=== PATIENT | female | born 1960 | race Caucasian/White ===

== ENCOUNTER 2017-03-02 11:48 | Inpatient (IN) ==
[2017-03-02] MEDS: 0.9 % Sodium Chloride 1,000 ML IVC SCH ×3 (13:07→15:20)
[2017-03-02 13:47] LABS: VBG HCO3 6.9 mEq/L (21-27)
[2017-03-02 13:49] LABS: Basophils # 0.1 K/mcL (0.0-0.2); Basophils % 0.8 %; Eosinophils # 0.1 K/mcL (0.0-0.6); Eosinophils % 1.2 %; Hematocrit 47.1 % (35.3-44.9); Immature Granulocytes % 2.8 % (0-4); Lymphocytes # 2.8 K/mcL (0.6-4.6); Lymphocytes % 24.9 %; Mean Corpuscular Volume 87.9 fL (83.0-100.0); Mean Platelet Volume 8.6 fL (9.4-12.4); Monocytes # 0.7 K/mcL (0.0-1.3); Monocytes % 6.3 %; Neutrophils # 7.2 K/mcL (1.6-8.9); Platelet Count 434 K/mcL (140-400); Red Blood Count 5.36 M/mcL (3.82-4.97); Red Cell Distribution Width 13.8 % (11.5-14.5)
[2017-03-02 13:52] LABS: VBG PH 7.03 pH Units (7.32-7.42)
[2017-03-02] MEDS ORDERED: Ondansetron 4 MG/2 ML VIAL IVP ONE ×2 (13:52→21:03)
[2017-03-02] MEDS ORDERED: *HR* HYDROmorphone (PF) 1 MG/ML SYRINGE IVP ONE ×2 (13:52→14:49)
[2017-03-02] MEDS ORDERED: *HR* Dextrose 50 % in Water (Syg) 50 ML SYRINGE IVP PRN ×2 (13:53→17:00)
--- NOTE | 2017-03-02 13:54 | Emergency Department Note ---
Disposition Clinical Impression: DKA (diabetic ketoacidoses) Qualifiers: Diabetes mellitus type: other specified (including SHAHZAD) Diabetes mellitus complication detail: without coma Qualified Code(s): E13.10 - Other specified diabetes mellitus with ketoacidosis without coma Disposition: Admitted As Inpatient Condition: Fair Referrals: Shashank Moon DO [Primary Care Provider] - Forms: ED Satisfaction Letter Weakness HPI - General Chief complaint: ED Back Pain/Injury Stated complaint: "hyperglycemic/kidney pain Source: patient, EMS Mode of arrival: EMS Limitations: no limitations Nursing Notes Reviewed: Yes Vital Signs Reviewed: Yes - History of Present Illness Pt Subjective Complaint: generalized weakness/fatigue Onset (ago): day(s) (4) Duration: gradually worsening Location: generalized Pain Scale: 9 (Chronic back pain) Improves with: none Worsens with: none Context: other (She did not take any insulin today she has been nauseous and started vomiting today) Associated symptoms: Reports: diaphoresis, nausea/vomiting - Related Data Home Medications Medication Instructions Recorded Confirmed Humalog 10/09/16 Lantus Solostar 10/09/16 Metoprolol 10/09/16 10/09/16 Percocet 5-325 mg Tablet 10/09/16 Previous Rx's Medication Instructions Recorded Ondansetron [Zofran ODT] 8 mg SL Q4HR PRN #14 tab.rapdis 05/10/16 Clindamycin HCl [Cleocin HCl] 300 mg PO TID #30 cap 10/09/16 L. Acidophilus/Pectin, [place] 2 cap PO Q6-12H #50 capsule 10/09/16 [Acidophilus Probiotic Capsule] Mupirocin [Bactroban Oint] 1 appl TP BID #22 g 10/09/16 Allergies Allergy/AdvReac Type Severity Reaction Status Date / Time morphine Allergy See Verified 06/09/15 07:09 Comments Quinolones Allergy See Verified 08/30/15 14:18 Comments acetaminophen [From Tylenol] AdvReac bad Verified 06/05/15 01:44 reaction codeine AdvReac See Verified 06/09/15 07:09 Comments hydrocodone [From Vicodin] AdvReac bad Verified 06/05/15 01:44 reaction levofloxacin [From Levaquin] AdvReac Hives Verified 06/05/15 01:44 NSAIDS (Non-Steroidal AdvReac bad Verified 06/05/15 01:44 Anti-Inflamma reaction Opioids - Morphine Analogues AdvReac See Verified 06/09/15 07:43 Comments All systems ED: reviewed and negative except as stated. Constitutional: Reports: weakness Cardiovascular: Denies: chest pain Gastrointestinal: Reports: nausea, vomiting Neurological: Reports: weakness Past Medical History - Past Medical History Source: patient, old records reviewed, nursing notes reviewed Medical history: Reports: diabetes, other Surgical history: Reports: appendectomy, , cholecystectomy, hysterectomy, orthopedic, other, other Psychiatric history: Reports: anxiety, depression - Social History Smoking Status: Current every day smoker Smokeless Tobacco Status: No Alcohol use: Reports: none Drug use: Reports: none Physical Exam - General General appearance: alert, in distress, other (Patient seems weak she is able to name only with assistance ill but nontoxic-appearing) - Eye Eye exam: Present: normal appearance, PERRL, EOMI - ENT ENT exam: normal exam, normal oropharynx, mucous membranes moist - Neck Neck exam: Present: normal inspection, full ROM, trachea midline - Chest Chest inspection: Present: normal inspection - Respiratory Respiratory exam: Present: normal lung sounds bilaterally - Cardiovascular Cardiovascular exam: Present: tachycardia - Abdominal Exam Abdominal exam: Present: soft, Non-Tender. Absent: tenderness, distention, guarding, rebound, rigidity - Neurological Exam Neurological exam: Present: alert, oriented X3 - Psychiatric Psychiatric exam: Present: flat affect - Skin Skin exam: Present: diaphoresis Course Course Narrative: She has asked for several doses of pain medication she states she states Percocet 10 mg and also has a TENS unit in her spine she has chronic back pain and needs her pain medications daily. I told her we had to give her small doses slowly due to her severe metabolic abnormalities and acidosis we do not want to alter her mental status Vital Signs Temperature 98.4 F 03/02/17 11:52 Pulse Rate 128 03/02/17 11:52 Respiratory Rate 20 03/02/17 11:52 Blood Pressure 154/82 03/02/17 11:52 O2 Sat by Pulse Oximetry 92 03/02/17 11:52 Temperature 98.4 F 03/02/17 11:52 Pulse Rate 122 03/02/17 14:16 Respiratory Rate 18 03/02/17 14:16 Blood Pressure 159/88 03/02/17 14:16 O2 Sat by Pulse Oximetry 98 03/02/17 14:16 Oxygen Delivery Oxygen Delivery Room Air Weakness - Differential Diagnosis Differential Diagnosis: Likely: anemia, hypoglycemia, sepsis/infection, dehydration, metabolic, thyroid/endocrine disorder - Medical Records Medical records reviewed: Yes I reviewed the patient's medical records. - Lab Data Lab results reviewed: Yes I reviewed the patient's lab results. Result diagrams: 03/02/17 13:29 03/02/17 13:29 Lab Results 03/02/17 03/02/17 03/02/17 Range/Units 13:29 13:29 13:29 WBC 11.3 H (4.3-11.1) K/mcL RBC 5.36 H (3.82-4.97) M/mcL Hgb 15.4 (11.5-15.4) g/dL Hct 47.1 H (35.3-44.9) % MCV 87.9 (83.0-100.0) fL MCH 28.8 (28.0-33.3) pg MCHC 34.2 (31.6-35.5) g/dL RDW 13.8 (11.5-14.5) % Plt Count 434 H (140-400) K/mcL MPV 8.6 L (9.4-12.4) fL Immature Gran % 2.8 (0-4) % Seg Neutrophils % 64.0 % Lymphocytes % 24.9 % Monocytes % 6.3 % Eosinophils % 1.2 % Basophils % 0.8 % Neutrophils # 7.2 (1.6-8.9) K/mcL Lymphocytes # 2.8 (0.6-4.6) K/mcL Monocytes # 0.7 (0.0-1.3) K/mcL Eosinophils # 0.1 (0.0-0.6) K/mcL Basophils # 0.1 (0.0-0.2) K/mcL VBG pH (7.32-7.42) pH Units VBG pCO2 (41-51) mmHg VBG pO2 (25-40) mmHg VBG HCO3 (21-27) mEq/L Sodium 133 L (136-145) mEq/L Potassium 4.1 (3.5-4.5) mEq/L Chloride 101 (98-109) mEq/L Carbon Dioxide 6 L* (19-29) mEq/L BUN 16 (7-20) mg/dL Creatinine 1.14 H (0.57-1.11) mg/dL Est GFR ( Amer) > 60 (> 60) Est GFR (Non-Af Amer) 50 L (> 60) BUN/Creatinine Ratio 14 (6-26) Glucose 493 H (70-99) mg/dL Est Mean Plasma Glucose 243 mg/dl Hemoglobin A1c 10.1 H ( - 5.6) % Calculated Osmolality 299 (280-300) Calcium 8.5 L (8.6-10.8) mg/dL Phosphorus 4.1 (2.3-4.7) mg/dL Magnesium 1.7 (1.6-2.6) mg/dL Total Bilirubin 0.2 (0.2-1.2) mg/dL AST 23 (5-34) Units/L ALT 30 (0-55) Units/L Alkaline Phosphatase 217 H (38-126) Units/L Serum Total Protein 6.1 (6.0-8.3) g/dL Albumin 3.6 (3.5-5.0) g/dL Globulin 2.5 (2.4-3.5) g/dL Albumin/Globulin Ratio 1.4 (1.1-2.2) Beta-Hydroxybutyric Acd > 2.00 H (0.02-0.27) mmol/L 03/02/17 Range/Units 13:29 WBC (4.3-11.1) K/mcL RBC (3.82-4.97) M/mcL Hgb (11.5-15.4) g/dL Hct (35.3-44.9) % MCV (83.0-100.0) fL MCH (28.0-33.3) pg MCHC (31.6-35.5) g/dL RDW (11.5-14.5) % Plt Count (140-400) K/mcL MPV (9.4-12.4) fL Immature Gran % (0-4) % Seg Neutrophils % % Lymphocytes % % Monocytes % % Eosinophils % % Basophils % % Neutrophils # (1.6-8.9) K/mcL Lymphocytes # (0.6-4.6) K/mcL Monocytes # (0.0-1.3) K/mcL Eosinophils # (0.0-0.6) K/mcL Basophils # (0.0-0.2) K/mcL VBG pH 7.03 L* (7.32-7.42) pH Units VBG pCO2 26 L (41-51) mmHg VBG pO2 55 H (25-40) mmHg VBG HCO3 6.9 L (21-27) mEq/L Sodium (136-145) mEq/L Potassium (3.5-4.5) mEq/L Chloride (98-109) mEq/L Carbon Dioxide (19-29) mEq/L BUN (7-20) mg/dL Creatinine (0.57-1.11) mg/dL Est GFR ( Amer) (> 60) Est GFR (Non-Af Amer) (> 60) BUN/Creatinine Ratio (6-26) Glucose (70-99) mg/dL Est Mean Plasma Glucose mg/dl Hemoglobin A1c ( - 5.6) % Calculated Osmolality (280-300) Calcium (8.6-10.8) mg/dL Phosphorus (2.3-4.7) mg/dL Magnesium (1.6-2.6) mg/dL Total Bilirubin (0.2-1.2) mg/dL AST (5-34) Units/L ALT (0-55) Units/L Alkaline Phosphatase (38-126) Units/L Serum Total Protein (6.0-8.3) g/dL Albumin (3.5-5.0) g/dL Globulin (2.4-3.5) g/dL Albumin/Globulin Ratio (1.1-2.2) Beta-Hydroxybutyric Acd (0.02-0.27) mmol/L Critical Care Time Critical Care Time: Yes Total Critical Care Time: 40 Attestation: Critical care performed: Time is exclusive of separately billable procedures. Time includes: direct patient care, patient reassessment, coordination of patient care, interpretation of data (laboratory data, radiology data, and respiratory data), review of patient's medical records, medical consultation and documentation of patient care. Procedures included in critical care time: Procedures excluded from critical care time:
[2017-03-02] MEDS ORDERED: Insulin Human Regular 100 UNIT in 0.9 % Sodium Chloride 100 ML IVC SCH (14:00)
[2017-03-02 14:02] LABS: Beta-Hydroxybutyric Acid > 2.00 mmol/L (0.02-0.27)
[2017-03-02 14:04] LABS: Hemoglobin A1C 10.1 %
[2017-03-02 14:28] LABS: Mean Corpuscular Hemoglobin 28.8 pg (28.0-33.3)
[2017-03-02 14:29] LABS: Hemoglobin 15.4 g/dL (11.5-15.4); Mean Corpuscular HGB Conc 34.2 g/dL (31.6-35.5)
[2017-03-02 14:43] LABS: eGFR For African Americans > 60 (> 60)
[2017-03-02 14:46] LABS: Sodium 133 mEq/L (136-145)
[2017-03-02 14:47] LABS: BUN/Creatinine Ratio 14 (6-26); Osmolality,Calculated 299 (280-300); eGFR For Non-African Americans 50 (> 60)
[2017-03-02 14:49] LABS: Albumin/Globulin Ratio 1.4 (1.1-2.2); Globulin 2.5 g/dL (2.4-3.5)
[2017-03-02 14:52] LABS: Carbon Dioxide 6 mEq/L (19-29); Potassium 4.1 mEq/L (3.5-4.5)
[2017-03-02 14:53] LABS: Blood Urea Nitrogen 16 mg/dL (7-20); Chloride 101 mEq/L (98-109)
[2017-03-02 14:54] LABS: Calcium 8.5 mg/dL (8.6-10.8); Glucose 493 mg/dL (70-99); Magnesium 1.7 mg/dL (1.6-2.6); Phosphorous 4.1 mg/dL (2.3-4.7)
[2017-03-02 14:55] LABS: Alanine Aminotransferase 30 Units/L (0-55); Albumin 3.6 g/dL (3.5-5.0); Alkaline Phosphatase 217 Units/L (38-126); Aspartate Amino Transferase 23 Units/L (5-34); Bilirubin,Total 0.2 mg/dL (0.2-1.2); Total Protein 6.1 g/dL (6.0-8.3)
[2017-03-02] MEDS: Insulin Human Regular 100 UNIT in 0.9 % Sodium Chloride 100 ML IVC SCH (16:50)
[2017-03-02] MEDS ORDERED: Insulin Regular, Human 100 UNIT/ML IV PRN (17:00)
[2017-03-02] MEDS ORDERED: 0.45 % Sodium Chloride w/KCl 20 MEQ/1,000 ML MLS IVC SCH (17:30)
[2017-03-02] MEDS ORDERED: SUMAtriptan succinate 50 MG TABLET PO PRN (17:44)
[2017-03-02 18:01] LABS: VBG HCO3 7.4 mEq/L (21-27)
[2017-03-02 18:05] LABS: VBG PH 6.96 pH Units (7.32-7.42)
[2017-03-02 18:16] LABS: BUN/Creatinine Ratio 8 (6-26); Blood Urea Nitrogen 12 mg/dL (7-20); Chloride 98 mEq/L (98-109); Glucose 257 mg/dL (70-99); Osmolality,Calculated 263 (280-300); Potassium 3.9 mEq/L (3.5-4.5); Sodium 122 mEq/L (136-145); eGFR For African Americans 43 (> 60); eGFR For Non-African Americans 35 (> 60)
[2017-03-02] MEDS ORDERED: *HR* OxyCODONE Immed Rel 5 MG TABLET PO PRN (18:16)
[2017-03-02] MEDS ORDERED: Naloxone 0.4 MG/ML INJ IVP PRN (18:16)
[2017-03-02] MEDS ORDERED: *HR* HYDROmorphone (PF) 1 MG/ML SYRINGE IVP PRN (18:22)
[2017-03-02 18:24] LABS: Carbon Dioxide < 10 mEq/L (19-29)
--- NOTE | 2017-03-02 18:24 | Internal Med History&Physical ---
Date of Encounter: 03/02/17 Time of Encounter: 18:22 Assessment and Plan (1) Chronic back pain Current visit: Yes Status: Acute She has a nerve stimulator implanted. She says that it has not been working lately. I we will treat her with IV Dilaudid while she is nothing by mouth. Transition to her oral oxycodone. Consult pain management service. Qualifiers: Back pain location: low back pain Back pain laterality: midline Sciatica presence: without sciatica Qualified Code(s): M54.5 - Low back pain; G89.29 - Other chronic pain (2) Morbid obesity with BMI of 40.0-44.9, adult Current visit: Yes Status: Acute Outpatient weight loss regimen. Follow-up with PCP. (3) Metabolic acidosis Current visit: Yes Status: Acute PH is and acidemic range. We will monitor closely and provide specific treatment for DKA. If pH remains acidemic will start IV bicarbonate. (4) DVT prophylaxis Current visit: Yes Status: Acute Subcutaneous Lovenox. (5) DKA (diabetic ketoacidoses) Current visit: Yes Status: Acute She has a history of insulin-dependent diabetes for the last 15 years. She denies ever had an episode of DKA before. She presented with back pain polyuria and polydipsia. Anion gap was 26, last bicarbonate was 6. ABG showed metabolic acidosis CONSISTENT with DKA. We will treat her with IV insulin drip per DKA protocol, monitor and replete electrolytes. We will use sodium bicarbonate if pH does not respond to insulin protocol. We will check for occult source of infection. Chest x-ray shows no infection. We will check urinalysis and culture. Qualifiers: Diabetes mellitus type: type 2 Diabetes mellitus complication detail: without coma Qualified Code(s): E13.10 - Other specified diabetes mellitus with ketoacidosis without coma Internal Medicine - H&P: HPI Chief complaint: Back pain Admitted From: Emergency Dept Plans for Post Hospital Care: Home History of present illness: Ms. Pugh is a 56 year old female with past medical history significant for chronic back pain status post spinal stimulator implantation, type 2 diabetes, morbid obesity who presented to the hospital for low back pain. She has chronic back pain but for the last 4 days and had been worse, sharp 9/10 in intensity worse with ambulation, not alleviated by oxycodone 10 mg which she has at home. She also reported feeling generally weak and having increased thirst and urinating more frequently than usual. Upon evaluation in the emergency department she was found to be acidemic and hyperglycemic. A 10 point review of systems was negative except for back pain as above Family history negative for premature coronary artery disease in both parents. Past Med Surg Social Fam HX - Past Medical History Medical history: diabetes, other Psychiatric history: anxiety, depression - Past Surgical History Surgical History: appendectomy, , cholecystectomy, hysterectomy, orthopedic, other, other - Social History Smoking Status: Current every day smoker Smokeless Tobacco Status: No Alcohol use: none Drug use: none Internal Medicine - H&P: Meds Insulin Glargine [Lantus] 95 unit SQ BID 10/09/16 [History] Insulin LISPRO [Humalog Kwikpen U-100] 35 unit SQ TID 10/09/16 [History] Metoprolol XL (24 HR) Succ [Toprol XL] 50 mg PO DAILY 10/09/16 [History] Duloxetine HCl [Cymbalta] 60 mg PO DAILY 03/02/17 [History] Empagliflozin [Jardiance] 10 mg PO DAILY 03/02/17 [History] Fenofibrate Nanocrystallized [Triglide] 160 mg PO DAILY 03/02/17 [History] Furosemide [Lasix] 40 mg PO DAILY PRN 03/02/17 [History] Gabapentin [Neurontin] 800 mg PO QID 03/02/17 [History] Lidocaine Patch [Lidoderm 5% patch] 1 each TP DAILY PRN 03/02/17 [History] Lipase/Protease/Amylase [Ariana Moran 24,000 Units Capsule] 2 each PO AD 03/02/17 [ History] Lipase/Protease/Amylase [Credusty Dr 24,000 Units Capsule] 3 each PO TIDWM [History] Ondansetron HCl [Zofran] 4 mg PO TID PRN 03/02/17 [History] Oxycodone HCl 10 mg PO Q4H PRN 03/02/17 [History] Rosuvastatin Calcium [Crestor] 10 mg PO HS 03/02/17 [History] SUMAtriptan succinate [Imitrex] 50 mg PO DAILY PRN 03/02/17 [History] Tizanidine HCl 8 mg PO Q8H PRN 03/02/17 [History] Topiramate [Topamax] 25 mg PO HS 03/02/17 [History] Allergies morphine Allergy (Verified 06/09/15 07:09) See Comments Quinolones Allergy (Verified 08/30/15 14:18) See Comments unknown acetaminophen [From Tylenol] Adverse Reaction (Verified 06/05/15 01:44) bad reaction codeine Adverse Reaction (Verified 06/09/15 07:09) See Comments hydrocodone [From Vicodin] Adverse Reaction (Verified 06/05/15 01:44) bad reaction levofloxacin [From Levaquin] Adverse Reaction (Verified 06/05/15 01:44) Hives NSAIDS (Non-Steroidal Anti-Inflamma Adverse Reaction (Verified 06/05/15 01:44) bad reaction Opioids - Morphine Analogues Adverse Reaction (Verified 06/09/15 07:43) See Comments All Systems PM: A 10-system review of systems was performed and is negative for pertinent findings except as documented above in the HPI. - Constitutional Vitals: Temp Pulse Resp BP Pulse Ox 97.9 F 125 18 179/98 98 03/02/17 16:52 03/02/17 16:52 03/02/17 16:52 03/02/17 16:52 03/02/17 16:52 General appearance: Present: A&O X 3, morbidly obese - Eye Eye exam: Present: PERRL, conjuntiva pink, sclera anicteric Pupils: Present: PERRL - Respiratory Respiratory exam: Present: CTAB. Absent: accessory muscle use, rales, rhonchi, wheezes - Cardiovascular Cardiovascular exam: Present: +S1, +S2, tachycardia. Absent: diastolic murmur, gallop, rubs, systolic murmur - GI/Abdominal GI/Abdominal exam: Present: normal bowel sounds, soft, no peritoneal signs. Absent: distended, tenderness - Extremities Exam Extremities exam: Present: warm, radial pulses palpable and symetrical. Absent : calf tenderness, cyanotic, pedal edema - Neurological Exam Neurological exam: Present: CN II-XII intact, oriented X3, no focal deficits. Absent: pronater drift, facial droop, speech deficit - Skin Skin exam: Present: dry, intact Internal Med - H&P Results - Labs CBC & Chem 7: 03/02/17 13:29 03/02/17 13:29 - ABG Interpretation ABG results: 03/02/17 17:35 VBG pH 6.96 L* VBG pCO2 33 L VBG pO2 55 H VBG HCO3 7.4 L - EKG Data -: EKG Interpreted by Myself (Sinus tachycardia 1 37 bpm) EKG shows normal: intervals, QRS complexes Rate: tachycardia
[2017-03-02] MEDS: *HR* HYDROmorphone (PF) 1 MG/ML SYRINGE IVP PRN ×2 (18:45→22:34)
[2017-03-02 19:42] LABS: VBG HCO3 7.3 mEq/L (21-27)
[2017-03-02 19:44] LABS: VBG PH 6.98 pH Units (7.32-7.42)
[2017-03-02] MEDS: Topiramate 25 MG TABLET PO SCH (20:29)
[2017-03-02] MEDS: Gabapentin 400 MG CAPSULE PO SCH (20:29)
[2017-03-02 22:45] LABS: eGFR For African Americans > 60 (> 60); eGFR For Non-African Americans > 60 (> 60)
[2017-03-02 22:51] LABS: Sodium 138 mEq/L (136-145)
[2017-03-02 22:52] LABS: Chloride 112 mEq/L (98-109); Potassium 4.1 mEq/L (3.5-4.5)
[2017-03-02 22:54] LABS: Blood Urea Nitrogen 10 mg/dL (7-20)
[2017-03-02 22:55] LABS: BUN/Creatinine Ratio 13 (6-26)
[2017-03-02 22:56] LABS: Osmolality,Calculated 289 (280-300)
[2017-03-02 22:57] LABS: Carbon Dioxide 8 mEq/L (19-29); Glucose 161 mg/dL (70-99)
[2017-03-02 22:58] LABS: Calcium 7.7 mg/dL (8.6-10.8); Magnesium 1.1 mg/dL (1.6-2.6)
[2017-03-02] MEDS: D5% in 0.45% NACL w KCl 20 MEQ/1,000 ML MLS IVC PRN (23:20)
[2017-03-03 00:37] LABS: Bilirubin,Urine Small (Negative); Blood,Urine Large (Negative); Clarity,Urine Cloudy (Clear); Color,Urine Yellow (Yellow); Glucose,Urine (UA) 500 mg/dL (Normal); Ketones,Urine >=160 mg/dL (Negative); Leukocyte Esterase,Urine Negative (Negative); Nitrite,Urine Negative (Negative); PH,Urine 5.5 pH Units (5.0-8.0); Protein,Urine 100 mg/dL (Neg-Trace); Specific Gravity,Urine 1.025 (1.010-1.025); Urobilinogen,Urine Normal (Normal)
[2017-03-03 00:41] LABS: Bacteria,Urine Few per hpf (None-Few); Hyaline Casts,Urine None Seen per lpf (None-Few); RBC,Urine 15-30 per hpf (0-3); Squamous Epithelial Cell,Urine Many per lpf (None-Few)
[2017-03-03 01:17] LABS: Hematocrit 43.6 % (35.3-44.9); Immature Platelets 3.3 % (1.1-6.1); Mean Platelet Volume 9.6 fL (9.4-12.4); Platelet Count 302 K/mcL (140-400); Red Blood Count 5.01 M/mcL (3.82-4.97)
[2017-03-03 01:18] LABS: VBG HCO3 7.3 mEq/L (21-27); VBG PH 7.27 pH Units (7.32-7.42)
[2017-03-03] MEDS: *HR* HYDROmorphone (PF) 1 MG/ML SYRINGE IVP PRN ×3 (01:51→09:33)
[2017-03-03] MEDS: Insulin Human Regular 100 UNIT in 0.9 % Sodium Chloride 100 ML IVC SCH ×8 (01:56→22:07)
[2017-03-03] MEDS ORDERED: Pantoprazole 40 MG VIAL IVP ONE (01:57)
[2017-03-03 02:02] LABS: eGFR For African Americans > 60 (> 60); eGFR For Non-African Americans > 60 (> 60)
[2017-03-03 02:04] LABS: Sodium 137 mEq/L (136-145)
[2017-03-03 02:05] LABS: BUN/Creatinine Ratio 8 (6-26)
[2017-03-03 02:06] LABS: Blood Urea Nitrogen 7 mg/dL (7-20); Chloride 113 mEq/L (98-109); Glucose 197 mg/dL (70-99); Hemoglobin 12.5 g/dL (11.5-15.4); Osmolality,Calculated 287 (280-300); Potassium 3.6 mEq/L (3.5-4.5)
[2017-03-03 02:07] LABS: Calcium 7.8 mg/dL (8.6-10.8); Magnesium 1.1 mg/dL (1.6-2.6)
[2017-03-03 02:08] LABS: Mean Corpuscular HGB Conc 28.7 g/dL (31.6-35.5)
[2017-03-03 02:09] LABS: Carbon Dioxide 8 mEq/L (19-29)
[2017-03-03 02:13] LABS: Neutrophils # 13.5 K/mcL (1.6-8.9); Platelet Estimate Normal (Normal)
[2017-03-03] MEDS: D5% in 0.45% NACL w KCl 20 MEQ/1,000 ML MLS IVC PRN ×4 (03:52→23:50)
[2017-03-03] MEDS: Ondansetron 4 MG/2 ML VIAL IVP PRN ×2 (05:08→12:55)
[2017-03-03 05:47] LABS: Basophils % 0.2 %; Eosinophils % 0.1 %; Hematocrit 44.2 % (35.3-44.9); Immature Granulocytes % 1.7 % (0-4); Lymphocytes # 1.6 K/mcL (0.6-4.6); Lymphocytes % 12.7 %; Mean Corpuscular Volume 85.5 fL (83.0-100.0); Monocytes # 0.7 K/mcL (0.0-1.3); Monocytes % 5.9 %; Neutrophils # 9.7 K/mcL (1.6-8.9); Platelet Count 264 K/mcL (140-400); Red Blood Count 5.17 M/mcL (3.82-4.97); Segmented Neutrophils % 79.4 %; VBG PH 7.24 pH Units (7.32-7.42)
[2017-03-03] MEDS ORDERED: Famotidine 20 MG/2 ML VIAL IVP SCH (06:00)
[2017-03-03] MEDS ORDERED: *HR* Enoxaparin 40 MG/0.4 ML SYRINGE SQ SCH (06:00)
[2017-03-03 06:14] LABS: Hemoglobin 13.4 g/dL (11.5-15.4)
[2017-03-03 06:15] LABS: Mean Corpuscular Hemoglobin 25.9 pg (28.0-33.3)
[2017-03-03 06:16] LABS: Mean Corpuscular HGB Conc 30.3 g/dL (31.6-35.5)
[2017-03-03 06:31] LABS: eGFR For African Americans > 60 (> 60); eGFR For Non-African Americans > 60 (> 60)
[2017-03-03 06:32] LABS: BUN/Creatinine Ratio 8 (6-26)
[2017-03-03 06:34] LABS: Blood Urea Nitrogen 7 mg/dL (7-20); Chloride 116 mEq/L (98-109); Potassium 3.2 mEq/L (3.5-4.5); Sodium 140 mEq/L (136-145)
[2017-03-03 06:35] LABS: Calcium 7.9 mg/dL (8.6-10.8); Glucose 260 mg/dL (70-99); Magnesium 1.1 mg/dL (1.6-2.6); Osmolality,Calculated 297 (280-300)
[2017-03-03 06:36] LABS: Carbon Dioxide 10 mEq/L (19-29)
[2017-03-03] MEDS ORDERED: 0.9 % Sodium Chloride 1,000 ML IVC ONE ×2 (08:02→11:34)
[2017-03-03] MEDS: Fenofibrate 54 MG TABLET PO SCH (08:03)
[2017-03-03] MEDS ORDERED: Magnesium Sulfate 2 GM in D5% in Water 100 ML IVPB ONE ×2 (08:05)
[2017-03-03 08:10] LABS: VBG HCO3 12.8 mEq/L (21-27); VBG PH 7.3 pH Units (7.32-7.42)
[2017-03-03] MEDS: Metoprolol XL (24 HR) Succ 50 MG TAB.ER.24H PO SCH (08:15)
[2017-03-03] MEDS: Gabapentin 400 MG CAPSULE PO SCH ×4 (08:15→20:53)
[2017-03-03 10:49] LABS: eGFR For African Americans > 60 (> 60); eGFR For Non-African Americans > 60 (> 60)
[2017-03-03 10:53] LABS: Chloride 115 mEq/L (98-109); Potassium 3.1 mEq/L (3.5-4.5)
[2017-03-03 10:54] LABS: BUN/Creatinine Ratio 6 (6-26); Blood Urea Nitrogen 5 mg/dL (7-20); Calcium 7.8 mg/dL (8.6-10.8); Glucose 226 mg/dL (70-99); Osmolality,Calculated 290 (280-300)
[2017-03-03 10:55] LABS: Sodium 138 mEq/L (136-145)
[2017-03-03 10:56] LABS: Carbon Dioxide 10 mEq/L (19-29)
--- NOTE | 2017-03-03 11:07 | Internal Med Progress Note ---
Date of Encounter: 03/03/17 Time of Encounter: 11:04 - Assessment and plan (1) Sepsis Current Visit: Yes Status: Suspected Assessment and plan: Suspected sepsis due to tachycardia and leukocytosis No fever, Source is most likely urinary or abdominal Patient reported suprapubic pain and diarrhea Abdomen exam is unremarkable Patient with known pacreatitis, will obtain lipase Blood culture has been sent, awaiting results Urine culture is pending Will send C-diff if she has watery BM, no BM documented yet Patient with normal BP, on multiple fluids for DKA Start on empiric antibiotics-Zosyn and vanco Plan to rapidly de-escalate with culture results Qualifiers: Sepsis type: sepsis due to unspecified organism Qualified Code(s): A41.9 - Sepsis, unspecified organism (2) DKA (diabetic ketoacidoses) Current Visit: Yes Status: Acute Assessment and plan: Continue protocol Replace electrolytes aggresively FS qhrly Qualifiers: Diabetes mellitus type: type 2 Diabetes mellitus complication detail: without coma Qualified Code(s): E13.10 - Other specified diabetes mellitus with ketoacidosis without coma (3) Chronic pancreatitis Current Visit: Yes Status: Chronic Assessment and plan: Obtain lipase Abdomen is not acute Qualifiers: Pancreatitis type: unspecified pancreatitis type Qualified Code(s): K86.1 - Other chronic pancreatitis (4) Chronic back pain Current Visit: Yes Status: Chronic Assessment and plan: Patient is barely awake to be able to swallow Hold po meds Give IV dilaudid for severe pain for now Lumbar CT without contrast pending Qualifiers: Back pain location: low back pain Back pain laterality: midline Sciatica presence: without sciatica Qualified Code(s): M54.5 - Low back pain; G89.29 - Other chronic pain (5) Metabolic acidosis Current Visit: Yes Status: Acute Assessment and plan: As in DKA Improving, PH is improving Risk of lethal arrhythmias (6) DVT prophylaxis Current Visit: Yes Status: Acute Assessment and plan: Heparin (7) Obesity (BMI 30-39.9) Current Visit: Yes Status: Chronic - Subjective Interval history: 56 F with Chronic low bakc pain with indwelling stimlator, Morbid Obesity, DM, chronic pancreatitis She is admitted and being managed for DKA, Acute on chronic pain, hypokalemia, hypomagnessia Upon evaluation, patient is lethargic, but able to provide history of abdominal pain She has received IVF but has not produced urine for 4 hrs at time of review, she has however made urine in the past Chart review reveals abnormal UA,culture is pending She is still on insulin drip, her PH has improved, her Bicarb has slowly improved She is tacycardic , and has leukocytosis, no fever Urine culture was sent, and pending Will send blood culture and start on empiric anitbiotics for sepsis, possible UTI source Will obtain Lumbar CT, unlikely she has any form of collection She is following with pain management, consulted already by admitting team - Constitutional Vitals: Temp Pulse Resp BP Pulse Ox 99 F 131 20 149/81 91 03/03/17 08:25 03/03/17 08:25 03/03/17 08:25 03/03/17 08:25 03/03/17 08:25 VS-Afebrile, tachycardic, dehydrated, awake, but lethargic NEuro: Awake, lethargic, oriented X3 HEENT: Dry oral mucosa Chest: CTAB, no added sounds, no rales Heart: S1, S2 only, tachycardic, no murmurs Abeomdn: Obese, soft, no palpable tenderness, no rebound, bowel sounds present in all quadrants Extremities: No pedal edema Back: Left flank area with stimulator, L-spine scra, no focal point of tenderness, no collection visible General appearance: Present: A&O X 3, morbidly obese Internal Medicine: Result - Labs CBC & Chem 7: 03/03/17 04:50 03/03/17 13:10 Labs: Short CBC 03/03/17 03/03/17 Range/Units 00:54 04:50 WBC 16.4 H 12.2 H (4.3-11.1) K/mcL Hgb 12.5 D 13.4 (11.5-15.4) g/dL Hct 43.6 44.2 (35.3-44.9) % Plt Count 302 264 (140-400) K/mcL Neutrophils # 13.5 H 9.7 H (1.6-8.9) K/mcL BMP 03/02/17 03/02/17 03/03/17 17:35 19:33 00:54 Sodium 122 L D 138 D 137 Potassium 3.9 4.1 3.6 Chloride 98 112 H 113 H Carbon Dioxide < 10 L* 8 L* 8 L* BUN 12 10 7 Creatinine 1.54 H 0.89 0.88 Glucose 257 H 161 H 197 H Calcium 9.0 7.7 L 7.8 L 03/03/17 03/03/17 04:50 07:55 Sodium 140 138 Potassium 3.2 L 3.1 L Chloride 116 H 115 H Carbon Dioxide 10 L* 10 L* BUN 7 5 L Creatinine 0.85 0.79 Glucose 260 H 226 H Calcium 7.9 L 7.8 L Urine 03/03/17 Range/Units 00:23 Urine Color Yellow (Yellow) Urine Clarity Cloudy A (Clear) Urine pH 5.5 (5.0-8.0) pH Units Ur Specific [place] 1.025 (1.010-1.025) Urine Protein 100 H (Neg-Trace) mg/dL Urine Glucose (UA) 500 H (Normal) mg/dL - VTE Documentation of Mechanical Device: Intermittent pneumatic compression device Consult Discharge Plan - Plan Referrals: Shashank Moon DO [Primary Care Provider] -
[2017-03-03 11:15] LABS: Magnesium 1.2 mg/dL (1.6-2.6)
[2017-03-03 14:14] LABS: BUN/Creatinine Ratio 6 (6-26); Carbon Dioxide 11 mEq/L (19-29); Chloride 109 mEq/L (98-109); Glucose 229 mg/dL (70-99); Osmolality,Calculated 273 (280-300); eGFR For African Americans > 60 (> 60); eGFR For Non-African Americans > 60 (> 60)
[2017-03-03 14:16] LABS: Blood Urea Nitrogen 5 mg/dL (7-20); Calcium 8.7 mg/dL (8.6-10.8); Magnesium 2.9 mg/dL (1.6-2.6); Potassium 3.7 mEq/L (3.5-4.5)
[2017-03-03 14:20] LABS: Sodium 129 mEq/L (136-145)
--- NOTE | 2017-03-03 14:34 | Pain Management Consultation ---
Date of Encounter: 03/03/17 Time of Encounter: 14:31 Assessment and Plan (1) Chronic back pain Current Visit: Yes Status: Chronic Recommendations: The patient had successful implantation of a [employer] neuromodulation system at the end of 2014. The patient last saw Dr Moyer in September 2015. The patient was scheduled in our clinic in December 2016, but that appointment was canceled for some reason. Overall, recommend follow-up with Dr. Moyer after hospital discharge. Given the patient's current medical situation, analgesia can be provided with when necessary doses of intravenous opioid. IV hydromorphone is a fine option given the fact that the patient is not opioid naive. At home, her medications are oxycodone 10 mg 6 tablets per day, although the patient tells me she takes 4 tablets per day. Other medications are Cymbalta 60 mg daily, gabapentin 800 mg 4 times daily, and Topamax 25 mg per day. Once enteral intake reestablished, discontinue IV opioids and restart above medications. Recommend continued use of neuromodulation system even now when she is in the hospital. There is no downside to utilizing her neuromodulation system for analgesia of low back and leg pain. Patient-controlled analgesia system not a good option given her mental state. There is concern for an infectious abdominal process, but the patient's long- standing pancreatitis makes abdominal exam difficult to establish an acute diagnosis. Agree with CT and ultrasound exams of the abdomen to rule out infection. Consider outpatient follow-up with gastroenterology for chronic pancreatitis. On review of her records over the past year, it does not look like she has followed up with GI. Thank you for seeking our recommendations with this patient's care. Call with any questions. The assessment and plan as outlined above was discussed with the patient and/or family members who expressed understanding and agreement. All questions were answered. Qualifiers: Back pain location: low back pain Back pain laterality: midline Sciatica presence: without sciatica Qualified Code(s): M54.5 - Low back pain; G89.29 - Other chronic pain History of Present Illness Chief complaint: back pain HPI: Overall, history is obtainable, but the patient's level of consciousness is not full. Ms. Pugh is a 56 year old female suffering with chronic low back pain radiating into both lower limbs for multiple years. She describes her pain score as typically 8/10. Currently, her pain score in her low back is 8/10. She describes the pain as a deep aching sensation with shooting and tingling pain into the back sides of both legs. She received a spinal cord stimulation system implant in the beginning of 2015. She uses her stimulation system on a daily basis, and she states that it does control pain in her low back and legs, but not her abdomen. She also describes a situation of chronic abdominal pain located in her middle upper abdomen that has also been present for many years. She describes this as a sharp, gnawing sensation. Right now, her pain score in this area is 8/10. There is also some pain in the left lower side of her stomach. She states that she came into the hospital because of low back pain that was out of proportion to normal. She is also having more abdominal pain than she is used to having currently. Past Med Surg Social Fam HX - Past Medical History Medical history: diabetes, other Psychiatric history: anxiety, depression - Past Surgical History Surgical History: appendectomy, , cholecystectomy, hysterectomy, orthopedic, other, other - Social History Smoking Status: Current every day smoker Smokeless Tobacco Status: No Alcohol use: none Drug use: none Medications and Allergies Insulin Glargine [Lantus] 95 unit SQ BID 10/09/16 [History] Insulin LISPRO [Humalog Kwikpen U-100] 35 unit SQ TID 10/09/16 [History] Metoprolol XL (24 HR) Succ [Toprol XL] 50 mg PO DAILY 10/09/16 [History] Duloxetine HCl [Cymbalta] 60 mg PO DAILY 03/02/17 [History] Empagliflozin [Jardiance] 10 mg PO DAILY 03/02/17 [History] Fenofibrate Nanocrystallized [Triglide] 160 mg PO DAILY 03/02/17 [History] Furosemide [Lasix] 40 mg PO DAILY PRN 03/02/17 [History] Gabapentin [Neurontin] 800 mg PO QID 03/02/17 [History] Lidocaine Patch [Lidoderm 5% patch] 1 each TP DAILY PRN 03/02/17 [History] Lipase/Protease/Amylase [Creon Dr 24,000 Units Capsule] 2 each PO AD 03/02/17 [ History] Lipase/Protease/Amylase [Creon Dr 24,000 Units Capsule] 3 each PO TIDWM [History] Ondansetron HCl [Zofran] 4 mg PO TID PRN 03/02/17 [History] Oxycodone HCl 10 mg PO Q4H PRN 03/02/17 [History] Rosuvastatin Calcium [Crestor] 10 mg PO HS 03/02/17 [History] SUMAtriptan succinate [Imitrex] 50 mg PO DAILY PRN 03/02/17 [History] Tizanidine HCl 8 mg PO Q8H PRN 03/02/17 [History] Topiramate [Topamax] 25 mg PO HS 03/02/17 [History] Allergies morphine Allergy (Verified 06/09/15 07:09) See Comments Quinolones Allergy (Verified 08/30/15 14:18) See Comments unknown acetaminophen [From Tylenol] Adverse Reaction (Verified 06/05/15 01:44) bad reaction codeine Adverse Reaction (Verified 06/09/15 07:09) See Comments hydrocodone [From Vicodin] Adverse Reaction (Verified 06/05/15 01:44) bad reaction levofloxacin [From Levaquin] Adverse Reaction (Verified 06/05/15 01:44) Hives NSAIDS (Non-Steroidal Anti-Inflamma Adverse Reaction (Verified 06/05/15 01:44) bad reaction Opioids - Morphine Analogues Adverse Reaction (Verified 06/09/15 07:43) See Comments Review of Systems - Constitutional Constitutional ROS IM: daytime sleepiness, no photophobia, no phonophobia, no fever(s), no stops breathing during sleep - EENT Nose, mouth and throat: no headache(s), no neck pain, no neck trauma - Cardiovascular Cardiovascular ROS: no chest pain, no leg edema, no lightheadedness - Respiratory Respiratory: no pain on inspiration, no pain with cough - Gastrointestinal Gastrointestinal: abdominal pain, constipation, no diarrhea, no heartburn - Genitourinary Genitourinary ROS: no difficulty urinating, no flank pain, no urinary hesitancy - Musculoskeletal Musculoskeletal ROS: numbness, radiating pain into limb, tingling, no muscle weakness - Integumentary Integumentary: no erythema, no lesions, no swelling - Neurological Neurological ROS: radicular pain, no abnormal gait, no behavioral changes, no focal weakness - Psychiatric Psychiatric general: no anxiety, no confusion, no depression - Hematologic/Lymphatic Hematologic/Lymphatic pediatric: no easy bleeding, no easy bruising Physical Exam Initial Vital Signs Temp Pulse Resp BP Pulse Ox 98.4 F 128 20 154/82 92 03/02/17 11:52 03/02/17 11:52 03/02/17 11:52 03/02/17 11:52 03/02/17 11:52 - Additional Findings GENERAL:: Sedate, arousable to voice. EYES:: pupils equal and round, no myosis. No scleral icterus. SKIN:: no areas of echymoses or petechiae CARDIOVASCULAR:: Tachycardia, regular rhythm PULMONARY:: Tachypnea, shallow respirations. GASTROINTESTINAL:: Tender in left lower quadrant as well as epigastric. No tenderness noted in right upper or lower quadrants. No rebound tenderness or guarding. Abdomen full, firm. MUSCULOSKELETAL GAIT:: Nonambulatory, reclining in hospital bed. INSPECTION:: no surgical scarring on abdomen PALPATION:: paraspinous musculature is tender to deep palpation in the lumbar area bilaterally. STRENGTH:: All lower show any myotomes are at least graded 3/5 bilaterally, but this exam is limited by the patient's mental state. NEUROLOGIC SENSATION:: hypesthesia is not noted in lower or upper extremity dermatomes. No allodynia or hypoalgesia. SIGNS OF NEUROVASCULAR COMPRESSION Clonus: none found bilateral with passive ROM at ankle joint Spasticity:: none Atrophy:: not present in UE or LE musculature Fasciculation:: not present in UE or LE musculature PSYCHIATRIC:: ORIENTATION:: Not alert INSIGHT:: Not assessable AFFECT:: Cooperative Radiology Images Viewed By Me:: CT scan from 03/03/2017 of the lumbar spine shows neuromodulation leads entering the lumbar neuraxis in the upper lumbar spine. No acute compression fractures in any vertebral vertebrae are identified. The spinal contents are difficult to ascertain on the current study. There is mild disc disease present throughout the lower lumbar neuraxis. No acute findings are identified on this study. I have reviewed and agree with information documented in the scribed documentation, ROS, patient medications, allergies, medical history, surgical history, social history, and family history. Results - Labs 03/03/17 04:50 03/03/17 13:10 Abnormal lab results WBC 12.2 K/mcL (4.3-11.1) H 03/03/17 04:50 RBC 5.17 M/mcL (3.82-4.97) H 03/03/17 04:50 MCH 25.9 pg (28.0-33.3) L 03/03/17 04:50 MCHC 30.3 g/dL (31.6-35.5) L 03/03/17 04:50 Band Neutrophils % 8.0 % (0-4) H 03/03/17 00:54 Neutrophils # 9.7 K/mcL (1.6-8.9) H 03/03/17 04:50 VBG pH 7.30 pH Units (7.32-7.42) L 03/03/17 07:55 VBG pCO2 26 mmHg (41-51) L 03/03/17 07:55 VBG pO2 147 mmHg (25-40) H 03/03/17 07:55 VBG HCO3 12.8 mEq/L (21-27) L 03/03/17 07:55 Sodium 129 mEq/L (136-145) L D 03/03/17 13:10 Carbon Dioxide 11 mEq/L (19-29) L 03/03/17 13:10 BUN 5 mg/dL (7-20) L 03/03/17 13:10 Glucose 229 mg/dL (70-99) H 03/03/17 13:10 POC Glucose 199 (58-89) H 03/03/17 06:51 Hemoglobin A1c 10.1 % (-5.6) H 03/02/17 13:29 Calculated Osmolality 273 (280-300) L 03/03/17 13:10 Magnesium 2.9 mg/dL (1.6-2.6) H 03/03/17 13:10 Alkaline Phosphatase 217 Units/L (38-126) H 03/02/17 13:29 Beta-Hydroxybutyric Acd > 2.00 mmol/L (0.02-0.27) H 03/02/17 13:29 Urine Clarity Cloudy (Clear) A 03/03/17 00:23 Urine Protein 100 mg/dL (Neg-Trace) H 03/03/17 00:23 Urine Glucose (UA) 500 mg/dL (Normal) H 03/03/17 00:23 Urine Ketones >=160 mg/dL (Negative) H 03/03/17 00:23 Urine Blood Large (Negative) H 03/03/17 00:23 Urine Bilirubin Small (Negative) H 03/03/17 00:23 Urine Microscopic RBC 15-30 per hpf (0-3) H 03/03/17 00:23 Urine Microscopic WBC 5-15 per hpf (0-3) H 03/03/17 00:23 Ur Squamous Epith Cells Many per lpf (None-Few) H 03/03/17 00:23 Ur Culture Indicated? YES (NO) A 03/03/17 00:23 Diabetes panel 03/02/17 03/02/17 03/03/17 Range/Units 17:35 19:33 00:54 Sodium 122 L D 138 D 137 (136-145) mEq/L Potassium 3.9 4.1 3.6 (3.5-4.5) mEq/L Chloride 98 112 H 113 H (98-109) mEq/L Carbon Dioxide < 10 L* 8 L* 8 L* (19-29) mEq/L BUN 12 10 7 (7-20) mg/dL Creatinine 1.54 H 0.89 0.88 (0.57-1.11) mg/dL Glucose 257 H 161 H 197 H (70-99) mg/dL Calcium 9.0 7.7 L 7.8 L (8.6-10.8) mg/dL 03/03/17 03/03/17 03/03/17 Range/Units 04:50 07:55 13:10 Sodium 140 138 129 L D (136-145) mEq/L Potassium 3.2 L 3.1 L 3.7 (3.5-4.5) mEq/L Chloride 116 H 115 H 109 (98-109) mEq/L Carbon Dioxide 10 L* 10 L* 11 L (19-29) mEq/L BUN 7 5 L 5 L (7-20) mg/dL Creatinine 0.85 0.79 0.83 (0.57-1.11) mg/dL Glucose 260 H 226 H 229 H (70-99) mg/dL Calcium 7.9 L 7.8 L 8.7 (8.6-10.8) mg/dL Calcium panel 03/02/17 03/02/17 03/03/17 Range/Units 17:35 19:33 00:54 Calcium 9.0 7.7 L 7.8 L (8.6-10.8) mg/dL 03/03/17 03/03/17 03/03/17 Range/Units 04:50 07:55 13:10 Calcium 7.9 L 7.8 L 8.7 (8.6-10.8) mg/dL Pituitary panel 03/02/17 03/02/17 03/03/17 Range/Units 17:35 19:33 00:54 Sodium 122 L D 138 D 137 (136-145) mEq/L Potassium 3.9 4.1 3.6 (3.5-4.5) mEq/L Chloride 98 112 H 113 H (98-109) mEq/L Carbon Dioxide < 10 L* 8 L* 8 L* (19-29) mEq/L BUN 12 10 7 (7-20) mg/dL Creatinine 1.54 H 0.89 0.88 (0.57-1.11) mg/dL Glucose 257 H 161 H 197 H (70-99) mg/dL Calcium 9.0 7.7 L 7.8 L (8.6-10.8) mg/dL 03/03/17 03/03/17 03/03/17 Range/Units 04:50 07:55 13:10 Sodium 140 138 129 L D (136-145) mEq/L Potassium 3.2 L 3.1 L 3.7 (3.5-4.5) mEq/L Chloride 116 H 115 H 109 (98-109) mEq/L Carbon Dioxide 10 L* 10 L* 11 L (19-29) mEq/L BUN 7 5 L 5 L (7-20) mg/dL Creatinine 0.85 0.79 0.83 (0.57-1.11) mg/dL Glucose 260 H 226 H 229 H (70-99) mg/dL Calcium 7.9 L 7.8 L 8.7 (8.6-10.8) mg/dL Adrenal panel 03/02/17 03/02/17 03/03/17 Range/Units 17:35 19:33 00:54 Sodium 122 L D 138 D 137 (136-145) mEq/L Potassium 3.9 4.1 3.6 (3.5-4.5) mEq/L Chloride 98 112 H 113 H (98-109) mEq/L Carbon Dioxide < 10 L* 8 L* 8 L* (19-29) mEq/L BUN 12 10 7 (7-20) mg/dL Creatinine 1.54 H 0.89 0.88 (0.57-1.11) mg/dL Glucose 257 H 161 H 197 H (70-99) mg/dL Calcium 9.0 7.7 L 7.8 L (8.6-10.8) mg/dL 03/03/17 03/03/17 03/03/17 Range/Units 04:50 07:55 13:10 Sodium 140 138 129 L D (136-145) mEq/L Potassium 3.2 L 3.1 L 3.7 (3.5-4.5) mEq/L Chloride 116 H 115 H 109 (98-109) mEq/L Carbon Dioxide 10 L* 10 L* 11 L (19-29) mEq/L BUN 7 5 L 5 L (7-20) mg/dL Creatinine 0.85 0.79 0.83 (0.57-1.11) mg/dL Glucose 260 H 226 H 229 H (70-99) mg/dL Calcium 7.9 L 7.8 L 8.7 (8.6-10.8) mg/dL All other labs normal. - VTE Documentation of Mechanical Device: Intermittent pneumatic compression device Consult Discharge Plan - Plan Referrals: Shashank Moon DO [Primary Care Provider] -
[2017-03-03] MEDS ORDERED: Vancomycin 1,500 MG in D5% in Water 250 ML IVPB ONE (16:00)
[2017-03-03] MEDS ORDERED: Vancomycin (wt based) 1,000 MG VIAL IVPB SCH (16:00)
[2017-03-03 16:45] LABS: BUN/Creatinine Ratio 6 (6-26); Calcium 8.4 mg/dL (8.6-10.8); Chloride 111 mEq/L (98-109); Glucose 199 mg/dL (70-99); Osmolality,Calculated 273 (280-300); Sodium 130 mEq/L (136-145); eGFR For African Americans > 60 (> 60); eGFR For Non-African Americans > 60 (> 60)
[2017-03-03 16:54] LABS: Potassium 4.2 mEq/L (3.5-4.5)
[2017-03-03 16:55] LABS: Blood Urea Nitrogen 5 mg/dL (7-20); Magnesium 2.9 mg/dL (1.6-2.6)
[2017-03-03] MEDS: Piperacillin/Tazobactam 3.375 GM in D5% in Water (Mini-Bag+) 100 ML IVPB SCH (16:56)
[2017-03-03 17:00] LABS: Carbon Dioxide 10 mEq/L (19-29)
[2017-03-03] MEDS: Topiramate 25 MG TABLET PO SCH (20:53)
[2017-03-03 22:54] LABS: BUN/Creatinine Ratio 6 (6-26); Calcium 8.5 mg/dL (8.6-10.8); Chloride 112 mEq/L (98-109); Glucose 69 mg/dL (70-99); Magnesium 2.7 mg/dL (1.6-2.6); Osmolality,Calculated 266 (280-300); Sodium 130 mEq/L (136-145); eGFR For African Americans > 60 (> 60); eGFR For Non-African Americans > 60 (> 60)
[2017-03-03 22:55] LABS: Blood Urea Nitrogen 5 mg/dL (7-20)
[2017-03-03 22:56] LABS: Potassium 4.3 mEq/L (3.5-4.5)
[2017-03-03 22:58] LABS: Carbon Dioxide 9 mEq/L (19-29)
[2017-03-04] MEDS: Piperacillin/Tazobactam 3.375 GM in D5% in Water (Mini-Bag+) 100 ML IVPB SCH ×3 (00:39→16:47)
[2017-03-04] MEDS ORDERED: 0.9 % Sodium Chloride 1,000 ML IVC PRN (04:00)
[2017-03-04] MEDS ORDERED: 0.45 % Sodium Chloride w/KCl 20 MEQ/1,000 ML MLS IVC PRN (04:00)
[2017-03-04] MEDS: Vancomycin 1,250 MG in D5% in Water 250 ML IVPB SCH ×2 (04:15→15:20)
[2017-03-04 04:56] LABS: Basophils % 0.2 %; Eosinophils % 0.1 %; Hematocrit 39.5 % (35.3-44.9); Immature Granulocytes % 0.9 % (0-4); Lymphocytes % 10.6 %; Mean Corpuscular HGB Conc 34.4 g/dL (31.6-35.5); Mean Corpuscular Hemoglobin 28.8 pg (28.0-33.3); Mean Corpuscular Volume 83.7 fL (83.0-100.0); Mean Platelet Volume 10.4 fL (9.4-12.4); Monocytes # 0.4 K/mcL (0.0-1.3); Monocytes % 4.7 %; Neutrophils # 7.5 K/mcL (1.6-8.9); Platelet Count 244 K/mcL (140-400); Red Blood Count 4.72 M/mcL (3.82-4.97); Red Cell Distribution Width 14.6 % (11.5-14.5); Segmented Neutrophils % 83.5 %
[2017-03-04 04:57] LABS: VBG HCO3 12.9 mEq/L (21-27); VBG PH 7.32 pH Units (7.32-7.42)
[2017-03-04 05:00] LABS: Hemoglobin 13.6 g/dL (11.5-15.4)
[2017-03-04 05:11] LABS: BUN/Creatinine Ratio 7 (6-26); Blood Urea Nitrogen 7 mg/dL (7-20); Calcium 8.4 mg/dL (8.6-10.8); Chloride 110 mEq/L (98-109); Glucose 269 mg/dL (70-99); Osmolality,Calculated 275 (280-300); Sodium 129 mEq/L (136-145); eGFR For African Americans > 60 (> 60); eGFR For Non-African Americans 55 (> 60)
[2017-03-04 05:12] LABS: Potassium 4.3 mEq/L (3.5-4.5)
[2017-03-04 05:14] LABS: Anisocytosis 1+ (Not Present); Carbon Dioxide 10 mEq/L (19-29); Platelet Estimate Normal (Normal)
[2017-03-04] MEDS ORDERED: D5% in Water 1,000 ML IVC PRN (07:39)
[2017-03-04] MEDS ORDERED: *HR* Dextrose 50 % in Water (Syg) 50 ML SYRINGE IVP PRN (07:39)
[2017-03-04] MEDS ORDERED: Dextrose Gel 15 GM PO PRN ×2 (07:39)
--- NOTE | 2017-03-04 07:47 | Internal Med Progress Note ---
Date of Encounter: 03/04/17 Time of Encounter: 09:00 - Assessment and plan (1) Sepsis Current Visit: Yes Status: Suspected Assessment and plan: Suspected sepsis due to tachycardia and leukocytosis No fever, Source is most likely urinary or abdominal Patient reported suprapubic pain and diarrhea Abdomen exam is unremarkable Patient with known pacreatitis, elevated lipase 500 Blood culture has been sent, awaiting results Obtain CXR Urine culture resulted with no growth Will send C-diff if she has watery BM, no BM documented yet Continue Zosyn and vanco Plan to rapidly de-escalate with culture results Qualifiers: Sepsis type: sepsis due to unspecified organism Qualified Code(s): A41.9 - Sepsis, unspecified organism (2) DKA (diabetic ketoacidoses) Current Visit: Yes Status: Acute Assessment and plan: improved transitioned to SQ insulin NAGMA persists, possibly from saline Continue to monitor Qualifiers: Diabetes mellitus type: type 2 Diabetes mellitus complication detail: without coma Qualified Code(s): E13.10 - Other specified diabetes mellitus with ketoacidosis without coma (3) Chronic pancreatitis Current Visit: Yes Status: Chronic Assessment and plan: lipase elevated Abdomen is not acute continue ivf Qualifiers: Pancreatitis type: unspecified pancreatitis type Qualified Code(s): K86.1 - Other chronic pancreatitis (4) Chronic back pain Current Visit: Yes Status: Chronic Assessment and plan: Lumbar CT unremarkable pain physician recommendation noted patient with low blood pressure and mostly somnolent Qualifiers: Back pain location: low back pain Back pain laterality: midline Sciatica presence: without sciatica Qualified Code(s): M54.5 - Low back pain; G89.29 - Other chronic pain (5) Metabolic acidosis Current Visit: Yes Status: Acute Assessment and plan: AGMA resolved NAGMA persists Give LR instead of saline Continue to monitor Bicarb will be initiated for PH equal to or less than<7.1 Risk of lethal arrhythmias (6) DVT prophylaxis Current Visit: Yes Status: Acute Assessment and plan: Heparin (7) Obesity (BMI 30-39.9) Current Visit: Yes Status: Chronic - Subjective Interval history: 56 F with Chronic low back pain with indwelling stimulator, Morbid Obesity, DM, chronic pancreatitis She is admitted and being managed for DKA, Acute on chronic pain, hypokalemia, hypomagnessia, suspected sepsis Patient has been on the DKA protocol , and her AG has closed She continues to have Non-anion gap metabolic acidosis possibly from multiple saline infusions Lipase was mildly elevated, Lactate is normal Lumbar CT was negative for any acute processes (without contrast) Blood culture is pending Urine culture is negative Her tachycardia has improved, but she remains tachycardic, she has a low grade fever 100.2 this morning She is seen and evaluated at bedside, much more awake and alert, in no obvious distress She will be fed and transtioned to SQ Insulin Will continue antibiotics till blood culture is resulted, leukocytosis is resolved, patient remains tachycardic, with mild fever - Constitutional Vitals: Temp Pulse Resp BP Pulse Ox 100.2 F H 112 20 132/77 93 03/04/17 03:03 03/04/17 04:25 03/04/17 03:03 03/04/17 03:03 03/04/17 03:03 VS-Afebrile, tachycardic, dehydrated, awake, but lethargic NEuro: Awake, oriented X3 HEENT: Dry oral mucosa Chest: CTAB, no added sounds, no rales Heart: S1, S2 only, tachycardic, no murmurs Abeomdn: Obese, soft, no palpable tenderness, no rebound, bowel sounds present in all quadrants Extremities: No pedal edema Back: Left flank area with stimulator, L-spine scra, no focal point of tenderness, no collection visible General appearance: Present: A&O X 3, morbidly obese, pleasant, no acute distress - Head Head exam: Present: atraumatic, normocephalic - Eye Eye exam: Present: PERRL, conjuntiva pink, sclera anicteric Pupils: Present: PERRL - Neck Neck exam general surgery: Present: supple, trachea midline. Absent: lymphadenopathy - Respiratory Respiratory exam: Present: CTAB. Absent: accessory muscle use, rales, rhonchi, wheezes - Cardiovascular Cardiovascular exam: Present: RRR, +S1, +S2. Absent: diastolic murmur, gallop, rubs, systolic murmur - GI/Abdominal GI/Abdominal exam: Present: normal bowel sounds, soft, no peritoneal signs. Absent: distended, tenderness - Extremities Exam Extremities exam: Present: warm, radial pulses palpable and symetrical. Absent : calf tenderness, cyanotic, pedal edema - Neurological Exam Neurological exam: Present: alert, CN II-XII intact, oriented X3, no focal deficits. Absent: pronater drift, facial droop, speech deficit - Skin Skin exam: Present: dry, intact Internal Medicine: Result - Labs CBC & Chem 7: 03/04/17 04:28 03/04/17 04:28 Labs: Short CBC 03/04/17 Range/Units 04:28 WBC 9.0 (4.3-11.1) K/mcL Hgb 13.6 (11.5-15.4) g/dL Hct 39.5 (35.3-44.9) % Plt Count 244 (140-400) K/mcL Neutrophils # 7.5 (1.6-8.9) K/mcL BMP 03/03/17 03/03/17 03/03/17 07:55 13:10 16:05 Sodium 138 129 L D 130 L Potassium 3.1 L 3.7 4.2 Chloride 115 H 109 111 H Carbon Dioxide 10 L* 11 L 10 L* BUN 5 L 5 L 5 L Creatinine 0.79 0.83 0.87 Glucose 226 H 229 H 199 H Calcium 7.8 L 8.7 8.4 L 03/03/17 03/04/17 21:57 04:28 Sodium 130 L 129 L Potassium 4.3 4.3 Chloride 112 H 110 H Carbon Dioxide 9 L* 10 L* BUN 5 L 7 Creatinine 0.80 1.04 Glucose 69 L 269 H Calcium 8.5 L 8.4 L - Impressions Impressions Lumbar Spine CT 03/03/17 08:03 IMPRESSION: 1. No acute finding in the lumbar spine to account for patient's fever and sepsis. Please note that sensitivity of CT without contrast is low for epidural abscess. 2. Central canal lead extends cephalad from the level of L2-L3. 3. Mild endplate degenerative changes from L2 through L5. 4. Mild facet arthropathy at L4-L5 and L5-S1. D/ / John Yarbrough MD / John Yarbrough MD Interpreting Provider: John Yarbrough MD - VTE Documentation of Mechanical Device: Intermittent pneumatic compression device Consult Discharge Plan - Plan Referrals: Shashank Moon DO [Primary Care Provider] -
[2017-03-04] MEDS: Insulin DETEMIR 100 UNIT/ML X5UNITS SQ SCH ×2 (09:04→20:56)
[2017-03-04] MEDS: Insulin LISPRO 300 UNITS/3 ML VIAL SQ SCH ×6 (09:10→20:57)
[2017-03-04] MEDS: Metoprolol XL (24 HR) Succ 50 MG TAB.ER.24H PO SCH (09:19)
[2017-03-04] MEDS: Gabapentin 400 MG CAPSULE PO SCH (09:19)
[2017-03-04] MEDS: tiZANidine 4 MG TABLET PO PRN (09:19)
[2017-03-04] MEDS: Fenofibrate 54 MG TABLET PO SCH (09:26)
[2017-03-04] MEDS ORDERED: 0.9 % Sodium Chloride 1,000 ML ONE (11:35)
[2017-03-04] MEDS ORDERED: Ringers Solution, Lactated 1,000 ML ONE ×2 (11:59→12:09)
[2017-03-04 12:19] LABS: ABG Base Excess -12.3 mEq/L (-2.0 to 3.0); ABG HCO3 14.2 mEQ/L (21-27); ABG Oxygen Saturation 96 % (95-98); ABG PCO2 34 mmHg (35-45); ABG PH 7.23 pH Units (7.32-7.45); ABG PO2 96 mmHg (85-104); ABG TCO2 15.2 mEq/L (20-26)
[2017-03-04 12:21] LABS: Blood Gas Liter Flow 4 L/MIN
[2017-03-04] MEDS ORDERED: Gabapentin 400 MG CAPSULE PO PRN (13:00)
--- NOTE | 2017-03-04 13:07 | Event Note ---
Date of Encounter: 03/04/17 Time of Encounter: 12:20 Attention drawn to me by RN of low blood pressure On review, patient is deeply asleep but rousable, follows commands, oriented X3 VS BP-76/48, MAP in the 50s. Not tachycardic, Afebrile, saturating 90% on room air Chest is clear bilaterally to auscultation, not tachypneic but belly breathing Heart sounds S1, S2 only, Abdomen is obese, but soft , not tender Extremities well perfused, no edema Stat ABG showed PH 7.23, PCO2 34, PO2 96 CXR film with no infiltrates, no mediastinal changes-not reported yet Plan: 2L LR bolus ordered, continue O2 supplements, hold Metoprolol, hold oxycodone, change Gabapentin to prn, dilaudid prn Continue IVF with goal MAP 60-65. Patient's spouse states her BP is usually low 90s. Spouse at the bedside educated about plan of care, agreeable to pressors if IVF does not help Continue other management
[2017-03-04] MEDS ORDERED: Ringers Solution, Lactated 1,000 ML IVC SCH (13:15)
[2017-03-04] MEDS: *HR* Heparin 5,000 UNIT/ML VIAL SQ SCH ×2 (15:21→20:58)
[2017-03-04] MEDS: Acetaminophen 325 MG TABLET PO PRN (18:28)
[2017-03-04] MEDS: Topiramate 25 MG TABLET PO SCH (20:56)
[2017-03-05] MEDS: *HR* OxyCODONE Immed Rel 5 MG TABLET PO PRN ×4 (00:12→21:48)
[2017-03-05] MEDS: Piperacillin/Tazobactam 3.375 GM in D5% in Water (Mini-Bag+) 100 ML IVPB SCH (00:12)
[2017-03-05] MEDS: Ringers Solution, Lactated 1,000 ML IVC SCH ×3 (01:45→17:32)
[2017-03-05 05:09] LABS: Basophils % 0.2 %; Eosinophils % 0.5 %; Hematocrit 35.3 % (35.3-44.9); Immature Granulocytes % 0.7 % (0-4); Lymphocytes # 1.1 K/mcL (0.6-4.6); Lymphocytes % 12.1 %; Mean Corpuscular Volume 85.3 fL (83.0-100.0); Mean Platelet Volume 10.7 fL (9.4-12.4); Monocytes # 0.4 K/mcL (0.0-1.3); Monocytes % 4.6 %; Neutrophils # 7.1 K/mcL (1.6-8.9); Platelet Count 178 K/mcL (140-400); Red Blood Count 4.14 M/mcL (3.82-4.97); Red Cell Distribution Width 15.4 % (11.5-14.5); Segmented Neutrophils % 81.9 %
[2017-03-05 05:26] LABS: Calcium 8.9 mg/dL (8.6-10.8); Magnesium 1.8 mg/dL (1.6-2.6); Potassium 3.7 mEq/L (3.5-4.5)
[2017-03-05] MEDS: Vancomycin 1,250 MG in D5% in Water 250 ML IVPB SCH (05:51)
[2017-03-05] MEDS ORDERED: Vancomycin 1,250 MG in D5% in Water 250 ML IVPB SCH (06:00)
[2017-03-05] MEDS: *HR* Heparin 5,000 UNIT/ML VIAL SQ SCH ×3 (06:10→21:20)
[2017-03-05] MEDS ORDERED: *HR* HYDROmorphone (PF) 1 MG/ML SYRINGE IVP PRN (08:05)
[2017-03-05] MEDS: Insulin LISPRO 300 UNITS/3 ML VIAL SQ SCH ×7 (08:14→21:19)
[2017-03-05] MEDS: tiZANidine 4 MG TABLET PO PRN (08:22)
[2017-03-05] MEDS: Fenofibrate 54 MG TABLET PO SCH (08:22)
[2017-03-05] MEDS ORDERED: Aminoglycoside Consult 1 EACH MC ONE (09:18)
--- NOTE | 2017-03-05 09:48 | Internal Med Progress Note ---
Date of Encounter: 03/05/17 Time of Encounter: 09:56 - Assessment and plan (1) Sepsis Current Visit: Yes Status: Acute Assessment and plan: Suspected sepsis due to tachycardia and leukocytosis No fever, badomen/urine work up negative so far CXR shows possible PNA Patient with known pacreatitis, elevated lipase 500 Preliminary blood and urine culture negative D/C vanco and Zosyn, start cef/Azithro Qualifiers: Sepsis type: sepsis due to unspecified organism Qualified Code(s): A41.9 - Sepsis, unspecified organism (2) DKA (diabetic ketoacidoses) Current Visit: Yes Status: Acute Assessment and plan: improved transitioned to SQ insulin NAGMA persists, improving Increase levemir, lispro, sliding scale Continue ADA diet Continue to monitor FS ACHS Qualifiers: Diabetes mellitus type: type 2 Diabetes mellitus complication detail: without coma Qualified Code(s): E13.10 - Other specified diabetes mellitus with ketoacidosis without coma (3) Chronic pancreatitis Current Visit: Yes Status: Chronic Assessment and plan: lipase elevated Abdomen is not acute continue ivf Qualifiers: Pancreatitis type: unspecified pancreatitis type Qualified Code(s): K86.1 - Other chronic pancreatitis (4) Chronic back pain Current Visit: Yes Status: Chronic Assessment and plan: Lumbar CT unremarkable pain physician recommendation noted patient with low blood pressure and mostly somnolent D/C IV dilaudid Resume home meds and slowly titrate up gabapentin adjusted to renal dose Qualifiers: Back pain location: low back pain Back pain laterality: midline Sciatica presence: without sciatica Qualified Code(s): M54.5 - Low back pain; G89.29 - Other chronic pain (5) Metabolic acidosis Current Visit: Yes Status: Acute Assessment and plan: AGMA resolved NAGMA persists but improving (6) DVT prophylaxis Current Visit: Yes Status: Acute Assessment and plan: Heparin (7) Obesity (BMI 30-39.9) Current Visit: Yes Status: Chronic (8) JESSICA (acute kidney injury) Current Visit: Yes Status: Acute Assessment and plan: Pre-renal, non-oliguric, possibly from hypotensive episodes 03/04 Continue IVF Avoid nephrotoxins - Subjective Interval history: 56 F with Chronic low back pain with indwelling stimulator, Morbid Obesity, DM, chronic pancreatitis She is admitted and being managed for DKA, Acute on chronic pain, hypokalemia, hypomagnessia, suspected sepsis Patient was on the DKA protocol , bridged 03/04 She continues to have Non-anion gap metabolic acidosis possibly from multiple saline infusions Lipase was mildly elevated, Lactate is normal Lumbar CT was negative for any acute processes (without contrast) Blood culture is preliminary no growth Urine culture is negative She had an episode of hypotension 03/14 which improved with IVF and holding BB and IV pain meds She is seen and evaluated this morning, no new complains Her NAGMA improved, however she has mild renal insufficiency possibly from the hypotension Since her blood and urine cultures are preliminary negative, and she has mild renal insufficiency, will d/c Zosyn and Vanco CXR done 03/04 with possible infiltrates, will de-escalate to Ceftriaxone and Azithromycin - Constitutional Vitals: Temp Pulse Resp BP Pulse Ox 98.0 F 110 22 146/80 94 03/05/17 07:30 03/05/17 07:30 03/05/17 07:30 03/05/17 04:26 03/05/17 04:26 General appearance: Present: A&O X 3, morbidly obese, pleasant, no acute distress - Head Head exam: Present: atraumatic, normocephalic - Eye Eye exam: Present: PERRL, conjuntiva pink, sclera anicteric Pupils: Present: PERRL - Neck Neck exam general surgery: Present: supple, trachea midline. Absent: lymphadenopathy - Respiratory Respiratory exam: Present: CTAB. Absent: accessory muscle use, rales, rhonchi, wheezes - Cardiovascular Cardiovascular exam: Present: RRR, +S1, +S2. Absent: diastolic murmur, gallop, rubs, systolic murmur - GI/Abdominal GI/Abdominal exam: Present: normal bowel sounds, soft, no peritoneal signs. Absent: distended, tenderness - Extremities Exam Extremities exam: Present: warm, radial pulses palpable and symetrical. Absent : calf tenderness, cyanotic, pedal edema - Back Exam Additional comments: L flank stimulator, lumbar spinal region with scar, no collections - Neurological Exam Neurological exam: Present: alert, CN II-XII intact, oriented X3, no focal deficits. Absent: pronater drift, facial droop, speech deficit - Skin Skin exam: Present: dry, intact Internal Medicine: Result - Labs CBC & Chem 7: 03/05/17 04:31 03/05/17 04:31 Labs: Short CBC 03/05/17 Range/Units 04:31 WBC 8.7 (4.3-11.1) K/mcL Hgb 12.0 D (11.5-15.4) g/dL Hct 35.3 (35.3-44.9) % Plt Count 178 (140-400) K/mcL Neutrophils # 7.1 (1.6-8.9) K/mcL BMP 03/05/17 04:31 Sodium 134 L Potassium 3.7 Chloride 112 H Carbon Dioxide 12 L BUN 15 Creatinine 1.47 H Glucose 312 H Calcium 8.9 - ABG Interpretation ABG results: ABG ABG pH 7.23 pH Units (7.32-7.45) L 03/04/17 12:12 ABG pCO2 34 mmHg (35-45) L 03/04/17 12:12 ABG pO2 96 mmHg (85-104) 03/04/17 12:12 ABG O2 Saturation 96 % (95-98) 03/04/17 12:12 - Impressions Impressions Chest X-Ray 03/04/17 12:00 IMPRESSION: Small left pleural effusion and streaky opacity in the left lung base which may represent atelectasis, edema, or infection. Pulmonary vascular congestion. D/ / Ale Soto MD / Ale Soto MD Interpreting Provider: Ale Soto MD - VTE Documentation of Mechanical Device: Intermittent pneumatic compression device Consult Discharge Plan - Plan Referrals: Shashank Moon DO [Primary Care Provider] - 03/15/17 12:00 pm
[2017-03-05] MEDS: Insulin DETEMIR 100 UNIT/ML X5UNITS SQ SCH ×2 (11:36→21:20)
[2017-03-05] MEDS ORDERED: Azithromycin 500 MG VIAL IVPB ONE (11:42)
[2017-03-05] MEDS: Azithromycin 500 MG in D5% in Water 250 ML IVPB SCH (11:45)
[2017-03-05] MEDS ORDERED: Gabapentin 300 MG CAPSULE PO PRN (15:38)
[2017-03-05] MEDS: Acetaminophen 325 MG TABLET PO PRN (17:32)
[2017-03-05] MEDS: Topiramate 25 MG TABLET PO SCH (21:20)
[2017-03-06] MEDS: Acetaminophen 325 MG TABLET PO PRN ×4 (03:08→21:23)
[2017-03-06 03:37] LABS: Basophils % 0.2 %; Calcium 8.8 mg/dL (8.6-10.8); Eosinophils # 0.2 K/mcL (0.0-0.6); Eosinophils % 1.5 %; Hematocrit 31.3 % (35.3-44.9); Immature Granulocytes % 0.8 % (0-4); Lymphocytes % 9.9 %; Mean Corpuscular HGB Conc 33.2 g/dL (31.6-35.5); Mean Corpuscular Hemoglobin 28.4 pg (28.0-33.3); Mean Corpuscular Volume 85.5 fL (83.0-100.0); Mean Platelet Volume 10.1 fL (9.4-12.4); Monocytes # 0.6 K/mcL (0.0-1.3); Monocytes % 6.6 %; Neutrophils # 7.9 K/mcL (1.6-8.9); Platelet Count 156 K/mcL (140-400); Red Blood Count 3.66 M/mcL (3.82-4.97); Red Cell Distribution Width 15.7 % (11.5-14.5)
[2017-03-06 03:38] LABS: Potassium 4.2 mEq/L (3.5-4.5)
[2017-03-06 03:42] LABS: Hemoglobin 10.4 g/dL (11.5-15.4)
[2017-03-06] MEDS: *HR* OxyCODONE Immed Rel 5 MG TABLET PO PRN ×3 (06:07→18:18)
[2017-03-06] MEDS: *HR* Heparin 5,000 UNIT/ML VIAL SQ SCH ×3 (06:07→21:16)
[2017-03-06] MEDS: Azithromycin 500 MG in D5% in Water 250 ML IVPB SCH (08:21)
[2017-03-06] MEDS: Fenofibrate 54 MG TABLET PO SCH (08:21)
[2017-03-06] MEDS: Insulin LISPRO 300 UNITS/3 ML VIAL SQ SCH ×9 (08:26→21:17)
[2017-03-06] MEDS: Insulin DETEMIR 100 UNIT/ML X5UNITS SQ SCH ×2 (08:27→21:15)
[2017-03-06] MEDS: Sodium Bicarbonate 150 MEQ in 0.45 % Sodium Chloride 1,000 ML IVC SCH ×2 (09:30→21:15)
[2017-03-06] MEDS ORDERED: Insulin DETEMIR 100 UNIT/ML X5UNITS SQ ONE (10:38)
--- NOTE | 2017-03-06 10:44 | Internal Med Progress Note ---
Date of Encounter: 03/06/17 Time of Encounter: 10:40 - Subjective Interval history: Patient seen and examined with family present at bedside. Patient comfortably sleeping in bed and once awoken, reports of generalized pain. As per nursing evaluation and my evaluation, patient continues to exhibit signs of drug seeking behavior. Pt's BB dose was held due to hypotension, noted to be hypertensive and tachycardic this morning. Will resume BB. - Assessment and plan (1) Sepsis Current Visit: Yes Status: Acute Assessment and plan: Resolved Likely secondary to PNA continue ABX follow up official culture reports Qualifiers: Sepsis type: sepsis due to unspecified organism Qualified Code(s): A41.9 - Sepsis, unspecified organism (2) DKA (diabetic ketoacidoses) Current Visit: Yes Status: Acute Assessment and plan: Resolved Hyperglycemia persists given insulin requirements of last 24 hours, increased Levemir to 33units BID and added Novolog 5units TIDAC continue ss insulin monitor FS and BG Continue ADA diet Qualifiers: Diabetes mellitus type: type 2 Diabetes mellitus complication detail: without coma Qualified Code(s): E13.10 - Other specified diabetes mellitus with ketoacidosis without coma (3) Chronic pancreatitis Current Visit: Yes Status: Chronic Assessment and plan: supportive care IV fluids Qualifiers: Pancreatitis type: unspecified pancreatitis type Qualified Code(s): K86.1 - Other chronic pancreatitis (4) Chronic back pain Current Visit: Yes Status: Chronic Assessment and plan: Lumbar CT unremarkable pain physician recommendation noted continue current pain medications Resume home meds and slowly titrate up gabapentin adjusted to renal dose Qualifiers: Back pain location: low back pain Back pain laterality: midline Sciatica presence: without sciatica Qualified Code(s): M54.5 - Low back pain; G89.29 - Other chronic pain (5) Metabolic acidosis Current Visit: Yes Status: Acute Assessment and plan: AGMA resolved NAGMA persists but improving concern for RTA noted to have bicarb deficit of 8amp will start bicarb gtt (150amp of bicarb in 0.45%NS at 100cc/hr) (6) DVT prophylaxis Current Visit: Yes Status: Acute Assessment and plan: Heparin SQ (7) Obesity (BMI 30-39.9) Current Visit: Yes Status: Chronic (8) JESSICA (acute kidney injury) Current Visit: Yes Status: Acute Assessment and plan: Pre-renal, non-oliguric, possibly from hypotensive episodes 03/04 Continue IVF Avoid nephrotoxins - Constitutional Vitals: Temp Pulse Resp BP Pulse Ox 99.1 F 112 16 164/99 93 03/06/17 07:32 03/06/17 08:25 03/06/17 07:32 03/06/17 07:32 03/06/17 07:32 General appearance: Present: A&O X 3, morbidly obese, no acute distress - Head Head exam: Present: atraumatic, normocephalic - Eye Eye exam: Present: normal appearance, conjuntiva pink, sclera anicteric - Respiratory Respiratory exam: Absent: respiratory distress, wheezes - Cardiovascular Cardiovascular exam: Present: +S1, +S2, tachycardia - GI/Abdominal GI/Abdominal exam: Present: distended (obese), normal bowel sounds, soft, no peritoneal signs. Absent: tenderness - Extremities Exam Extremities exam: Present: warm, radial pulses palpable and symetrical. Absent : calf tenderness, pedal edema - Neurological Exam Neurological exam: Present: alert, oriented X3 - Psychiatric Psychiatric exam: Present: normal affect, normal mood Internal Medicine: Result - Labs CBC & Chem 7: 03/06/17 03:15 03/06/17 03:15 Labs: Short CBC 03/06/17 Range/Units 03:15 WBC 9.8 (4.3-11.1) K/mcL Hgb 10.4 L D (11.5-15.4) g/dL Hct 31.3 L (35.3-44.9) % Plt Count 156 (140-400) K/mcL Neutrophils # 7.9 (1.6-8.9) K/mcL BMP 03/06/17 03:15 Sodium 135 L Potassium 4.2 Chloride 113 H Carbon Dioxide 14 L BUN 19 Creatinine 1.56 H Glucose 254 H Calcium 8.8 - ABG Interpretation ABG results: ABG ABG pH 7.23 pH Units (7.32-7.45) L 03/04/17 12:12 ABG pCO2 34 mmHg (35-45) L 03/04/17 12:12 ABG pO2 96 mmHg (85-104) 03/04/17 12:12 ABG O2 Saturation 96 % (95-98) 03/04/17 12:12 - VTE Documentation of Mechanical Device: Intermittent pneumatic compression device Consult Discharge Plan - Plan Referrals: Shashank Moon DO [Primary Care Provider] - 03/15/17 12:00 pm
[2017-03-06] MEDS: Ringers Solution, Lactated 1,000 ML IVC SCH ×2 (11:11→23:33)
[2017-03-06] MEDS: *HR* Metoprolol 5 MG/5 ML VIAL IVP PRN ×2 (11:25→18:18)
[2017-03-06] MEDS: Ondansetron 4 MG/2 ML VIAL IVP PRN (16:10)
[2017-03-06] MEDS: Topiramate 25 MG TABLET PO SCH (21:16)
[2017-03-07] MEDS: *HR* OxyCODONE Immed Rel 5 MG TABLET PO PRN ×4 (01:27→21:06)
[2017-03-07] MEDS: *HR* Metoprolol 5 MG/5 ML VIAL IVP PRN (01:34)
[2017-03-07] MEDS: Ondansetron 4 MG/2 ML VIAL IVP PRN ×4 (03:18→21:05)
[2017-03-07] MEDS: Acetaminophen 325 MG TABLET PO PRN (05:12)
[2017-03-07] MEDS: *HR* Heparin 5,000 UNIT/ML VIAL SQ SCH ×3 (05:13→21:05)
[2017-03-07 07:20] LABS: Basophils # 0.1 K/mcL (0.0-0.2); Basophils % 0.5 %; Eosinophils # 0.3 K/mcL (0.0-0.6); Eosinophils % 2.9 %; Hematocrit 34.3 % (35.3-44.9); Hemoglobin 11.6 g/dL (11.5-15.4); Lymphocytes # 1.2 K/mcL (0.6-4.6); Lymphocytes % 11.6 %; Mean Corpuscular HGB Conc 33.8 g/dL (31.6-35.5); Mean Corpuscular Hemoglobin 28.8 pg (28.0-33.3); Mean Corpuscular Volume 85.1 fL (83.0-100.0); Mean Platelet Volume 10.4 fL (9.4-12.4); Monocytes # 1.1 K/mcL (0.0-1.3); Monocytes % 10.8 %; Neutrophils # 7.1 K/mcL (1.6-8.9); Platelet Count 219 K/mcL (140-400); Red Blood Count 4.03 M/mcL (3.82-4.97); Red Cell Distribution Width 15.4 % (11.5-14.5); Segmented Neutrophils % 72.2 %
[2017-03-07 07:51] LABS: Magnesium 1.8 mg/dL (1.6-2.6); Phosphorous 2.7 mg/dL (2.3-4.7)
[2017-03-07 08:01] LABS: Potassium 2.7 mEq/L (3.5-4.5)
[2017-03-07] MEDS: Azithromycin 500 MG in D5% in Water 250 ML IVPB SCH (08:23)
[2017-03-07] MEDS: Insulin DETEMIR 100 UNIT/ML X5UNITS SQ SCH ×2 (08:34→21:00)
[2017-03-07] MEDS: Insulin LISPRO 300 UNITS/3 ML VIAL SQ SCH ×9 (08:34→20:59)
[2017-03-07] MEDS: Metoprolol XL (24 HR) Succ 50 MG TAB.ER.24H PO SCH (09:11)
[2017-03-07] MEDS: Fenofibrate 54 MG TABLET PO SCH (09:11)
[2017-03-07] MEDS: Sodium Bicarbonate 150 MEQ in 0.45 % Sodium Chloride 1,000 ML IVC SCH ×2 (09:12→21:01)
--- NOTE | 2017-03-07 11:44 | Internal Med Progress Note ---
Date of Encounter: 03/07/17 Time of Encounter: 11:41 - Subjective Interval history: Patient seen and examined. sitting in chair and reports of feeling better compared to the previous day. Patient encouraged to participate with physical therapy and in agreement to ECF placement after discharge if needed. - Assessment and plan (1) Sepsis Current Visit: Yes Status: Acute Assessment and plan: Resolved Likely secondary to PNA continue ABX follow up official culture reports Qualifiers: Sepsis type: sepsis due to unspecified organism Qualified Code(s): A41.9 - Sepsis, unspecified organism (2) DKA (diabetic ketoacidoses) Current Visit: Yes Status: Acute Assessment and plan: Resolved BG better controlled continue Levemir 33units BID and Novolog 5units TIDAC continue ss insulin monitor FS and BG Continue ADA diet Qualifiers: Diabetes mellitus type: type 2 Diabetes mellitus complication detail: without coma Qualified Code(s): E13.10 - Other specified diabetes mellitus with ketoacidosis without coma (3) Chronic pancreatitis Current Visit: Yes Status: Chronic Assessment and plan: supportive care IV fluids advance diet as tolerated Qualifiers: Pancreatitis type: unspecified pancreatitis type Qualified Code(s): K86.1 - Other chronic pancreatitis (4) Chronic back pain Current Visit: Yes Status: Chronic Assessment and plan: Lumbar CT unremarkable pain physician recommendation noted continue current pain medications Resume home meds and slowly titrate up gabapentin adjusted to renal dose Qualifiers: Back pain location: low back pain Back pain laterality: midline Sciatica presence: without sciatica Qualified Code(s): M54.5 - Low back pain; G89.29 - Other chronic pain (5) Metabolic acidosis Current Visit: Yes Status: Acute Assessment and plan: AGMA resolved NAGMA resolved Renal function improving will d/c bicarb gtt and continue maintence IV fluids (NS at 50cc/hr) (6) DVT prophylaxis Current Visit: Yes Status: Acute Assessment and plan: Heparin SQ (7) Obesity (BMI 30-39.9) Current Visit: Yes Status: Chronic (8) JESSICA (acute kidney injury) Current Visit: Yes Status: Acute Assessment and plan: Pre-renal, non-oliguric, possibly from hypotensive episodes 03/04 Continue IVF (NS at 50cc/hr) Avoid nephrotoxins - Constitutional Vitals: Temp Pulse Resp BP Pulse Ox 99.3 F 99 18 140/77 95 03/07/17 11:23 03/07/17 11:23 03/07/17 11:23 03/07/17 11:23 03/07/17 11:23 General appearance: Present: A&O X 3, morbidly obese, no acute distress - Head Head exam: Present: atraumatic, normocephalic - Eye Eye exam: Present: normal appearance, conjuntiva pink, sclera anicteric - Respiratory Respiratory exam: Absent: respiratory distress, wheezes - Cardiovascular Cardiovascular exam: Present: RRR, +S1, +S2. Absent: diastolic murmur, gallop, rubs, systolic murmur - GI/Abdominal GI/Abdominal exam: Present: distended (obese), normal bowel sounds, soft, no peritoneal signs. Absent: tenderness - Extremities Exam Extremities exam: Present: warm, radial pulses palpable and symetrical. Absent : calf tenderness, pedal edema - Neurological Exam Neurological exam: Present: alert, oriented X3 - Psychiatric Psychiatric exam: Present: normal affect, normal mood Internal Medicine: Result - Labs CBC & Chem 7: 03/07/17 06:41 03/07/17 07:23 Labs: Short CBC 03/07/17 Range/Units 06:41 WBC 9.9 (4.3-11.1) K/mcL Hgb 11.6 (11.5-15.4) g/dL Hct 34.3 L (35.3-44.9) % Plt Count 219 (140-400) K/mcL Neutrophils # 7.1 (1.6-8.9) K/mcL BMP 03/07/17 07:23 Sodium 144 D Potassium 2.7 L D Chloride 113 H Carbon Dioxide 22 BUN 18 Creatinine 1.47 H Glucose 144 H Calcium 9.0 - ABG Interpretation ABG results: ABG ABG pH 7.23 pH Units (7.32-7.45) L 03/04/17 12:12 ABG pCO2 34 mmHg (35-45) L 03/04/17 12:12 ABG pO2 96 mmHg (85-104) 03/04/17 12:12 ABG O2 Saturation 96 % (95-98) 03/04/17 12:12 - VTE Documentation of Mechanical Device: Intermittent pneumatic compression device Consult Discharge Plan - Plan Referrals: Shashank Moon DO [Primary Care Provider] - 03/15/17 12:00 pm
[2017-03-07] MEDS: Potassium Chloride 40 MEQ, Lidocaine 1% 2 ML in D5% in Water 500 ML IVPB SCH ×2 (12:04→16:05)
[2017-03-07] MEDS ORDERED: 0.9 % Sodium Chloride 1,000 ML IVC SCH (19:15)
[2017-03-07] MEDS: Topiramate 25 MG TABLET PO SCH (21:05)
[2017-03-08] MEDS: Acetaminophen 325 MG TABLET PO PRN (00:07)
[2017-03-08] MEDS: *HR* OxyCODONE Immed Rel 5 MG TABLET PO PRN ×2 (03:01→21:08)
[2017-03-08] MEDS: Ondansetron 4 MG/2 ML VIAL IVP PRN ×4 (03:01→21:07)
[2017-03-08 04:30] LABS: Basophils # 0.1 K/mcL (0.0-0.2); Basophils % 0.5 %; Eosinophils # 0.4 K/mcL (0.0-0.6); Eosinophils % 4.1 %; Hematocrit 32.8 % (35.3-44.9); Hemoglobin 10.8 g/dL (11.5-15.4); Immature Granulocytes % 3.5 % (0-4); Lymphocytes # 1.5 K/mcL (0.6-4.6); Lymphocytes % 14.8 %; Mean Corpuscular HGB Conc 32.9 g/dL (31.6-35.5); Mean Corpuscular Hemoglobin 28.3 pg (28.0-33.3); Mean Corpuscular Volume 86.1 fL (83.0-100.0); Mean Platelet Volume 10.2 fL (9.4-12.4); Monocytes # 1.3 K/mcL (0.0-1.3); Monocytes % 12.8 %; Neutrophils # 6.3 K/mcL (1.6-8.9); Platelet Count 223 K/mcL (140-400); Red Blood Count 3.81 M/mcL (3.82-4.97); Red Cell Distribution Width 15.6 % (11.5-14.5); Segmented Neutrophils % 64.3 %
[2017-03-08 04:49] LABS: Calcium 8.5 mg/dL (8.6-10.8); Magnesium 1.9 mg/dL (1.6-2.6); Potassium 3.3 mEq/L (3.5-4.5)
[2017-03-08] MEDS: *HR* Heparin 5,000 UNIT/ML VIAL SQ SCH ×3 (06:28→21:07)
[2017-03-08] MEDS: Fenofibrate 54 MG TABLET PO SCH (08:43)
[2017-03-08] MEDS: Metoprolol XL (24 HR) Succ 50 MG TAB.ER.24H PO SCH (08:43)
[2017-03-08] MEDS: Insulin LISPRO 300 UNITS/3 ML VIAL SQ SCH ×7 (08:44→21:04)
[2017-03-08] MEDS: Azithromycin 500 MG in D5% in Water 250 ML IVPB SCH (08:46)
[2017-03-08] MEDS: Insulin DETEMIR 100 UNIT/ML X5UNITS SQ SCH ×2 (08:53→21:07)
[2017-03-08] MEDS: *HR* Promethazine 25 MG/ML VIAL IVP PRN ×2 (10:54→17:24)
--- NOTE | 2017-03-08 11:39 | Internal Med Progress Note ---
Date of Encounter: 03/08/17 Time of Encounter: 11:36 - Subjective Interval history: Patient seen and examined. Reports of severe nausea refractory to Zofran. Noted to remain hypertensive, will increase Metoprolol XL to 100mg qdaily. No overnight issues reported. 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 D/C to ECF Noted to have Low O2 saturations and requiring O2 supplementation, will obtain 6min walk test for home O2 qualification - Assessment and plan (1) Sepsis Current Visit: Yes Status: Acute Assessment and plan: Resolved Likely secondary to PNA continue ABX (Day 4) follow up official culture reports Qualifiers: Sepsis type: sepsis due to unspecified organism Qualified Code(s): A41.9 - Sepsis, unspecified organism (2) DKA (diabetic ketoacidoses) Current Visit: Yes Status: Acute Assessment and plan: Resolved BG better controlled continue Levemir 33units BID and Novolog 5units TIDAC continue ss insulin monitor FS and BG Continue ADA diet Qualifiers: Diabetes mellitus type: type 2 Diabetes mellitus complication detail: without coma Qualified Code(s): E13.10 - Other specified diabetes mellitus with ketoacidosis without coma (3) Chronic pancreatitis Current Visit: Yes Status: Chronic Assessment and plan: supportive care IV fluids advance diet as tolerated Qualifiers: Pancreatitis type: unspecified pancreatitis type Qualified Code(s): K86.1 - Other chronic pancreatitis (4) Chronic back pain Current Visit: Yes Status: Chronic Assessment and plan: Lumbar CT unremarkable pain physician recommendation noted continue current pain medications Resume home meds and slowly titrate up gabapentin adjusted to renal dose Qualifiers: Back pain location: low back pain Back pain laterality: midline Sciatica presence: without sciatica Qualified Code(s): M54.5 - Low back pain; G89.29 - Other chronic pain (5) Metabolic acidosis Current Visit: Yes Status: Acute Assessment and plan: AGMA resolved NAGMA resolved (6) DVT prophylaxis Current Visit: Yes Status: Acute Assessment and plan: Heparin SQ (7) Obesity (BMI 30-39.9) Current Visit: Yes Status: Chronic (8) JESSICA (acute kidney injury) Current Visit: Yes Status: Acute Assessment and plan: Pre-renal, non-oliguric, possibly from hypotensive episodes 03/04 Continue IVF (NS at 50cc/hr) Avoid nephrotoxins renal function appears to have plateaued, will closely monitor (9) Electrolyte Abnormality Current Visit: Yes Status: Acute Hypokalemia K supplemented continue to monitor electrolytes and replace as needed - Constitutional Vitals: Temp Pulse Resp BP Pulse Ox 98.6 F 101 19 163/91 91 03/08/17 07:50 03/08/17 08:45 03/08/17 07:50 03/08/17 07:50 03/08/17 07:50 General appearance: Present: A&O X 3, morbidly obese, no acute distress - Head Head exam: Present: atraumatic, normocephalic - Eye Eye exam: Present: conjuntiva pink, sclera anicteric - Respiratory Respiratory exam: Absent: respiratory distress, wheezes - Cardiovascular Cardiovascular exam: Present: +S1, +S2, tachycardia - GI/Abdominal GI/Abdominal exam: Present: normal bowel sounds, soft, no peritoneal signs. Absent: distended, tenderness - Extremities Exam Extremities exam: Present: warm, radial pulses palpable and symetrical. Absent : calf tenderness - Neurological Exam Neurological exam: Present: alert, oriented X3 - Psychiatric Psychiatric exam: Present: normal affect, normal mood Internal Medicine: Result - Labs CBC & Chem 7: 03/08/17 03:30 03/08/17 03:30 Labs: Short CBC 03/08/17 Range/Units 03:30 WBC 9.8 (4.3-11.1) K/mcL Hgb 10.8 L (11.5-15.4) g/dL Hct 32.8 L (35.3-44.9) % Plt Count 223 (140-400) K/mcL Neutrophils # 6.3 (1.6-8.9) K/mcL BMP 03/08/17 03:30 Sodium 144 Potassium 3.3 L Chloride 110 H Carbon Dioxide 26 BUN 17 Creatinine 1.48 H Glucose 131 H Calcium 8.5 L - ABG Interpretation ABG results: ABG ABG pH 7.23 pH Units (7.32-7.45) L 03/04/17 12:12 ABG pCO2 34 mmHg (35-45) L 03/04/17 12:12 ABG pO2 96 mmHg (85-104) 03/04/17 12:12 ABG O2 Saturation 96 % (95-98) 03/04/17 12:12 - VTE Documentation of Mechanical Device: Intermittent pneumatic compression device Consult Discharge Plan - Plan Referrals: Shashank Moon DO [Primary Care Provider] - 03/15/17 12:00 pm
[2017-03-08] MEDS: Topiramate 25 MG TABLET PO SCH (21:07)
[2017-03-09] MEDS: *HR* OxyCODONE Immed Rel 5 MG TABLET PO PRN (03:09)
[2017-03-09] MEDS: *HR* Promethazine 25 MG/ML VIAL IVP PRN ×2 (03:10→12:02)
[2017-03-09] MEDS: *HR* Heparin 5,000 UNIT/ML VIAL SQ SCH (05:57)
[2017-03-09] MEDS: Insulin LISPRO 300 UNITS/3 ML VIAL SQ SCH ×4 (08:07→12:24)
[2017-03-09] MEDS: Fenofibrate 54 MG TABLET PO SCH (08:17)
[2017-03-09] MEDS: Metoprolol XL (24 HR) Succ 50 MG TAB.ER.24H PO SCH (08:17)
[2017-03-09] MEDS: Insulin DETEMIR 100 UNIT/ML X5UNITS SQ SCH (08:17)
[2017-03-09] MEDS: Azithromycin 500 MG in D5% in Water 250 ML IVPB SCH (08:17)
[2017-03-09 08:31] LABS: Basophils % 0.4 %; Eosinophils # 0.3 K/mcL (0.0-0.6); Eosinophils % 3.2 %; Hematocrit 35.8 % (35.3-44.9); Hemoglobin 11.4 g/dL (11.5-15.4); Immature Granulocytes % 3.3 % (0-4); Lymphocytes # 1.3 K/mcL (0.6-4.6); Lymphocytes % 11.9 %; Mean Corpuscular HGB Conc 31.8 g/dL (31.6-35.5); Mean Corpuscular Hemoglobin 28.1 pg (28.0-33.3); Mean Corpuscular Volume 88.4 fL (83.0-100.0); Mean Platelet Volume 9.6 fL (9.4-12.4); Monocytes # 1.7 K/mcL (0.0-1.3); Monocytes % 15.6 %; Platelet Count 282 K/mcL (140-400); Red Blood Count 4.05 M/mcL (3.82-4.97); Red Cell Distribution Width 15.7 % (11.5-14.5); Segmented Neutrophils % 65.6 %
[2017-03-09 08:43] LABS: Calcium 9.2 mg/dL (8.6-10.8); Phosphorous 3.5 mg/dL (2.3-4.7); Potassium 3.2 mEq/L (3.5-4.5)
[2017-03-09 11:25] VITALS: BP 141/85
--- NOTE | 2017-03-09 14:31 | Discharge Summary ---
Date of Encounter: 03/09/17 Time of Encounter: 10:26 - Discharge Diagnosis (1) DKA (diabetic ketoacidoses) Priority: Primary Status: Resolved Qualifiers: Diabetes mellitus type: type 2 Diabetes mellitus complication detail: without coma Qualified Code(s): E13.10 - Other specified diabetes mellitus with ketoacidosis without coma (2) Chronic back pain Priority: Secondary Status: Chronic Qualifiers: Back pain location: low back pain Back pain laterality: midline Sciatica presence: without sciatica Qualified Code(s): M54.5 - Low back pain; G89.29 - Other chronic pain (3) Morbid obesity with BMI of 40.0-44.9, adult Priority: Secondary Status: Chronic (4) Metabolic acidosis Priority: Secondary Status: Resolved (5) DVT prophylaxis Priority: Secondary Status: Acute (6) Sepsis Priority: Primary Status: Resolved Comments: secondary to PNA-finished abx therapy Qualifiers: Sepsis type: sepsis due to unspecified organism Qualified Code(s): A41.9 - Sepsis, unspecified organism (7) Chronic pancreatitis Priority: Secondary Status: Chronic Qualifiers: Pancreatitis type: unspecified pancreatitis type Qualified Code(s): K86.1 - Other chronic pancreatitis (8) Obesity (BMI 30-39.9) Priority: Secondary Status: Chronic - Discharge Medications Prescriptions: Metoprolol XL (24 HR) Succ [Toprol Xl] 100 mg PO DAILY #30 tab.er.24h Home Medications: Insulin Glargine [Lantus] 95 unit SQ BID 10/09/16 [History] Insulin LISPRO [Humalog Kwikpen U-100] 35 unit SQ TID 10/09/16 [History] Duloxetine HCl [Cymbalta] 60 mg PO DAILY 03/02/17 [History] Empagliflozin [Jardiance] 10 mg PO DAILY 03/02/17 [History] Fenofibrate Nanocrystallized [Triglide] 160 mg PO DAILY 03/02/17 [History] Furosemide [Lasix] 40 mg PO DAILY PRN 03/02/17 [History] Gabapentin [Neurontin] 800 mg PO QID 03/02/17 [History] Lidocaine Patch [Lidoderm 5% patch] 1 each TP DAILY PRN 03/02/17 [History] Lipase/Protease/Amylase [Creon Dr 24,000 Units Capsule] 2 each PO AD 03/02/17 [ History] Lipase/Protease/Amylase [Ariana Moran 24,000 Units Capsule] 3 each PO TIDWM [History] Ondansetron HCl [Zofran] 4 mg PO TID PRN 03/02/17 [History] Oxycodone HCl 10 mg PO Q4H PRN 03/02/17 [History] Rosuvastatin Calcium [Crestor] 10 mg PO HS 03/02/17 [History] SUMAtriptan succinate [Imitrex] 50 mg PO DAILY PRN 03/02/17 [History] Tizanidine HCl 8 mg PO Q8H PRN 03/02/17 [History] Topiramate [Topamax] 25 mg PO HS 03/02/17 [History] Metoprolol XL (24 HR) Succ [Toprol Xl] 100 mg PO DAILY #30 tab.er.24h 03/09/17 [ Rx] Allergies/Adverse Reactions: Allergies morphine Allergy (Verified 06/09/15 07:09) See Comments Quinolones Allergy (Verified 08/30/15 14:18) See Comments unknown acetaminophen [From Tylenol] Adverse Reaction (Verified 06/05/15 01:44) bad reaction codeine Adverse Reaction (Verified 06/09/15 07:09) See Comments hydrocodone [From Vicodin] Adverse Reaction (Verified 06/05/15 01:44) bad reaction levofloxacin [From Levaquin] Adverse Reaction (Verified 06/05/15 01:44) Hives NSAIDS (Non-Steroidal Anti-Inflamma Adverse Reaction (Verified 06/05/15 01:44) bad reaction Opioids - Morphine Analogues Adverse Reaction (Verified 06/09/15 07:43) See Comments Date of admission: 03/02/17 15:43 Primary care physician: Deep Brandt Consults: 03/02/17 18:19 Consult to Physician [CONS] Routine Consulting Provider: Fabian Moyer Reason for Consult: Chronic back pain Call Completed: No 03/02/17 18:20 Consult to Dispatch Supervisor [CONS] Routine Reason for SW Consult: Discharge needs. Chronic pain. 03/03/17 10:08 Consult to Invasive Line Access Team [CONS] Routine Reason for Consult: LIMITED ACCESS Line Type: EPIV 03/05/17 11:55 Consult to Occupational Therapy [CONS] Routine Comment: Evaluate, develop and implement POC Reason for Consult: weakness Consult to Physical Therapy [CONS] Routine Comment: Evaluate, develop and implement POC Reason for Consult: weakness Discharging clinician: Carmencita Dao Anticipated date of discharge: 03/09/17 - Patient Status Disposition: Home Health Service Condition: Good Functional capacity at discharge: independent ambulation Overall status at discharge: patient is back to baseline - Discharge Instructions Follow Up With: Shashank Moon DO [Primary Care Provider] - (Patient is going to ECF no PCP appointment needed) Additional Instructions: Please follow up with your primary care physician within one week after your discharge from the hospital. Please closely monitor your blood glucose at home. Please keep a log of your fingerstick readings at home and take this with you to your primary care physician's appointment. Please seek medical help if your blood glucose is above 300. Your home dose of Metoprolol has been increased to 100mg once a day. please take this medication as prescribed. Please closely monitor your BP at home. If your SBP<120, decrease Metoprolol dose to 50mg once a day. Resume all your home medications as prescribed by your primary care physician. You will be discharged to home with home oxygen, please use oxygen at all times and inform your primary care physician of your need for home oxygen. - Diet and Activity Activity: as per physical therapy, wear oxygen at all times Diet: diabetic diet, low salt diet Hospital course: Ms. Pugh is a 56 year old female with PMH of DM, morbid obesity, chronic pancreatitis, chronic back pain who was admitted for DKA and worsening lower back pain. Patient was started on insulin therapy and pain control. She responded appropriately to therapy. Her hospital course was complicated with sepsis secondar to PNA. She was started on empiric abx therapy to which she responded appropriately. she was noted to be hypoxic requiring O2 supplementation. She qualified for home O2 therapy. Her hospital course was prolonged due to her noncompliance and drug seeking behavior. She refused to work with therapy and was constantly seeking IV pain medications. PT recommended ECF however patient adamantly refusing rehab to which she initially agreed. NOw she would like to be discharged to home with home health. She has finished her abx therapy. she is hemodynamically stable and will be discharged to home. Pt demonstrates understanding of her diagnosis and agrees with the discharge plan. - Time Spent with Patient Total time spent providing and/or coordinating discharge services: Greater than 30 minutes - Constitutional Vitals: Temp Pulse Resp BP Pulse Ox 98.1 F 95 18 141/85 93 03/09/17 11:22 03/09/17 11:22 03/09/17 11:22 03/09/17 11:22 03/09/17 11:35 General appearance: Present: A&O X 3, morbidly obese, no acute distress - Head Head exam: Present: atraumatic, normocephalic - Eye Eye exam: Present: conjuntiva pink, sclera anicteric - Respiratory Respiratory exam: Present: CTAB. Absent: accessory muscle use, rales, rhonchi, wheezes - Cardiovascular Cardiovascular exam: Present: RRR, +S1, +S2. Absent: diastolic murmur, gallop, rubs, systolic murmur - GI/Abdominal GI/Abdominal exam: Present: normal bowel sounds, soft, no peritoneal signs. Absent: distended, tenderness - Extremities Exam Extremities exam: Present: warm, radial pulses palpable and symetrical. Absent : pedal edema - VTE Documentation of Mechanical Device: Intermittent pneumatic compression device
--- NOTE | 2017-03-09 14:42 | Physician Discharge Referral ---
Home Health/Hosp Referral Info Transfer to: Home Health Provider in Charge Post Discharge: PCP - Diagnosis (1) DKA (diabetic ketoacidoses) Priority: Primary Status: Resolved (2) Chronic back pain Priority: Primary Status: Chronic (3) Morbid obesity with BMI of 40.0-44.9, adult Priority: Secondary Status: Chronic (4) Metabolic acidosis Priority: Secondary Status: Resolved (5) DVT prophylaxis Priority: Secondary Status: Acute (6) Sepsis Priority: Secondary Status: Resolved (7) Chronic pancreatitis Priority: Secondary Status: Chronic (8) Obesity (BMI 30-39.9) Priority: Secondary Status: Chronic - Respiratory Orders Smoking Cessation: Smoking cessation has been advised. For more information, call the [place] Tobacco Quit Line at 9-073-IWLU-NOW. - Services Needed Following services are medically necessary services: Nursing, Home Health Aide, Physical Therapy, Occupational Therapy - Transfer Medications Prescriptions: Metoprolol XL (24 HR) Succ [Toprol Xl] 100 mg PO DAILY #30 tab.er.24h Home Medications: Insulin Glargine [Lantus] 95 unit SQ BID 10/09/16 [History] Insulin LISPRO [Humalog Kwikpen U-100] 35 unit SQ TID 10/09/16 [History] Duloxetine HCl [Cymbalta] 60 mg PO DAILY 03/02/17 [History] Empagliflozin [Jardiance] 10 mg PO DAILY 03/02/17 [History] Fenofibrate Nanocrystallized [Triglide] 160 mg PO DAILY 03/02/17 [History] Furosemide [Lasix] 40 mg PO DAILY PRN 03/02/17 [History] Gabapentin [Neurontin] 800 mg PO QID 03/02/17 [History] Lidocaine Patch [Lidoderm 5% patch] 1 each TP DAILY PRN 03/02/17 [History] Lipase/Protease/Amylase [Ariana Moran 24,000 Units Capsule] 2 each PO AD 03/02/17 [ History] Lipase/Protease/Amylase [Ariana Moran 24,000 Units Capsule] 3 each PO TIDWM [History] Ondansetron HCl [Zofran] 4 mg PO TID PRN 03/02/17 [History] Oxycodone HCl 10 mg PO Q4H PRN 03/02/17 [History] Rosuvastatin Calcium [Crestor] 10 mg PO HS 03/02/17 [History] SUMAtriptan succinate [Imitrex] 50 mg PO DAILY PRN 03/02/17 [History] Tizanidine HCl 8 mg PO Q8H PRN 03/02/17 [History] Topiramate [Topamax] 25 mg PO HS 03/02/17 [History] Metoprolol XL (24 HR) Succ [Toprol Xl] 100 mg PO DAILY #30 tab.er.24h 03/09/17 [ Rx] Allergies/Adverse Reactions: Allergies morphine Allergy (Verified 06/09/15 07:09) See Comments Quinolones Allergy (Verified 08/30/15 14:18) See Comments unknown acetaminophen [From Tylenol] Adverse Reaction (Verified 06/05/15 01:44) bad reaction codeine Adverse Reaction (Verified 06/09/15 07:09) See Comments hydrocodone [From Vicodin] Adverse Reaction (Verified 06/05/15 01:44) bad reaction levofloxacin [From Levaquin] Adverse Reaction (Verified 06/05/15 01:44) Hives NSAIDS (Non-Steroidal Anti-Inflamma Adverse Reaction (Verified 06/05/15 01:44) bad reaction Opioids - Morphine Analogues Adverse Reaction (Verified 06/09/15 07:43) See Comments Certification: Further, I certify that my clinical findings support that this patient is homebound (i.e. absences from home require considerable and taxing effort and are for medical reasons or restorationism services or infrequently or short duration when for other reasons) because: Homebound Reason: Patient requires assistance of a person or device to safely leave home Attestation: My signature below is to certify that this patient is under my care and that I, or nurse practitioner, or a physician's entry level marketing assistant working with me, has a face-to -face encounter with this patient.
== END 2017-03-09 15:50 | disposition home health service (06) | DRG 871 ==
LOC: EMEROO 11:48 → 2NNU 15:43 → SUATTDRO 15:43 → 2NNU 16:34
PROVIDERS: ADMIT Internal Medicine; ATTEND Internal Medicine

== ENCOUNTER 2017-03-26 15:18 | Inpatient (IN) ==
[2017-03-26] MEDS ORDERED: Ondansetron 4 MG/2 ML VIAL IVP ONE (16:21)
[2017-03-26] MEDS ORDERED: 0.9 % Sodium Chloride 1,000 ML IVC ONE ×2 (16:21→17:14)
[2017-03-26] MEDS ORDERED: *HR* HYDROmorphone (PF) 1 MG/ML SYRINGE IVP ONE ×2 (16:22→19:56)
--- NOTE | 2017-03-26 16:25 | Emergency Department Note ---
Disposition Clinical Impression: Hyperglycemia Abdominal pain Qualifiers: Abdominal location: left upper quadrant Qualified Code(s): R10.12 - Left upper quadrant pain Acute pancreatitis Qualifiers: Pancreatitis type: unspecified pancreatitis type Acute pancreatitis complication: unspecified Qualified Code(s): K85.90 - Acute pancreatitis without necrosis or infection, unspecified Disposition: Admitted As Inpatient Condition: Fair Referrals: Shashank Moon DO [Primary Care Provider] - Forms: Work/School Release, ED Satisfaction Letter Time of Disposition: 21:15 Abdominal Pain HPI - General Chief Complaint: ED Abdominal Pain Stated Complaint: abd pain, vomiting Time Seen by Provider: 03/26/17 16:06 Source: patient, family Mode of arrival: ambulatory Limitations: no limitations Nursing Notes Reviewed: Yes Vital Signs Reviewed: Yes - History of Present Illness HPI Narrative: 56-year-old female with history of chronic pancreatitis, diabetes presents for evaluation of abdominal pain and vomiting. Patient states the pain is primarily on the left side with radiation to her back. Patient states that her pancreatitis is related to her triglycerides. Denies history of alcohol use. Denies history of gallbladder disease and has had her gallbladder removed. Note that she was recently admitted for DKA, sepsis, pancreatitis 2 weeks ago. States this pain has been persistent in the left side since then with worsening nausea and vomiting. Patient states that she typically takes her oral opiate pain medication at home but has not been able to keep anything down. Reports subjective fevers. No chest pain starts of breath. No diarrhea or constipation. Reports that he takes insulin for her diabetes. Pain Scale: 9 - Related Data Home Medications Medication Instructions Recorded Confirmed Insulin Glargine [Lantus] 95 unit SQ BID 10/09/16 03/02/17 Insulin LISPRO [Humalog Kwikpen 35 unit SQ TID 10/09/16 03/02/17 U-100] Duloxetine HCl [Cymbalta] 60 mg PO DAILY 03/02/17 03/02/17 Empagliflozin [Jardiance] 10 mg PO DAILY 03/02/17 03/02/17 Fenofibrate Nanocrystallized 160 mg PO DAILY 03/02/17 03/02/17 [Triglide] Furosemide [Lasix] 40 mg PO DAILY PRN 03/02/17 03/02/17 Gabapentin [Neurontin] 800 mg PO QID 03/02/17 03/02/17 Lidocaine Patch [Lidoderm 5% patch] 1 each TP DAILY PRN 03/02/17 03/02/17 Lipase/Protease/Amylase [Ariana Moran 2 each PO AD 03/02/17 03/02/17 24,000 Units Capsule] Lipase/Protease/Amylase [Ariana Moran 3 each PO TIDWM 03/02/17 03/02/17 24,000 Units Capsule] Ondansetron HCl [Zofran] 4 mg PO TID PRN 03/02/17 03/02/17 Oxycodone HCl 10 mg PO Q4H PRN 03/02/17 03/02/17 Rosuvastatin Calcium [Crestor] 10 mg PO HS 03/02/17 03/02/17 SUMAtriptan succinate [Imitrex] 50 mg PO DAILY PRN 03/02/17 03/02/17 Tizanidine HCl 8 mg PO Q8H PRN 03/02/17 03/02/17 Topiramate [Topamax] 25 mg PO HS 03/02/17 03/02/17 Previous Rx's Medication Instructions Recorded Metoprolol XL (24 HR) Succ [Toprol 100 mg PO DAILY #30 tab.er.24h 03/09/17 Xl] Allergies Allergy/AdvReac Type Severity Reaction Status Date / Time morphine Allergy See Verified 06/09/15 07:09 Comments Quinolones Allergy See Verified 08/30/15 14:18 Comments acetaminophen [From Tylenol] AdvReac bad Verified 06/05/15 01:44 reaction codeine AdvReac See Verified 06/09/15 07:09 Comments hydrocodone [From Vicodin] AdvReac bad Verified 06/05/15 01:44 reaction levofloxacin [From Levaquin] AdvReac Hives Verified 06/05/15 01:44 NSAIDS (Non-Steroidal AdvReac bad Verified 06/05/15 01:44 Anti-Inflamma reaction Opioids - Morphine Analogues AdvReac See Verified 06/09/15 07:43 Comments All systems ED: reviewed and negative except as stated. Constitutional: Reports: as per HPI, fever, chills Eyes: Reports: as per HPI ENT ED: Reports: as per HPI Cardiovascular: Reports: as per HPI. Denies: chest pain Respiratory: Reports: as per HPI. Denies: cough, dyspnea Gastrointestinal: Reports: as per HPI, abdominal pain, nausea, vomiting. Denies : diarrhea, constipation Genitourinary: Reports: as per HPI Musculoskeletal: Reports: as per HPI Integumentary: Reports: as per HPI Neurological: Reports: as per HPI Psychiatric: Reports: as per HPI Endocrine: Reports: as per HPI Hematological/Lymphatic: Reports: as per HPI Allergic/Immunologic: Reports: as per HPI Abdominal Pain PMH - Past Medical History Medical history: Reports: diabetes, other Psychiatric history: Reports: anxiety, depression - Social History Smoking status: Current every day smoker Alcohol use: Reports: none Drug use: Reports: none Physical Exam - General Limitations: no limitations General appearance: alert, in no apparent distress - Head Head exam: atraumatic, normocephalic, normal inspection - Eye Eye exam: Present: normal appearance, PERRL, EOMI - ENT ENT exam: normal exam, normal oropharynx, mucous membranes moist - Neck Neck exam: Present: normal inspection, full ROM, trachea midline - Chest Chest inspection: Present: normal inspection, symmetric chest wall rise - Respiratory Respiratory exam: Present: normal lung sounds bilaterally. Absent: respiratory distress - Cardiovascular Cardiovascular exam: Present: regular rate, normal rhythm - Abdominal Exam Abdominal exam: Present: soft, tenderness (Water left-sided tenderness). Absent : guarding, rebound - Extremities Exam Extremities exam: Present: normal inspection. Absent: pedal edema - Back Exam Back exam: Present: normal inspection. Absent: tenderness - Neurological Exam Neurological exam: Present: alert, oriented X3 - Skin Skin exam: Present: warm, dry, intact, normal color Course Course Narrative: Patient seen and examined upon arrival. Patient does state she has a history of chronic pancreatitis. Patient will get basic lab work including metabolic panel with serum ketones. Patient will schedule urinalysis. Patient's pain will initially be addressed with opiates. Disposition pending. - Reevaluation(s) Reevaluation #1: Patient's lab work reviewed. Patient is hyperglycemic with ketosis with no evidence of acidosis. Patients receiving IV fluid hydration as well as IV insulin. Lactate is normal. No evidence of pancreatitis. Time: 17:21 Reevaluation #2: Patient seen and examined. Patient notes the pain has not improved. Since she typically takes 15 mg of Percocet at home. Concerns about opioid dependence. Patient was given Percocet orally as well as Dilaudid. Given patient's persistent symptoms she will get a CT of the abdomen and pelvis. Time: 19:38 Reevaluation #3: Seen and examined. Resting comfortably. Patient's CT of the abdomen pelvis that showed mild acute pancreatitis. Patient's likely resulting from prior episode. Given the patient's symptoms as well as unable to accurately control her pain patient will be admitted to the hospital service for further evaluation monitoring. Time: 20:54 Vital Signs Temperature 98.3 F 03/26/17 15:50 Pulse Rate 130 03/26/17 15:50 Respiratory Rate 18 03/26/17 15:50 Blood Pressure 143/90 03/26/17 15:50 O2 Sat by Pulse Oximetry 95 03/26/17 15:50 Temperature 98.3 F 03/26/17 15:50 Pulse Rate 106 03/26/17 19:12 Respiratory Rate 14 03/26/17 19:12 Blood Pressure 158/86 03/26/17 19:12 O2 Sat by Pulse Oximetry 92 03/26/17 19:12 Oxygen Delivery Oxygen Delivery Room Air Abdominal Pain - MDM Narrative Medical decision making narrative: 56-year-old female with a history of chronic pancreatitis presents for evaluation of abdominal pain and nausea vomiting. Patient states the pain presentation is similar to her prior episodes. Recently hospitalized 2 weeks ago with DKA. The patient's symptoms were initially evaluated with lab work and symptomatically with fluids. Patient was found to be hyperglycemic but not acidotic. Patient was given IV insulin. Patient's glucose did improve. Patient states that she did not take her insulin earlier today and has not been eating due to the nausea and vomiting. Patient was treated with opioid medications and takes chronic opiates at home. Given the degree of the patient' s symptoms that were not resolving the patient received a CT of the pelvis are showed mild acute pancreatitis. Patient states that she does not feel that his symptoms resolved from last hospitalization. Patient persistent Symptoms. Patient will be admitted to the hospital service for further evaluation and monitoring. Patient is high risk for DKA and if discharge would likely return with worsening symptoms. She is agreeable with plan of care. - Lab Data Lab results reviewed: Yes I reviewed the patient's lab results. Result diagrams: 03/26/17 16:42 03/26/17 16:42 Lab Results 03/26/17 03/26/17 03/26/17 Range/Units 15:56 15:57 16:42 WBC 9.8 (4.3-11.1) K/mcL RBC 4.47 (3.82-4.97) M/mcL Hgb 12.5 (11.5-15.4) g/dL Hct 38.4 (35.3-44.9) % MCV 85.9 (83.0-100.0) fL MCH 28.0 (28.0-33.3) pg MCHC 32.6 (31.6-35.5) g/dL RDW 13.7 (11.5-14.5) % Plt Count 424 H (140-400) K/mcL MPV 9.0 L (9.4-12.4) fL Immature Gran % 0.5 (0-4) % Seg Neutrophils % 62.9 % Lymphocytes % 24.8 % Monocytes % 7.7 % Eosinophils % 3.5 % Basophils % 0.6 % Neutrophils # 6.2 (1.6-8.9) K/mcL Lymphocytes # 2.4 (0.6-4.6) K/mcL Monocytes # 0.8 (0.0-1.3) K/mcL Eosinophils # 0.3 (0.0-0.6) K/mcL Basophils # 0.1 (0.0-0.2) K/mcL VBG pH (7.32-7.42) pH Units VBG pCO2 (41-51) mmHg VBG pO2 (25-40) mmHg VBG HCO3 (21-27) mEq/L Sodium (136-145) mEq/L Potassium (3.5-4.5) mEq/L Chloride (98-109) mEq/L Carbon Dioxide (19-29) mEq/L BUN (7-20) mg/dL Creatinine (0.57-1.11) mg/dL Est GFR ( Amer) (> 60) Est GFR (Non-Af Amer) (> 60) BUN/Creatinine Ratio (6-26) Glucose (70-99) mg/dL POC Glucose 471 H* 433 H* (58-89) Calculated Osmolality (280-300) Lactic Acid (0.5-2.2) mmol/L Calcium (8.6-10.8) mg/dL Total Bilirubin (0.2-1.2) mg/dL Direct Bilirubin (0.0-0.5) mg/dL Indirect Bilirubin (0.0-1.2) mg/dL AST (5-34) Units/L ALT (0-55) Units/L Alkaline Phosphatase (38-126) Units/L Serum Total Protein (6.0-8.3) g/dL Albumin (3.5-5.0) g/dL Globulin (2.4-3.5) g/dL Albumin/Globulin Ratio (1.1-2.2) Amylase (25-125) Units/L Lipase (8-78) Units/L Beta-Hydroxybutyric Acd (0.02-0.27) mmol/L Urine Color (Yellow) Urine Clarity (Clear) Urine pH (5.0-8.0) pH Units Ur Specific [place] (1.010-1.025) Urine Protein (Neg-Trace) mg/dL Urine Glucose (UA) (Normal) mg/dL Urine Ketones (Negative) mg/dL Urine Blood (Negative) Urine Nitrite (Negative) Urine Bilirubin (Negative) Urine Urobilinogen (Normal) mg/dL Ur Leukocyte Esterase (Negative) Urine Microscopic RBC (0-3) per hpf Urine Microscopic WBC (0-3) per hpf Ur Squamous Epith Cells (None-Few) per lpf Ur Culture Indicated? (NO) Urine Amylase Units/L 03/26/17 03/26/17 03/26/17 Range/Units 16:42 16:42 16:42 WBC (4.3-11.1) K/mcL RBC (3.82-4.97) M/mcL Hgb (11.5-15.4) g/dL Hct (35.3-44.9) % MCV (83.0-100.0) fL MCH (28.0-33.3) pg MCHC (31.6-35.5) g/dL RDW (11.5-14.5) % Plt Count (140-400) K/mcL MPV (9.4-12.4) fL Immature Gran % (0-4) % Seg Neutrophils % % Lymphocytes % % Monocytes % % Eosinophils % % Basophils % % Neutrophils # (1.6-8.9) K/mcL Lymphocytes # (0.6-4.6) K/mcL Monocytes # (0.0-1.3) K/mcL Eosinophils # (0.0-0.6) K/mcL Basophils # (0.0-0.2) K/mcL VBG pH 7.39 (7.32-7.42) pH Units VBG pCO2 38 L (41-51) mmHg VBG pO2 65 H (25-40) mmHg VBG HCO3 23.0 (21-27) mEq/L Sodium 134 L (136-145) mEq/L Potassium 3.7 (3.5-4.5) mEq/L Chloride 99 (98-109) mEq/L Carbon Dioxide 22 (19-29) mEq/L BUN 15 (7-20) mg/dL Creatinine 1.39 H (0.57-1.11) mg/dL Est GFR ( Amer) 48 L (> 60) Est GFR (Non-Af Amer) 40 L (> 60) BUN/Creatinine Ratio 11 (6-26) Glucose 516 H* (70-99) mg/dL POC Glucose (58-89) Calculated Osmolality 302 H (280-300) Lactic Acid (0.5-2.2) mmol/L Calcium 10.1 (8.6-10.8) mg/dL Total Bilirubin 0.4 (0.2-1.2) mg/dL Direct Bilirubin 0.2 (0.0-0.5) mg/dL Indirect Bilirubin 0.2 (0.0-1.2) mg/dL AST 31 (5-34) Units/L ALT 17 (0-55) Units/L Alkaline Phosphatase 118 (38-126) Units/L Serum Total Protein 8.1 (6.0-8.3) g/dL Albumin 3.4 L (3.5-5.0) g/dL Globulin 4.7 H (2.4-3.5) g/dL Albumin/Globulin Ratio 0.7 L (1.1-2.2) Amylase 57 (25-125) Units/L Lipase 73 (8-78) Units/L Beta-Hydroxybutyric Acd > 2.00 H (0.02-0.27) mmol/L Urine Color (Yellow) Urine Clarity (Clear) Urine pH (5.0-8.0) pH Units Ur Specific [place] (1.010-1.025) Urine Protein (Neg-Trace) mg/dL Urine Glucose (UA) (Normal) mg/dL Urine Ketones (Negative) mg/dL Urine Blood (Negative) Urine Nitrite (Negative) Urine Bilirubin (Negative) Urine Urobilinogen (Normal) mg/dL Ur Leukocyte Esterase (Negative) Urine Microscopic RBC (0-3) per hpf Urine Microscopic WBC (0-3) per hpf Ur Squamous Epith Cells (None-Few) per lpf Ur Culture Indicated? (NO) Urine Amylase Units/L 03/26/17 03/26/17 03/26/17 Range/Units 16:42 18:33 18:43 WBC (4.3-11.1) K/mcL RBC (3.82-4.97) M/mcL Hgb (11.5-15.4) g/dL Hct (35.3-44.9) % MCV (83.0-100.0) fL MCH (28.0-33.3) pg MCHC (31.6-35.5) g/dL RDW (11.5-14.5) % Plt Count (140-400) K/mcL MPV (9.4-12.4) fL Immature Gran % (0-4) % Seg Neutrophils % % Lymphocytes % % Monocytes % % Eosinophils % % Basophils % % Neutrophils # (1.6-8.9) K/mcL Lymphocytes # (0.6-4.6) K/mcL Monocytes # (0.0-1.3) K/mcL Eosinophils # (0.0-0.6) K/mcL Basophils # (0.0-0.2) K/mcL VBG pH (7.32-7.42) pH Units VBG pCO2 (41-51) mmHg VBG pO2 (25-40) mmHg VBG HCO3 (21-27) mEq/L Sodium (136-145) mEq/L Potassium (3.5-4.5) mEq/L Chloride (98-109) mEq/L Carbon Dioxide (19-29) mEq/L BUN (7-20) mg/dL Creatinine (0.57-1.11) mg/dL Est GFR ( Amer) (> 60) Est GFR (Non-Af Amer) (> 60) BUN/Creatinine Ratio (6-26) Glucose (70-99) mg/dL POC Glucose 331 H (58-89) Calculated Osmolality (280-300) Lactic Acid 1.1 (0.5-2.2) mmol/L Calcium (8.6-10.8) mg/dL Total Bilirubin (0.2-1.2) mg/dL Direct Bilirubin (0.0-0.5) mg/dL Indirect Bilirubin (0.0-1.2) mg/dL AST (5-34) Units/L ALT (0-55) Units/L Alkaline Phosphatase (38-126) Units/L Serum Total Protein (6.0-8.3) g/dL Albumin (3.5-5.0) g/dL Globulin (2.4-3.5) g/dL Albumin/Globulin Ratio (1.1-2.2) Amylase (25-125) Units/L Lipase (8-78) Units/L Beta-Hydroxybutyric Acd (0.02-0.27) mmol/L Urine Color Yellow (Yellow) Urine Clarity Clear (Clear) Urine pH 6.0 (5.0-8.0) pH Units Ur Specific [place] 1.025 (1.010-1.025) Urine Protein Trace (Neg-Trace) mg/dL Urine Glucose (UA) >=1000 H (Normal) mg/dL Urine Ketones 15 H (Negative) mg/dL Urine Blood Negative (Negative) Urine Nitrite Negative (Negative) Urine Bilirubin Negative (Negative) Urine Urobilinogen Normal (Normal) mg/dL Ur Leukocyte Esterase Negative (Negative) Urine Microscopic RBC 0-3 (0-3) per hpf Urine Microscopic WBC 0-3 (0-3) per hpf Ur Squamous Epith Cells Few (None-Few) per lpf Ur Culture Indicated? NO (NO) Urine Amylase Units/L 03/26/17 Range/Units 18:43 WBC (4.3-11.1) K/mcL RBC (3.82-4.97) M/mcL Hgb (11.5-15.4) g/dL Hct (35.3-44.9) % MCV (83.0-100.0) fL MCH (28.0-33.3) pg MCHC (31.6-35.5) g/dL RDW (11.5-14.5) % Plt Count (140-400) K/mcL MPV (9.4-12.4) fL Immature Gran % (0-4) % Seg Neutrophils % % Lymphocytes % % Monocytes % % Eosinophils % % Basophils % % Neutrophils # (1.6-8.9) K/mcL Lymphocytes # (0.6-4.6) K/mcL Monocytes # (0.0-1.3) K/mcL Eosinophils # (0.0-0.6) K/mcL Basophils # (0.0-0.2) K/mcL VBG pH (7.32-7.42) pH Units VBG pCO2 (41-51) mmHg VBG pO2 (25-40) mmHg VBG HCO3 (21-27) mEq/L Sodium (136-145) mEq/L Potassium (3.5-4.5) mEq/L Chloride (98-109) mEq/L Carbon Dioxide (19-29) mEq/L BUN (7-20) mg/dL Creatinine (0.57-1.11) mg/dL Est GFR ( Amer) (> 60) Est GFR (Non-Af Amer) (> 60) BUN/Creatinine Ratio (6-26) Glucose (70-99) mg/dL POC Glucose (58-89) Calculated Osmolality (280-300) Lactic Acid (0.5-2.2) mmol/L Calcium (8.6-10.8) mg/dL Total Bilirubin (0.2-1.2) mg/dL Direct Bilirubin (0.0-0.5) mg/dL Indirect Bilirubin (0.0-1.2) mg/dL AST (5-34) Units/L ALT (0-55) Units/L Alkaline Phosphatase (38-126) Units/L Serum Total Protein (6.0-8.3) g/dL Albumin (3.5-5.0) g/dL Globulin (2.4-3.5) g/dL Albumin/Globulin Ratio (1.1-2.2) Amylase (25-125) Units/L Lipase (8-78) Units/L Beta-Hydroxybutyric Acd (0.02-0.27) mmol/L Urine Color (Yellow) Urine Clarity (Clear) Urine pH (5.0-8.0) pH Units Ur Specific [place] (1.010-1.025) Urine Protein (Neg-Trace) mg/dL Urine Glucose (UA) (Normal) mg/dL Urine Ketones (Negative) mg/dL Urine Blood (Negative) Urine Nitrite (Negative) Urine Bilirubin (Negative) Urine Urobilinogen (Normal) mg/dL Ur Leukocyte Esterase (Negative) Urine Microscopic RBC (0-3) per hpf Urine Microscopic WBC (0-3) per hpf Ur Squamous Epith Cells (None-Few) per lpf Ur Culture Indicated? (NO) Urine Amylase 127 Units/L - Radiology Data Radiology results reviewed: Yes I reviewed the patient's radiology results. Abdomen/Pelvis CT 03/26/17 19:37 IMPRESSION: Findings concerning for mild acute pancreatitis. No peripancreatic fluid collection. Mildly dilated common bile duct up to 9 mm is new from prior exam (previously 6 mm). Correlation with liver function tests recommended. No intrahepatic biliary dilation on the noncontrast CT. D/ / 03/26/2017 20:18:05 Jw Diego MD / liz Interpreting Provider: MD Brody Berman - Brody Situation: Demographics Background: Presenting Complaint Assessment: Vital Signs, Course and respsone to treatment, Patient/Family Expectation Recommendation: Barrier(s) to disposition, Recommendation based on pending studies, treatments, or consults Brody Report Given to: Dr. Lion Skinner Repor Time: 20:55 Attestation Statement - Attestation Attestation: I examined this patient and my medical decision-making was reviewed with the HOGS[employer] LINER/PA/Advanced Practice Nurse/Resident Physician. I agree with the documented findings, disposition and treatment plan as described except to the extent set forth below. Emergency department with abdominal pain. Pain is epigastric. She states has been present that she was in the hospital for DKA a couple weeks ago. History of chronic pancreatitis and uncontrolled diabetes. Admits to nausea and vomiting as well. On examination she has epigastric tenderness without guarding. Plan. Patient with hyperglycemia. Normal pH. She does have ketones. Giving IV hydration. Insulin. Lipase normal. Likely discharge after symptom control. Patient with persistent pain. A CT was performed to show some mild pancreatitis. We will admit.
[2017-03-26 16:52] LABS: Basophils # 0.1 K/mcL (0.0-0.2); Basophils % 0.6 %; Eosinophils # 0.3 K/mcL (0.0-0.6); Eosinophils % 3.5 %; Hematocrit 38.4 % (35.3-44.9); Hemoglobin 12.5 g/dL (11.5-15.4); Immature Granulocytes % 0.5 % (0-4); Lymphocytes # 2.4 K/mcL (0.6-4.6); Lymphocytes % 24.8 %; Mean Corpuscular HGB Conc 32.6 g/dL (31.6-35.5); Mean Corpuscular Volume 85.9 fL (83.0-100.0); Monocytes # 0.8 K/mcL (0.0-1.3); Monocytes % 7.7 %; Neutrophils # 6.2 K/mcL (1.6-8.9); Platelet Count 424 K/mcL (140-400); Red Blood Count 4.47 M/mcL (3.82-4.97); Red Cell Distribution Width 13.7 % (11.5-14.5); Segmented Neutrophils % 62.9 %
[2017-03-26 16:58] LABS: VBG PH 7.39 pH Units (7.32-7.42)
[2017-03-26 17:07] LABS: Albumin 3.4 g/dL (3.5-5.0); Albumin/Globulin Ratio 0.7 (1.1-2.2); Bilirubin,Direct 0.2 mg/dL (0.0-0.5); Bilirubin,Indirect 0.2 mg/dL (0.0-1.2); Bilirubin,Total 0.4 mg/dL (0.2-1.2); Calcium 10.1 mg/dL (8.6-10.8); Globulin 4.7 g/dL (2.4-3.5); Potassium 3.7 mEq/L (3.5-4.5); Total Protein 8.1 g/dL (6.0-8.3)
[2017-03-26] MEDS ORDERED: Insulin Human Regular 10 UNIT in 0.9 % Sodium Chloride 10 ML IV ONE (17:13)
[2017-03-26] MEDS ORDERED: *HR* OxyCODONE/APAP 10/325 TABLET PO ONE (18:32)
[2017-03-26 19:02] LABS: Bilirubin,Urine Negative (Negative); Blood,Urine Negative (Negative); Clarity,Urine Clear (Clear); Color,Urine Yellow (Yellow); Glucose,Urine (UA) >=1000 mg/dL (Normal); Ketones,Urine 15 mg/dL (Negative); Leukocyte Esterase,Urine Negative (Negative); Nitrite,Urine Negative (Negative); Protein,Urine Trace mg/dL (Neg-Trace); Specific Gravity,Urine 1.025 (1.010-1.025); Urobilinogen,Urine Normal (Normal)
[2017-03-26 19:27] LABS: RBC,Urine 0-3 per hpf (0-3); WBC,Urine 0-3 per hpf (0-3)
[2017-03-26 19:28] LABS: Squamous Epithelial Cell,Urine Few per lpf (None-Few)
--- NOTE | 2017-03-26 22:19 | Internal Med History&Physical ---
Date of Encounter: 03/27/17 Time of Encounter: 22:15 Assessment and Plan (1) Acute pancreatitis Current visit: Yes Status: Acute Patient has history of chronic pancreatitis. Although her lipase and amylase are negative. CT abdomen done in ER showed acute pancreatitis though mild. She had cholecystectomy in the past and therefore mild delegation of biliary duct noted. Qualifiers: Pancreatitis type: other Acute pancreatitis complication: no infection or necrosis Qualified Code(s): K85.80 - Other acute pancreatitis without necrosis or infection (2) Hyperglycemia Current visit: Yes Status: Acute Blood sugar in the range of 500. Patient does take heavy dose of insulin at home. Started on sliding scale with frequent Accu-Cheks and IV hydration. Potassium is only 3.7. 4 I will give some additional dose considering we have might have to use quite a bit of insulin tonight she has ketones but no acidosis or anion gap. (3) JESSICA (acute kidney injury) Current visit: Yes Status: Acute Renal function in the range of 1.5 not sure if there are acute or chronic and will give her a fluid challenge and repeat creatinine (4) DVT prophylaxis Current visit: Yes Status: Acute Lovenox (5) Morbid obesity with BMI of 40.0-44.9, adult Current visit: No Status: Chronic Counseling provided Internal Medicine - H&P: HPI Chief complaint: Abdominal pain nausea and vomiting Admitted From: Emergency Dept Plans for Post Hospital Care: Home History of present illness: Ms. Pugh is a 56 year old female with past medical history of chronic pancreatitis , cholecystectomy and type 2 insulin-dependent diabetes. She was recently discharged from hospital after she was treated for acute pancreatitis. She claims that ever since she went home she continued to have left-sided abdominal pain associated with nausea and vomiting and she has been unable to keep anything down since then. She described pain radiates in a bandlike fashion towards her back. No blood in his stools or vomitus. No other complaint including chest pain shortness of breath palpitation dizziness syncope. Patient states that her pancreatitis is related to her triglycerides. Denies history of alcohol use. She decided to come to the ER when pain has gotten worse and. Patient states that she typically takes her oral opiate pain medication at home but has not been able to keep anything down due to nausea and vomiting. She reports Reports subjective fevers. No chest pain starts of breath. No diarrhea or constipation. Patient blood sugar elevated in the range of 500 however no acidosis though ketones are positive. Patient creatinine is slightly elevated in the range of 1.5. This could be due to elevated blood sugar therefore a flare therapeutic fluid challenge will be given and renal function will be repeated in the morning. This will help in assessing this is an acute case of chronic kidney disease. Past Med Surg Social Fam HX - Past Medical History Medical history: diabetes, other Psychiatric history: anxiety, depression - Past Surgical History Surgical History: appendectomy, , cholecystectomy, hysterectomy, orthopedic, other, other - Social History Smoking Status: Current every day smoker Smokeless Tobacco Status: No Alcohol use: none Drug use: none Internal Medicine - H&P: Meds Insulin Glargine [Lantus] 45 unit SQ BID 10/09/16 [History] Insulin LISPRO [Humalog Kwikpen U-100] 35 unit SQ TIDWM 10/09/16 [History] Duloxetine HCl [Cymbalta] 60 mg PO DAILY 03/02/17 [History] Fenofibrate Nanocrystallized [Triglide] 160 mg PO DAILY 03/02/17 [History] Furosemide [Lasix] 40 mg PO DAILY 03/02/17 [History] Gabapentin [Neurontin] 800 mg PO QID 03/02/17 [History] Lipase/Protease/Amylase [Ariana Moran 24,000 Units Capsule] 2 each PO AD 03/02/17 [ History] Lipase/Protease/Amylase [Ariana Dr 24,000 Units Capsule] 3 each PO TIDWM [History] Ondansetron HCl [Zofran] 4 mg PO TID PRN 03/02/17 [History] Rosuvastatin Calcium [Crestor] 10 mg PO HS 03/02/17 [History] Tizanidine HCl 8 mg PO Q8H PRN 03/02/17 [History] Topiramate [Topamax] 25 mg PO HS 03/02/17 [History] Metoprolol XL (24 HR) Succ [Toprol Xl] 100 mg PO DAILY #30 tab.er.24h 03/09/17 [ Rx] Oxycodone HCl [Oxycodone HCl] 15 mg PO Q4H PRN 03/26/17 [History] Promethazine [Phenergan] 25 mg PO Q6HR PRN 03/26/17 [History] Allergies morphine Allergy (Verified 06/09/15 07:09) See Comments Quinolones Allergy (Verified 08/30/15 14:18) See Comments unknown acetaminophen [From Tylenol] Adverse Reaction (Verified 06/05/15 01:44) bad reaction codeine Adverse Reaction (Verified 06/09/15 07:09) See Comments hydrocodone [From Vicodin] Adverse Reaction (Verified 06/05/15 01:44) bad reaction levofloxacin [From Levaquin] Adverse Reaction (Verified 06/05/15 01:44) Hives NSAIDS (Non-Steroidal Anti-Inflamma Adverse Reaction (Verified 06/05/15 01:44) bad reaction Opioids - Morphine Analogues Adverse Reaction (Verified 06/09/15 07:43) See Comments All Systems PM: A 10-system review of systems was performed and is negative for pertinent findings except as documented above in the HPI. - Constitutional Vitals: Temp Pulse Resp BP Pulse Ox 98.5 F 104 16 163/101 94 03/26/17 22:02 03/26/17 21:17 03/26/17 22:02 03/26/17 22:02 03/26/17 21:17 Internal Med - H&P Results - Labs CBC & Chem 7: 03/26/17 16:42 03/26/17 16:42
[2017-03-26] MEDS ORDERED: Acetaminophen 325 MG TABLET PO PRN (22:21)
[2017-03-26] MEDS ORDERED: Mag Hydrox/Al Hydrox/Simeth 30 ML UDC PO PRN (22:21)
[2017-03-26] MEDS ORDERED: Naloxone 0.4 MG/ML INJ IVP PRN (22:21)
[2017-03-26] MEDS ORDERED: D5% in Water 1,000 ML IVC PRN (22:32)
[2017-03-26] MEDS ORDERED: Dextrose Gel 15 GM PO PRN ×2 (22:32)
[2017-03-26] MEDS ORDERED: *HR* Dextrose 50 % in Water (Syg) 50 ML SYRINGE IVP PRN (22:32)
[2017-03-26] MEDS ORDERED: Potassium Chloride 40 MEQ, Lidocaine 1% 2 ML in D5% in Water 500 ML IVPB ONE (22:34)
[2017-03-26 23:05] LABS: Hemoglobin A1C 10.3 %
[2017-03-27] MEDS: 0.9 % Sodium Chloride 1,000 ML IVC SCH ×3 (00:26→14:46)
[2017-03-27] MEDS: Pantoprazole 40 MG VIAL IVP SCH ×2 (00:39→08:02)
[2017-03-27] MEDS: *HR* HYDROmorphone (PF) 1 MG/ML SYRINGE IVP PRN ×5 (00:40→23:21)
[2017-03-27] MEDS: Ondansetron 4 MG/2 ML VIAL IVP SCH ×6 (00:41→21:03)
[2017-03-27] MEDS: Insulin LISPRO 300 UNITS/3 ML VIAL SQ SCH ×6 (01:10→20:45)
[2017-03-27 05:58] LABS: Basophils % 0.5 %; Eosinophils # 0.4 K/mcL (0.0-0.6); Eosinophils % 4.8 %; Hematocrit 35.4 % (35.3-44.9); Hemoglobin 11.1 g/dL (11.5-15.4); Immature Granulocytes % 0.5 % (0-4); Lymphocytes # 1.9 K/mcL (0.6-4.6); Lymphocytes % 25.8 %; Mean Corpuscular HGB Conc 31.4 g/dL (31.6-35.5); Mean Corpuscular Hemoglobin 27.2 pg (28.0-33.3); Mean Corpuscular Volume 86.8 fL (83.0-100.0); Mean Platelet Volume 9.2 fL (9.4-12.4); Monocytes # 0.5 K/mcL (0.0-1.3); Monocytes % 6.6 %; Neutrophils # 4.6 K/mcL (1.6-8.9); Platelet Count 377 K/mcL (140-400); Red Blood Count 4.08 M/mcL (3.82-4.97); Red Cell Distribution Width 13.7 % (11.5-14.5); Segmented Neutrophils % 61.8 %
[2017-03-27 06:05] LABS: Alanine Aminotransferase 18 Units/L (0-55); Albumin/Globulin Ratio 0.7 (1.1-2.2); Alkaline Phosphatase 106 Units/L (38-126); Amylase 50 Units/L (25-125); Aspartate Amino Transferase 46 Units/L (5-34); BUN/Creatinine Ratio 10 (6-26); Bilirubin,Total 0.4 mg/dL (0.2-1.2); Blood Urea Nitrogen 10 mg/dL (7-20); Calcium 9.5 mg/dL (8.6-10.8); Carbon Dioxide 21 mEq/L (19-29); Chloride 107 mEq/L (98-109); Globulin 4.3 g/dL (2.4-3.5); Glucose 300 mg/dL (70-99); Lipase 60 Units/L (8-78); Osmolality,Calculated 294 (280-300); Potassium 4.2 mEq/L (3.5-4.5); Sodium 137 mEq/L (136-145); Total Protein 7.3 g/dL (6.0-8.3); eGFR For African Americans > 60 (> 60); eGFR For Non-African Americans 60 (> 60)
[2017-03-27 06:06] LABS: Chol/HDL Ratio 7.2 (0-4.9)
[2017-03-27] MEDS: *HR* Enoxaparin 40 MG/0.4 ML SYRINGE SQ SCH (06:58)
[2017-03-27] MEDS: Metoprolol XL (24 HR) Succ 50 MG TAB.ER.24H PO SCH (08:02)
[2017-03-27] MEDS: Fenofibrate 54 MG TABLET PO SCH (08:02)
[2017-03-27] MEDS: Furosemide 40 MG TABLET PO SCH (08:02)
[2017-03-27] MEDS ORDERED: *HR* HYDROmorphone (PF) 1 MG/ML SYRINGE IVP PRN (10:54)
[2017-03-27] MEDS ORDERED: tiZANidine 4 MG TABLET PO PRN (12:11)
[2017-03-27] MEDS: Gabapentin 400 MG CAPSULE PO SCH ×3 (12:42→20:00)
[2017-03-27] MEDS: *HR* OxyCODONE Immed Rel 15 MG TABLET PO PRN ×2 (14:41→20:01)
--- NOTE | 2017-03-27 15:11 | Internal Med Progress Note ---
Date of Encounter: 03/27/17 Time of Encounter: 11:00 - Assessment and plan (1) Gastroparesis due to DM Current Visit: Yes Status: Acute Assessment and plan: Improving Cont Zofran and phenargan PRN Cont IVF Will start her on full liquid diet and advance as tolerated (2) Abdominal pain Current Visit: Yes Status: Acute Assessment and plan: Seems more like gastroparesis and GERD related pain cont PPI Qualifiers: Abdominal location: left upper quadrant Qualified Code(s): R10.12 - Left upper quadrant pain (3) Acute pancreatitis Current Visit: Yes Status: Acute Assessment and plan: Normal Lipase started on full liquid diet Qualifiers: Pancreatitis type: other Acute pancreatitis complication: no infection or necrosis Qualified Code(s): K85.80 - Other acute pancreatitis without necrosis or infection (4) Chronic pancreatitis Current Visit: No Status: Chronic Qualifiers: Pancreatitis type: unspecified pancreatitis type Qualified Code(s): K86.1 - Other chronic pancreatitis (5) Hyperglycemia Current Visit: Yes Status: Acute (6) Diabetes type 2, uncontrolled Current Visit: Yes Status: Chronic Assessment and plan: Uncontrolled DM2 Counseled about diet modifications cont ISS + Lantus 45 U BID Qualifiers: Diabetes mellitus complication status: without complication Qualified Code( s): E11.65 - Type 2 diabetes mellitus with hyperglycemia; Z79.4 - [employer] ( current) use of insulin (7) DVT prophylaxis Current Visit: Yes Status: Acute Assessment and plan: on sub Q Heparin - Subjective Interval history: This is a 56-year-old female with known past medical history of diabetes type II hypertension, chronic gastroparesis due to DM and chronic pancreatitis admitted with intractable abdominal pain and nausea vomiting. Patient stated that she is feeling a little better, however still feeling a little bit nauseated but did not throw up since she came onto the floor. Patient denied any CP / SOB - Constitutional Vitals: Temp Pulse Resp BP Pulse Ox 97.9 F 75 15 158/88 95 03/27/17 14:59 03/27/17 14:59 03/27/17 14:59 03/27/17 14:59 03/27/17 14:59 General appearance: Present: A&O X 3 - Respiratory Respiratory exam: Present: CTAB. Absent: rales, rhonchi, wheezes - Cardiovascular Cardiovascular exam: Present: RRR, +S1, +S2. Absent: diastolic murmur, gallop, rubs, systolic murmur - GI/Abdominal GI/Abdominal exam: Present: soft. Absent: guarding, rebound, rigid Additional comments: mild epigastric discomfort - Extremities Exam Extremities exam: Present: normal capillary refill. Absent: calf tenderness, tenderness Internal Medicine: Result - Labs CBC & Chem 7: 03/27/17 05:11 03/27/17 05:11 Labs: Short CBC 03/27/17 Range/Units 05:11 WBC 7.4 (4.3-11.1) K/mcL Hgb 11.1 L (11.5-15.4) g/dL Hct 35.4 (35.3-44.9) % Plt Count 377 (140-400) K/mcL Neutrophils # 4.6 (1.6-8.9) K/mcL BMP 03/27/17 05:11 Sodium 137 Potassium 4.2 Chloride 107 Carbon Dioxide 21 BUN 10 Creatinine 0.97 Glucose 300 H Calcium 9.5 Liver Function 03/27/17 Range/Units 05:11 Total Bilirubin 0.4 (0.2-1.2) mg/dL AST 46 H (5-34) Units/L ALT 18 (0-55) Units/L Alkaline Phosphatase 106 (38-126) Units/L Albumin 3.0 L (3.5-5.0) g/dL Consult Discharge Plan - Plan Referrals: Shashank Moon DO [Primary Care Provider] - 04/05/17 1:30 pm
[2017-03-27] MEDS: Insulin DETEMIR 100 UNIT/ML X5UNITS SQ SCH (20:45)
[2017-03-27] MEDS ORDERED: NON-FORMULARY MEDICATION 1 EACH EACH (Insulin Glargine [Lantus] 45 UNIT) SQ SCH (21:00)
[2017-03-27] MEDS ORDERED: Topiramate 25 MG TABLET PO SCH (21:00)
[2017-03-28] MEDS: Ondansetron 4 MG/2 ML VIAL IVP SCH ×2 (01:04→05:08)
[2017-03-28] MEDS: *HR* HYDROmorphone (PF) 1 MG/ML SYRINGE IVP PRN (05:05)
[2017-03-28] MEDS: 0.9 % Sodium Chloride 1,000 ML IVC SCH (05:05)
[2017-03-28] MEDS: *HR* Enoxaparin 40 MG/0.4 ML SYRINGE SQ SCH (05:07)
[2017-03-28 06:00] LABS: Basophils # 0.1 K/mcL (0.0-0.2); Basophils % 0.9 %; Eosinophils # 0.4 K/mcL (0.0-0.6); Eosinophils % 7.5 %; Hematocrit 35.3 % (35.3-44.9); Hemoglobin 11.2 g/dL (11.5-15.4); Immature Granulocytes % 0.4 % (0-4); Lymphocytes # 1.6 K/mcL (0.6-4.6); Lymphocytes % 29.2 %; Mean Corpuscular HGB Conc 31.7 g/dL (31.6-35.5); Mean Corpuscular Hemoglobin 28.1 pg (28.0-33.3); Mean Corpuscular Volume 88.5 fL (83.0-100.0); Mean Platelet Volume 9.4 fL (9.4-12.4); Monocytes # 0.4 K/mcL (0.0-1.3); Monocytes % 7.5 %; Platelet Count 314 K/mcL (140-400); Red Blood Count 3.99 M/mcL (3.82-4.97); Segmented Neutrophils % 54.5 %
[2017-03-28] MEDS: *HR* OxyCODONE Immed Rel 15 MG TABLET PO PRN ×3 (06:04→14:29)
[2017-03-28 06:18] LABS: Alanine Aminotransferase 16 Units/L (0-55); Albumin 2.9 g/dL (3.5-5.0); Albumin/Globulin Ratio 0.8 (1.1-2.2); Alkaline Phosphatase 109 Units/L (38-126); Amylase 62 Units/L (25-125); Aspartate Amino Transferase 28 Units/L (5-34); BUN/Creatinine Ratio 8 (6-26); Bilirubin,Total 0.3 mg/dL (0.2-1.2); Blood Urea Nitrogen 7 mg/dL (7-20); Calcium 9.5 mg/dL (8.6-10.8); Carbon Dioxide 24 mEq/L (19-29); Chloride 108 mEq/L (98-109); Globulin 3.8 g/dL (2.4-3.5); Glucose 215 mg/dL (70-99); Lipase 78 Units/L (8-78); Osmolality,Calculated 292 (280-300); Sodium 139 mEq/L (136-145); Total Protein 6.7 g/dL (6.0-8.3); eGFR For African Americans > 60 (> 60); eGFR For Non-African Americans > 60 (> 60)
[2017-03-28] MEDS: Furosemide 40 MG TABLET PO SCH (09:50)
[2017-03-28] MEDS: Metoprolol XL (24 HR) Succ 50 MG TAB.ER.24H PO SCH (09:50)
[2017-03-28] MEDS: Gabapentin 400 MG CAPSULE PO SCH ×2 (09:51→14:29)
[2017-03-28] MEDS: Fenofibrate 54 MG TABLET PO SCH (09:51)
[2017-03-28] MEDS: Insulin LISPRO 300 UNITS/3 ML VIAL SQ SCH ×2 (09:55→12:17)
[2017-03-28] MEDS: Insulin DETEMIR 100 UNIT/ML X5UNITS SQ SCH (10:00)
[2017-03-28 11:14] VITALS: BP 131/80
--- NOTE | 2017-03-28 11:14 | Discharge Summary ---
Date of Encounter: 03/28/17 Time of Encounter: 11:10 - Discharge Diagnosis (1) Gastroparesis due to DM Priority: Primary Status: Acute (2) Abdominal pain Priority: Secondary Status: Acute Qualifiers: Abdominal location: left upper quadrant Qualified Code(s): R10.12 - Left upper quadrant pain (3) Acute pancreatitis Priority: Primary Status: Acute Qualifiers: Pancreatitis type: other Acute pancreatitis complication: no infection or necrosis Qualified Code(s): K85.80 - Other acute pancreatitis without necrosis or infection (4) Chronic pancreatitis Priority: Secondary Status: Chronic Qualifiers: Pancreatitis type: unspecified pancreatitis type Qualified Code(s): K86.1 - Other chronic pancreatitis (5) Hyperglycemia Priority: Secondary Status: Acute (6) Diabetes type 2, uncontrolled Priority: Secondary Status: Chronic Qualifiers: Diabetes mellitus complication status: without complication Qualified Code( s): E11.65 - Type 2 diabetes mellitus with hyperglycemia; Z79.4 - [facility] ( current) use of insulin (7) Chronic back pain Priority: Secondary Status: Chronic Qualifiers: Back pain location: low back pain Back pain laterality: midline Sciatica presence: without sciatica Qualified Code(s): M54.5 - Low back pain; G89.29 - Other chronic pain - Discharge Medications Prescriptions: Omeprazole 20 mg PO DAILY #30 tablet. Home Medications: Insulin Glargine [Lantus] 45 unit SQ BID 10/09/16 [History] Insulin LISPRO [Humalog Kwikpen U-100] 35 unit SQ TIDWM 10/09/16 [History] Duloxetine HCl [Cymbalta] 60 mg PO DAILY 03/02/17 [History] Fenofibrate Nanocrystallized [Triglide] 160 mg PO DAILY 03/02/17 [History] Furosemide [Lasix] 40 mg PO DAILY 03/02/17 [History] Gabapentin [Neurontin] 800 mg PO QID 03/02/17 [History] Lipase/Protease/Amylase [Ariana Moran 24,000 Units Capsule] 2 each PO AD 03/02/17 [ History] Lipase/Protease/Amylase [Ariana Moran 24,000 Units Capsule] 3 each PO TIDWM [History] Ondansetron HCl [Zofran] 4 mg PO TID PRN 03/02/17 [History] Rosuvastatin Calcium [Crestor] 10 mg PO HS 03/02/17 [History] Tizanidine HCl 8 mg PO Q8H PRN 03/02/17 [History] Topiramate [Topamax] 25 mg PO HS 03/02/17 [History] Metoprolol XL (24 HR) Succ [Toprol Xl] 100 mg PO DAILY #30 tab.er.24h 03/09/17 [ Rx] Oxycodone HCl 15 mg PO Q4H PRN 03/26/17 [History] Promethazine [Phenergan] 25 mg PO Q6HR PRN 03/26/17 [History] Omeprazole 20 mg PO DAILY #30 tablet. 03/28/17 [Rx] Allergies/Adverse Reactions: Allergies morphine Allergy (Verified 06/09/15 07:09) See Comments Quinolones Allergy (Verified 08/30/15 14:18) See Comments unknown acetaminophen [From Tylenol] Adverse Reaction (Verified 06/05/15 01:44) bad reaction codeine Adverse Reaction (Verified 06/09/15 07:09) See Comments hydrocodone [From Vicodin] Adverse Reaction (Verified 06/05/15 01:44) bad reaction levofloxacin [From Levaquin] Adverse Reaction (Verified 06/05/15 01:44) Hives NSAIDS (Non-Steroidal Anti-Inflamma Adverse Reaction (Verified 06/05/15 01:44) bad reaction Opioids - Morphine Analogues Adverse Reaction (Verified 06/09/15 07:43) See Comments Date of admission: 03/26/17 22:21 Primary care physician: Deep Brandt Anticipated date of discharge: 03/28/17 - Patient Status Disposition: Home, Self-Care Condition: Fair - Discharge Instructions Follow Up With: Shashank Moon DO [Primary Care Provider] - 04/05/17 1:30 pm - Diet and Activity Activity: resume usual activities as tolerated Hospital course: Ms. Pugh is a 56-year-old female with known past medical history of diabetes type II hypertension, chronic gastroparesis due to DM and chronic pancreatitis admitted with intractable abdominal pain and nausea vomiting. Pt was admitted in the hospital and started her on symptomatic and supportive care with IV hydration and IV anti emetics. Pt symptoms started improving, she sarted tolerating liquid diet well y/d, which advanced to regular diabetic diet today. Pt does have uncontrolled DM2 with HbA1C 10.7, recommend to titrate her Lantus to 100U slowly from 90 U if her FBS stayes above 150. Also placed adela low ISS on top of her fixed humalog 35 U TID with each meal. For her GERD started her on PPI , since then pt has been doing well. Will discharge her home today in stable condition. - Time Spent with Patient Total time spent providing and/or coordinating discharge services: Less than 30 minutes - Constitutional Vitals: Temp Pulse Resp BP Pulse Ox 99.0 F 91 15 127/74 95 03/28/17 07:02 03/28/17 07:02 03/28/17 07:02 03/28/17 07:02 03/28/17 07:02 General appearance: Present: A&O X 3 - Respiratory Respiratory exam: Present: CTAB. Absent: accessory muscle use, rales, rhonchi, wheezes - Cardiovascular Cardiovascular exam: Present: RRR, +S1, +S2. Absent: diastolic murmur, gallop, rubs, systolic murmur - GI/Abdominal GI/Abdominal exam: Present: normal bowel sounds, soft, no peritoneal signs. Absent: distended, tenderness - Psychiatric Psychiatric exam: Present: normal affect, normal mood - VTE Documentation of Mechanical Device: Graduated compression elastic hosiery
== END 2017-03-28 15:01 | disposition home or self-care (01) | DRG 439 ==
LOC: 3ANU 15:18 → EMEROO 15:18 → 3ANU 21:55 → SUATTDRO 22:21
PROVIDERS: ADMIT Hospitalist; ATTEND Hospitalist

== ENCOUNTER 2018-05-22 04:07 | Observation (INO) ==
[2018-05-22] MEDS ORDERED: 0.9 % Sodium Chloride 1,000 ML IVC ONE ×2 (04:32→05:36)
[2018-05-22] MEDS ORDERED: Ondansetron 4 MG/2 ML VIAL IVP ONE (04:32)
[2018-05-22] MEDS ORDERED: *HR* LORazepam 2 MG/ML VIAL IVP ONE (04:52)
[2018-05-22] MEDS ORDERED: *HR* FentaNYL (PF) 100 MCG/2 ML VIAL IVP ONE ×2 (04:52→06:36)
--- NOTE | 2018-05-22 04:53 | Emergency Department Note ---
Disposition Clinical Impression: DKA (diabetic ketoacidoses) Abdominal pain Qualifiers: Abdominal location: unspecified location Qualified Code(s): R10.9 - Unspecified abdominal pain Disposition: Admitted As Inpatient Condition: Undetermined Abdominal Pain HPI - General Chief Complaint: ED Abdominal Pain Stated Complaint: Abd pain Time Seen by Provider: 05/22/18 04:24 Source: patient, EMS Mode of arrival: private vehicle Limitations: no limitations Nursing Notes Reviewed: Yes Vital Signs Reviewed: Yes - History of Present Illness HPI Narrative: 57-year-old woman with a history of pancreatitis, insulin-dependent diabetes, cholecysectomy presents to emergency department for nausea, diarrhea for 2 days , she states diarrhea is dark and watery, she did not have any diarrhea today. She states his abdomen left upper quadrant pain that radiates around her back which is her normal pain for chronic pancreatitis. Patient's also complaining of lower abdominal and flank pain. She denies fever, chills, shortness of breath, coughing, HEENT complaints, vomiting, dysuria, vaginal discharge, constipation. She does complain of polyuria and states she always feels like she has to urinate. Pt states blood glucose at home has been 150-170 for the last few days. She is insulin dependent. Pt Subjective Complaint: abdominal pain, flank pain Pain Scale: 6 - Related Data Home Medications Medication Instructions Recorded Confirmed Insulin LISPRO [Humalog Kwikpen 35 unit SQ TIDWM 10/09/16 05/22/18 U-100] Duloxetine HCl [Cymbalta] 60 mg PO DAILY 03/02/17 05/22/18 Fenofibrate Nanocrystallized 160 mg PO DAILY 03/02/17 05/22/18 [Triglide] Furosemide [Lasix] 40 mg PO DAILY PRN 03/02/17 05/22/18 Ondansetron HCl [Zofran] 4 mg PO TID PRN 03/02/17 05/22/18 Topiramate [Topamax] 25 mg PO HS 03/02/17 05/22/18 Oxycodone HCl 15 mg PO Q4H PRN 03/26/17 05/22/18 Insulin Glargine,Hum.rec.anlog 50 units SQ BID 05/22/18 05/22/18 [Louisa Green] Lipase/Protease/Amylase [Ariana Moran 36,000 unit PO TID 05/22/18 05/22/18 36,000 Units Capsule] Previous Rx's Medication Instructions Recorded Metoprolol XL (24 HR) Succ [Toprol 100 mg PO DAILY #30 tab.er.24h 03/09/17 Xl] Omeprazole 20 mg PO DAILY #30 tablet. 03/28/17 Allergies Allergy/AdvReac Type Severity Reaction Status Date / Time morphine Allergy See Verified 06/09/15 07:09 Comments Quinolones Allergy See Verified 08/30/15 14:18 Comments acetaminophen [From Tylenol] AdvReac bad Verified 06/05/15 01:44 reaction codeine AdvReac See Verified 06/09/15 07:09 Comments hydrocodone [From Vicodin] AdvReac bad Verified 06/05/15 01:44 reaction levofloxacin [From Levaquin] AdvReac Hives Verified 06/05/15 01:44 NSAIDS (Non-Steroidal AdvReac bad Verified 06/05/15 01:44 Anti-Inflamma reaction Opioids - Morphine Analogues AdvReac See Verified 06/09/15 07:43 Comments All systems ED: reviewed and negative except as stated. Review of Systems: As Per HPI Abdominal Pain PMH - Past Medical History Medical history: Reports: diabetes, other Psychiatric history: Reports: anxiety, depression - Social History Smoking status: Current every day smoker Alcohol use: Reports: none Drug use: Reports: none Physical Exam - General Limitations: no limitations General appearance: alert, in no apparent distress - Head Head exam: atraumatic, normocephalic, normal inspection - Eye Eye exam: Present: normal appearance, PERRL, EOMI - ENT ENT exam: mucous membranes moist - Neck Neck exam: Present: normal inspection, full ROM, trachea midline - Chest Chest inspection: Present: normal inspection, symmetric chest wall rise - Respiratory Respiratory exam: Present: normal lung sounds bilaterally - Cardiovascular Cardiovascular exam: Present: tachycardia - Abdominal Exam Abdominal exam: Present: soft, tenderness, normal bowel sounds. Absent: organomegaly, mass Abdominal tenderness: Present: diffuse (Worse left ventricular left lower quadrant) - Extremities Exam Extremities exam: Present: normal inspection, full ROM. Absent: tenderness, pedal edema - Expanded Lower Extremity Exam Gait: observed and normal - Back Exam Back exam: Present: normal inspection, full ROM. Absent: tenderness - Neurological Exam Neurological exam: Present: alert, oriented X3 - Psychiatric Psychiatric exam: Present: normal affect, normal mood - Skin Skin exam: Present: warm, dry, intact, normal color Course Course Narrative: Well-hydrated, nontoxic-appearing female in no acute distress. Respirations are easy and even. Patient speaking in full sentences without any difficulty. Physical exam reveals diffuse abdominal tenderness, worse on the left side upper and lower quadrant. Pt complaining of 10/10 abdominal pain. HR tachy, elevated BP, likely due to pain, anxiety. We will obtain baseline labs, urine, treat pain, give fluids and reevaluate. Vital Signs Temperature 99.3 F 05/22/18 04:12 Pulse Rate 133 05/22/18 04:12 Respiratory Rate 20 05/22/18 04:12 Blood Pressure 168/112 05/22/18 04:12 O2 Sat by Pulse Oximetry 97 05/22/18 04:12 Temperature 98.0 F 05/23/18 03:22 Pulse Rate 85 05/23/18 03:22 Respiratory Rate 16 05/23/18 03:22 Blood Pressure 137/81 05/23/18 03:22 O2 Sat by Pulse Oximetry 91 05/23/18 03:22 Oxygen Delivery Oxygen Delivery Room Air Abdominal Pain - Lab Data Result diagrams: 05/22/18 04:44 05/22/18 04:44 Lab Results 05/22/18 05/22/18 05/22/18 Range/Units 04:44 04:44 04:44 WBC 9.8 (4.3-11.1) K/mcL RBC 5.39 H (3.82-4.97) M/mcL Hgb 15.6 H (11.5-15.4) g/dL Hct 45.0 H (35.3-44.9) % MCV 83.5 (83.0-100.0) fL MCH 28.9 (28.0-33.3) pg MCHC 34.7 (31.6-35.5) g/dL RDW 13.2 (11.5-14.5) % Plt Count 271 (140-400) K/mcL MPV 9.6 (9.4-12.4) fL Immature Gran % 0.4 (0-4) % Seg Neutrophils % 69.8 % Lymphocytes % 22.1 % Monocytes % 6.6 % Eosinophils % 0.8 % Basophils % 0.3 % Neutrophils # 6.8 (1.6-8.9) K/mcL Lymphocytes # 2.2 (0.6-4.6) K/mcL Monocytes # 0.6 (0.0-1.3) K/mcL Eosinophils # 0.1 (0.0-0.6) K/mcL Basophils # 0.0 (0.0-0.2) K/mcL VBG pH (7.32-7.42) pH Units VBG pCO2 (41-51) mmHg VBG pO2 (25-50) mmHg VBG HCO3 (21-27) mEq/L Sodium 134 L (136-145) mEq/L Potassium 3.8 (3.5-5.1) mEq/L Chloride 97 L (98-107) mEq/L Carbon Dioxide 15 L (23-29) mEq/L BUN 12 (6-20) mg/dL Creatinine 0.61 (0.60-1.20) mg/dL Est GFR ( Amer) > 60 (> 60) Est GFR (Non-Af Amer) > 60 (> 60) BUN/Creatinine Ratio 20 (6-26) Glucose 473 H (70-105) mg/dL POC Glucose (70-99) mg/dL Calculated Osmolality 299 (280-300) Lactic Acid (0.5-2.2) mmol/L Calcium 9.5 (8.6-10.3) mg/dL Total Bilirubin 0.5 (0.3-1.0) mg/dL Direct Bilirubin 0.1 (0.0-0.2) mg/dL Indirect Bilirubin 0.4 (0.0-1.2) mg/dL AST 19 (13-39) Units/L ALT 26 (7-52) Units/L Alkaline Phosphatase 181 H (34-104) Units/L Serum Total Protein 6.9 (6.4-8.9) g/dL Albumin 3.7 (3.5-5.7) g/dL Globulin 3.2 (2.4-3.5) g/dL Albumin/Globulin Ratio 1.2 (1.1-2.2) Lipase 52 (11-82) Units/L Beta-Hydroxybutyric Acd > 2.00 H (0.02-0.27) mmol/L Urine Color (Yellow) Urine Clarity (Clear) Urine pH (5.0-8.0) pH Units Ur Specific [place] (1.010-1.025) Urine Protein (Neg-Trace) mg/dL Urine Glucose (UA) (Normal) mg/dL Urine Ketones (Negative) mg/dL Urine Blood (Negative) Urine Nitrite (Negative) Urine Bilirubin (Negative) Urine Urobilinogen (Normal) mg/dL Ur Leukocyte Esterase (Negative) Urine Microscopic RBC (0-3) per hpf Urine Microscopic WBC (0-3) per hpf Ur Squamous Epith Cells (None-Few) per lpf Urine Bacteria (None-Few) per hpf Hyaline Casts (None-Few) per lpf Urine Yeast (None Seen) per hpf Ur Culture Indicated? (NO) 05/22/18 05/22/18 05/22/18 Range/Units 06:06 07:19 08:26 WBC (4.3-11.1) K/mcL RBC (3.82-4.97) M/mcL Hgb (11.5-15.4) g/dL Hct (35.3-44.9) % MCV (83.0-100.0) fL MCH (28.0-33.3) pg MCHC (31.6-35.5) g/dL RDW (11.5-14.5) % Plt Count (140-400) K/mcL MPV (9.4-12.4) fL Immature Gran % (0-4) % Seg Neutrophils % % Lymphocytes % % Monocytes % % Eosinophils % % Basophils % % Neutrophils # (1.6-8.9) K/mcL Lymphocytes # (0.6-4.6) K/mcL Monocytes # (0.0-1.3) K/mcL Eosinophils # (0.0-0.6) K/mcL Basophils # (0.0-0.2) K/mcL VBG pH 7.33 (7.32-7.42) pH Units VBG pCO2 31 L (41-51) mmHg VBG pO2 196 H (25-50) mmHg VBG HCO3 16 L (21-27) mEq/L Sodium (136-145) mEq/L Potassium (3.5-5.1) mEq/L Chloride (98-107) mEq/L Carbon Dioxide (23-29) mEq/L BUN (6-20) mg/dL Creatinine (0.60-1.20) mg/dL Est GFR ( Amer) (> 60) Est GFR (Non-Af Amer) (> 60) BUN/Creatinine Ratio (6-26) Glucose (70-105) mg/dL POC Glucose 382 H (70-99) mg/dL Calculated Osmolality (280-300) Lactic Acid (0.5-2.2) mmol/L Calcium (8.6-10.3) mg/dL Total Bilirubin (0.3-1.0) mg/dL Direct Bilirubin (0.0-0.2) mg/dL Indirect Bilirubin (0.0-1.2) mg/dL AST (13-39) Units/L ALT (7-52) Units/L Alkaline Phosphatase (34-104) Units/L Serum Total Protein (6.4-8.9) g/dL Albumin (3.5-5.7) g/dL Globulin (2.4-3.5) g/dL Albumin/Globulin Ratio (1.1-2.2) Lipase (11-82) Units/L Beta-Hydroxybutyric Acd (0.02-0.27) mmol/L Urine Color Yellow (Yellow) Urine Clarity Clear (Clear) Urine pH 5.5 (5.0-8.0) pH Units Ur Specific [place] > 1.030 H (1.010-1.025) Urine Protein 100 H (Neg-Trace) mg/dL Urine Glucose (UA) >=1000 H (Normal) mg/dL Urine Ketones 80 H (Negative) mg/dL Urine Blood Small H (Negative) Urine Nitrite Negative (Negative) Urine Bilirubin Negative (Negative) Urine Urobilinogen Normal (Normal) mg/dL Ur Leukocyte Esterase Negative (Negative) Urine Microscopic RBC 3-5 H (0-3) per hpf Urine Microscopic WBC 30-50 H (0-3) per hpf Ur Squamous Epith Cells Many H (None-Few) per lpf Urine Bacteria Few (None-Few) per hpf Hyaline Casts None Seen (None-Few) per lpf Urine Yeast Moderate H (None Seen) per hpf Ur Culture Indicated? NO (NO) 05/22/18 Range/Units 08:44 WBC (4.3-11.1) K/mcL RBC (3.82-4.97) M/mcL Hgb (11.5-15.4) g/dL Hct (35.3-44.9) % MCV (83.0-100.0) fL MCH (28.0-33.3) pg MCHC (31.6-35.5) g/dL RDW (11.5-14.5) % Plt Count (140-400) K/mcL MPV (9.4-12.4) fL Immature Gran % (0-4) % Seg Neutrophils % % Lymphocytes % % Monocytes % % Eosinophils % % Basophils % % Neutrophils # (1.6-8.9) K/mcL Lymphocytes # (0.6-4.6) K/mcL Monocytes # (0.0-1.3) K/mcL Eosinophils # (0.0-0.6) K/mcL Basophils # (0.0-0.2) K/mcL VBG pH (7.32-7.42) pH Units VBG pCO2 (41-51) mmHg VBG pO2 (25-50) mmHg VBG HCO3 (21-27) mEq/L Sodium (136-145) mEq/L Potassium (3.5-5.1) mEq/L Chloride (98-107) mEq/L Carbon Dioxide (23-29) mEq/L BUN (6-20) mg/dL Creatinine (0.60-1.20) mg/dL Est GFR ( Amer) (> 60) Est GFR (Non-Af Amer) (> 60) BUN/Creatinine Ratio (6-26) Glucose (70-105) mg/dL POC Glucose (70-99) mg/dL Calculated Osmolality (280-300) Lactic Acid 0.9 (0.5-2.2) mmol/L Calcium (8.6-10.3) mg/dL Total Bilirubin (0.3-1.0) mg/dL Direct Bilirubin (0.0-0.2) mg/dL Indirect Bilirubin (0.0-1.2) mg/dL AST (13-39) Units/L ALT (7-52) Units/L Alkaline Phosphatase (34-104) Units/L Serum Total Protein (6.4-8.9) g/dL Albumin (3.5-5.7) g/dL Globulin (2.4-3.5) g/dL Albumin/Globulin Ratio (1.1-2.2) Lipase (11-82) Units/L Beta-Hydroxybutyric Acd (0.02-0.27) mmol/L Urine Color (Yellow) Urine Clarity (Clear) Urine pH (5.0-8.0) pH Units Ur Specific [place] (1.010-1.025) Urine Protein (Neg-Trace) mg/dL Urine Glucose (UA) (Normal) mg/dL Urine Ketones (Negative) mg/dL Urine Blood (Negative) Urine Nitrite (Negative) Urine Bilirubin (Negative) Urine Urobilinogen (Normal) mg/dL Ur Leukocyte Esterase (Negative) Urine Microscopic RBC (0-3) per hpf Urine Microscopic WBC (0-3) per hpf Ur Squamous Epith Cells (None-Few) per lpf Urine Bacteria (None-Few) per hpf Hyaline Casts (None-Few) per lpf Urine Yeast (None Seen) per hpf Ur Culture Indicated? (NO) S.B.A.R. - S.B.A.R. Situation: Demographics, MOA Background: Presenting Complaint, Relevant PMH, Meds, & Allergies Assessment: Vital Signs, Course and respsone to treatment, Exam Concerns, Patient/Family Expectation, Pertinant Lab Results, Outstanding Labs Recommendation: Barrier(s) to disposition, Recommendation based on pending studies, treatments, or consults S.B.A.R. Report Given to: Shubham Davis CNP S.B.A.R. Repor Time: 06:15
[2018-05-22 04:57] LABS: Basophils % 0.3 %; Eosinophils # 0.1 K/mcL (0.0-0.6); Eosinophils % 0.8 %; Hemoglobin 15.6 g/dL (11.5-15.4); Immature Granulocytes % 0.4 % (0-4); Lymphocytes # 2.2 K/mcL (0.6-4.6); Lymphocytes % 22.1 %; Mean Corpuscular HGB Conc 34.7 g/dL (31.6-35.5); Mean Corpuscular Hemoglobin 28.9 pg (28.0-33.3); Mean Corpuscular Volume 83.5 fL (83.0-100.0); Mean Platelet Volume 9.6 fL (9.4-12.4); Monocytes # 0.6 K/mcL (0.0-1.3); Monocytes % 6.6 %; Neutrophils # 6.8 K/mcL (1.6-8.9); Platelet Count 271 K/mcL (140-400); Red Blood Count 5.39 M/mcL (3.82-4.97); Red Cell Distribution Width 13.2 % (11.5-14.5); Segmented Neutrophils % 69.8 %
[2018-05-22 05:18] LABS: Alanine Aminotransferase 26 Units/L (7-52); Albumin 3.7 g/dL (3.5-5.7); Albumin/Globulin Ratio 1.2 (1.1-2.2); Alkaline Phosphatase 181 Units/L (34-104); Aspartate Amino Transferase 19 Units/L (13-39); BUN/Creatinine Ratio 20 (6-26); Bilirubin,Direct 0.1 mg/dL (0.0-0.2); Bilirubin,Indirect 0.4 mg/dL (0.0-1.2); Bilirubin,Total 0.5 mg/dL (0.3-1.0); Blood Urea Nitrogen 12 mg/dL (6-20); Calcium 9.5 mg/dL (8.6-10.3); Carbon Dioxide 15 mEq/L (23-29); Chloride 97 mEq/L (98-107); Globulin 3.2 g/dL (2.4-3.5); Glucose 473 mg/dL (70-105); Lipase 52 Units/L (11-82); Osmolality,Calculated 299 (280-300); Potassium 3.8 mEq/L (3.5-5.1); Sodium 134 mEq/L (136-145); Total Protein 6.9 g/dL (6.4-8.9); eGFR For Non-African Americans > 60 (> 60)
[2018-05-22] MEDS ORDERED: *HR* Promethazine 25 MG/ML VIAL IVP ONE (05:35)
[2018-05-22 06:14] LABS: Bilirubin,Urine Negative (Negative); Blood,Urine Small (Negative); Clarity,Urine Clear (Clear); Color,Urine Yellow (Yellow); Glucose,Urine (UA) >=1000 mg/dL (Normal); Ketones,Urine 80 mg/dL (Negative); Leukocyte Esterase,Urine Negative (Negative); Nitrite,Urine Negative (Negative); PH,Urine 5.5 pH Units (5.0-8.0); Protein,Urine 100 mg/dL (Neg-Trace); Specific Gravity,Urine > 1.030 (1.010-1.025); Urobilinogen,Urine Normal (Normal)
[2018-05-22 06:17] LABS: Bacteria,Urine Few per hpf (None-Few); Hyaline Casts,Urine None Seen per lpf (None-Few); Squamous Epithelial Cell,Urine Many per lpf (None-Few); WBC,Urine 30-50 per hpf (0-3)
[2018-05-22 06:45] LABS: Yeast,Urine Moderate per hpf (None Seen)
[2018-05-22] MEDS ORDERED: Ketorolac 30 MG/ML VIAL IVP ONE (08:15)
--- NOTE | 2018-05-22 08:15 | Emergency Department Note ---
Disposition Clinical Impression: Abdominal pain Qualifiers: Abdominal location: unspecified location Qualified Code(s): R10.9 - Unspecified abdominal pain DKA (diabetic ketoacidoses) Qualifiers: Diabetes mellitus type: other specified (including SHAHZAD) Diabetes mellitus complication detail: without coma Qualified Code(s): E13.10 - Other specified diabetes mellitus with ketoacidosis without coma Disposition: Admitted As Inpatient Condition: Undetermined Abdominal Pain HPI - General Chief Complaint: ED Abdominal Pain Stated Complaint: Abd pain Time Seen by Provider: 05/22/18 04:24 Source: patient, EMS Mode of arrival: private vehicle Limitations: no limitations Nursing Notes Reviewed: Yes Vital Signs Reviewed: Yes - History of Present Illness Pt Subjective Complaint: abdominal pain, flank pain Pain Scale: 6 - Related Data Home Medications Medication Instructions Recorded Confirmed Insulin LISPRO [Humalog Kwikpen 35 unit SQ TIDWM 10/09/16 05/22/18 U-100] Duloxetine HCl [Cymbalta] 60 mg PO DAILY 03/02/17 05/22/18 Fenofibrate Nanocrystallized 160 mg PO DAILY 03/02/17 05/22/18 [Triglide] Furosemide [Lasix] 40 mg PO DAILY PRN 03/02/17 05/22/18 Ondansetron HCl [Zofran] 4 mg PO TID PRN 03/02/17 05/22/18 Topiramate [Topamax] 25 mg PO HS 03/02/17 05/22/18 Oxycodone HCl 15 mg PO Q4H PRN 03/26/17 05/22/18 Insulin Glargine,Hum.rec.anlog 50 units SQ BID 05/22/18 05/22/18 [Louisa Green] Lipase/Protease/Amylase [Ariana Moran 36,000 unit PO TID 05/22/18 05/22/18 36,000 Units Capsule] Previous Rx's Medication Instructions Recorded Metoprolol XL (24 HR) Succ [Toprol 100 mg PO DAILY #30 tab.er.24h 03/09/17 Xl] Omeprazole 20 mg PO DAILY #30 tablet. 03/28/17 Allergies Allergy/AdvReac Type Severity Reaction Status Date / Time morphine Allergy See Verified 06/09/15 07:09 Comments Quinolones Allergy See Verified 08/30/15 14:18 Comments acetaminophen [From Tylenol] AdvReac bad Verified 06/05/15 01:44 reaction codeine AdvReac See Verified 06/09/15 07:09 Comments hydrocodone [From Vicodin] AdvReac bad Verified 06/05/15 01:44 reaction levofloxacin [From Levaquin] AdvReac Hives Verified 06/05/15 01:44 NSAIDS (Non-Steroidal AdvReac bad Verified 06/05/15 01:44 Anti-Inflamma reaction Opioids - Morphine Analogues AdvReac See Verified 06/09/15 07:43 Comments Abdominal Pain PMH - Past Medical History Medical history: Reports: diabetes, other Psychiatric history: Reports: anxiety, depression - Social History Smoking status: Current every day smoker Alcohol use: Reports: none Drug use: Reports: none Physical Exam - General Limitations: no limitations General appearance: alert, in no apparent distress Course Vital Signs Temperature 99.3 F 05/22/18 04:12 Pulse Rate 133 05/22/18 04:12 Respiratory Rate 20 05/22/18 04:12 Blood Pressure 168/112 05/22/18 04:12 O2 Sat by Pulse Oximetry 97 05/22/18 04:12 Temperature 98.0 F 05/22/18 12:10 Pulse Rate 116 05/22/18 12:10 Respiratory Rate 20 05/22/18 12:10 Blood Pressure 182/111 05/22/18 12:10 O2 Sat by Pulse Oximetry 93 05/22/18 12:10 Oxygen Delivery Oxygen Delivery Room Air Abdominal Pain - MDM Narrative Medical decision making narrative: Received report from Donald Rivera GAS TECHNICIAN: 57 year old female with history of diabetes and chronic pancreatitis presents with acute abdominal pain since yesterday, associate with nausea, vomiting and diarrhea . Pt has soft abdomen, LUQ and RUQ tender to palpation, no rebound tenderness. Pt has negative lipase and white cell account, but BG>400, urine ketone positive, B-hydroxybutycic positive, abd ct unremarkable. DKA protocol started, pt is given 2 l bolus fluids and 10 units insulin, following with insulin drip. Pt has stable vitals, no mental status change, repeat sugar was 380s. Paged hospitalist. pt will be admitted. - Lab Data Lab results reviewed: Yes I reviewed the patient's lab results. Result diagrams: 05/22/18 04:44 05/22/18 04:44 Lab Results 05/22/18 05/22/18 05/22/18 Range/Units 04:44 04:44 04:44 WBC 9.8 (4.3-11.1) K/mcL RBC 5.39 H (3.82-4.97) M/mcL Hgb 15.6 H (11.5-15.4) g/dL Hct 45.0 H (35.3-44.9) % MCV 83.5 (83.0-100.0) fL MCH 28.9 (28.0-33.3) pg MCHC 34.7 (31.6-35.5) g/dL RDW 13.2 (11.5-14.5) % Plt Count 271 (140-400) K/mcL MPV 9.6 (9.4-12.4) fL Immature Gran % 0.4 (0-4) % Seg Neutrophils % 69.8 % Lymphocytes % 22.1 % Monocytes % 6.6 % Eosinophils % 0.8 % Basophils % 0.3 % Neutrophils # 6.8 (1.6-8.9) K/mcL Lymphocytes # 2.2 (0.6-4.6) K/mcL Monocytes # 0.6 (0.0-1.3) K/mcL Eosinophils # 0.1 (0.0-0.6) K/mcL Basophils # 0.0 (0.0-0.2) K/mcL VBG pH (7.32-7.42) pH Units VBG pCO2 (41-51) mmHg VBG pO2 (25-50) mmHg VBG HCO3 (21-27) mEq/L Sodium 134 L (136-145) mEq/L Potassium 3.8 (3.5-5.1) mEq/L Chloride 97 L (98-107) mEq/L Carbon Dioxide 15 L (23-29) mEq/L BUN 12 (6-20) mg/dL Creatinine 0.61 (0.60-1.20) mg/dL Est GFR ( Amer) > 60 (> 60) Est GFR (Non-Af Amer) > 60 (> 60) BUN/Creatinine Ratio 20 (6-26) Glucose 473 H (70-105) mg/dL Calculated Osmolality 299 (280-300) Lactic Acid (0.5-2.2) mmol/L Calcium 9.5 (8.6-10.3) mg/dL Total Bilirubin 0.5 (0.3-1.0) mg/dL Direct Bilirubin 0.1 (0.0-0.2) mg/dL Indirect Bilirubin 0.4 (0.0-1.2) mg/dL AST 19 (13-39) Units/L ALT 26 (7-52) Units/L Alkaline Phosphatase 181 H (34-104) Units/L Serum Total Protein 6.9 (6.4-8.9) g/dL Albumin 3.7 (3.5-5.7) g/dL Globulin 3.2 (2.4-3.5) g/dL Albumin/Globulin Ratio 1.2 (1.1-2.2) Lipase 52 (11-82) Units/L Beta-Hydroxybutyric Acd > 2.00 H (0.02-0.27) mmol/L Urine Color (Yellow) Urine Clarity (Clear) Urine pH (5.0-8.0) pH Units Ur Specific [place] (1.010-1.025) Urine Protein (Neg-Trace) mg/dL Urine Glucose (UA) (Normal) mg/dL Urine Ketones (Negative) mg/dL Urine Blood (Negative) Urine Nitrite (Negative) Urine Bilirubin (Negative) Urine Urobilinogen (Normal) mg/dL Ur Leukocyte Esterase (Negative) Urine Microscopic RBC (0-3) per hpf Urine Microscopic WBC (0-3) per hpf Ur Squamous Epith Cells (None-Few) per lpf Urine Bacteria (None-Few) per hpf Hyaline Casts (None-Few) per lpf Urine Yeast (None Seen) per hpf Ur Culture Indicated? (NO) 05/22/18 05/22/18 05/22/18 Range/Units 06:06 07:19 08:44 WBC (4.3-11.1) K/mcL RBC (3.82-4.97) M/mcL Hgb (11.5-15.4) g/dL Hct (35.3-44.9) % MCV (83.0-100.0) fL MCH (28.0-33.3) pg MCHC (31.6-35.5) g/dL RDW (11.5-14.5) % Plt Count (140-400) K/mcL MPV (9.4-12.4) fL Immature Gran % (0-4) % Seg Neutrophils % % Lymphocytes % % Monocytes % % Eosinophils % % Basophils % % Neutrophils # (1.6-8.9) K/mcL Lymphocytes # (0.6-4.6) K/mcL Monocytes # (0.0-1.3) K/mcL Eosinophils # (0.0-0.6) K/mcL Basophils # (0.0-0.2) K/mcL VBG pH 7.33 (7.32-7.42) pH Units VBG pCO2 31 L (41-51) mmHg VBG pO2 196 H (25-50) mmHg VBG HCO3 16 L (21-27) mEq/L Sodium (136-145) mEq/L Potassium (3.5-5.1) mEq/L Chloride (98-107) mEq/L Carbon Dioxide (23-29) mEq/L BUN (6-20) mg/dL Creatinine (0.60-1.20) mg/dL Est GFR ( Amer) (> 60) Est GFR (Non-Af Amer) (> 60) BUN/Creatinine Ratio (6-26) Glucose (70-105) mg/dL Calculated Osmolality (280-300) Lactic Acid 0.9 (0.5-2.2) mmol/L Calcium (8.6-10.3) mg/dL Total Bilirubin (0.3-1.0) mg/dL Direct Bilirubin (0.0-0.2) mg/dL Indirect Bilirubin (0.0-1.2) mg/dL AST (13-39) Units/L ALT (7-52) Units/L Alkaline Phosphatase (34-104) Units/L Serum Total Protein (6.4-8.9) g/dL Albumin (3.5-5.7) g/dL Globulin (2.4-3.5) g/dL Albumin/Globulin Ratio (1.1-2.2) Lipase (11-82) Units/L Beta-Hydroxybutyric Acd (0.02-0.27) mmol/L Urine Color Yellow (Yellow) Urine Clarity Clear (Clear) Urine pH 5.5 (5.0-8.0) pH Units Ur Specific [place] > 1.030 H (1.010-1.025) Urine Protein 100 H (Neg-Trace) mg/dL Urine Glucose (UA) >=1000 H (Normal) mg/dL Urine Ketones 80 H (Negative) mg/dL Urine Blood Small H (Negative) Urine Nitrite Negative (Negative) Urine Bilirubin Negative (Negative) Urine Urobilinogen Normal (Normal) mg/dL Ur Leukocyte Esterase Negative (Negative) Urine Microscopic RBC 3-5 H (0-3) per hpf Urine Microscopic WBC 30-50 H (0-3) per hpf Ur Squamous Epith Cells Many H (None-Few) per lpf Urine Bacteria Few (None-Few) per hpf Hyaline Casts None Seen (None-Few) per lpf Urine Yeast Moderate H (None Seen) per hpf Ur Culture Indicated? NO (NO) - Radiology Data Radiology results reviewed: Yes I reviewed the patient's radiology results.
[2018-05-22] MEDS ORDERED: *HR* Dextrose 50 % in Water (Syg) 50 ML SYRINGE IVP PRN ×3 (08:31→09:01)
[2018-05-22 08:36] LABS: VBG HCO3 16 mEq/L (21-27); VBG PCO2 31 mmHg (41-51); VBG PH 7.33 pH Units (7.32-7.42); VBG PO2 196 mmHg (25-50)
--- NOTE | 2018-05-22 08:36 | Emergency Department Note ---
Disposition Clinical Impression: DKA (diabetic ketoacidoses) Abdominal pain Qualifiers: Abdominal location: unspecified location Qualified Code(s): R10.9 - Unspecified abdominal pain Disposition: Admitted As Inpatient Condition: Undetermined Referrals: Shashank Moon DO [Primary Care Provider] - Forms: ED Satisfaction Letter, Work/School Release General Adult HPI - General Chief complaint: ED Abdominal Pain Stated complaint: Abd pain Time Seen by Provider: 05/22/18 04:24 Source: patient, EMS Mode of arrival: private vehicle Limitations: no limitations - History of Present Illness Pain Scale: 6 - Related Data Home Medications Medication Instructions Recorded Confirmed Insulin Glargine [Lantus] 45 unit SQ BID 10/09/16 03/26/17 Insulin LISPRO [Humalog Kwikpen 35 unit SQ TIDWM 10/09/16 03/26/17 U-100] Duloxetine HCl [Cymbalta] 60 mg PO DAILY 03/02/17 03/26/17 Fenofibrate Nanocrystallized 160 mg PO DAILY 03/02/17 03/26/17 [Triglide] Furosemide [Lasix] 40 mg PO DAILY 03/02/17 03/26/17 Gabapentin [Neurontin] 800 mg PO QID 03/02/17 03/26/17 Lipase/Protease/Amylase [Ariana Moran 2 each PO AD 03/02/17 03/26/17 24,000 Units Capsule] Lipase/Protease/Amylase [Ariana Moran 3 each PO TIDWM 03/02/17 03/26/17 24,000 Units Capsule] Ondansetron HCl [Zofran] 4 mg PO TID PRN 03/02/17 03/26/17 Rosuvastatin Calcium [Crestor] 10 mg PO HS 03/02/17 03/26/17 Tizanidine HCl 8 mg PO Q8H PRN 03/02/17 03/26/17 Topiramate [Topamax] 25 mg PO HS 03/02/17 03/26/17 Oxycodone HCl 15 mg PO Q4H PRN 03/26/17 03/26/17 Promethazine [Phenergan] 25 mg PO Q6HR PRN 03/26/17 03/26/17 Previous Rx's Medication Instructions Recorded Metoprolol XL (24 HR) Succ [Toprol 100 mg PO DAILY #30 tab.er.24h 03/09/17 Xl] Omeprazole 20 mg PO DAILY #30 tablet. 03/28/17 Allergies Allergy/AdvReac Type Severity Reaction Status Date / Time morphine Allergy See Verified 06/09/15 07:09 Comments Quinolones Allergy See Verified 08/30/15 14:18 Comments acetaminophen [From Tylenol] AdvReac bad Verified 06/05/15 01:44 reaction codeine AdvReac See Verified 06/09/15 07:09 Comments hydrocodone [From Vicodin] AdvReac bad Verified 06/05/15 01:44 reaction levofloxacin [From Levaquin] AdvReac Hives Verified 06/05/15 01:44 NSAIDS (Non-Steroidal AdvReac bad Verified 06/05/15 01:44 Anti-Inflamma reaction Opioids - Morphine Analogues AdvReac See Verified 06/09/15 07:43 Comments Past Medical History - Past Medical History Medical history: Reports: diabetes, other Surgical history: Reports: appendectomy, , cholecystectomy, hysterectomy, orthopedic, other, other Psychiatric history: Reports: anxiety, depression - Social History Smoking Status: Current every day smoker Smokeless Tobacco Status: No Alcohol use: Reports: none Drug use: Reports: none Physical Exam - General Limitations: no limitations General appearance: alert, in no apparent distress Course Vital Signs Temperature 99.3 F 05/22/18 04:12 Pulse Rate 133 05/22/18 04:12 Respiratory Rate 20 05/22/18 04:12 Blood Pressure 168/112 05/22/18 04:12 O2 Sat by Pulse Oximetry 97 05/22/18 04:12 Temperature 99.3 F 05/22/18 04:12 Pulse Rate 119 05/22/18 07:33 Respiratory Rate 18 05/22/18 07:33 Blood Pressure 154/98 05/22/18 07:33 O2 Sat by Pulse Oximetry 97 05/22/18 07:33 Oxygen Delivery Oxygen Delivery Room Air Medical Decision Making - Lab Data Result diagrams: 05/22/18 04:44 05/22/18 04:44 Lab Results 05/22/18 05/22/18 05/22/18 Range/Units 04:44 04:44 04:44 WBC 9.8 (4.3-11.1) K/mcL RBC 5.39 H (3.82-4.97) M/mcL Hgb 15.6 H (11.5-15.4) g/dL Hct 45.0 H (35.3-44.9) % MCV 83.5 (83.0-100.0) fL MCH 28.9 (28.0-33.3) pg MCHC 34.7 (31.6-35.5) g/dL RDW 13.2 (11.5-14.5) % Plt Count 271 (140-400) K/mcL MPV 9.6 (9.4-12.4) fL Immature Gran % 0.4 (0-4) % Seg Neutrophils % 69.8 % Lymphocytes % 22.1 % Monocytes % 6.6 % Eosinophils % 0.8 % Basophils % 0.3 % Neutrophils # 6.8 (1.6-8.9) K/mcL Lymphocytes # 2.2 (0.6-4.6) K/mcL Monocytes # 0.6 (0.0-1.3) K/mcL Eosinophils # 0.1 (0.0-0.6) K/mcL Basophils # 0.0 (0.0-0.2) K/mcL Sodium 134 L (136-145) mEq/L Potassium 3.8 (3.5-5.1) mEq/L Chloride 97 L (98-107) mEq/L Carbon Dioxide 15 L (23-29) mEq/L BUN 12 (6-20) mg/dL Creatinine 0.61 (0.60-1.20) mg/dL Est GFR ( Amer) > 60 (> 60) Est GFR (Non-Af Amer) > 60 (> 60) BUN/Creatinine Ratio 20 (6-26) Glucose 473 H (70-105) mg/dL Calculated Osmolality 299 (280-300) Calcium 9.5 (8.6-10.3) mg/dL Total Bilirubin 0.5 (0.3-1.0) mg/dL Direct Bilirubin 0.1 (0.0-0.2) mg/dL Indirect Bilirubin 0.4 (0.0-1.2) mg/dL AST 19 (13-39) Units/L ALT 26 (7-52) Units/L Alkaline Phosphatase 181 H (34-104) Units/L Serum Total Protein 6.9 (6.4-8.9) g/dL Albumin 3.7 (3.5-5.7) g/dL Globulin 3.2 (2.4-3.5) g/dL Albumin/Globulin Ratio 1.2 (1.1-2.2) Lipase 52 (11-82) Units/L Beta-Hydroxybutyric Acd > 2.00 H (0.02-0.27) mmol/L Urine Color (Yellow) Urine Clarity (Clear) Urine pH (5.0-8.0) pH Units Ur Specific [place] (1.010-1.025) Urine Protein (Neg-Trace) mg/dL Urine Glucose (UA) (Normal) mg/dL Urine Ketones (Negative) mg/dL Urine Blood (Negative) Urine Nitrite (Negative) Urine Bilirubin (Negative) Urine Urobilinogen (Normal) mg/dL Ur Leukocyte Esterase (Negative) Urine Microscopic RBC (0-3) per hpf Urine Microscopic WBC (0-3) per hpf Ur Squamous Epith Cells (None-Few) per lpf Urine Bacteria (None-Few) per hpf Hyaline Casts (None-Few) per lpf Urine Yeast (None Seen) per hpf Ur Culture Indicated? (NO) 05/22/18 Range/Units 06:06 WBC (4.3-11.1) K/mcL RBC (3.82-4.97) M/mcL Hgb (11.5-15.4) g/dL Hct (35.3-44.9) % MCV (83.0-100.0) fL MCH (28.0-33.3) pg MCHC (31.6-35.5) g/dL RDW (11.5-14.5) % Plt Count (140-400) K/mcL MPV (9.4-12.4) fL Immature Gran % (0-4) % Seg Neutrophils % % Lymphocytes % % Monocytes % % Eosinophils % % Basophils % % Neutrophils # (1.6-8.9) K/mcL Lymphocytes # (0.6-4.6) K/mcL Monocytes # (0.0-1.3) K/mcL Eosinophils # (0.0-0.6) K/mcL Basophils # (0.0-0.2) K/mcL Sodium (136-145) mEq/L Potassium (3.5-5.1) mEq/L Chloride (98-107) mEq/L Carbon Dioxide (23-29) mEq/L BUN (6-20) mg/dL Creatinine (0.60-1.20) mg/dL Est GFR ( Amer) (> 60) Est GFR (Non-Af Amer) (> 60) BUN/Creatinine Ratio (6-26) Glucose (70-105) mg/dL Calculated Osmolality (280-300) Calcium (8.6-10.3) mg/dL Total Bilirubin (0.3-1.0) mg/dL Direct Bilirubin (0.0-0.2) mg/dL Indirect Bilirubin (0.0-1.2) mg/dL AST (13-39) Units/L ALT (7-52) Units/L Alkaline Phosphatase (34-104) Units/L Serum Total Protein (6.4-8.9) g/dL Albumin (3.5-5.7) g/dL Globulin (2.4-3.5) g/dL Albumin/Globulin Ratio (1.1-2.2) Lipase (11-82) Units/L Beta-Hydroxybutyric Acd (0.02-0.27) mmol/L Urine Color Yellow (Yellow) Urine Clarity Clear (Clear) Urine pH 5.5 (5.0-8.0) pH Units Ur Specific [place] > 1.030 H (1.010-1.025) Urine Protein 100 H (Neg-Trace) mg/dL Urine Glucose (UA) >=1000 H (Normal) mg/dL Urine Ketones 80 H (Negative) mg/dL Urine Blood Small H (Negative) Urine Nitrite Negative (Negative) Urine Bilirubin Negative (Negative) Urine Urobilinogen Normal (Normal) mg/dL Ur Leukocyte Esterase Negative (Negative) Urine Microscopic RBC 3-5 H (0-3) per hpf Urine Microscopic WBC 30-50 H (0-3) per hpf Ur Squamous Epith Cells Many H (None-Few) per lpf Urine Bacteria Few (None-Few) per hpf Hyaline Casts None Seen (None-Few) per lpf Urine Yeast Moderate H (None Seen) per hpf Ur Culture Indicated? NO (NO) Critical Care Time Critical Care Time: Yes Total Critical Care Time: 35 Attestation: Critical care time of 35 minutes spent in medical management of DKA. Insulin drip. Attestation Statement - Attestation Attestation: For this encounter, I have reviewed the CORNETIST or PA documentation, treatment plan, and medical decision making; and I have had face to face time with this patient. This was a 57-year-old female presented to the ER with abdominal pain. She states she has a history of pancreatitis. She was having upper abdominal pain. Associated with some nausea. She was found to be in DKA. She does have a history of DKA. CT N and pelvis was negative for acute process. Specifically, there was no evidence of pancreatitis. Her lipase is normal. She does have elevated serum ketones and elevated serum glucose. Patient will be admitted for treatment of this elevated glucose. We will start her on insulin drip. Low -dose insulin drip.
[2018-05-22] MEDS ORDERED: Insulin Human Regular 100 UNIT in 0.9 % Sodium Chloride 100 ML IVC SCH (08:45)
[2018-05-22] MEDS ORDERED: D5% in Water 1,000 ML IVC PRN (09:01)
[2018-05-22] MEDS ORDERED: Dextrose Gel 15 GM/37.5 ML TUBE PO PRN ×2 (09:01)
[2018-05-22] MEDS ORDERED: Naloxone 0.4 MG/ML INJ IVP PRN (09:05)
[2018-05-22] MEDS ORDERED: 0.9 % Sodium Chloride 1,000 ML IVC SCH (09:15)
[2018-05-22] MEDS ORDERED: Insulin DETEMIR 100 UNIT/ML X5UNITS SQ SCH (09:15)
--- NOTE | 2018-05-22 09:27 | Internal Med History&Physical ---
Date of Encounter: 05/22/18 Time of Encounter: 09:25 Internal Medicine - H&P: HPI Chief complaint: Diarrhea Admitted From: Home Plans for Post Hospital Care: Home History of present illness: Ms. Pugh is a 57 year old female with past medical history of diabetes mellitus , presented to the emergency room with complaints of abdominal pain. The patient was seen and evaluated at the bedside with her partner reports that the patient has been having watery nonbloody diarrhea for the past 1 week, about 12 episodes per day last episode said to be this morning. He also reports that she has become progressively weak and unbalanced on her feet. The patient denies fever or chills, she reports nausea and vomiting associated with her diarrhea. She has a history of chronic pancreatitis and complaints of abdominal pain which she sees he is at her baseline. She denies noncompliance with insulin, however reports poor oral intake. She denies chest pain or shortness of breath, she denies palpitations or diaphoresis. She has no pedal edema. She denies dysuria but she believes her urine is more concentrated than usual. She denies headaches or confusion, she denies speech abnormality, or weakness. No however reports generalized weakness and is grossly intact patient holding onto the acuna when ambulating. He reports compliance with her follow-up appointments and last saw her PCP week ago prior to onset of symptoms. She denies recent travels or sick contacts. On presentation to the ER she was tachycardic, received multiple pain medications, and some hydration. Fingerstick on presentation was greater than 400, at time of review blood sugar was 380. She also had ketonuria and ketonemia however her pH is 7.33. CBC shows hemoconcentration with hemoglobin of 15.7, no leukocytosis, chemistry shows pseudohyponatremia and hypoglycemia, liver function tests is unremarkable. Urine analysis shows concentrated urine with specific gravity greater than 1.030, proteinuria, glucosuria and ketonuria. Abdomen CAT scan shows evidence of colitis. She will be placed on observation for management of colitis, hyperglycemia, dehydration and generalized weakness. At this time, the patient's pH is normal and she is not in DKA, we will resume insulin regimen with diet and continue to observe Past Med Surg Social Fam HX - Past Medical History Medical history: diabetes, other Additional medical history: pancreatitis. chronic pain. lumbar radiculopathy. diabetes. dyslipidemia Psychiatric history: anxiety, depression - Past Surgical History Surgical History: appendectomy, , cholecystectomy, hysterectomy, orthopedic, other, other Additional surgical history: tonsilectomy & adnoidectomy, rotator cuff surgery, right ankle surgery, bilateral hand surgery for trigger finger - Social History Smoking Status: Current every day smoker Smokeless Tobacco Status: No Alcohol use: none Drug use: none - Family History Mother Living Status: Father Living Status: Still Living Internal Medicine - H&P: Meds Insulin LISPRO [Humalog Kwikpen U-100] 35 unit SQ TIDWM 10/09/16 [History] Duloxetine HCl [Cymbalta] 60 mg PO DAILY 03/02/17 [History] Fenofibrate Nanocrystallized [Triglide] 160 mg PO DAILY 03/02/17 [History] Furosemide [Lasix] 40 mg PO DAILY PRN 03/02/17 [History] Ondansetron HCl [Zofran] 4 mg PO TID PRN 03/02/17 [History] Topiramate [Topamax] 25 mg PO HS 03/02/17 [History] Metoprolol XL (24 HR) Succ [Toprol Xl] 100 mg PO DAILY #30 tab.er.24h 03/09/17 [ Rx] Oxycodone HCl 15 mg PO Q4H PRN 03/26/17 [History] Omeprazole 20 mg PO DAILY #30 tablet.dr 03/28/17 [Rx] Insulin Glargine,Hum.rec.anlog [Louisa Green] 50 units SQ BID 05/22/18 [ History] Lipase/Protease/Amylase [Ariana Moran 36,000 Units Capsule] 36,000 unit PO TID 05/22 [History] 3 Allergy/AdvReac Type Severity Reaction Status Date / Time morphine Allergy See Verified 06/09/15 07:09 Comments Quinolones Allergy See Verified 08/30/15 14:18 Comments acetaminophen [From Tylenol] AdvReac bad Verified 06/05/15 01:44 reaction codeine AdvReac See Verified 06/09/15 07:09 Comments hydrocodone [From Vicodin] AdvReac bad Verified 06/05/15 01:44 reaction levofloxacin [From Levaquin] AdvReac Hives Verified 09/19/15 01:44 NSAIDS (Non-Steroidal AdvReac bad Verified 06/05/15 01:44 Anti-Inflamma reaction Opioids - Morphine Analogues AdvReac See Verified 06/09/15 07:43 Comments All Systems PM: A 10-system review of systems was performed and is negative for pertinent findings except as documented above in the HPI. - Constitutional Constitutional: as per HPI - EENT Eyes: as per HPI Ears: as per HPI Nose, mouth and throat: as per HPI - Cardiovascular Cardiovascular ROS IM: as per HPI - Respiratory Respiratory: as per HPI - Gastrointestinal Gastrointestinal: as per HPI - Genitourinary Genitourinary: as per HPI - Musculoskeletal Musculoskeletal ROS IM: as per HPI - Integumentary Integumentary IM: as per HPI - Neurological Neurological ROS: as per HPI - Hematologic/Lymphatic Hematologic/Lymphatic: as per HPI - Constitutional Vitals: Temp Pulse Resp BP Pulse Ox 99.3 F 118 20 156/99 97 05/22/18 04:12 05/22/18 09:13 05/22/18 09:13 05/22/18 09:13 05/22/18 09:13 General appearance: Present: A&O X 2 (oriented to place and person, not oriented to [place]) Exam: see detailed exam below - Head Head exam: Present: atraumatic - Eye Eye exam: Present: PERRL, sclera anicteric - ENT ENT exam: Present: mucous membranes dry - Neck Neck exam general surgery: Present: normal inspection - Respiratory Respiratory exam: Present: CTAB - Cardiovascular Cardiovascular exam: Present: +S1, +S2, tachycardia. Absent: systolic murmur - GI/Abdominal GI/Abdominal exam: Present: normal bowel sounds, soft, no peritoneal signs. Absent: distended, guarding, tenderness - Extremities Exam Extremities exam: Present: warm, radial pulses palpable and symmetrical. Absent : calf tenderness, cyanotic, pedal edema - Back Exam Additional comments: scars++, no CVA tenderness - Neurological Exam Neurological exam: Present: alert, no focal deficits, strengths equal and symetr throughout. Absent: pronater drift, facial droop, speech deficit - Skin Skin exam: Present: dry, intact. Absent: rash Internal Med - H&P Results - Labs CBC & Chem 7: 05/22/18 04:44 05/22/18 04:44 - Assessment and plan (1) Colitis Current Visit: Yes Status: Acute Assessment and plan: Patient with one week hx of watery diarrhea, with evidence of likely sigmoid colitis on Abd CT Start on Ceftriaxone and Flagyl She has allergies to quinolones (2) Dehydration Current Visit: Yes Status: Acute Assessment and plan: 2L normal saline bolus STAT Patient with dry oral mucosa, decreased skin tugor, hemoconcentration Likely due to prolonged diarrhea with uncontrolled DM Maintenance fluid at 125 cc/hr Continue to monitor (3) Hyperglycemia Current Visit: Yes Status: Acute Assessment and plan: Presenting glucose on chem facility 3, improved to 318 with 10 units of regular insulin. Give 2 L of normal saline bolus, continue hydration at 1 25 mL per hour patient is significantly dehydrated Fingerstick before meals at bedtime for now No indication for insulin drip at this time, the patient does not have DKA, PH is WNL Check A1C with morning labs (4) Chronic pancreatitis Current Visit: Yes Status: Chronic Assessment and plan: Patient with chronic pancreatitis with acute onset of colitis. Lipase is currently normal. Patient's abdominal pain according to her and her spouse is at her baseline. Resume home supplements and continue to monitor. Qualifiers: Pancreatitis type: unspecified pancreatitis type Qualified Code(s): K86.1 - Other chronic pancreatitis (5) Diabetes type 2, uncontrolled Current Visit: Yes Status: Chronic Assessment and plan: FS ACHS Evidence of uncontrolled diabetes with significant dehydration, ketonuria and ketonemia as well as proteinuria and glucosuria on admission. Resume Levemir 10 units twice a day, prandial insulin with meals, sliding scale , continue aggressive fluid hydration, ADA diet. Qualifiers: Glycemic state: with hyperglycemia Qualified Code(s): E11.65 - Type 2 diabetes mellitus with hyperglycemia (6) Obesity (BMI 30-39.9) Current Visit: Yes Status: Chronic Assessment and plan: lifestyle modification (7) Weakness Current Visit: Yes Status: Acute Assessment and plan: PTOT eval when medically stable fall precautions (8) Disorientation Current Visit: Yes Status: Acute Assessment and plan: Patient is disoriented to time, but is oriented to place and person and was able to give her own history, corroborated by her partner. Consider head imaging when hyperglycemia is controlled, if disorientation does not resolve - Time Spent With Patient Total time spent is greater than 50% in coordination of care (as documented) at patient's floor/unit and/or counseling patient:
[2018-05-22] MEDS: Metoprolol XL (24 HR) Succ 50 MG TAB.ER.24H PO SCH (11:16)
[2018-05-22] MEDS: Fenofibrate 54 MG TABLET PO SCH (11:16)
[2018-05-22] MEDS: *HR* OxyCODONE Immed Rel 5 MG TABLET PO PRN ×3 (11:21→21:16)
[2018-05-22] MEDS: cefTRIAXone 1,000 MG in Water for inj. (sterile) 20 ML 10 ML IVP SCH (11:21)
[2018-05-22] MEDS: Insulin LISPRO 300 UNITS/3 ML VIAL SQ SCH ×4 (11:22→21:17)
[2018-05-22] MEDS: 0.9 % Sodium Chloride 1,000 ML IVC SCH ×2 (11:45→21:17)
[2018-05-22] MEDS ORDERED: Insulin DETEMIR 100 UNIT/ML X5UNITS SQ ONE (13:00)
[2018-05-22] MEDS: MetroNIDAZOLE 500 MG/100 ML 500 MG/100 ML BAG IVPB SCH ×2 (14:35→23:47)
[2018-05-22 16:08] LABS: C.difficile Toxin A/B by PCR Not detected (Not detect); Campylobacter by PCR Not detected (Not detect); Enteroaggregative E.coli(EAEC) Not detected (Not detect); Enteropathogenic E.coli(EPEC) DETECTED (Not detect); Plesiomonas shigelloides PCR Not detected (Not detect); Salmonella PCR Not detected (Not detect); Vibrio PCR Not detected (Not detect); Vibrio cholerae PCR Not detected (Not detect); Yersinia enterocolitica PCR Not detected (Not detect)
[2018-05-22 16:09] LABS: Adenovirus F 40/41 PCR Not detected (Not detect); Astrovirus PCR Not detected (Not detect); Cryptosporidium by PCR Not detected (Not detect); Cyclospora cayetanensis PCR Not detected (Not detect); E. coli O157 by PCR Not detected (Not detect); Entamoeba histolytica PCR Not detected (Not detect); Enterotoxigenic E.coli (ETEC) Not detected (Not detect); Giardia lamblia PCR Not detected (Not detect); Norovirus GI/GII PCR Not detected (Not detect); Rotavirus A PCR Not detected (Not detect); Sapovirus PCR Not detected (Not detect); Shig/EnteroinvasiveE coli EIEC Not detected (Not detect); Shigalike tox-prod E coli STEC Not detected (Not detect)
[2018-05-22] MEDS: Insulin DETEMIR 100 UNIT/ML X5UNITS SQ SCH (21:16)
[2018-05-22] MEDS: Topiramate 25 MG TABLET PO SCH (21:16)
[2018-05-22] MEDS ORDERED: Ketorolac 15 MG/ML VIAL IVP ONE (23:24)
[2018-05-23] MEDS: *HR* OxyCODONE Immed Rel 5 MG TABLET PO PRN ×4 (02:04→17:12)
[2018-05-23] MEDS: *HR* Enoxaparin 40 MG/0.4 ML SYRINGE SQ SCH (04:58)
[2018-05-23] MEDS: 0.9 % Sodium Chloride 1,000 ML IVC SCH ×3 (06:10→21:18)
--- NOTE | 2018-05-23 06:41 | Electrocardiograph Report ---
[facility] Test Date: 2018-05-22 Pat Name: Kailee Pugh Department: EXAM3 Room: [facility] Gender: F [employer] Super[employer]: : 1960 Requested By: Jay Jay Davis Order Number: [id number] Reading MD: Sal Fraser Measurements Intervals [place] Rate: 117 P: 68 [place]: 146 QRS: 51 QRSD: 101 T: 58 QT: 332 QTc: 464 Interpretive Statements Sinus tachycardia Electronically Signed On 05-23-2018 6:39:48 EDT by Sal Fraser
[2018-05-23 06:46] LABS: Basophils # 0.1 K/mcL (0.0-0.2); Basophils % 0.7 %; Eosinophils # 0.3 K/mcL (0.0-0.6); Eosinophils % 4.2 %; Hematocrit 40.1 % (35.3-44.9); Hemoglobin 13.4 g/dL (11.5-15.4); Immature Granulocytes % 0.4 % (0-4); Lymphocytes # 3.1 K/mcL (0.6-4.6); Lymphocytes % 42.6 %; Mean Corpuscular HGB Conc 33.4 g/dL (31.6-35.5); Mean Corpuscular Hemoglobin 29.1 pg (28.0-33.3); Mean Corpuscular Volume 87.2 fL (83.0-100.0); Mean Platelet Volume 9.5 fL (9.4-12.4); Monocytes # 0.5 K/mcL (0.0-1.3); Monocytes % 6.3 %; Neutrophils # 3.4 K/mcL (1.6-8.9); Platelet Count 216 K/mcL (140-400); Red Cell Distribution Width 13.5 % (11.5-14.5); Segmented Neutrophils % 45.8 %
[2018-05-23] MEDS: Metoprolol XL (24 HR) Succ 50 MG TAB.ER.24H PO SCH (08:19)
[2018-05-23] MEDS: cefTRIAXone 1,000 MG in Water for inj. (sterile) 20 ML 10 ML IVP SCH (08:19)
[2018-05-23] MEDS: Fenofibrate 54 MG TABLET PO SCH (08:19)
[2018-05-23] MEDS: MetroNIDAZOLE 500 MG/100 ML 500 MG/100 ML BAG IVPB SCH ×2 (08:20→15:19)
[2018-05-23] MEDS: Insulin LISPRO 300 UNITS/3 ML VIAL SQ SCH ×7 (08:26→21:09)
[2018-05-23] MEDS: Insulin DETEMIR 100 UNIT/ML X5UNITS SQ SCH ×2 (08:27→21:09)
[2018-05-23 09:59] LABS: BUN/Creatinine Ratio 26 (6-26); Blood Urea Nitrogen 12 mg/dL (6-20); Calcium 8.6 mg/dL (8.6-10.3); Carbon Dioxide 22 mEq/L (23-29); Chloride 107 mEq/L (98-107); Glucose 220 mg/dL (70-105); Magnesium 1.7 mg/dL (1.6-2.6); Osmolality,Calculated 291 (280-300); Phosphorous 2.3 mg/dL (2.7-4.5); Potassium 3.2 mEq/L (3.5-5.1); Sodium 137 mEq/L (136-145); eGFR For Non-African Americans > 60 (> 60)
--- NOTE | 2018-05-23 10:19 | Internal Med Progress Note ---
Hospitalist Progress Note - Encounter Date of Encounter: 05/23/18 Time of Encounter: 10:24 - Subjective Interval History: Seen and examined at bedside. Patient is new to me, information obtained from chart review and patient report. She still complaining of severe abdominal pain , rates 10/10. Nothing makes better or worse. Still having loose stool but frequency decreasing. Has nausea no vomiting. She is requesting increase in her pain medicine and nausea medication. Discussed case with pharmacist and will continue IV ATB for now and await final stool cultures. - Exam Vitals: Temp Pulse Resp BP Pulse Ox 98.0 F 83 16 163/102 96 05/23/18 07:49 05/23/18 07:49 05/23/18 07:49 05/23/18 07:49 05/23/18 07:49 Exam: General appearance: Present: A&O X 3, pleasant, appears uncomfortable - Head Head exam: Present: atraumatic, normocephalic - Eye Eye exam: Present: PERRL, conjuntiva pink, sclera anicteric Pupils: Present: PERRL - Neck Neck exam general surgery: Present: supple, trachea midline. Absent: lymphadenopathy - Respiratory Respiratory exam: Present: chest wall tenderness, CTAB. Absent: accessory muscle use, rales, rhonchi, wheezes - Cardiovascular Cardiovascular exam: Present: RRR, +S1, +S2. Absent: diastolic murmur, gallop, rubs, systolic murmur - GI/Abdominal GI/Abdominal exam: Present: normal bowel sounds, soft, no peritoneal signs. Absent: distended, tenderness - Extremities Exam Extremities exam: Present: warm, radial pulses palpable and symmetrical. Absent : calf tenderness, cyanotic, pedal edema - Neurological Exam Neurological exam: Present: CN II-XII intact, oriented X3, no focal deficits. Absent: pronater drift, facial droop, speech deficit - Skin Skin exam: Present: dry, intact - Assessment and Plan (1) Colitis Current Visit: Yes Status: Acute Assessment and Plan: presented with one week of watery diarrhea, ABD pain and nausea. ABD CT showed mild sigmoid wall thickening concerning for colitis. Stool studies positive for enteropathogenic Escherichia coli. Cont IV ceftriaxone and Flagyl as she has quinolone allergy. Symptomatically care with PRN antiemetics and oxycodone. Stool culture pending. (2) Chronic pancreatitis Current Visit: Yes Status: Chronic Assessment and Plan: per hx. ABD CT without evidence of acute pancreatitis. Lipase normal. (3) Hyperglycemia Current Visit: Yes Status: Acute Assessment and Plan: Presenting glucose on chem facility 3, improved to 318 with 10 units of regular insulin. Give 2 L of normal saline bolus, continue hydration at 1 25 mL per hour patient is significantly dehydrated Fingerstick before meals at bedtime for now No indication for insulin drip at this time, the patient does not have DKA, PH is WNL Check A1C with morning labs (4) Diabetes type 2, uncontrolled Current Visit: Yes Status: Chronic Assessment and Plan: uncontrolled diabetes with significant dehydration, ketonuria and ketonemia as well as proteinuria and glucosuria. Cont Levemir 10 units twice a day, prandial insulin with meals, sliding scale, continue aggressive fluid hydration, ADA diet. Hgb A1c pending. Blood sugars remain elevated but overall improved on 05/23 exam (5) Dehydration Current Visit: Yes Status: Acute Assessment and Plan: secondary to prolonged diarrhea with uncontrolled DM. Cont IV fluids (6) Weakness Current Visit: Yes Status: Acute Assessment and Plan: PT/OT eval when medically stable. Fall precautions (7) Disorientation Current Visit: Yes Status: Acute Assessment and Plan: Disoriented on arrival per previous documentation. Mentation now back to baseline; LOC 4. Suspect multifactorial with dehydration, hyperglycemia and acute illness. No further workup indicated at this time. (8) Obesity (BMI 30-39.9) Current Visit: Yes Status: Chronic Assessment and Plan: lifestyle modification encouraged DVT Prophylaxis: lovenox - Time Spent with Patient Total time spent is greater than 50% in coordination of care (as documented) at patient's floor/unit and/or counseling patient: Internal Medicine: Result - Labs CBC & Chem 7: 05/23/18 06:32 05/23/18 08:59 Labs: Short CBC 05/23/18 Range/Units 06:32 WBC 7.3 (4.3-11.1) K/mcL Hgb 13.4 D (11.5-15.4) g/dL Hct 40.1 (35.3-44.9) % Plt Count 216 (140-400) K/mcL Neutrophils # 3.4 (1.6-8.9) K/mcL BMP 05/23/18 08:59 Sodium 137 Potassium 3.2 L Chloride 107 Carbon Dioxide 22 L BUN 12 Creatinine 0.46 L Glucose 220 H Calcium 8.6 Consult Discharge Plan - Plan Referrals: Shashank Moon DO [Primary Care Provider] - (2) Chronic pancreatitis Qualifiers: Pancreatitis type: unspecified pancreatitis type Qualified Code(s): K86.1 - Other chronic pancreatitis (4) Diabetes type 2, uncontrolled Qualifiers: Glycemic state: with hyperglycemia Qualified Code(s): E11.65 - Type 2 diabetes mellitus with hyperglycemia
[2018-05-23] MEDS ORDERED: cefTRIAXone 1,000 MG in 0.9 % Sodium Chloride Mini Bag 100 ML IVPB SCH (11:00)
[2018-05-23] MEDS ORDERED: Potassium Chloride 40 MEQ, Lidocaine 1% 2 ML in D5% in Water 500 ML IVPB ONE (11:19)
[2018-05-23 14:56] LABS: Estimated Average Glucose 272 mg/dl; Hemoglobin A1C 11.1 %
[2018-05-23] MEDS: Ondansetron 4 MG/2 ML VIAL IVP PRN ×2 (15:19→21:15)
[2018-05-23] MEDS: Topiramate 25 MG TABLET PO SCH (21:09)
[2018-05-24] MEDS: MetroNIDAZOLE 500 MG/100 ML 500 MG/100 ML BAG IVPB SCH ×4 (00:14→23:58)
[2018-05-24] MEDS: *HR* OxyCODONE Immed Rel 5 MG TABLET PO PRN ×5 (02:39→20:33)
[2018-05-24] MEDS: Ondansetron 4 MG/2 ML VIAL IVP PRN ×3 (02:46→16:28)
[2018-05-24 05:52] LABS: Hematocrit 39.6 % (35.3-44.9); Hemoglobin 12.9 g/dL (11.5-15.4); Mean Corpuscular HGB Conc 32.6 g/dL (31.6-35.5); Mean Corpuscular Hemoglobin 28.5 pg (28.0-33.3); Mean Corpuscular Volume 87.6 fL (83.0-100.0); Mean Platelet Volume 10.1 fL (9.4-12.4); Platelet Count 195 K/mcL (140-400); Red Blood Count 4.52 M/mcL (3.82-4.97); Red Cell Distribution Width 13.7 % (11.5-14.5)
[2018-05-24] MEDS: 0.9 % Sodium Chloride 1,000 ML IVC SCH ×3 (06:07→23:58)
[2018-05-24] MEDS: *HR* Enoxaparin 40 MG/0.4 ML SYRINGE SQ SCH (06:07)
[2018-05-24 06:15] LABS: BUN/Creatinine Ratio 19 (6-26); Blood Urea Nitrogen 10 mg/dL (6-20); Calcium 8.7 mg/dL (8.6-10.3); Carbon Dioxide 24 mEq/L (23-29); Chloride 109 mEq/L (98-107); Glucose 180 mg/dL (70-105); Osmolality,Calculated 292 (280-300); Potassium 3.6 mEq/L (3.5-5.1); Sodium 139 mEq/L (136-145); eGFR For Non-African Americans > 60 (> 60)
[2018-05-24] MEDS ORDERED: cefTRIAXone 1,000 MG in Water for inj. (sterile) 20 ML 10 ML IVP SCH (09:00)
[2018-05-24] MEDS: cefTRIAXone 1,000 MG in Water for inj. (sterile) 20 ML 10 ML IVP SCH (09:27)
[2018-05-24] MEDS: Fenofibrate 54 MG TABLET PO SCH (09:28)
[2018-05-24] MEDS: Insulin LISPRO 300 UNITS/3 ML VIAL SQ SCH ×7 (09:28→20:35)
[2018-05-24] MEDS: Metoprolol XL (24 HR) Succ 50 MG TAB.ER.24H PO SCH (09:28)
[2018-05-24] MEDS: Insulin DETEMIR 100 UNIT/ML X5UNITS SQ SCH ×2 (09:30→20:36)
--- NOTE | 2018-05-24 14:22 | Internal Med Progress Note ---
Hospitalist Progress Note - Encounter Date of Encounter: 05/24/18 Time of Encounter: 14:19 - Subjective Interval History: Seen and examined at bedside. She still complaining of severe abdominal pain and nausea. Says the nausea is somewhat better but both abdominal pain and nausea worse after taking in clear liquids. Still having loose stool. - Exam Vitals: Temp Pulse Resp BP Pulse Ox 98.1 F 83 15 109/64 93 05/24/18 10:57 05/24/18 10:57 05/24/18 10:57 05/24/18 10:57 05/24/18 10:57 Exam: General appearance: Present: A&O X 3, pleasant, appears uncomfortable - Head Head exam: Present: atraumatic, normocephalic - Eye Eye exam: Present: PERRL, conjuntiva pink, sclera anicteric Pupils: Present: PERRL - Neck Neck exam general surgery: Present: supple, trachea midline. Absent: lymphadenopathy - Respiratory Respiratory exam: Present: chest wall tenderness, CTAB. Absent: accessory muscle use, rales, rhonchi, wheezes - Cardiovascular Cardiovascular exam: Present: RRR, +S1, +S2. Absent: diastolic murmur, gallop, rubs, systolic murmur - GI/Abdominal GI/Abdominal exam: Present: normal bowel sounds, soft, no peritoneal signs. Absent: distended, tenderness - Extremities Exam Extremities exam: Present: warm, radial pulses palpable and symmetrical. Absent : calf tenderness, cyanotic, pedal edema - Neurological Exam Neurological exam: Present: CN II-XII intact, oriented X3, no focal deficits. Absent: pronater drift, facial droop, speech deficit - Skin Skin exam: Present: dry, intact - Assessment and Plan (1) Colitis Current Visit: Yes Status: Acute Assessment and Plan: presented with one week of watery diarrhea, ABD pain and nausea. ABD CT showed mild sigmoid wall thickening concerning for colitis. Stool studies positive for enteropathogenic Escherichia coli. Cont IV ceftriaxone and Flagyl as she has quinolone allergy. Symptomatic care with PRN antiemetics and oxycodone. Stool culture negative. Still with significant subjective ABV pain and nausea and loose stool on 05/24 exam. Keep NPO, GI consult (2) Chronic pancreatitis Current Visit: Yes Status: Chronic Assessment and Plan: per hx. ABD CT without evidence of acute pancreatitis. Lipase normal. (3) Diabetes type 2, uncontrolled Current Visit: Yes Status: Chronic Assessment and Plan: uncontrolled diabetes; Hgb A1c 11.1%. Cont Levemir 10 units twice a day, prandial insulin with meals, sliding scale, continue aggressive fluid hydration. Blood sugars improved on 05/24 review (4) Dehydration Current Visit: Yes Status: Acute Assessment and Plan: secondary to prolonged diarrhea with uncontrolled DM. Cont IV fluids (5) Weakness Current Visit: Yes Status: Acute Assessment and Plan: PT/OT eval when medically stable. Fall precautions (6) Disorientation Current Visit: Yes Status: Acute Assessment and Plan: Disoriented on arrival per previous documentation. Mentation now back to baseline; LOC 4. Suspect multifactorial with dehydration, hyperglycemia and acute illness. No further workup indicated at this time. (7) Obesity (BMI 30-39.9) Current Visit: Yes Status: Chronic Assessment and Plan: lifestyle modification encouraged DVT Prophylaxis: lovenox - Time Spent with Patient Total time spent is greater than 50% in coordination of care (as documented) at patient's floor/unit and/or counseling patient: Internal Medicine: Result - Labs CBC & Chem 7: 05/24/18 05:00 05/24/18 05:00 Labs: Short CBC 05/24/18 Range/Units 05:00 WBC 6.6 (4.3-11.1) K/mcL Hgb 12.9 (11.5-15.4) g/dL Hct 39.6 (35.3-44.9) % Plt Count 195 (140-400) K/mcL BMP 05/24/18 05:00 Sodium 139 Potassium 3.6 Chloride 109 H Carbon Dioxide 24 BUN 10 Creatinine 0.52 L Glucose 180 H Calcium 8.7 Consult Discharge Plan - Plan Referrals: Shashank Moon DO [Primary Care Provider] - (Requested a follow up appointment in 7-10 days. ) (2) Chronic pancreatitis Qualifiers: Pancreatitis type: unspecified pancreatitis type Qualified Code(s): K86.1 - Other chronic pancreatitis (3) Diabetes type 2, uncontrolled Qualifiers: Glycemic state: with hyperglycemia Qualified Code(s): E11.65 - Type 2 diabetes mellitus with hyperglycemia
[2018-05-24] MEDS: Topiramate 25 MG TABLET PO SCH (20:33)
[2018-05-25] MEDS: *HR* OxyCODONE Immed Rel 5 MG TABLET PO PRN ×5 (02:53→22:32)
[2018-05-25 04:40] LABS: Hematocrit 38.5 % (35.3-44.9); Hemoglobin 12.5 g/dL (11.5-15.4); Mean Corpuscular HGB Conc 32.5 g/dL (31.6-35.5); Mean Corpuscular Hemoglobin 28.7 pg (28.0-33.3); Mean Corpuscular Volume 88.5 fL (83.0-100.0); Platelet Count 175 K/mcL (140-400); Red Blood Count 4.35 M/mcL (3.82-4.97); Red Cell Distribution Width 13.8 % (11.5-14.5)
[2018-05-25 04:54] LABS: BUN/Creatinine Ratio 16 (6-26); Blood Urea Nitrogen 8 mg/dL (6-20); Calcium 8.5 mg/dL (8.6-10.3); Carbon Dioxide 25 mEq/L (23-29); Chloride 107 mEq/L (98-107); Glucose 219 mg/dL (70-105); Osmolality,Calculated 289 (280-300); Potassium 3.4 mEq/L (3.5-5.1); Sodium 137 mEq/L (136-145); eGFR For Non-African Americans > 60 (> 60)
[2018-05-25] MEDS: *HR* Enoxaparin 40 MG/0.4 ML SYRINGE SQ SCH (06:06)
[2018-05-25] MEDS: Metoprolol XL (24 HR) Succ 50 MG TAB.ER.24H PO SCH (08:23)
[2018-05-25] MEDS: cefTRIAXone 1,000 MG in Water for inj. (sterile) 20 ML 10 ML IVP SCH (08:24)
[2018-05-25] MEDS: Fenofibrate 54 MG TABLET PO SCH (08:24)
[2018-05-25] MEDS: Insulin DETEMIR 100 UNIT/ML X5UNITS SQ SCH ×2 (08:30→21:03)
[2018-05-25] MEDS: MetroNIDAZOLE 500 MG/100 ML 500 MG/100 ML BAG IVPB SCH ×3 (08:31→23:42)
[2018-05-25] MEDS: Insulin LISPRO 300 UNITS/3 ML VIAL SQ SCH ×7 (08:31→21:04)
[2018-05-25 08:40] LABS: Bilirubin,Urine Negative (Negative); Blood,Urine Negative (Negative); Clarity,Urine Clear (Clear); Color,Urine Yellow (Yellow); Glucose,Urine (UA) 250 mg/dL (Normal); Ketones,Urine Negative (Negative); Leukocyte Esterase,Urine Small (Negative); Nitrite,Urine Negative (Negative); Protein,Urine Negative (Neg-Trace); Specific Gravity,Urine 1.012 (1.010-1.025); Urobilinogen,Urine Normal (Normal)
[2018-05-25 08:43] LABS: Bacteria,Urine None Seen per hpf (None-Few); Hyaline Casts,Urine None Seen per lpf (None-Few); RBC,Urine 0-3 per hpf (0-3); Squamous Epithelial Cell,Urine Many per lpf (None-Few); WBC,Urine 15-30 per hpf (0-3)
[2018-05-25] MEDS: 0.9 % Sodium Chloride 1,000 ML IVC SCH ×2 (11:21)
--- NOTE | 2018-05-25 12:56 | Internal Med Progress Note ---
Hospitalist Progress Note - Encounter Date of Encounter: 05/25/18 Time of Encounter: 12:53 - Subjective Interval History: Patient seen and examined at bedside, no acute changes overnight. Continue to have abdominal pain but reports that it is improving. Her main complaint is low back pain which is chronic. The patient was continued have nausea without vomiting reports this to is also getting better. At this time she is requesting a diet order. It appears per her orders that she is to have a gastroenterology consultation however, this is a nonemergent situation and GI will likely not see the patient until Sunday as there is no on-call GI services except for emergencies. - Exam Vitals: Temp Pulse Resp BP Pulse Ox 98.1 F 89 16 151/87 92 05/25/18 08:08 05/25/18 08:08 05/25/18 08:08 05/25/18 08:08 05/25/18 08:08 Exam: PHYSICAL EXAMINATION: GENERAL: The patient is a 57-year-old obese female in no apparent distress who is alert and oriented x3. HEENT: Head is normocephalic and atraumatic. Extraocular muscles are intact. Pupils are equal, round, and reactive to light and accommodation. NECK: Supple. No carotid bruits. No lymphadenopathy or thyromegaly. LUNGS: Clear to auscultation AP and L. HEART: Regular rate and rhythm, S1, S2 without murmur. ABDOMEN: Soft, and nondistended. Positive bowel sounds. No hepatosplenomegaly was noted. Mild right and left lower quadrant abdominal tenderness to palpation , no rebound, abdomen does not appear acute EXTREMITIES: Without any cyanosis, clubbing, rash, lesions or edema. Mild left hand swelling without pitting edema. Swelling noted at site of lab blood draw, adequate circulation without cyanosis, bilateral radial pulses 2+ SKIN: No ulceration or induration present. - Assessment and Plan (1) Colitis Current Visit: Yes Status: Acute Assessment and Plan: 1 week history of watery diarrhea, abdominal pain, nausea Abdominal CT shows small sigmoid colon wall thickening concerning for colitis Stool studies revealed Escherichia coli; continue ceftriaxone and Flagyl Supportive care with when necessary antiemetics and oxycodone for pain GI to see in consultation; however, no GI coverage over the weekend unless emergent, patient is hemodynamically stable without any obvious bleed and GI will likely see on Sunday Patient currently appears to be nontoxic, continue serial abdominal exams (2) Chronic pancreatitis Current Visit: Yes Status: Chronic Assessment and Plan: History of chronic pancreatitis, patient presented with nausea vomiting abdominal pain Abdominal CT without evidence of a group pancreatitis, lipase normAL However, patient was found to have colitis, continue treatment with Rocephin and Flagyl (allergy to quinolone) (3) Obesity (BMI 30-39.9) Current Visit: Yes Status: Chronic Assessment and Plan: Discussed lifestyle modification, dietary choices, weight loss (4) Diabetes type 2, uncontrolled Current Visit: Yes Status: Chronic Assessment and Plan: Poorly controlled type 2 diabetes, hemoglobin A1c 05/23/1811.1 Blood glucose this morning 187, this afternoon 143, continue current sliding scale coverage and adjust as necessary. (5) Dehydration Current Visit: Yes Status: Acute Assessment and Plan: Dehydration secondary to GI volume loss with 1 week history of diarrhea Does not appear to be dehydrated at this time, oral mucosa moist, Start full liquid diet (6) Weakness Current Visit: Yes Status: Acute Assessment and Plan: Weakness of presentation, improving. PT/OT eval when medically stable. Fall precautions (7) Disorientation Current Visit: Yes Status: Resolved DVT Prophylaxis: Lovenox - Time Spent with Patient Total time spent is greater than 50% in coordination of care (as documented) at patient's floor/unit and/or counseling patient: less than 15 minutes Plan of Care Discussed with: patient Internal Medicine: Result - Labs CBC & Chem 7: 05/25/18 03:52 05/25/18 03:52 Labs: Short CBC 05/25/18 Range/Units 03:52 WBC 5.9 (4.3-11.1) K/mcL Hgb 12.5 (11.5-15.4) g/dL Hct 38.5 (35.3-44.9) % Plt Count 175 (140-400) K/mcL BMP 05/25/18 03:52 Sodium 137 Potassium 3.4 L Chloride 107 Carbon Dioxide 25 BUN 8 Creatinine 0.51 L Glucose 219 H Calcium 8.5 L Urine 05/25/18 Range/Units 08:24 Urine Color Yellow (Yellow) Urine Clarity Clear (Clear) Urine pH 6.0 (5.0-8.0) pH Units Ur Specific [place] 1.012 (1.010-1.025) Urine Protein Negative (Neg-Trace) mg/dL Urine Glucose (UA) 250 H (Normal) mg/dL Consult Discharge Plan - Plan Referrals: Shashank Moon DO [Primary Care Provider] - (Requested a follow up appointment in 7-10 days. ) (2) Chronic pancreatitis Qualifiers: Pancreatitis type: unspecified pancreatitis type Qualified Code(s): K86.1 - Other chronic pancreatitis (4) Diabetes type 2, uncontrolled Qualifiers: Glycemic state: with hyperglycemia Qualified Code(s): E11.65 - Type 2 diabetes mellitus with hyperglycemia
--- NOTE | 2018-05-25 13:07 | Electrocardiograph Report ---
[place] [id number] Test Date: 2018-05-22 Pat Name: Kailee Puhg Department: EXAMHB1 Room: 3B Gender: F Resp Ther: : 1960 Requested By: Js Lewis Order Number: [id number] Reading MD: Tung Bazan Measurements Intervals [place] Rate: 126 P: 68 [place]: 147 QRS: 32 QRSD: 90 T: 60 QT: 323 QTc: 468 Interpretive Statements Sinus tachycardia Electronically Signed On 05-25-2018 13:05:54 EDT by Tung Bazan
[2018-05-25] MEDS: Ondansetron 4 MG/2 ML VIAL IVP PRN ×2 (13:20→21:09)
[2018-05-25] MEDS: Topiramate 25 MG TABLET PO SCH (21:03)
[2018-05-26] MEDS: 0.9 % Sodium Chloride 1,000 ML IVC SCH ×3 (00:42→19:40)
[2018-05-26] MEDS: *HR* OxyCODONE Immed Rel 5 MG TABLET PO PRN ×5 (02:32→22:18)
[2018-05-26] MEDS: *HR* Enoxaparin 40 MG/0.4 ML SYRINGE SQ SCH (06:25)
[2018-05-26 07:00] LABS: Hematocrit 40.1 % (35.3-44.9); Hemoglobin 12.9 g/dL (11.5-15.4); Mean Corpuscular HGB Conc 32.2 g/dL (31.6-35.5); Mean Corpuscular Hemoglobin 28.8 pg (28.0-33.3); Mean Corpuscular Volume 89.5 fL (83.0-100.0); Mean Platelet Volume 10.5 fL (9.4-12.4); Platelet Count 181 K/mcL (140-400); Red Blood Count 4.48 M/mcL (3.82-4.97); Red Cell Distribution Width 13.6 % (11.5-14.5)
[2018-05-26 07:18] LABS: BUN/Creatinine Ratio 13 (6-26); Blood Urea Nitrogen 8 mg/dL (6-20); Calcium 8.8 mg/dL (8.6-10.3); Carbon Dioxide 29 mEq/L (23-29); Chloride 104 mEq/L (98-107); Glucose 273 mg/dL (70-105); Osmolality,Calculated 294 (280-300); Potassium 3.5 mEq/L (3.5-5.1); Sodium 138 mEq/L (136-145); eGFR For Non-African Americans > 60 (> 60)
[2018-05-26] MEDS: cefTRIAXone 1,000 MG in Water for inj. (sterile) 20 ML 10 ML IVP SCH (09:30)
[2018-05-26] MEDS: Metoprolol XL (24 HR) Succ 50 MG TAB.ER.24H PO SCH (09:30)
[2018-05-26] MEDS: Insulin DETEMIR 100 UNIT/ML X5UNITS SQ SCH ×2 (09:41→22:28)
[2018-05-26] MEDS: Insulin LISPRO 300 UNITS/3 ML VIAL SQ SCH ×7 (09:41→22:30)
[2018-05-26] MEDS: MetroNIDAZOLE 500 MG/100 ML 500 MG/100 ML BAG IVPB SCH ×2 (09:43→15:51)
[2018-05-26] MEDS: Fenofibrate 54 MG TABLET PO SCH (09:43)
[2018-05-26] MEDS: Ondansetron 4 MG/2 ML VIAL IVP PRN ×2 (13:12→22:18)
--- NOTE | 2018-05-26 14:17 | Internal Med Progress Note ---
Hospitalist Progress Note - Encounter Date of Encounter: 05/26/18 Time of Encounter: 14:10 - Subjective Interval History: Seen and examined at bedside today, c/o bright red blood per BM's overnight and once today. Continues to have dull abdominal pain and tenderness to palpation. Tolerating a diet at this time. To have an evaluation from surgery this afternoon. - Exam Vitals: Temp Pulse Resp BP Pulse Ox 98.1 F 79 17 147/83 94 05/26/18 11:53 05/26/18 11:53 05/26/18 11:53 05/26/18 11:53 05/26/18 11:53 Exam: PHYSICAL EXAMINATION: GENERAL: The patient is a 57-year-old obese female in no apparent distress who is alert and oriented x3. HEENT: Head is normocephalic and atraumatic. Extraocular muscles are intact. Pupils are equal, round, and reactive to light and accommodation. NECK: Supple. No carotid bruits. No lymphadenopathy or thyromegaly. LUNGS: Clear to auscultation AP and L. HEART: Regular rate and rhythm, S1, S2 without murmur. ABDOMEN: Soft, and nondistended. Positive bowel sounds. No hepatosplenomegaly was noted. Moderat RLQ abdominal tenderness to palpation without rebound, abdomen does not appear acute EXTREMITIES: Without any cyanosis, clubbing, rash, lesions or edema. Mild left hand swelling without pitting edema. Swelling noted at site of lab blood draw, adequate circulation without cyanosis, bilateral radial pulses 2+ SKIN: No ulceration or induration present. - Assessment and Plan (1) Colitis Current Visit: Yes Status: Acute Assessment and Plan: 1 week history of watery diarrhea, abdominal pain, nausea Abdominal CT shows small sigmoid colon wall thickening concerning for colitis Stool studies revealed Escherichia coli; continue ceftriaxone and Flagyl Supportive care with when necessary antiemetics and oxycodone for pain Patient currently appears to be nontoxic, continue serial abdominal exams Clinically, patient appears stable without any acute changes overnight. Continue treating for colitis with antibiotics as stated above. Pain management and antiemetics. Abdominal exam remains benign. consult to GI; Surgery Dr. Tamayo director of communications; thank you for your recommendations; careful monitoring for now as she has had no additional episodes and continues to be hemodynamically stable. H&H 12.9/40.1. Patient is not on any blood thinners. (2) Chronic pancreatitis Current Visit: Yes Status: Chronic Assessment and Plan: History of chronic pancreatitis, patient presented with nausea vomiting abdominal pain Abdominal CT without evidence of a group pancreatitis, lipase normAL However, patient was found to have colitis, continue treatment with Rocephin and Flagyl (allergy to quinolone) (3) Obesity (BMI 30-39.9) Current Visit: Yes Status: Chronic Assessment and Plan: Discussed lifestyle modification, dietary choices, weight loss (4) Diabetes type 2, uncontrolled Current Visit: Yes Status: Chronic Assessment and Plan: Poorly controlled type 2 diabetes, hemoglobin A1c 05/23/1811.1 Blood glucose elevated this morning at 304, improving's afternoon with insulin sliding-scale coverage. Continue high sliding-scale insulin coverage, continue basal insulin and prandial insulin (5) Dehydration Current Visit: Yes Status: Acute Assessment and Plan: Presented with Dehydration secondary to GI volume loss with 1 week history of diarrhea Does not appear to be dehydrated at this time (6) Weakness Current Visit: Yes Status: Acute (7) Disorientation Current Visit: Yes Status: Resolved DVT Prophylaxis: Lovenox - Time Spent with Patient Total time spent is greater than 50% in coordination of care (as documented) at patient's floor/unit and/or counseling patient: less than 15 minutes Plan of Care Discussed with: patient Internal Medicine: Result - Labs CBC & Chem 7: 05/26/18 05:40 05/26/18 05:40 Labs: Short CBC 05/26/18 Range/Units 05:40 WBC 6.2 (4.3-11.1) K/mcL Hgb 12.9 (11.5-15.4) g/dL Hct 40.1 (35.3-44.9) % Plt Count 181 (140-400) K/mcL BMP 05/26/18 05:40 Sodium 138 Potassium 3.5 Chloride 104 Carbon Dioxide 29 BUN 8 Creatinine 0.64 Glucose 273 H Calcium 8.8 Consult Discharge Plan - Plan Referrals: Shashank Moon DO [Primary Care Provider] - (Requested a follow up appointment in 7-10 days. ) (2) Chronic pancreatitis Qualifiers: Pancreatitis type: unspecified pancreatitis type Qualified Code(s): K86.1 - Other chronic pancreatitis (4) Diabetes type 2, uncontrolled Qualifiers: Glycemic state: with hyperglycemia Qualified Code(s): E11.65 - Type 2 diabetes mellitus with hyperglycemia
--- NOTE | 2018-05-26 16:16 | General Surgery Consult Note ---
<Kosta Salinas R - Last Filed: 05/26/18 15:42> Date of Encounter: 05/26/18 Time of Encounter: 15:20 Assessment and Plan (1) Colitis Status: Acute CT scan suggestive of colitis, stool study positive for EPEC associated with bloody diarrhea (dysentary) Stable vital signs, afebrile. Stable H/H Plan: Supportive care IV fluid and electrolyte repletion as needed Antibiotic therapy may be warranted in this patient as symptoms >1week Recommended therapy is Azithromycin 500 mg daily for 3 days Comfort care and pain management May benefit from probiotic once treatment with Abx is complete Should blood persist after infectious etiology has cleared will warrant further evaluation History of Present Illness Consult date: 05/26/18 (Dr. Tamayo) Reason for consult: other (colitis, rectal bleed) Requesting physician: Deacon Gomes History of present illness: Mrs. Pugh is a 57-year-old female with a history of type 2 insulin-dependent diabetes, chronic pancreatitis presented on 05/22/2018 to the ED for evaluation of abdominal pain, diarrhea, nausea, vomiting. Patient states that at baseline she does have some dull epigastric left upper quadrant pain from chronic pancreatitis thought to be related to her diabetes. Approximately one week ago she developed worsening left upper quadrant/epigastric pain as well as left lower quadrant pain. This was soon followed by diarrhea which was watery and dark in quality. Diarrhea became progressively worse occurring up to 6 times daily. Associated nausea and vomiting initially. Denies fever, shortness of breath, chest pain. No history of similar presentation. No history of foreign travel. No known sick contacts, no household members affected. Abdominal CT did reveal mild thickening of the sigmoid wall concerning for colitis, without evidence of chronic pancreatitis. normal lipase. elevated blood sugar, elevated ketones. Stool study found EPEC positive. Patient was admitted for further management of DKA and colitis. Patient was started on ceftriaxone and Flagyl. Patient has continued antibiotics since admission. Per patient pain has improved and diarrhea is more formed and less frequent. She is tolerating diabetic diet with mild nausea controlled with antiemetic. Over the past 2-3 days she has been noticing bright red blood mixed with stool. Patient states she has had colonoscopy, approximately 5 years ago, no significant findings. No family history of colorectal cancer. H/H have been stable since admission. Vital signs within normal limits and afebrile. Past Med Surg Social Fam HX - Past Medical History Medical history: diabetes, other Additional medical history: pancreatitis. chronic pain. lumbar radiculopathy. diabetes. dyslipidemia Psychiatric history: anxiety, depression - Past Surgical History Surgical History: appendectomy, , cholecystectomy, hysterectomy, orthopedic, other, other Additional surgical history: tonsilectomy & adnoidectomy, rotator cuff surgery, right ankle surgery, bilateral hand surgery for trigger finger - Social History Smoking Status: Current every day smoker Smokeless Tobacco Status: No Alcohol use: none Drug use: none - Family History Mother Living Status: Father Living Status: Still Living Medications and Allergies Insulin LISPRO [Humalog Kwikpen U-100] 35 unit SQ TIDWM 10/09/16 [History] Duloxetine HCl [Cymbalta] 60 mg PO DAILY 03/02/17 [History] Fenofibrate Nanocrystallized [Triglide] 160 mg PO DAILY 03/02/17 [History] Furosemide [Lasix] 40 mg PO DAILY PRN 03/02/17 [History] Ondansetron HCl [Zofran] 4 mg PO TID PRN 03/02/17 [History] Topiramate [Topamax] 25 mg PO HS 03/02/17 [History] Metoprolol XL (24 HR) Succ [Toprol Xl] 100 mg PO DAILY #30 tab.er.24h 03/09/17 [ Rx] Oxycodone HCl 15 mg PO Q4H PRN 03/26/17 [History] Omeprazole 20 mg PO DAILY #30 tablet. 03/28/17 [Rx] Insulin Glargine,Hum.rec.anlog [Toujeo Solostar] 50 units SQ BID 05/22/18 [ History] Lipase/Protease/Amylase [Ariana Moran 36,000 Units Capsule] 36,000 unit PO TID 05/22 [History] Azithromycin [Zithromax] 500 mg PO DAILY 3 Days #6 tablet 05/27/18 [Rx] Lactobacillus Combo No.10 [Probiotic] 1 each PO DAILY 30 Days #30 capsule [Rx] 3 Allergy/AdvReac Type Severity Reaction Status Date / Time morphine Allergy See Verified 06/09/15 07:09 Comments Quinolones Allergy See Verified 08/30/15 14:18 Comments acetaminophen [From Tylenol] AdvReac bad Verified 06/05/15 01:44 reaction codeine AdvReac See Verified 06/09/15 07:09 Comments hydrocodone [From Vicodin] AdvReac bad Verified 06/05/15 01:44 reaction levofloxacin [From Levaquin] AdvReac Hives Verified 06/05/15 01:44 NSAIDS (Non-Steroidal AdvReac bad Verified 06/05/15 01:44 Anti-Inflamma reaction Opioids - Morphine Analogues AdvReac See Verified 06/09/15 07:43 Comments Review of Systems All systems PM: The remainder of the systems were reviewed and are negative - Constitutional no fever(s) - Gastrointestinal abdominal pain, change in stool character, diarrhea, hematochezia, nausea, no coffee ground emesis, no hematemesis General Surgery Exam Initial Vital Signs Temp Pulse Resp BP Pulse Ox 99.3 F 133 20 168/112 97 05/22/18 04:12 05/22/18 04:12 05/22/18 04:12 05/22/18 04:12 05/22/18 04:12 - General physical appearance well nourished, no distress, obese - Eyes PERRL - ENT normal mucosa, atraumatic, normocephalic - Neck trachea midline - Respiratory normal expansion, normal respiratory effort - Cardiovascular Cardiovascular exam: Present: RRR - Abdomen Abdomen general surgery: Present: bowel sounds present, soft, tender ( Tenderness worse in the LLQ), guarding, surgical scars (well healed, open appy, lap karely, ). Absent: rebound Abdominal Tenderness: Present: epigastic, LUQ, LLQ - Integumentary Integumentary general surgery: Present: warm and dry - Neurologic Present: CN 2-12 grossly intact - Musculoskeletal Present: normal posture - Psychiatric Psychiatric general surgery: Present: A&Ox3, speech is normal, memory intact Exam Initial Vital Signs Temp Pulse Resp BP Pulse Ox 99.3 F 133 20 168/112 97 05/22/18 04:12 05/22/18 04:12 05/22/18 04:12 05/22/18 04:12 05/22/18 04:12 Results - Labs 05/26/18 05:40 05/26/18 05:40 Abnormal lab results VBG pCO2 31 mmHg (41-51) L 05/22/18 07:19 VBG pO2 196 mmHg (25-50) H 05/22/18 07:19 VBG HCO3 16 mEq/L (21-27) L 05/22/18 07:19 Glucose 273 mg/dL (70-105) H 05/26/18 05:40 POC Glucose 262 mg/dL (70-99) H 05/25/18 20:11 Hemoglobin A1c 11.1 % (-5.6) H 05/23/18 04:52 Phosphorus 2.3 mg/dL (2.7-4.5) L 05/23/18 08:59 Alkaline Phosphatase 181 Units/L (34-104) H 05/22/18 04:44 Beta-Hydroxybutyric Acd > 2.00 mmol/L (0.02-0.27) H 05/22/18 04:44 Urine Glucose (UA) 250 mg/dL (Normal) H 05/25/18 08:24 Ur Leukocyte Esterase Small (Negative) H 05/25/18 08:24 Urine Microscopic WBC 15-30 per hpf (0-3) H 05/25/18 08:24 Ur Squamous Epith Cells Many per lpf (None-Few) H 05/25/18 08:24 Urine Yeast Moderate per hpf (None Seen) H 05/22/18 06:06 Ur Culture Indicated? NO. (NO) A 05/25/18 08:24 Stool EPEC (PCR) DETECTED (Not detect) A 05/22/18 12:28 Diabetes panel 05/26/18 Range/Units 05:40 Sodium 138 (136-145) mEq/L Potassium 3.5 (3.5-5.1) mEq/L Chloride 104 (98-107) mEq/L Carbon Dioxide 29 (23-29) mEq/L BUN 8 (6-20) mg/dL Creatinine 0.64 (0.60-1.20) mg/dL Glucose 273 H (70-105) mg/dL Calcium 8.8 (8.6-10.3) mg/dL Calcium panel 05/26/18 Range/Units 05:40 Calcium 8.8 (8.6-10.3) mg/dL Pituitary panel 05/26/18 Range/Units 05:40 Sodium 138 (136-145) mEq/L Potassium 3.5 (3.5-5.1) mEq/L Chloride 104 (98-107) mEq/L Carbon Dioxide 29 (23-29) mEq/L BUN 8 (6-20) mg/dL Creatinine 0.64 (0.60-1.20) mg/dL Glucose 273 H (70-105) mg/dL Calcium 8.8 (8.6-10.3) mg/dL Adrenal panel 05/26/18 Range/Units 05:40 Sodium 138 (136-145) mEq/L Potassium 3.5 (3.5-5.1) mEq/L Chloride 104 (98-107) mEq/L Carbon Dioxide 29 (23-29) mEq/L BUN 8 (6-20) mg/dL Creatinine 0.64 (0.60-1.20) mg/dL Glucose 273 H (70-105) mg/dL Calcium 8.8 (8.6-10.3) mg/dL All other labs normal. Consult Discharge Plan - Plan Referrals: Shashank Moon DO [Primary Care Provider] - 06/04/18 1:30 pm () Prescriptions: Azithromycin [Zithromax] 500 mg PO DAILY 3 Days #6 tablet Lactobacillus Combo No.10 [Probiotic] 1 each PO DAILY 30 Days #30 capsule <Tyesha Tamayo - Last Filed: 05/28/18 16:37> Date of Encounter: 05/26/18 Review of Systems All systems PM: The remainder of the systems were reviewed and are negative General Surgery Exam Initial Vital Signs Temp Pulse Resp BP Pulse Ox 99.3 F 133 20 168/112 97 05/22/18 04:12 05/22/18 04:12 05/22/18 04:12 05/22/18 04:12 05/22/18 04:12 Exam Initial Vital Signs Temp Pulse Resp BP Pulse Ox 99.3 F 133 20 168/112 97 05/22/18 04:12 05/22/18 04:12 05/22/18 04:12 05/22/18 04:12 05/22/18 04:12 Results - Labs 05/27/18 05:19 05/27/18 05:19 Abnormal lab results VBG pCO2 31 mmHg (41-51) L 05/22/18 07:19 VBG pO2 196 mmHg (25-50) H 05/22/18 07:19 VBG HCO3 16 mEq/L (21-27) L 05/22/18 07:19 Carbon Dioxide 32 mEq/L (23-29) H 05/27/18 05:19 Glucose 247 mg/dL (70-105) H 05/27/18 05:19 POC Glucose 183 mg/dL (70-99) H 05/27/18 08:16 Hemoglobin A1c 11.1 % (-5.6) H 05/23/18 04:52 Phosphorus 2.3 mg/dL (2.7-4.5) L 05/23/18 08:59 Alkaline Phosphatase 181 Units/L (34-104) H 05/22/18 04:44 Beta-Hydroxybutyric Acd > 2.00 mmol/L (0.02-0.27) H 05/22/18 04:44 Urine Glucose (UA) 250 mg/dL (Normal) H 05/25/18 08:24 Ur Leukocyte Esterase Small (Negative) H 05/25/18 08:24 Urine Microscopic WBC 15-30 per hpf (0-3) H 05/25/18 08:24 Ur Squamous Epith Cells Many per lpf (None-Few) H 05/25/18 08:24 Urine Yeast Moderate per hpf (None Seen) H 05/22/18 06:06 Ur Culture Indicated? NO. (NO) A 05/25/18 08:24 Stool EPEC (PCR) DETECTED (Not detect) A 05/22/18 12:28 All other labs normal. - Attending Attestation ALthough I had spoken with the resident regarding this patient I never personally was able to see this patient before she was discharged. Do not charge for consult.
[2018-05-26] MEDS: Topiramate 25 MG TABLET PO SCH (22:25)
[2018-05-27] MEDS: MetroNIDAZOLE 500 MG/100 ML 500 MG/100 ML BAG IVPB SCH ×2 (01:27→08:34)
[2018-05-27] MEDS: *HR* OxyCODONE Immed Rel 5 MG TABLET PO PRN ×2 (02:31→08:35)
[2018-05-27 06:38] LABS: Hematocrit 39.9 % (35.3-44.9); Hemoglobin 12.7 g/dL (11.5-15.4); Mean Corpuscular HGB Conc 31.8 g/dL (31.6-35.5); Mean Corpuscular Hemoglobin 28.9 pg (28.0-33.3); Mean Corpuscular Volume 90.9 fL (83.0-100.0); Mean Platelet Volume 10.3 fL (9.4-12.4); Platelet Count 189 K/mcL (140-400); Red Blood Count 4.39 M/mcL (3.82-4.97); Red Cell Distribution Width 13.6 % (11.5-14.5)
[2018-05-27 07:06] LABS: BUN/Creatinine Ratio 17 (6-26); Blood Urea Nitrogen 11 mg/dL (6-20); Calcium 8.9 mg/dL (8.6-10.3); Carbon Dioxide 32 mEq/L (23-29); Chloride 105 mEq/L (98-107); Glucose 247 mg/dL (70-105); Osmolality,Calculated 300 (280-300); Potassium 3.6 mEq/L (3.5-5.1); Sodium 141 mEq/L (136-145); eGFR For Non-African Americans > 60 (> 60)
[2018-05-27 07:19] VITALS: BP 115/71
[2018-05-27] MEDS: Metoprolol XL (24 HR) Succ 50 MG TAB.ER.24H PO SCH (08:33)
[2018-05-27] MEDS: Fenofibrate 54 MG TABLET PO SCH (08:35)
[2018-05-27] MEDS: cefTRIAXone 1,000 MG in Water for inj. (sterile) 20 ML 10 ML IVP SCH (08:36)
[2018-05-27] MEDS: *HR* Enoxaparin 40 MG/0.4 ML SYRINGE SQ SCH (08:38)
[2018-05-27] MEDS: 0.9 % Sodium Chloride 1,000 ML IVC SCH (08:46)
[2018-05-27] MEDS: Insulin DETEMIR 100 UNIT/ML X5UNITS SQ SCH (08:47)
[2018-05-27] MEDS: Ondansetron 4 MG/2 ML VIAL IVP PRN (08:47)
[2018-05-27] MEDS: Insulin LISPRO 300 UNITS/3 ML VIAL SQ SCH ×2 (08:47→08:48)
--- NOTE | 2018-05-27 10:40 | Discharge Summary ---
- NOTES TO OUTPATIENT PROVIDER Notes to Outpatient Provider: Admitted for colitis and bloody diarrhea. H&H remain stable throughout stay. Surgery consulted during stay; rec to continue ABX and d/c with probiotic. Should bleeding persist after infectious etiology clears please set-up referal with GI. Orders not resulted at time of discharge: Pending orders 05/28/18 04:00 BMP [Basic Metabolic Panel] AM 0400 Complete Blood Count w/o Diff [HEME] AM 0400 Date of Encounter: 05/27/18 Time of Encounter: 10:36 - Discharge Diagnosis (1) Colitis Priority: Primary Status: Acute Assessment and Plan: 1 week history of watery diarrhea, abdominal pain, nausea Abdominal CT shows small sigmoid colon wall thickening concerning for colitis Stool studies revealed Escherichia coli; continue ceftriaxone and Flagyl Supportive care with when necessary antiemetics and oxycodone for pain Patient currently appears to be nontoxic, continue serial abdominal exams 05/27--Clinically, patient's condition continues to improve. Reporting that her stools are more formed, denies any hematochezia with BM's today. Surgical consult recommends conservative management at this time with Azithromycin x3 days; will d/c with the medication as well as Probiotics. H&H stable, remain hemodynamically stable, daily labs unremarkable, benign abdominal exam. Chronically on narcotics for pain issues, continue these at d/c; continue taking what has alread been prescribed. F/u with PCP in 1-2 weeks. Instructed to return to ED if bleeding or pain persists or worsens. She verbalized understanding and denies any further questions at this time. (2) Chronic pancreatitis Priority: Secondary Status: Chronic Qualifiers: Pancreatitis type: unspecified pancreatitis type Qualified Code(s): K86.1 - Other chronic pancreatitis (3) Obesity (BMI 30-39.9) Priority: Secondary Status: Chronic (4) Diabetes type 2, uncontrolled Priority: Secondary Status: Chronic Assessment and Plan: FSBG improving d/c on home previous diabetic regimen A1c 11.1; uncontrolled; please discuss tighter control of BG, weight-loss and DM management Qualifiers: Glycemic state: with hyperglycemia Qualified Code(s): E11.65 - Type 2 diabetes mellitus with hyperglycemia (5) Dehydration Priority: Secondary Status: Resolved (6) Weakness Priority: Secondary Status: Acute Assessment and Plan: improving, progressing to baseline functional status and strength (7) Disorientation Priority: Secondary Status: Resolved Hospital course: Ms. Pugh is a 57 year old female who presented with nausea, abdominal pain and diarrhea. Per CT; found to have Colitis. Treated with IVF, ABX and supportive care. Clinically improving. Consult to surgery with recommendations to give 3- day course of Azithromycin and to continue supportive care. No active bleeding at time of D/C, H&H stable. If bleeding persists or worsens please return to the ED. If bleeding recurs please refer patient to GI. Discharge discussed with: patient, nurse, consultant teacher - Time Spent with Patient Total time spent providing and/or coordinating discharge services: Less than 30 minutes - Discharge Medications Prescriptions: Azithromycin [Zithromax] 500 mg PO DAILY 3 Days #6 tablet Home Medications: Insulin LISPRO [Humalog Kwikpen U-100] 35 unit SQ TIDWM 10/09/16 [History] Duloxetine HCl [Cymbalta] 60 mg PO DAILY 03/02/17 [History] Fenofibrate Nanocrystallized [Triglide] 160 mg PO DAILY 03/02/17 [History] Furosemide [Lasix] 40 mg PO DAILY PRN 03/02/17 [History] Ondansetron HCl [Zofran] 4 mg PO TID PRN 03/02/17 [History] Topiramate [Topamax] 25 mg PO HS 03/02/17 [History] Metoprolol XL (24 HR) Succ [Toprol Xl] 100 mg PO DAILY #30 tab.er.24h 03/09/17 [ Rx] Oxycodone HCl 15 mg PO Q4H PRN 03/26/17 [History] Omeprazole 20 mg PO DAILY #30 tablet. 03/28/17 [Rx] Insulin Glargine,Hum.rec.anlog [Toujeo Solostar] 50 units SQ BID 05/22/18 [ History] Lipase/Protease/Amylase [Ariana Moran 36,000 Units Capsule] 36,000 unit PO TID 05/22 [History] Azithromycin [Zithromax] 500 mg PO DAILY 3 Days #6 tablet 05/27/18 [Rx] Lactobacillus Combo No.10 [Probiotic] 1 each PO DAILY 30 Days #30 capsule [Rx] Allergies/Adverse Reactions: 3 Allergy/AdvReac Type Severity Reaction Status Date / Time morphine Allergy See Verified 06/09/15 07:09 Comments Quinolones Allergy See Verified 08/30/15 14:18 Comments acetaminophen [From Tylenol] AdvReac bad Verified 06/05/15 01:44 reaction codeine AdvReac See Verified 06/09/15 07:09 Comments hydrocodone [From Vicodin] AdvReac bad Verified 06/05/15 01:44 reaction levofloxacin [From Levaquin] AdvReac Hives Verified 06/05/15 01:44 NSAIDS (Non-Steroidal AdvReac bad Verified 06/05/15 01:44 Anti-Inflamma reaction Opioids - Morphine Analogues AdvReac See Verified 06/09/15 07:43 Comments Date of admission: 05/22/18 09:19 Primary care physician: Shashank Moon DO Consults: 05/24/18 14:34 Consult to Gastroenterology [CONS] Routine Consulting Provider: [facility] [place] Reason for Consult: Colitis with persistent abdominal pain, nausea and loose stool Call Completed: Yes 05/26/18 16:02 Consult to Surgery [CONS] Routine Consulting Provider: Surgery [place] [facility] Reason for Consult: GI bleed Time Notified: 16:02 Call Completed: Yes Discharging clinician: Deacon Gomes Anticipated date of discharge: 05/27/18 - Constitutional Vitals: Temp Pulse Resp BP Pulse Ox 98.1 F 77 16 115/71 91 05/27/18 07:18 05/27/18 07:18 05/27/18 07:18 05/27/18 07:18 05/27/18 07:18 General appearance: Present: A&O X 3 Exam: PHYSICAL EXAMINATION: GENERAL: The patient is a 57-year-old obese female in no apparent distress who is alert and oriented x3. HEENT: Head is normocephalic and atraumatic. Extraocular muscles are intact. Pupils are equal, round, and reactive to light and accommodation. NECK: Supple. No carotid bruits. No lymphadenopathy or thyromegaly. LUNGS: Clear to auscultation AP and L. HEART: Regular rate and rhythm, S1, S2 without murmur. ABDOMEN: Soft, and nondistended. Positive bowel sounds. No hepatosplenomegaly was noted. Mild RLQ abdominal tenderness to palpation without rebound, abdomen does not appear acute, tenderness improving from prior days. EXTREMITIES: Without any cyanosis, clubbing, rash, lesions or edema. Mild left hand swelling without pitting edema. Swelling noted at site of lab blood draw, adequate circulation without cyanosis, bilateral radial pulses 2+ SKIN: No ulceration or induration present. - Patient Status Disposition: Home, Self-Care Condition: Good Functional capacity at discharge: independent ambulation Overall status at discharge: patient is progressing back to baseline - Discharge Instructions Follow Up With: Shashank Moon DO [Primary Care Provider] - (Requested a follow up appointment in 7-10 days. ) - Diet and Activity Activity: increase activity as tolerated, resume usual activities as tolerated Diet: advance to your usual diet (as tolerated)
[2018-05-28] MEDS ORDERED: Azithromycin 250 MG TABLET PO SCH (09:00)
== END 2018-05-27 11:50 | disposition home or self-care (01) ==
LOC: EMEROOARM 04:07 → 2SOUTHHOLD 04:07 → 3BNU 20:26
PROVIDERS: ADMIT Internal Medicine; ATTEND Internal Medicine

== ENCOUNTER 2018-06-02 02:38 | Observation (INO) ==
[2018-06-02] MEDS ORDERED: 0.9 % Sodium Chloride 1,000 ML IVC ONE (03:00)
[2018-06-02] MEDS ORDERED: Ondansetron 4 MG/2 ML VIAL IVP ONE (03:00)
[2018-06-02] MEDS ORDERED: *HR* FentaNYL (PF) 100 MCG/2 ML VIAL IVP ONE (03:02)
--- NOTE | 2018-06-02 03:03 | Emergency Department Note ---
Disposition Clinical Impression: Dehydration DKA (diabetic ketoacidoses) Qualifiers: Diabetes mellitus type: other specified (including SHAHZAD) Diabetes mellitus complication detail: without coma Qualified Code(s): E13.10 - Other specified diabetes mellitus with ketoacidosis without coma Disposition: Admitted As Inpatient Condition: Serious Time of Disposition: 04:41 General Adult HPI - General Chief complaint: ED Abdominal Pain Stated complaint: sob, abdominal pain Time Seen by Provider: 06/02/18 02:52 Nursing Notes Reviewed: Yes Vital Signs Reviewed: Yes - History of Present Illness HPI Narrative: 57-year-old female presents from home via EMS for evaluation of abdominal pain. This is been persistent since discharge 6 days ago where she was admitted for DKA, pancreatitis, colitis, nephrolithiasis. Her generalized abdominal pain pain has worsened since discharge and thus her presentation today. Her epigastric pain started Sunday. She is unable to tolerate any by mouth intake except for Gatorade. She has continuous nausea and loose watery stools. She has had no hematemesis or hematochezia or melena. Abdominal surgical history: Appendectomy, remote , cholecystectomy, hysterectomy ROS: Positive: Nausea, vomiting, abdominal pain, diarrhea, inability to tolerate solid food intake. Negative: Fever, chills, chest pain, palpitations, dyspnea, diaphoresis, dysuria - Related Data Home Medications Medication Instructions Recorded Confirmed Insulin LISPRO [Humalog Kwikpen 35 unit SQ TIDWM 10/09/16 05/22/18 U-100] Duloxetine HCl [Cymbalta] 60 mg PO DAILY 03/02/17 05/22/18 Fenofibrate Nanocrystallized 160 mg PO DAILY 03/02/17 05/22/18 [Triglide] Furosemide [Lasix] 40 mg PO DAILY PRN 03/02/17 05/22/18 Ondansetron HCl [Zofran] 4 mg PO TID PRN 03/02/17 05/22/18 Topiramate [Topamax] 25 mg PO HS 03/02/17 05/22/18 Oxycodone HCl 15 mg PO Q4H PRN 03/26/17 05/22/18 Insulin Glargine,Hum.rec.anlog 50 units SQ BID 05/22/18 05/22/18 [Louisa Green] Lipase/Protease/Amylase [Ariana Moran 36,000 unit PO TID 05/22/18 05/22/18 36,000 Units Capsule] Previous Rx's Medication Instructions Recorded Metoprolol XL (24 HR) Succ [Toprol 100 mg PO DAILY #30 tab.er.24h 03/09/17 Xl] Omeprazole 20 mg PO DAILY #30 tablet. 03/28/17 Azithromycin [Zithromax] 500 mg PO DAILY 3 Days #6 tablet 05/27/18 Lactobacillus Combo No.10 1 each PO DAILY 30 Days #30 capsule 05/27/18 [Probiotic] Allergies Allergy/AdvReac Type Severity Reaction Status Date / Time morphine Allergy See Verified 06/02/18 02:55 Comments Quinolones Allergy See Verified 06/02/18 02:55 Comments acetaminophen [From Tylenol] AdvReac bad Verified 06/02/18 02:55 reaction codeine AdvReac See Verified 06/02/18 02:55 Comments hydrocodone [From Vicodin] AdvReac bad Verified 06/02/18 02:55 reaction levofloxacin [From Levaquin] AdvReac Hives Verified 06/02/18 02:55 NSAIDS (Non-Steroidal AdvReac bad Verified 06/02/18 02:55 Anti-Inflamma reaction Opioids - Morphine Analogues AdvReac See Verified 06/02/18 02:55 Comments All systems ED: reviewed and negative except as stated. Review of Systems: As Per HPI Past Medical History - Past Medical History Medical history: Reports: diabetes, other Surgical history: Reports: appendectomy, , cholecystectomy, hysterectomy, orthopedic, other, other Psychiatric history: Reports: anxiety, depression - Social History Smoking Status: Current every day smoker Smokeless Tobacco Status: No Alcohol use: Reports: none Drug use: Reports: none Physical Exam Vital Signs Reviewed General: Patient is alert, oriented, and in acute distress-patient is tearful. Head: atraumatic, normocephalic Eye: normal appearance, no scleral icterus, no conjunctival injection ENT: mucous membranes dry, lips cracked, developed teeth are dry, normal external ear exam Neck: normal inspection, trachea midline, full ROM Chest: normal inspection, symmetric chest rise Respiratory: Poor respiratory effort. Bilateral breath sounds are clear without wheezing, crackles, or rhonchi. Cardiovascular: Regular rate and rhythm. No clicks, rubs, gallops, or murmors. Normal heart sounds. Abdomen: Bowel sounds present normoactive x-4 quadrants. Abdomen is soft, nondistended. Moderate diffuse abdominal tenderness with exquisite epigastric pain. No guarding or rebound. Musculoskeletal: Spontaneously moving all extremities. Skin: warm, dry, intact. Neuro: GCS 15. Alert and oriented x4. Sensation light touch intact. Psych: Patient's affect is appropriate for situation. Course Course Narrative: Patient is clinically dehydrated. She has exquisite epigastric pain; concern for pancreatitis. Will CT abdomen pelvis to ensure no peripancreatic necrosis. On intake, EKG is concerning for [address] elevation in V1 and V2 with reciprocal [address] depression in lead 2 and 3. Patient has no chest pain. Troponin is normal. I discussed the patient, her clinical picture, and EKG with interventional cardiology. Suspicious for LVH. Will trend troponins. Given patient's history of pancreatitis, nephrolithiasis, colitis, and exquisite abdominal pain while CT abdomen and pelvis. CT of the pelvis unremarkable per radiology read. Previous right nephrolithiasis appears to have passed. Patient is hyperglycemic. She has serum ketones. VBG shows acidosis. We will begin fluid replacement both for DKA as well as for patients dehydration. This will be followed by IV insulin. Potassium currently 4.1. We will continue to monitor closely. Lipase is normal. Lactate and EKG are normal. I discussed the above with the admitting hospitalist,Dr. Cuellar, who agrees to accept the patient for DKA continued evaluation and management. Abdomen/Pelvis CT 06/02/18 03:01 IMPRESSION: No definite acute finding in the abdomen or pelvis. The punctate right renal calculus noted on the prior study is not visualized on today's examination. D/ / Hakan Garber MD / Hakan Garber MD Interpreting Provider: Hakan Garber MD Vital Signs Temperature 98.6 F 06/02/18 02:55 Pulse Rate 135 06/02/18 02:55 Respiratory Rate 18 06/02/18 02:55 Blood Pressure 132/76 06/02/18 02:55 O2 Sat by Pulse Oximetry 96 06/02/18 02:55 Temperature 98.3 F 06/02/18 05:35 Pulse Rate 126 06/02/18 05:35 Respiratory Rate 20 06/02/18 05:35 Blood Pressure 156/90 06/02/18 05:35 O2 Sat by Pulse Oximetry 97 06/02/18 05:35 Oxygen Delivery Oxygen Delivery Room Air Medical Decision Making - Lab Data Result diagrams: 06/02/18 02:53 06/02/18 02:53 Lab Results 06/02/18 06/02/18 06/02/18 Range/Units 02:52 02:53 02:53 WBC 10.1 D (4.3-11.1) K/mcL RBC 5.72 H (3.82-4.97) M/mcL Hgb 16.3 H D (11.5-15.4) g/dL Hct 49.8 H (35.3-44.9) % MCV 87.1 (83.0-100.0) fL MCH 28.5 (28.0-33.3) pg MCHC 32.7 (31.6-35.5) g/dL RDW 13.9 (11.5-14.5) % Plt Count 383 D (140-400) K/mcL MPV 9.3 L (9.4-12.4) fL Immature Gran % 0.7 (0-4) % Seg Neutrophils % 75.4 % Lymphocytes % 17.8 % Monocytes % 5.0 % Eosinophils % 0.7 % Basophils % 0.4 % Neutrophils # 7.6 (1.6-8.9) K/mcL Lymphocytes # 1.8 (0.6-4.6) K/mcL Monocytes # 0.5 (0.0-1.3) K/mcL Eosinophils # 0.1 (0.0-0.6) K/mcL Basophils # 0.0 (0.0-0.2) K/mcL PT (9.4-12.1) Seconds INR APTT (26.0-36.0) Seconds Sodium (136-145) mEq/L Potassium (3.5-5.1) mEq/L Chloride (98-107) mEq/L Carbon Dioxide (23-29) mEq/L BUN (6-20) mg/dL Creatinine (0.60-1.20) mg/dL Est GFR ( Amer) (> 60) Est GFR (Non-Af Amer) (> 60) BUN/Creatinine Ratio (6-26) Glucose (70-105) mg/dL POC Glucose 461 H* 446 H* (70-99) mg/dL Calculated Osmolality (280-300) Lactic Acid (0.5-2.2) mmol/L Calcium (8.6-10.3) mg/dL Magnesium (1.6-2.6) mg/dL Total Bilirubin (0.3-1.0) mg/dL Direct Bilirubin (0.0-0.2) mg/dL Indirect Bilirubin (0.0-1.2) mg/dL AST (13-39) Units/L ALT (7-52) Units/L Alkaline Phosphatase (34-104) Units/L Troponin I (< 0.04) ng/mL Serum Total Protein (6.4-8.9) g/dL Albumin (3.5-5.7) g/dL Globulin (2.4-3.5) g/dL Albumin/Globulin Ratio (1.1-2.2) Lipase (11-82) Units/L Beta-Hydroxybutyric Acd (0.02-0.27) mmol/L 06/02/18 06/02/18 06/02/18 Range/Units 02:53 02:53 02:53 WBC (4.3-11.1) K/mcL RBC (3.82-4.97) M/mcL Hgb (11.5-15.4) g/dL Hct (35.3-44.9) % MCV (83.0-100.0) fL MCH (28.0-33.3) pg MCHC (31.6-35.5) g/dL RDW (11.5-14.5) % Plt Count (140-400) K/mcL MPV (9.4-12.4) fL Immature Gran % (0-4) % Seg Neutrophils % % Lymphocytes % % Monocytes % % Eosinophils % % Basophils % % Neutrophils # (1.6-8.9) K/mcL Lymphocytes # (0.6-4.6) K/mcL Monocytes # (0.0-1.3) K/mcL Eosinophils # (0.0-0.6) K/mcL Basophils # (0.0-0.2) K/mcL PT 11.2 (9.4-12.1) Seconds INR 1.0 APTT 41.8 H (26.0-36.0) Seconds Sodium 133 L (136-145) mEq/L Potassium 4.1 (3.5-5.1) mEq/L Chloride 95 L (98-107) mEq/L Carbon Dioxide 9 L* (23-29) mEq/L BUN 21 H (6-20) mg/dL Creatinine 1.09 (0.60-1.20) mg/dL Est GFR ( Amer) > 60 (> 60) Est GFR (Non-Af Amer) 52 L (> 60) BUN/Creatinine Ratio 19 (6-26) Glucose 486 H (70-105) mg/dL POC Glucose (70-99) mg/dL Calculated Osmolality 301 H (280-300) Lactic Acid 2.0 (0.5-2.2) mmol/L Calcium 10.3 (8.6-10.3) mg/dL Magnesium 2.0 (1.6-2.6) mg/dL Total Bilirubin 0.4 (0.3-1.0) mg/dL Direct Bilirubin 0.0 (0.0-0.2) mg/dL Indirect Bilirubin 0.4 (0.0-1.2) mg/dL AST 48 H (13-39) Units/L ALT 32 (7-52) Units/L Alkaline Phosphatase 161 H (34-104) Units/L Troponin I < 0.03 (< 0.04) ng/mL Serum Total Protein 8.2 (6.4-8.9) g/dL Albumin 4.5 (3.5-5.7) g/dL Globulin 3.7 H (2.4-3.5) g/dL Albumin/Globulin Ratio 1.2 (1.1-2.2) Lipase 19 (11-82) Units/L Beta-Hydroxybutyric Acd (0.02-0.27) mmol/L 06/02/18 Range/Units 02:53 WBC (4.3-11.1) K/mcL RBC (3.82-4.97) M/mcL Hgb (11.5-15.4) g/dL Hct (35.3-44.9) % MCV (83.0-100.0) fL MCH (28.0-33.3) pg MCHC (31.6-35.5) g/dL RDW (11.5-14.5) % Plt Count (140-400) K/mcL MPV (9.4-12.4) fL Immature Gran % (0-4) % Seg Neutrophils % % Lymphocytes % % Monocytes % % Eosinophils % % Basophils % % Neutrophils # (1.6-8.9) K/mcL Lymphocytes # (0.6-4.6) K/mcL Monocytes # (0.0-1.3) K/mcL Eosinophils # (0.0-0.6) K/mcL Basophils # (0.0-0.2) K/mcL PT (9.4-12.1) Seconds INR APTT (26.0-36.0) Seconds Sodium (136-145) mEq/L Potassium (3.5-5.1) mEq/L Chloride (98-107) mEq/L Carbon Dioxide (23-29) mEq/L BUN (6-20) mg/dL Creatinine (0.60-1.20) mg/dL Est GFR ( Amer) (> 60) Est GFR (Non-Af Amer) (> 60) BUN/Creatinine Ratio (6-26) Glucose (70-105) mg/dL POC Glucose (70-99) mg/dL Calculated Osmolality (280-300) Lactic Acid (0.5-2.2) mmol/L Calcium (8.6-10.3) mg/dL Magnesium (1.6-2.6) mg/dL Total Bilirubin (0.3-1.0) mg/dL Direct Bilirubin (0.0-0.2) mg/dL Indirect Bilirubin (0.0-1.2) mg/dL AST (13-39) Units/L ALT (7-52) Units/L Alkaline Phosphatase (34-104) Units/L Troponin I (< 0.04) ng/mL Serum Total Protein (6.4-8.9) g/dL Albumin (3.5-5.7) g/dL Globulin (2.4-3.5) g/dL Albumin/Globulin Ratio (1.1-2.2) Lipase (11-82) Units/L Beta-Hydroxybutyric Acd > 2.00 H (0.02-0.27) mmol/L
[2018-06-02 03:13] LABS: Basophils % 0.4 %; Eosinophils # 0.1 K/mcL (0.0-0.6); Eosinophils % 0.7 %; Hematocrit 49.8 % (35.3-44.9); Immature Granulocytes % 0.7 % (0-4); Lymphocytes # 1.8 K/mcL (0.6-4.6); Lymphocytes % 17.8 %; Mean Corpuscular HGB Conc 32.7 g/dL (31.6-35.5); Mean Corpuscular Hemoglobin 28.5 pg (28.0-33.3); Mean Corpuscular Volume 87.1 fL (83.0-100.0); Mean Platelet Volume 9.3 fL (9.4-12.4); Monocytes # 0.5 K/mcL (0.0-1.3); Neutrophils # 7.6 K/mcL (1.6-8.9); Platelet Count 383 K/mcL (140-400); Red Blood Count 5.72 M/mcL (3.82-4.97); Red Cell Distribution Width 13.9 % (11.5-14.5); Segmented Neutrophils % 75.4 %
[2018-06-02 03:16] LABS: Hemoglobin 16.3 g/dL (11.5-15.4)
[2018-06-02 03:24] LABS: Prothrombin Time 11.2 Seconds (9.4-12.1)
[2018-06-02 03:26] LABS: Activated Partial Thrombo Time 41.8 Seconds (26.0-36.0)
[2018-06-02 03:36] LABS: Troponin I < 0.03 ng/mL (< 0.04)
[2018-06-02 03:46] LABS: Alanine Aminotransferase 32 Units/L (7-52); Albumin 4.5 g/dL (3.5-5.7); Albumin/Globulin Ratio 1.2 (1.1-2.2); Alkaline Phosphatase 161 Units/L (34-104); Aspartate Amino Transferase 48 Units/L (13-39); BUN/Creatinine Ratio 19 (6-26); Bilirubin,Indirect 0.4 mg/dL (0.0-1.2); Bilirubin,Total 0.4 mg/dL (0.3-1.0); Blood Urea Nitrogen 21 mg/dL (6-20); Calcium 10.3 mg/dL (8.6-10.3); Carbon Dioxide 9 mEq/L (23-29); Chloride 95 mEq/L (98-107); Globulin 3.7 g/dL (2.4-3.5); Glucose 486 mg/dL (70-105); Lipase 19 Units/L (11-82); Osmolality,Calculated 301 (280-300); Potassium 4.1 mEq/L (3.5-5.1); Sodium 133 mEq/L (136-145); Total Protein 8.2 g/dL (6.4-8.9); eGFR For Non-African Americans 52 (> 60)
[2018-06-02] MEDS ORDERED: *HR* Dextrose 50 % in Water (Syg) 50 ML SYRINGE IVP PRN ×2 (03:50→04:50)
[2018-06-02] MEDS ORDERED: 0.9 % Sodium Chloride 500 ML IVC ONE (04:22)
[2018-06-02] MEDS: Insulin Human Regular 100 UNIT in 0.9 % Sodium Chloride 100 ML IVC SCH ×2 (04:26→06:49)
[2018-06-02] MEDS: 0.9 % Sodium Chloride 1,000 ML IVC SCH ×2 (04:27→04:53)
[2018-06-02] MEDS ORDERED: *HR* Promethazine 25 MG/ML VIAL IVP ONE (04:30)
[2018-06-02] MEDS ORDERED: *HR* Promethazine 25 MG/ML VIAL IM ONE (04:45)
[2018-06-02] MEDS ORDERED: Naloxone 0.4 MG/ML INJ IVP PRN (04:48)
[2018-06-02] MEDS ORDERED: Insulin LISPRO 300 UNITS/3 ML VIAL SQ PRN (04:50)
[2018-06-02] MEDS ORDERED: D5% in 0.45% NACL w KCl 20 MEQ/1,000 ML MLS IVC PRN (04:50)
[2018-06-02] MEDS ORDERED: D5% in 0.45% NACL 1,000 ML IVC PRN (04:50)
[2018-06-02] MEDS ORDERED: 0.9 % Sodium Chloride w KCl 20 MEQ/1,000 ML MLS IVC PRN (05:14)
--- NOTE | 2018-06-02 06:37 | Emergency Department Note ---
Disposition Clinical Impression: Dehydration DKA (diabetic ketoacidoses) Qualifiers: Diabetes mellitus type: other specified (including SHAHZAD) Diabetes mellitus complication detail: without coma Qualified Code(s): E13.10 - Other specified diabetes mellitus with ketoacidosis without coma Disposition: Admitted As Inpatient Condition: Serious General Adult HPI - General Chief complaint: ED Abdominal Pain Stated complaint: sob, abdominal pain Time Seen by Provider: 06/02/18 02:52 Source: patient Limitations: no limitations Nursing Notes Reviewed: Yes Vital Signs Reviewed: Yes - History of Present Illness Pain Scale: 0 - Related Data Home Medications Medication Instructions Recorded Confirmed Insulin LISPRO [Humalog Kwikpen 35 unit SQ TIDWM 10/09/16 05/22/18 U-100] Duloxetine HCl [Cymbalta] 60 mg PO DAILY 03/02/17 05/22/18 Fenofibrate Nanocrystallized 160 mg PO DAILY 03/02/17 05/22/18 [Triglide] Furosemide [Lasix] 40 mg PO DAILY PRN 03/02/17 05/22/18 Ondansetron HCl [Zofran] 4 mg PO TID PRN 03/02/17 05/22/18 Topiramate [Topamax] 25 mg PO HS 03/02/17 05/22/18 Oxycodone HCl 15 mg PO Q4H PRN 03/26/17 05/22/18 Insulin Glargine,Hum.rec.anlog 50 units SQ BID 05/22/18 05/22/18 [Toutere Solostar] Lipase/Protease/Amylase [Ariana Moran 36,000 unit PO TID 05/22/18 05/22/18 36,000 Units Capsule] Previous Rx's Medication Instructions Recorded Metoprolol XL (24 HR) Succ [Toprol 100 mg PO DAILY #30 tab.er.24h 03/09/17 Xl] Omeprazole 20 mg PO DAILY #30 tablet. 03/28/17 Azithromycin [Zithromax] 500 mg PO DAILY 3 Days #6 tablet 05/27/18 Lactobacillus Combo No.10 1 each PO DAILY 30 Days #30 capsule 05/27/18 [Probiotic] Allergies Allergy/AdvReac Type Severity Reaction Status Date / Time morphine Allergy See Verified 06/02/18 02:55 Comments Quinolones Allergy See Verified 06/02/18 02:55 Comments acetaminophen [From Tylenol] AdvReac bad Verified 06/02/18 02:55 reaction codeine AdvReac See Verified 06/02/18 02:55 Comments hydrocodone [From Vicodin] AdvReac bad Verified 06/02/18 02:55 reaction levofloxacin [From Levaquin] AdvReac Hives Verified 06/02/18 02:55 NSAIDS (Non-Steroidal AdvReac bad Verified 06/02/18 02:55 Anti-Inflamma reaction Opioids - Morphine Analogues AdvReac See Verified 06/02/18 02:55 Comments Past Medical History - Past Medical History Medical history: Reports: diabetes, other Surgical history: Reports: appendectomy, , cholecystectomy, hysterectomy, orthopedic, other, other Psychiatric history: Reports: anxiety, depression - Social History Smoking Status: Current every day smoker Smokeless Tobacco Status: No Alcohol use: Reports: none Drug use: Reports: none Physical Exam - General Limitations: no limitations General appearance: appears intoxicated Course Vital Signs Temperature 98.6 F 06/02/18 02:55 Pulse Rate 135 06/02/18 02:55 Respiratory Rate 18 06/02/18 02:55 Blood Pressure 132/76 06/02/18 02:55 O2 Sat by Pulse Oximetry 96 06/02/18 02:55 Temperature 98.2 F 06/02/18 06:45 Pulse Rate 121 06/02/18 06:45 Respiratory Rate 18 06/02/18 06:45 Blood Pressure 146/82 06/02/18 06:45 O2 Sat by Pulse Oximetry 95 06/02/18 06:45 Oxygen Delivery Oxygen Delivery Room Air Medical Decision Making - Medical Records Medical records reviewed: Yes I reviewed the patient's medical records. - Lab Data Lab results reviewed: Yes I reviewed the patient's lab results. Result diagrams: 06/02/18 02:53 06/02/18 02:53 Lab Results 06/02/18 06/02/18 06/02/18 Range/Units 02:52 02:53 02:53 WBC 10.1 D (4.3-11.1) K/mcL RBC 5.72 H (3.82-4.97) M/mcL Hgb 16.3 H D (11.5-15.4) g/dL Hct 49.8 H (35.3-44.9) % MCV 87.1 (83.0-100.0) fL MCH 28.5 (28.0-33.3) pg MCHC 32.7 (31.6-35.5) g/dL RDW 13.9 (11.5-14.5) % Plt Count 383 D (140-400) K/mcL MPV 9.3 L (9.4-12.4) fL Immature Gran % 0.7 (0-4) % Seg Neutrophils % 75.4 % Lymphocytes % 17.8 % Monocytes % 5.0 % Eosinophils % 0.7 % Basophils % 0.4 % Neutrophils # 7.6 (1.6-8.9) K/mcL Lymphocytes # 1.8 (0.6-4.6) K/mcL Monocytes # 0.5 (0.0-1.3) K/mcL Eosinophils # 0.1 (0.0-0.6) K/mcL Basophils # 0.0 (0.0-0.2) K/mcL PT (9.4-12.1) Seconds INR APTT (26.0-36.0) Seconds Sodium (136-145) mEq/L Potassium (3.5-5.1) mEq/L Chloride (98-107) mEq/L Carbon Dioxide (23-29) mEq/L BUN (6-20) mg/dL Creatinine (0.60-1.20) mg/dL Est GFR ( Amer) (> 60) Est GFR (Non-Af Amer) (> 60) BUN/Creatinine Ratio (6-26) Glucose (70-105) mg/dL POC Glucose 461 H* 446 H* (70-99) mg/dL Calculated Osmolality (280-300) Lactic Acid (0.5-2.2) mmol/L Calcium (8.6-10.3) mg/dL Magnesium (1.6-2.6) mg/dL Total Bilirubin (0.3-1.0) mg/dL Direct Bilirubin (0.0-0.2) mg/dL Indirect Bilirubin (0.0-1.2) mg/dL AST (13-39) Units/L ALT (7-52) Units/L Alkaline Phosphatase (34-104) Units/L Troponin I (< 0.04) ng/mL Serum Total Protein (6.4-8.9) g/dL Albumin (3.5-5.7) g/dL Globulin (2.4-3.5) g/dL Albumin/Globulin Ratio (1.1-2.2) Lipase (11-82) Units/L Beta-Hydroxybutyric Acd (0.02-0.27) mmol/L 06/02/18 06/02/18 06/02/18 Range/Units 02:53 02:53 02:53 WBC (4.3-11.1) K/mcL RBC (3.82-4.97) M/mcL Hgb (11.5-15.4) g/dL Hct (35.3-44.9) % MCV (83.0-100.0) fL MCH (28.0-33.3) pg MCHC (31.6-35.5) g/dL RDW (11.5-14.5) % Plt Count (140-400) K/mcL MPV (9.4-12.4) fL Immature Gran % (0-4) % Seg Neutrophils % % Lymphocytes % % Monocytes % % Eosinophils % % Basophils % % Neutrophils # (1.6-8.9) K/mcL Lymphocytes # (0.6-4.6) K/mcL Monocytes # (0.0-1.3) K/mcL Eosinophils # (0.0-0.6) K/mcL Basophils # (0.0-0.2) K/mcL PT 11.2 (9.4-12.1) Seconds INR 1.0 APTT 41.8 H (26.0-36.0) Seconds Sodium 133 L (136-145) mEq/L Potassium 4.1 (3.5-5.1) mEq/L Chloride 95 L (98-107) mEq/L Carbon Dioxide 9 L* (23-29) mEq/L BUN 21 H (6-20) mg/dL Creatinine 1.09 (0.60-1.20) mg/dL Est GFR ( Amer) > 60 (> 60) Est GFR (Non-Af Amer) 52 L (> 60) BUN/Creatinine Ratio 19 (6-26) Glucose 486 H (70-105) mg/dL POC Glucose (70-99) mg/dL Calculated Osmolality 301 H (280-300) Lactic Acid 2.0 (0.5-2.2) mmol/L Calcium 10.3 (8.6-10.3) mg/dL Magnesium 2.0 (1.6-2.6) mg/dL Total Bilirubin 0.4 (0.3-1.0) mg/dL Direct Bilirubin 0.0 (0.0-0.2) mg/dL Indirect Bilirubin 0.4 (0.0-1.2) mg/dL AST 48 H (13-39) Units/L ALT 32 (7-52) Units/L Alkaline Phosphatase 161 H (34-104) Units/L Troponin I < 0.03 (< 0.04) ng/mL Serum Total Protein 8.2 (6.4-8.9) g/dL Albumin 4.5 (3.5-5.7) g/dL Globulin 3.7 H (2.4-3.5) g/dL Albumin/Globulin Ratio 1.2 (1.1-2.2) Lipase 19 (11-82) Units/L Beta-Hydroxybutyric Acd (0.02-0.27) mmol/L 06/02/18 Range/Units 02:53 WBC (4.3-11.1) K/mcL RBC (3.82-4.97) M/mcL Hgb (11.5-15.4) g/dL Hct (35.3-44.9) % MCV (83.0-100.0) fL MCH (28.0-33.3) pg MCHC (31.6-35.5) g/dL RDW (11.5-14.5) % Plt Count (140-400) K/mcL MPV (9.4-12.4) fL Immature Gran % (0-4) % Seg Neutrophils % % Lymphocytes % % Monocytes % % Eosinophils % % Basophils % % Neutrophils # (1.6-8.9) K/mcL Lymphocytes # (0.6-4.6) K/mcL Monocytes # (0.0-1.3) K/mcL Eosinophils # (0.0-0.6) K/mcL Basophils # (0.0-0.2) K/mcL PT (9.4-12.1) Seconds INR APTT (26.0-36.0) Seconds Sodium (136-145) mEq/L Potassium (3.5-5.1) mEq/L Chloride (98-107) mEq/L Carbon Dioxide (23-29) mEq/L BUN (6-20) mg/dL Creatinine (0.60-1.20) mg/dL Est GFR ( Amer) (> 60) Est GFR (Non-Af Amer) (> 60) BUN/Creatinine Ratio (6-26) Glucose (70-105) mg/dL POC Glucose (70-99) mg/dL Calculated Osmolality (280-300) Lactic Acid (0.5-2.2) mmol/L Calcium (8.6-10.3) mg/dL Magnesium (1.6-2.6) mg/dL Total Bilirubin (0.3-1.0) mg/dL Direct Bilirubin (0.0-0.2) mg/dL Indirect Bilirubin (0.0-1.2) mg/dL AST (13-39) Units/L ALT (7-52) Units/L Alkaline Phosphatase (34-104) Units/L Troponin I (< 0.04) ng/mL Serum Total Protein (6.4-8.9) g/dL Albumin (3.5-5.7) g/dL Globulin (2.4-3.5) g/dL Albumin/Globulin Ratio (1.1-2.2) Lipase (11-82) Units/L Beta-Hydroxybutyric Acd > 2.00 H (0.02-0.27) mmol/L - Radiology Data Radiology results reviewed: Yes I reviewed the patient's radiology results. Abdomen/Pelvis CT 06/02/18 03:01 IMPRESSION: No definite acute finding in the abdomen or pelvis. The punctate right renal calculus noted on the prior study is not visualized on today's examination. D/ / Hakan Garber MD / Hakan Garber MD Interpreting Provider: Hakan Garber MD - EKG Data EKG #1 EKG attestation: Yes I reviewed and interpreted this EKG. EKG results narrative: EKG shows sinus tachycardia. There is ST segment elevation in V1 and V2 with reciprocal ST depression and T-wave inversion in the inferior and lateral leads. No ectopy. LVH. Critical Care Time Critical Care Time: Yes Total Critical Care Time: 40 Attestation: Critical care performed: Time is exclusive of separately billable procedures. Time includes: direct patient care, patient reassessment, coordination of patient care, interpretation of data (laboratory data, radiology data, and respiratory data), review of patient's medical records, medical consultation and documentation of patient care. Procedures included in critical care time: Procedures excluded from critical care time: Attestation Statement - Attestation Attestation: I, Rey Sanchez MD, personally evaluated this patient and discussed their management with the resident physician. I reviewed the resident's note and agree with the documented findings, medical decision making, and plan of care. Patient is a 57-year-old female who presents to the emergency department by EMS with a complaint of mid and upper abdominal pain associated with nausea and vomiting. Patient was released from the hospital 5 days ago after being admitted for DKA and pancreatitis. Patient states that she has been sick ever since she went home and she thinks a discharge or 2 early. Today after she was discharged she developed upper epigastric pain which has been constant and getting progressively worse. She states the only thing she can keep down his Gatorade. She also has had diarrhea. No GI bleed symptoms. On examination patient is a well-developed well-nourished female in mild distress. She is alert and oriented 3. There is no cyanosis or diaphoresis. Mucous membranes are very dry. Breath sounds are clear and equal bilaterally. Heart tachycardic and regular. Abdomen is soft with moderate diffuse tenderness. Slightly increased bowel sounds. Labs reviewed. Patient found to be in DKA. She was started on insulin drip. CT of the abdomen and pelvis showed no definite acute abnormality. EKG showed some septal ST elevation with inferior and lateral ST segment depression and T- wave inversions. This was discussed with and reviewed by the 1st pressman, Dr. Akbar, and he felt the changes were secondary to the LVH and tachycardia. The hospitalist, Dr. Gill, was consulted and accepted admission of the patient.
[2018-06-02] MEDS ORDERED: OXYCODONE Oral CONC 10 MG/0.5 ML ORAL.SYG SL PRN (06:46)
--- NOTE | 2018-06-02 06:48 | Internal Med History&Physical ---
Date of Encounter: 06/02/18 Time of Encounter: 06:48 Internal Medicine - H&P: HPI History of present illness: Ms. Pugh is a 57 year old female with a PMH hypertension, diabetes, chronic pancreatitis and hyperlipidemia who presents to the emergency department by EMS with a complaint of mid and upper abdominal pain associated with nausea and vomiting. Patient was released from the hospital 5 days ago after being admitted for acute colitis secondary to Escherichia coli. Patient states that she has been sick ever since she went home and feels that she was discharged too early. She reports progressive upper epigastric pain which has been constant and getting progressively worse. She has been nauseous and unable to keep food down, vomiting 3 episodes of nonbilious nonbloody emesis. The only thing she can keep down has been Gatorade. She is still reporting episodes of diarrhea. No GI bleed symptoms. Patient completed course of antibiotics. Labs suggestive of recurrent DKA. She was started on insulin drip. CT of the abdomen and pelvis showed no definite acute abnormality. EKG showed some septal ST elevation with inferior and lateral ST segment depression and T-wave inversions. This was discussed with and reviewed by the brick mason, Dr. Akbar, and he felt the changes were secondary to the LVH and tachycardia. Past Med Surg Social Fam HX - Past Medical History Medical history: diabetes, other Additional medical history: pancreatitis. chronic pain. lumbar radiculopathy. diabetes. dyslipidemia Psychiatric history: anxiety, depression - Past Surgical History Surgical History: appendectomy, , cholecystectomy, hysterectomy, orthopedic, other, other Additional surgical history: tonsilectomy & adnoidectomy, rotator cuff surgery, right ankle surgery, bilateral hand surgery for trigger finger - Social History Smoking Status: Current every day smoker Packs per day: 0.5 Smokeless Tobacco Status: No Alcohol use: none Drug use: none - Family History Mother Living Status: Father Living Status: Still Living Internal Medicine - H&P: Meds Insulin LISPRO [Humalog Kwikpen U-100] 40 unit SQ TIDWM 10/09/16 [History] Fenofibrate Nanocrystallized [Triglide] 160 mg PO DAILY 03/02/17 [History] Furosemide [Lasix] 40 mg PO DAILY PRN 03/02/17 [History] Ondansetron HCl [Zofran] 4 mg PO TID PRN 03/02/17 [History] Topiramate [Topamax] 25 mg PO HS PRN 03/02/17 [History] Oxycodone HCl 15 mg PO Q4H PRN 03/26/17 [History] Insulin Glargine,Hum.rec.anlog [Toutere Solostar] 120 units SQ BID 05/22/18 [ History] Lipase/Protease/Amylase [Ariana Moran 36,000 Units Capsule] 3 tab PO TID PRN [History] DULoxetine [Cymbalta] 90 mg PO DAILY 06/02/18 [History] Lidocaine Patch [Lidoderm 5% patch] 1 each TP DAILY PRN 06/02/18 [History] Metoprolol Succinate [Metoprolol Succinate] 100 mg PO DAILY 06/02/18 [History] Omeprazole 20 mg PO DAILY PRN 06/02/18 [History] Pregabalin [Lyrica] 150 mg PO TID 06/02/18 [History] SUMAtriptan succinate [Imitrex] 50 mg PO DAILY PRN 06/02/18 [History] 3 Allergy/AdvReac Type Severity Reaction Status Date / Time morphine Allergy See Verified 06/02/18 17:41 Comments Quinolones Allergy See Verified 06/02/18 17:41 Comments acetaminophen [From Tylenol] AdvReac bad Verified 06/02/18 17:41 reaction codeine AdvReac See Verified 06/02/18 17:41 Comments hydrocodone [From Vicodin] AdvReac bad Verified 06/02/18 17:41 reaction levofloxacin [From Levaquin] AdvReac Hives Verified 06/02/18 17:41 NSAIDS (Non-Steroidal AdvReac bad Verified 06/02/18 17:41 Anti-Inflamma reaction Opioids - Morphine Analogues AdvReac See Verified 06/02/18 17:41 Comments All Systems PM: A 10-system review of systems was performed and is negative for pertinent findings except as documented above in the HPI. - Constitutional Constitutional: no chills, no fever(s), no night sweats - EENT Eyes: no change in vision, no discharge, no pain, no photophobia Ears: no ear discharge, no ear pain, no tinnitus Nose, mouth and throat: no dysphagia, no nasal discharge, no neck pain, no sore throat - Cardiovascular Cardiovascular ROS IM: no chest pain, no diaphoresis, no dyspnea, no lightheadedness, no palpitations, no syncope - Respiratory Respiratory: no cough, no dyspnea, no wheezing, no excessive phlegm production - Gastrointestinal Gastrointestinal: no abdominal pain, no diarrhea, no hematemesis, no hematochezia, no melena, no nausea, no vomiting - Genitourinary Genitourinary: no change in urinary stream, no dysuria, no flank pain, no hematuria - Musculoskeletal Musculoskeletal ROS IM: no numbness, no tingling - Integumentary Integumentary IM: no rash, no unusual bruising - Neurological Neurological ROS: no confusion, no convulsions, no focal weakness, no numbness, no tingling, no tremor(s) - Hematologic/Lymphatic Hematologic/Lymphatic: no easy bruising - Constitutional Vitals: Temp Pulse Resp BP Pulse Ox 98.2 F 121 18 146/82 95 06/02/18 06:45 06/02/18 06:45 06/02/18 06:45 06/02/18 06:45 06/02/18 06:45 Exam: General: Alert and oriented 3. Lying in bed in no acute distress Skin:Normal color, no rash, no lesions. HEENT:EOM, pupils equal, round and reactive. Cardiovascular:Normal S1 & S2, no rubs, murmurs or gallops. No JVD. Pulse regular. Lungs:Normal breath sounds, no wheezes or crackles. Abdomen:Soft, diffusely tender, no rigidity or guarding. Extremities:No deformity, no edema or tenderness, no joint swelling or clubbing. Neurological:Normal cognition and motor skills. Pulses:Carotid and radial pulses normal +2. Rest of the physical exam is non contributory Internal Med - H&P Results - Labs CBC & Chem 7: 06/02/18 02:53 06/02/18 12:57 - Assessment and plan (1) DKA (diabetic ketoacidoses) Current Visit: Yes Status: Acute Assessment and plan: Recurrence of DKA in the setting of recent hospitalization for acute colitis. Elevated blood glucose of 486 with bicarbonate of 9, anion gap metabolic acidosis; positive beta hydroxybutyrate level. Start patient on DKA protocol. She received 2-1/2 L fluid boluses in the ED. Qualifiers: Diabetes mellitus type: other specified (including SHAHZAD) Diabetes mellitus complication detail: without coma Qualified Code(s): E13.10 - Other specified diabetes mellitus with ketoacidosis without coma (2) Abdominal pain Current Visit: No Status: Acute Assessment and plan: Likely secondary to DKA. CT abdomen shows no acute findings with apparent resolution of previous colitis. We will continue treatment for DKA. Pain management as needed. Qualifiers: Abdominal location: unspecified location Qualified Code(s): R10.9 - Unspecified abdominal pain (3) Tachycardia Current Visit: Yes Status: Acute Assessment and plan: Likely secondary to dehydration and pain. We will place patient on telemetry and monitor after fluid hydration. Case discussed with cardiology Dr. Akbar. See history of present illness. (4) Dehydration Current Visit: Yes Status: Acute Assessment and plan: Continue generous fluid hydration. (5) Metabolic acidosis Current Visit: No Status: Resolved Assessment and plan: In the setting of DKA. Treat underlying cause. (6) Colitis Current Visit: No Status: Acute Assessment and plan: Colitis appears to have resolved based on repeat CT of the abdomen. Patient continues to have loose stools. We will monitor for now. (7) Diabetes type 2, uncontrolled Current Visit: No Status: Chronic Qualifiers: Glycemic state: with hyperglycemia Qualified Code(s): E11.65 - Type 2 diabetes mellitus with hyperglycemia (8) DVT prophylaxis Current Visit: No Status: Acute Assessment and plan: Subcutaneous heparin - Time Spent With Patient Total time spent is greater than 50% in coordination of care (as documented) at patient's floor/unit and/or counseling patient:
[2018-06-02] MEDS: *HR* Heparin 5,000 UNIT/ML VIAL SQ SCH ×3 (07:38→20:59)
[2018-06-02] MEDS: Ondansetron 4 MG/2 ML VIAL IVP PRN ×2 (08:02→23:32)
[2018-06-02 09:38] LABS: Alanine Aminotransferase 22 Units/L (7-52); Albumin 3.5 g/dL (3.5-5.7); Albumin/Globulin Ratio 1.3 (1.1-2.2); Alkaline Phosphatase 119 Units/L (34-104); Aspartate Amino Transferase 28 Units/L (13-39); BUN/Creatinine Ratio 21 (6-26); Bilirubin,Total 0.3 mg/dL (0.3-1.0); Blood Urea Nitrogen 15 mg/dL (6-20); Calcium 8.7 mg/dL (8.6-10.3); Carbon Dioxide 15 mEq/L (23-29); Chloride 109 mEq/L (98-107); Globulin 2.7 g/dL (2.4-3.5); Glucose 234 mg/dL (70-105); Osmolality,Calculated 286 (280-300); Potassium 3.6 mEq/L (3.5-5.1); Sodium 134 mEq/L (136-145); Total Protein 6.2 g/dL (6.4-8.9); eGFR For Non-African Americans > 60 (> 60)
[2018-06-02] MEDS: *HR* Promethazine 25 MG/ML VIAL IVP PRN ×2 (11:46→19:50)
[2018-06-02] MEDS ORDERED: *HR* OxyCODONE Immed Rel 15 MG TABLET PO PRN (12:16)
[2018-06-02] MEDS: *HR* OxyCODONE Immed Rel 15 MG TABLET PO PRN ×2 (13:26→18:11)
[2018-06-02 13:33] LABS: Alanine Aminotransferase 21 Units/L (7-52); Albumin 3.4 g/dL (3.5-5.7); Albumin/Globulin Ratio 1.3 (1.1-2.2); Alkaline Phosphatase 113 Units/L (34-104); Aspartate Amino Transferase 29 Units/L (13-39); BUN/Creatinine Ratio 17 (6-26); Bilirubin,Total 0.4 mg/dL (0.3-1.0); Blood Urea Nitrogen 12 mg/dL (6-20); Calcium 8.6 mg/dL (8.6-10.3); Carbon Dioxide 18 mEq/L (23-29); Chloride 111 mEq/L (98-107); Globulin 2.6 g/dL (2.4-3.5); Glucose 158 mg/dL (70-105); Osmolality,Calculated 283 (280-300); Potassium 3.4 mEq/L (3.5-5.1); Sodium 135 mEq/L (136-145); eGFR For Non-African Americans > 60 (> 60)
[2018-06-02] MEDS ORDERED: D5% in Water 1,000 ML IVC PRN (13:45)
[2018-06-02] MEDS ORDERED: Dextrose Gel 15 GM/37.5 ML TUBE PO PRN ×2 (13:45)
[2018-06-02 13:54] LABS: VBG HCO3 19 mEq/L (21-27); VBG PCO2 43 mmHg (41-51); VBG PH 7.26 pH Units (7.32-7.42); VBG PO2 82 mmHg (25-50)
[2018-06-02] MEDS: Insulin DETEMIR 100 UNIT/ML X5UNITS SQ SCH ×2 (14:19→21:01)
[2018-06-02 16:10] LABS: Bilirubin,Urine Small (Negative); Blood,Urine Negative (Negative); Clarity,Urine Clear (Clear); Color,Urine Yellow (Yellow); Glucose,Urine (UA) 100 mg/dL (Normal); Ketones,Urine 15 mg/dL (Negative); Leukocyte Esterase,Urine Small (Negative); Nitrite,Urine Negative (Negative); Protein,Urine 30 mg/dL (Neg-Trace); Urobilinogen,Urine Normal (Normal)
--- NOTE | 2018-06-02 16:14 | Event Note ---
Date of Encounter: 06/02/18 Time of Encounter: 11:00 Patient was seen and evaluated by nocturnalist earlier this morning and also by myself. Patient is a 57-year-old female presented with abdominal pain, nausea/vomiting secondary to DKA. Patients anion gap this morning has resolved and baseline acidosis has improved. Insulin drip has been discontinued after starting basal insulin. Will monitor overnight with plans for discharge on 06/03/18
[2018-06-02 16:21] LABS: RBC,Urine 0-3 per hpf (0-3); WBC,Urine 0-3 per hpf (0-3)
[2018-06-02] MEDS: Insulin LISPRO 300 UNITS/3 ML VIAL SQ SCH ×2 (17:43→21:00)
[2018-06-03] MEDS: *HR* OxyCODONE Immed Rel 15 MG TABLET PO PRN ×5 (01:04→22:47)
[2018-06-03] MEDS: Metoclopramide 10 MG/2 ML VIAL IVP PRN ×4 (02:04→20:18)
[2018-06-03] MEDS: *HR* Heparin 5,000 UNIT/ML VIAL SQ SCH ×3 (05:07→20:19)
[2018-06-03 05:39] LABS: Basophils % 0.3 %; Eosinophils # 0.1 K/mcL (0.0-0.6); Eosinophils % 2.1 %; Hematocrit 40.5 % (35.3-44.9); Hemoglobin 13.7 g/dL (11.5-15.4); Immature Granulocytes % 0.2 % (0-4); Lymphocytes % 35.1 %; Mean Corpuscular HGB Conc 33.8 g/dL (31.6-35.5); Mean Corpuscular Hemoglobin 29.6 pg (28.0-33.3); Mean Corpuscular Volume 87.5 fL (83.0-100.0); Mean Platelet Volume 9.2 fL (9.4-12.4); Monocytes # 0.4 K/mcL (0.0-1.3); Monocytes % 7.5 %; Neutrophils # 3.2 K/mcL (1.6-8.9); Platelet Count 207 K/mcL (140-400); Red Blood Count 4.63 M/mcL (3.82-4.97); Segmented Neutrophils % 54.8 %
[2018-06-03 05:54] LABS: BUN/Creatinine Ratio 15 (6-26); Blood Urea Nitrogen 9 mg/dL (6-20); Calcium 9.4 mg/dL (8.6-10.3); Carbon Dioxide 21 mEq/L (23-29); Chloride 110 mEq/L (98-107); Glucose 212 mg/dL (70-105); Osmolality,Calculated 287 (280-300); Potassium 3.6 mEq/L (3.5-5.1); Sodium 136 mEq/L (136-145); eGFR For Non-African Americans > 60 (> 60)
[2018-06-03] MEDS: Insulin Human Regular 100 UNIT in 0.9 % Sodium Chloride 100 ML IVC SCH ×2 (07:35→07:36)
[2018-06-03] MEDS: Insulin LISPRO 300 UNITS/3 ML VIAL SQ SCH ×4 (07:40→20:22)
[2018-06-03] MEDS: *HR* Promethazine 25 MG/ML VIAL IVP PRN ×2 (09:41→16:01)
[2018-06-03 09:43] LABS: VBG HCO3 10 mEq/L (21-27); VBG PCO2 26 mmHg (41-51); VBG PO2 84 mmHg (25-50)
[2018-06-03] MEDS ORDERED: *HR* Metoprolol 5 MG/5 ML VIAL IVP ONE ×2 (14:24→14:26)
[2018-06-03] MEDS: Metoprolol XL (24 HR) Succ 50 MG TAB.ER.24H PO SCH (15:00)
[2018-06-03] MEDS: Ketorolac 15 MG/ML VIAL IVP PRN (15:01)
--- NOTE | 2018-06-03 15:37 | Event Note ---
Date of Encounter: 06/03/18 Time of Encounter: 15:34 - Cardiology Event Note Cardiology consulted for a.flutter RVR per ECG. ECG's reviewed with and Dr.John Bazan, no a.flutter noted. ECG 06/02/[address], HR 134, LVH changes noted. ECG 06/03/[address], HR 110. Also reviewed telemetry with no evidence of a.fib/flutter. Cardiology will sign off, re-consult if needed. Thank you.
[2018-06-03] MEDS: Insulin DETEMIR 100 UNIT/ML X5UNITS SQ SCH (20:18)
[2018-06-03] MEDS: Pregabalin 75 MG CAPSULE PO SCH (20:18)
--- NOTE | 2018-06-03 20:49 | Internal Med Progress Note ---
Hospitalist Progress Note - Encounter Date of Encounter: 06/03/18 Time of Encounter: 11:00 - Subjective Interval History: Patient is a 57-year-old female presented with abdominal pain, nausea/vomiting secondary to DKA. DKA has resolved and patient placed back on home insulin regimen. Patient however developed tachycardia prior to discharge and was restarted on her home dose of metoprolol that was held due to patient being nothing by mouth for DKA Patient to be monitor overnight anticipate discharge on 06/04/18 - Exam Vitals: Temp Pulse Resp BP Pulse Ox 98.7 F 93 20 111/65 93 06/03/18 20:07 06/03/18 20:07 06/03/18 20:07 06/03/18 20:07 06/03/18 20:07 Exam: Gen.: Nonacute distress, alert and oriented 3 ENT: Mucosal membranes moist Respiratory: Lungs are clear to auscultation bilaterally without any wheezing rhonchi or rales Cardiovascular: Tachycardic Abdomen: Soft, nontender and nondistended with positive bowel sounds Extremities: No lower extremity edema Skin: Normal color - Assessment and Plan (1) DKA (diabetic ketoacidoses) Current Visit: Yes Status: Acute Assessment and Plan: Resolved; patient restarted on her home insulin regimen (2) Tachycardia Current Visit: Yes Status: Acute Assessment and Plan: Patient restarted back on home dose of metoprolol and will monitor overnight. (3) Abdominal pain Current Visit: No Status: Acute Assessment and Plan: Resolved; secondary to DKA. CT abdomen shows no acute findings with apparent resolution of previous colitis. (4) Diabetes type 2, uncontrolled Current Visit: No Status: Chronic Assessment and Plan: Patient restarted on her diabetic regimen (5) DVT prophylaxis Current Visit: No Status: Acute Assessment and Plan: Subcutaneous heparin - Time Spent with Patient Total time spent is greater than 50% in coordination of care (as documented) at patient's floor/unit and/or counseling patient: Internal Medicine: Result - Labs CBC & Chem 7: 06/03/18 05:24 06/03/18 05:24 Labs: Short CBC 06/03/18 Range/Units 05:24 WBC 5.8 (4.3-11.1) K/mcL Hgb 13.7 D (11.5-15.4) g/dL Hct 40.5 (35.3-44.9) % Plt Count 207 (140-400) K/mcL Neutrophils # 3.2 (1.6-8.9) K/mcL BMP 06/03/18 05:24 Sodium 136 Potassium 3.6 Chloride 110 H Carbon Dioxide 21 L BUN 9 Creatinine 0.61 Glucose 212 H Calcium 9.4 - ABG Interpretation ABG results: PT/INR, D-dimer PT 11.2 Seconds (9.4-12.1) 06/02/18 02:53 Consult Discharge Plan - Plan Instructions: How to Check Your Blood Sugar (DC), Diabetic Ketoacidosis (DC), Diabetes Mellitus Type 2 in Adults (DC), Basic Carbohydrate Counting (DC), Meal Planning with Diabetes Exchanges (DC) Referrals: Shashank Moon DO [Primary Care Provider] - (1) DKA (diabetic ketoacidoses) Qualifiers: Diabetes mellitus type: other specified (including SHAHZAD) Diabetes mellitus complication detail: without coma Qualified Code(s): E13.10 - Other specified diabetes mellitus with ketoacidosis without coma (3) Abdominal pain Qualifiers: Abdominal location: unspecified location Qualified Code(s): R10.9 - Unspecified abdominal pain (4) Diabetes type 2, uncontrolled Qualifiers: Glycemic state: with hyperglycemia Qualified Code(s): E11.65 - Type 2 diabetes mellitus with hyperglycemia
[2018-06-04] MEDS: *HR* Promethazine 25 MG/ML VIAL IVP PRN (00:11)
[2018-06-04] MEDS: *HR* Heparin 5,000 UNIT/ML VIAL SQ SCH ×2 (04:09→14:19)
[2018-06-04] MEDS: *HR* OxyCODONE Immed Rel 15 MG TABLET PO PRN (04:12)
[2018-06-04] MEDS: Metoprolol XL (24 HR) Succ 50 MG TAB.ER.24H PO SCH (08:39)
[2018-06-04] MEDS: Pregabalin 75 MG CAPSULE PO SCH ×2 (08:39→14:19)
[2018-06-04] MEDS: Insulin DETEMIR 100 UNIT/ML X5UNITS SQ SCH (08:40)
[2018-06-04] MEDS: Insulin LISPRO 300 UNITS/3 ML VIAL SQ SCH ×4 (08:43→12:52)
[2018-06-04] MEDS: Ketorolac 15 MG/ML VIAL IVP PRN (08:54)
--- NOTE | 2018-06-04 10:15 | Discharge Summary ---
- NOTES TO OUTPATIENT PROVIDER Notes to Outpatient Provider: Blood pressure was uncontrolled in-patient. Follow up with PCP for consideration for titrating medications if necessary. Discharged home in stable condition after resolution of DKA. Amlodipine added to home regimen for blood pressure Date of Encounter: 06/04/18 Time of Encounter: 10:15 - Discharge Diagnosis (1) DVT prophylaxis Priority: Primary Status: Resolved (2) Abdominal pain Priority: Primary Status: Resolved Qualifiers: Abdominal location: unspecified location Qualified Code(s): R10.9 - Unspecified abdominal pain (3) Diabetes type 2, uncontrolled Priority: Secondary Status: Chronic Qualifiers: Glycemic state: with hyperglycemia Qualified Code(s): E11.65 - Type 2 diabetes mellitus with hyperglycemia (4) DKA (diabetic ketoacidoses) Priority: Primary Status: Resolved Qualifiers: Diabetes mellitus type: other specified (including SHAHZAD) Diabetes mellitus complication detail: without coma Qualified Code(s): E13.10 - Other specified diabetes mellitus with ketoacidosis without coma (5) Tachycardia Priority: Primary Status: Resolved (6) HTN (hypertension) Priority: Secondary Status: Chronic Qualifiers: Hypertension type: essential hypertension Qualified Code(s): I10 - Essential (primary) hypertension (7) Chronic back pain Priority: Secondary Status: Chronic Qualifiers: Back pain location: low back pain Back pain laterality: midline Sciatica presence: without sciatica Qualified Code(s): M54.5 - Low back pain; G89.29 - Other chronic pain (8) Chronic pancreatitis Priority: Secondary Status: Chronic Qualifiers: Pancreatitis type: unspecified pancreatitis type Qualified Code(s): K86.1 - Other chronic pancreatitis Hospital course: Ms. Pugh is a 57 year old female with PMH od DM, Chronic pancreatitis who was admitted to [facility] for DKA and abdominal pain Work up on admission revealed acidemia with metabolic acidosis, abdomen imaging was unremarkable DKA has resolved and patient is clinically stable to be discharged home, she had an episode of suspected Aflutter for which cardiology was consulted, human resources hr representative's review ruled out afib/flutter and patient's HR improved with her home dose of Metoprolol Of note, blood pressure uncontrolled inpatient, added 10mg norvasc to regimen Patient is clinically and hemodynamically stable Discharge discussed with: patient, nurse - Time Spent with Patient Total time spent providing and/or coordinating discharge services: Greater than 30 minutes - Discharge Medications Home Medications: Insulin LISPRO [Humalog Kwikpen U-100] 35 unit SQ TIDWM 10/09/16 [History] Fenofibrate Nanocrystallized [Triglide] 160 mg PO DAILY 03/02/17 [History] Furosemide [Lasix] 40 mg PO DAILY PRN 03/02/17 [History] Ondansetron HCl [Zofran] 4 mg PO TID PRN 03/02/17 [History] Topiramate [Topamax] 25 mg PO HS PRN 03/02/17 [History] Oxycodone HCl 15 mg PO Q4H PRN 03/26/17 [History] Insulin Glargine,Hum.rec.anlog [Toujeo Solostar] 120 units SQ BID 05/22/18 [ History] Lipase/Protease/Amylase [Ariana Dr 36,000 Units Capsule] 3 tab PO TID PRN [History] DULoxetine [Cymbalta] 90 mg PO DAILY 06/02/18 [History] Lidocaine Patch [Lidoderm 5% patch] 1 each TP DAILY PRN 06/02/18 [History] Metoprolol Succinate 100 mg PO DAILY 06/02/18 [History] Omeprazole 20 mg PO DAILY PRN 06/02/18 [History] Pregabalin [Lyrica] 150 mg PO TID 06/02/18 [History] SUMAtriptan succinate [Imitrex] 50 mg PO DAILY PRN 06/02/18 [History] Allergies/Adverse Reactions: 3 Allergy/AdvReac Type Severity Reaction Status Date / Time morphine Allergy See Verified 06/02/18 17:41 Comments Quinolones Allergy See Verified 06/02/18 17:41 Comments acetaminophen [From Tylenol] AdvReac bad Verified 06/02/18 17:41 reaction codeine AdvReac See Verified 06/02/18 17:41 Comments hydrocodone [From Vicodin] AdvReac bad Verified 06/02/18 17:41 reaction levofloxacin [From Levaquin] AdvReac Hives Verified 06/02/18 17:41 NSAIDS (Non-Steroidal AdvReac bad Verified 06/02/18 17:41 Anti-Inflamma reaction Opioids - Morphine Analogues AdvReac See Verified 06/02/18 17:41 Comments Date of admission: 06/02/18 04:29 Primary care physician: Shashank Moon DO Consults: 06/02/18 05:47 Consult to Nutrition [CONS] Routine Comment: Needs diabetes nutrition education Consulting Provider: NUTRITION Reason for Dietary Consult: MST Score Discharging clinician: Js Lewis Anticipated date of discharge: 06/04/18 - Constitutional Vitals: Temp Pulse Resp BP Pulse Ox 98.6 F 99 18 168/93 95 06/04/18 07:03 06/04/18 07:03 06/04/18 07:03 06/04/18 07:03 06/04/18 07:03 General appearance: Present: A&O X 3, pleasant, no acute distress Exam: Unremarkable, see below - Head Head exam: Present: atraumatic, normocephalic - Eye Eye exam: Present: PERRL, conjuntiva pink, sclera anicteric Pupils: Present: PERRL - Neck Neck exam general surgery: Present: supple, trachea midline. Absent: lymphadenopathy - Respiratory Respiratory exam: Present: CTAB. Absent: accessory muscle use, rales, rhonchi, wheezes - Cardiovascular Cardiovascular exam: Present: RRR, +S1, +S2. Absent: diastolic murmur, gallop, rubs, systolic murmur - GI/Abdominal GI/Abdominal exam: Present: normal bowel sounds, soft, no peritoneal signs. Absent: distended, tenderness - Extremities Exam Extremities exam: Present: warm, radial pulses palpable and symmetrical. Absent : calf tenderness, cyanotic, pedal edema - Neurological Exam Neurological exam: Present: CN II-XII intact, oriented X3, no focal deficits. Absent: pronater drift, facial droop, speech deficit - Skin Skin exam: Present: dry, intact - Patient Status Disposition: Home, Self-Care Condition: Good Functional capacity at discharge: independent ambulation Overall status at discharge: patient is back to baseline - Discharge Instructions Instructions: How to Check Your Blood Sugar (DC), Diabetic Ketoacidosis (DC), Diabetes Mellitus Type 2 in Adults (DC), Basic Carbohydrate Counting (DC), Meal Planning with Diabetes Exchanges (DC) Follow Up With: Shashank Moon DO [Primary Care Provider] - - Diet and Activity Activity: resume usual activities as tolerated Diet: diabetic diet, low fat, low cholesterol, low salt diet
[2018-06-04] MEDS ORDERED: amLODIPine 5 MG TABLET PO SCH (11:15)
[2018-06-04] MEDS ORDERED: Topiramate 25 MG TABLET PO PRN (14:27)
[2018-06-04] MEDS ORDERED: SUMAtriptan succinate 50 MG TABLET PO PRN (14:27)
[2018-06-04] MEDS ORDERED: Fenofibrate 54 MG TABLET PO SCH (14:30)
[2018-06-04 16:32] VITALS: BP 150/81
--- NOTE | 2018-06-04 17:27 | Electrocardiograph Report ---
[address] [place] [address] Test Date: 2018-06-03 Pat Name: Kailee Pugh Department: 110 Room: 2N04 Gender: F Secret Code Expert: : 1960 Requested By: Irving Cueva Order Number: [id number] Reading MD: Kimmy Jordan Measurements Intervals [place] Rate: 110 P: NC: 0 QRS: 47 QRSD: 101 T: 60 QT: 341 QTc: 406 Interpretive Statements SINUS TACHYCARDIA POSSIBLE ANTERIOR MYOCARDIAL INFARCTION, OF INDETERMINATE AGE Electronically Signed On 06-04-2018 17:25:41 EDT by Kimmy Jordan
--- NOTE | 2018-06-04 17:49 | Electrocardiograph Report ---
[address] [place] [address] Test Date: 2018-06-02 Pat Name: Kailee Pugh Department: [id number] Room: 2N04 Gender: F Mason Liner: : 1960 Requested By: Ken Salazar Order Number: [id number] Reading MD: Kimmy Jordan Measurements Intervals [place] Rate: 134 P: 79 GA: 126 QRS: 81 QRSD: 97 T: 269 QT: 318 QTc: 475 Interpretive Statements Sinus tachycardia Consider biatrial enlargement LVH with secondary repolarization abnormality Probable anterior infarct, age indeterminate Electronically Signed On 06-04-2018 17:47:12 EDT by Kimmy Jordan
== END 2018-06-04 17:11 | disposition home or self-care (01) ==
LOC: EMEROOARM 02:38 → 2NNU 02:38 → SUATTDRO 04:29 → 2NNU 05:23
PROVIDERS: ADMIT Internal Medicine; ATTEND Internal Medicine

== ENCOUNTER 2022-01-18 23:16 | Observation (INO) ==
[2022-01-18] MEDS ORDERED: 0.9 % Sodium Chloride 1,000 ML IVC ONE (23:44)
[2022-01-19 00:36] LABS: VBG HCO3 25 mEq/L (21-27); VBG PCO2 44 mmHg (41-51); VBG PH 7.36 pH Units (7.32-7.42); VBG PO2 68 mmHg (25-50)
[2022-01-19 00:53] LABS: Basophils % 0.3 %; Eosinophils # 0.1 K/mcL (0.0-0.6); Eosinophils % 1.5 %; Hematocrit 40.7 % (35.3-44.9); Hemoglobin 13.3 g/dL (11.5-15.4); Immature Granulocytes % 0.3 % (0-4); Lymphocytes # 1.9 K/mcL (0.6-4.6); Lymphocytes % 19.7 %; Mean Corpuscular HGB Conc 32.7 g/dL (31.6-35.5); Mean Corpuscular Volume 85.7 fL (83.0-100.0); Mean Platelet Volume 9.2 fL (9.4-12.4); Monocytes # 0.7 K/mcL (0.0-1.3); Monocytes % 7.2 %; Neutrophils # 6.8 K/mcL (1.6-8.9); Platelet Count 292 K/mcL (140-400); Red Blood Count 4.75 M/mcL (3.82-4.97); Red Cell Distribution Width 13.8 % (11.5-14.5); White Blood Count 9.5 K/mcL (4.3-11.1)
[2022-01-19] MEDS ORDERED: Ondansetron 4 MG/2 ML VIAL IVP ONE (01:00)
[2022-01-19 01:01] LABS: Albumin 3.5 g/dL (3.5-5.7); Albumin/Globulin Ratio 1.1 (1.1-2.2); Bilirubin,Direct 0.1 mg/dL (0.0-0.2); Bilirubin,Indirect 0.3 mg/dL (0.0-1.0); Bilirubin,Total 0.4 mg/dL (0.3-1.0); Globulin 3.2 g/dL (2.4-3.5); Potassium 4.3 mEq/L (3.5-5.1); Total Protein 6.7 g/dL (6.4-8.9)
[2022-01-19] MEDS ORDERED: *HR* FentaNYL (PF) 100 MCG/2 ML VIAL IVP ONE (01:07)
[2022-01-19] MEDS ORDERED: Isovue-370 500 ML BOTTLE IVP ONE (01:08)
[2022-01-19] MEDS: *HR* FentaNYL (PF) 100 MCG/2 ML VIAL IVP ONE ×2 (03:07→03:37)
[2022-01-19 03:19] LABS: Bilirubin,Urine Negative (Negative); Blood,Urine Trace (Negative); Clarity,Urine Clear (Clear); Color,Urine Yellow (Yellow); Glucose,Urine (UA) 500 mg/dL (Normal); Hyaline Casts,Urine Moderate per lpf (None Seen); Ketones,Urine 10 mg/dL (Negative); Leukocyte Esterase,Urine Trace (Negative); Mucus,Urine Few per lpf (None-Few); Nitrite,Urine Negative (Negative); PH,Urine 5.5 pH Units (5.0-8.0); Protein,Urine 200 mg/dL (Neg-Trace); RBC,Urine 0-3 per hpf (0-3); Specific Gravity,Urine 1.022 (1.010-1.025); Squamous Epithelial Cell,Urine Few per hpf (None-Few); Urobilinogen,Urine Normal (Normal)
[2022-01-19] MEDS ORDERED: Insulin LISPRO 300 UNITS/3 ML VIAL SUBQ ONE (03:23)
[2022-01-19] MEDS ORDERED: cefTRIAXone 1,000 MG in Water for inj. (sterile) 10 ML IVP ONE (03:46)
[2022-01-19] MEDS ORDERED: Naloxone 0.4 MG/ML INJ IVP PRN (04:24)
[2022-01-19] MEDS ORDERED: *HR* Dextrose 50 % in Water (Syg) 50 ML SYRINGE IVP PRN (04:27)
[2022-01-19] MEDS ORDERED: Dextrose 4 GM Chewable Tablets PO PRN ×2 (04:27)
[2022-01-19] MEDS ORDERED: D5% in Water 1,000 ML IVC PRN (04:27)
[2022-01-19] MEDS ORDERED: 0.9 % Sodium Chloride 1,000 ML IVC SCH (04:30)
[2022-01-19] MEDS ORDERED: *HR* Heparin 5,000 UNIT/ML VIAL SQ SCH (06:00)
[2022-01-19] MEDS ORDERED: *HR* HYDROmorphone (PF) 1 MG/ML SYRINGE IVP PRN (06:04)
[2022-01-19 07:44] LABS: Immature Granulocytes % 0.3 % (0-4)
[2022-01-19 07:46] LABS: Basophils # 0.1 K/mcL (0.0-0.2); Basophils % 0.5 %; Eosinophils # 0.2 K/mcL (0.0-0.6); Hematocrit 40.2 % (35.3-44.9); Immature Platelets 2.9 % (1.1-6.1); Lymphocytes # 2.6 K/mcL (0.6-4.6); Lymphocytes % 27.3 %; Mean Corpuscular HGB Conc 32.3 g/dL (31.6-35.5); Mean Corpuscular Hemoglobin 27.8 pg (28.0-33.3); Mean Corpuscular Volume 85.9 fL (83.0-100.0); Monocytes # 0.7 K/mcL (0.0-1.3); Monocytes % 7.8 %; Platelet Count 296 K/mcL (140-400); Red Blood Count 4.68 M/mcL (3.82-4.97); Red Cell Distribution Width 14.1 % (11.5-14.5); Segmented Neutrophils % 62.1 %; White Blood Count 9.4 K/mcL (4.3-11.1)
[2022-01-19 07:51] LABS: Neutrophils # 5.8 K/mcL (1.6-8.9)
[2022-01-19] MEDS: Insulin LISPRO 300 UNITS/3 ML VIAL SUBQ SCH ×4 (08:44→17:56)
[2022-01-19 09:05] LABS: BUN/Creatinine Ratio 44 (6-26); Blood Urea Nitrogen 37 mg/dL (6-20); Calcium 8.7 mg/dL (8.6-10.3); Carbon Dioxide 23 mEq/L (23-29); Chloride 105 mEq/L (98-107); Magnesium 2.2 mg/dL (1.6-2.6); Phosphorous 3.6 mg/dL (2.7-4.5); Potassium 3.8 mEq/L (3.5-5.1); Sodium 138 mEq/L (136-145); Thyroid Stimulating Hormone 1.688 mcIU/mL (0.340-5.600); eGFR For African Americans > 60 (> 60); eGFR For Non-African Americans > 60 (> 60)
[2022-01-19 09:17] LABS: Glucose 233 mg/dL (70-105); Osmolality,Calculated 302 (280-300)
[2022-01-19] MEDS: 0.9 % Sodium Chloride 1,000 ML IVC SCH ×3 (10:24→21:36)
[2022-01-19] MEDS: *HR* HYDROmorphone (PF) 1 MG/ML SYRINGE IVP PRN ×4 (10:25→22:44)
[2022-01-19] MEDS: Ondansetron 4 MG/2 ML VIAL IVP PRN ×2 (10:26→21:33)
[2022-01-19] MEDS: Ketorolac 30 MG/ML VIAL IVP SCH ×2 (11:40→17:42)
[2022-01-19] MEDS: *HR* Enoxaparin 40 MG/0.4 ML SYRINGE SQ SCH (11:40)
[2022-01-19] MEDS: *HR* OxyCODONE Oral Soln 5 MG/5 ML UD.LIQ PO PRN ×2 (13:40→21:41)
[2022-01-19 14:19] LABS: Estimated Average Glucose 235 mg/dl; Hemoglobin A1C 9.8 %
[2022-01-19] MEDS ORDERED: cefTRIAXone 1,000 MG in 0.9 % Sodium Chloride 10 ML IVPB SCH (18:00)
[2022-01-20] MEDS: Insulin LISPRO 300 UNITS/3 ML VIAL SUBQ SCH ×4 (00:41→17:26)
[2022-01-20] MEDS: Ketorolac 30 MG/ML VIAL IVP SCH ×4 (00:45→17:26)
[2022-01-20] MEDS ORDERED: Melatonin 3 MG TABLET PO ONE (00:50)
[2022-01-20] MEDS ORDERED: *HR* HYDROmorphone (PF) 1 MG/ML SYRINGE IVP ONE (05:13)
[2022-01-20] MEDS ORDERED: Prochlorperazine 10 MG/2 ML VIAL IVP PRN (05:15)
[2022-01-20] MEDS: *HR* HYDROmorphone (PF) 1 MG/ML SYRINGE IVP PRN (05:22)
[2022-01-20] MEDS: 0.9 % Sodium Chloride 1,000 ML IVC SCH ×3 (05:58→17:27)
[2022-01-20 06:22] LABS: Hematocrit 38.9 % (35.3-44.9); Hemoglobin 12.6 g/dL (11.5-15.4); Mean Corpuscular HGB Conc 32.4 g/dL (31.6-35.5); Mean Corpuscular Hemoglobin 28.4 pg (28.0-33.3); Mean Corpuscular Volume 87.6 fL (83.0-100.0); Mean Platelet Volume 9.2 fL (9.4-12.4); Platelet Count 230 K/mcL (140-400); Red Blood Count 4.44 M/mcL (3.82-4.97); Red Cell Distribution Width 13.6 % (11.5-14.5); White Blood Count 7.2 K/mcL (4.3-11.1)
[2022-01-20 06:49] LABS: BUN/Creatinine Ratio 34 (6-26); Blood Urea Nitrogen 20 mg/dL (6-20); Calcium 8.7 mg/dL (8.6-10.3); Carbon Dioxide 22 mEq/L (23-29); Chloride 107 mEq/L (98-107); Glucose 222 mg/dL (70-105); Osmolality,Calculated 295 (280-300); Potassium 3.7 mEq/L (3.5-5.1); Sodium 138 mEq/L (136-145); eGFR For African Americans > 60 (> 60); eGFR For Non-African Americans > 60 (> 60)
[2022-01-20] MEDS: cefTRIAXone 1,000 MG in Water for inj. (sterile) 10 ML IVP SCH (08:04)
[2022-01-20] MEDS: *HR* Enoxaparin 40 MG/0.4 ML SYRINGE SQ SCH (08:04)
[2022-01-20] MEDS: *HR* OxyCODONE Oral Soln 5 MG/5 ML UD.LIQ PO PRN (08:06)
[2022-01-20] MEDS ORDERED: Furosemide 40 MG TABLET PO PRN (10:32)
[2022-01-20] MEDS: *HR* OxyCODONE Immed Rel 15 MG TABLET PO PRN ×3 (12:00→22:09)
[2022-01-20] MEDS: Insulin DETEMIR 100 UNIT/ML X5UNITS SUBQ SCH ×3 (12:01→22:28)
[2022-01-20] MEDS: Metoclopramide 10 MG/10 ML UD.LIQ PO SCH ×3 (12:05→22:09)
[2022-01-20] MEDS ORDERED: Methyl Salicylate/Menthol 85 APPL/85 GM TUBE TP PRN (12:40)
[2022-01-20] MEDS ORDERED: Insulin LISPRO 300 UNITS/3 ML VIAL SUBQ ONE (19:50)
[2022-01-20] MEDS ORDERED: Melatonin 3 MG TABLET PO PRN (22:13)
[2022-01-20] MEDS ORDERED: Insulin LISPRO 300 UNITS/3 ML VIAL SUBQ SCH (22:45)
[2022-01-21] MEDS: Ketorolac 30 MG/ML VIAL IVP SCH ×4 (00:20→17:48)
[2022-01-21] MEDS: *HR* OxyCODONE Immed Rel 15 MG TABLET PO PRN ×4 (02:32→20:09)
[2022-01-21] MEDS: Metoclopramide 10 MG/10 ML UD.LIQ PO SCH ×3 (06:30→17:48)
[2022-01-21] MEDS: 0.9 % Sodium Chloride 1,000 ML IVC SCH (06:31)
[2022-01-21] MEDS: Insulin LISPRO 300 UNITS/3 ML VIAL SUBQ SCH ×3 (08:14→15:46)
[2022-01-21] MEDS: cefTRIAXone 1,000 MG in Water for inj. (sterile) 10 ML IVP SCH (08:14)
[2022-01-21] MEDS: Insulin DETEMIR 100 UNIT/ML X5UNITS SUBQ SCH (08:14)
[2022-01-21] MEDS: *HR* Enoxaparin 40 MG/0.4 ML SYRINGE SQ SCH (08:15)
[2022-01-21] MEDS: Ondansetron 4 MG/2 ML VIAL IVP PRN ×2 (10:04→20:21)
[2022-01-21 15:21] VITALS: O2SAT 91
[2022-01-21 19:57] VITALS: BP 170/96; PULSE 102; TEMP 98.6
== END 2022-01-21 20:15 | disposition home or self-care (01) ==
LOC: EMEROOARM 23:16 → 2ANU 23:16 → SUATTDRO 01-19 04:03 → 2ANU 01-19 05:28
PROVIDERS: ADMIT Student in an Organized Health Care Education/Training Program; ATTEND Internal Medicine

== ENCOUNTER 2022-02-03 15:21 | Inpatient (IN) ==
[2022-02-03] MEDS ORDERED: 0.9 % Sodium Chloride 1,000 ML IVC ONE (15:33)
[2022-02-03] MEDS ORDERED: *HR* HYDROmorphone (PF) 1 MG/ML SYRINGE IVP ONE (15:33)
[2022-02-03] MEDS ORDERED: Ondansetron 4 MG/2 ML VIAL IVP ONE (15:33)
[2022-02-03] MEDS ORDERED: Isovue-370 500 ML BOTTLE IVP ONE ×2 (15:34→17:24)
[2022-02-03 16:03] LABS: Basophils # 0.1 K/mcL (0.0-0.2); Basophils % 0.6 %; Eosinophils # 0.3 K/mcL (0.0-0.6); Eosinophils % 2.9 %; Hematocrit 35.4 % (35.3-44.9); Hemoglobin 11.4 g/dL (11.5-15.4); Immature Granulocytes % 0.5 % (0-4); Lymphocytes # 2.1 K/mcL (0.6-4.6); Lymphocytes % 24.5 %; Mean Corpuscular HGB Conc 32.2 g/dL (31.6-35.5); Mean Corpuscular Hemoglobin 28.2 pg (28.0-33.3); Mean Corpuscular Volume 87.6 fL (83.0-100.0); Mean Platelet Volume 9.6 fL (9.4-12.4); Monocytes # 0.8 K/mcL (0.0-1.3); Monocytes % 9.7 %; Neutrophils # 5.3 K/mcL (1.6-8.9); Platelet Count 267 K/mcL (140-400); Red Blood Count 4.04 M/mcL (3.82-4.97); Red Cell Distribution Width 13.7 % (11.5-14.5); Segmented Neutrophils % 61.8 %; White Blood Count 8.6 K/mcL (4.3-11.1)
[2022-02-03 16:32] LABS: Alanine Aminotransferase 14 Units/L (7-52); Albumin 3.4 g/dL (3.5-5.7); Albumin/Globulin Ratio 1.1 (1.1-2.2); Alkaline Phosphatase 122 Units/L (34-104); Amylase 30 Units/L (29-103); Aspartate Amino Transferase 16 Units/L (13-39); BUN/Creatinine Ratio 31 (6-26); Bilirubin,Indirect 0.3 mg/dL (0.0-1.0); Bilirubin,Total 0.3 mg/dL (0.3-1.0); Blood Urea Nitrogen 18 mg/dL (6-20); Calcium 9.3 mg/dL (8.6-10.3); Carbon Dioxide 26 mEq/L (23-29); Chloride 102 mEq/L (98-107); Glucose 239 mg/dL (70-105); Lipase 6 Units/L (11-82); Osmolality,Calculated 292 (280-300); Potassium 4.3 mEq/L (3.5-5.1); Sodium 136 mEq/L (136-145); Total Protein 6.4 g/dL (6.4-8.9); Troponin I 0.26 ng/mL (< 0.04); eGFR For African Americans > 60 (> 60); eGFR For Non-African Americans > 60 (> 60)
[2022-02-03] MEDS ORDERED: *HR* Heparin 5,000 UNIT/ML VIAL IVP ONE (16:34)
[2022-02-03] MEDS ORDERED: *HR* Heparin 5,000 UNIT/ML VIAL IVP PRN (16:34)
[2022-02-03 16:51] LABS: Bilirubin,Urine Negative (Negative); Blood,Urine Moderate (Negative); Clarity,Urine Clear (Clear); Color,Urine Colorless (Yellow); Glucose,Urine (UA) 200 mg/dL (Normal); Ketones,Urine Negative (Negative); Leukocyte Esterase,Urine Negative (Negative); Nitrite,Urine Negative (Negative); Protein,Urine 200 mg/dL (Neg-Trace); RBC,Urine 0-3 per hpf (0-3); Specific Gravity,Urine 1.018 (1.010-1.025); Squamous Epithelial Cell,Urine Few per hpf (None-Few); Urobilinogen,Urine Normal (Normal); WBC,Urine 0-3 per hpf (0-3)
[2022-02-03 16:57] LABS: INR 0.9; Prothrombin Time 9.7 Seconds (9.4-12.1)
[2022-02-03] MEDS ORDERED: *HR* HYDROmorphone (PF) 1 MG/ML SYRINGE IVP STA (16:57)
[2022-02-03 16:59] LABS: Heparin anti-factor XA UFH < 0.04 IU/mL (0.30-0.70)
[2022-02-03] MEDS: Heparin 25,000UNIT/250ML 1/2NS 25,000 UNIT/250 ML IV.SOLN IVC SCH (17:03)
[2022-02-03] MEDS ORDERED: Ondansetron 4 MG/2 ML VIAL IVP PRN (17:45)
[2022-02-03] MEDS ORDERED: Naloxone 0.4 MG/ML INJ IVP PRN (17:45)
[2022-02-03] MEDS ORDERED: *HR* Dextrose 50 % in Water (Syg) 50 ML SYRINGE IVP PRN (17:47)
[2022-02-03] MEDS ORDERED: Dextrose 4 GM Chewable Tablets PO PRN ×2 (17:47)
[2022-02-03] MEDS ORDERED: D5% in Water 1,000 ML IVC PRN (17:47)
[2022-02-03] MEDS ORDERED: *HR* OxyCODONE Immed Rel 5 MG TABLET PO PRN (17:48)
[2022-02-03] MEDS ORDERED: SUMAtriptan succinate 50 MG TABLET PO PRN (17:51)
[2022-02-03] MEDS ORDERED: AMYLASE PO SCH (18:00)
[2022-02-03] MEDS ORDERED: PROTEASE PO SCH (18:00)
[2022-02-03] MEDS ORDERED: LIPASE PO SCH (18:00)
[2022-02-03] MEDS ORDERED: Perflutren Lipid Microsphere 1.3 ML in 0.9 % Sodium Chloride 8.7 ML IVP PRN (18:01)
[2022-02-03] MEDS: Pregabalin 75 MG CAPSULE PO SCH (20:00)
[2022-02-03] MEDS ORDERED: Morphine Sulfate 2 MG/ML SYRINGE IVP ONE (21:13)
[2022-02-03] MEDS: Insulin LISPRO 300 UNITS/3 ML VIAL SUBQ SCH (21:34)
[2022-02-03] MEDS: Insulin DETEMIR 100 UNIT/ML X5UNITS SUBQ SCH (23:38)
[2022-02-03] MEDS: *HR* OxyCODONE Immed Rel 15 MG TABLET PO PRN (23:38)
[2022-02-04] MEDS: *HR* Heparin 5,000 UNIT/ML VIAL IVP PRN ×2 (00:03→14:03)
[2022-02-04 01:56] LABS: Basophils # 0.1 K/mcL (0.0-0.2); Basophils % 0.7 %; Eosinophils # 0.2 K/mcL (0.0-0.6); Eosinophils % 3.2 %; Hematocrit 33.5 % (35.3-44.9); Hemoglobin 10.7 g/dL (11.5-15.4); Immature Granulocytes % 0.4 % (0-4); Lymphocytes # 2.3 K/mcL (0.6-4.6); Lymphocytes % 31.8 %; Mean Corpuscular HGB Conc 31.9 g/dL (31.6-35.5); Mean Corpuscular Hemoglobin 28.4 pg (28.0-33.3); Mean Corpuscular Volume 88.9 fL (83.0-100.0); Mean Platelet Volume 9.8 fL (9.4-12.4); Monocytes # 0.6 K/mcL (0.0-1.3); Monocytes % 7.8 %; Neutrophils # 4.1 K/mcL (1.6-8.9); Platelet Count 254 K/mcL (140-400); Red Blood Count 3.77 M/mcL (3.82-4.97); Red Cell Distribution Width 13.7 % (11.5-14.5); Segmented Neutrophils % 56.1 %; White Blood Count 7.3 K/mcL (4.3-11.1)
[2022-02-04 02:15] LABS: BUN/Creatinine Ratio 27 (6-26); Blood Urea Nitrogen 17 mg/dL (6-20); Calcium 8.8 mg/dL (8.6-10.3); Carbon Dioxide 26 mEq/L (23-29); Chloride 101 mEq/L (98-107); Glucose 284 mg/dL (70-105); Magnesium 1.9 mg/dL (1.6-2.6); Osmolality,Calculated 292 (280-300); Potassium 4.5 mEq/L (3.5-5.1); Sodium 135 mEq/L (136-145); eGFR For African Americans > 60 (> 60); eGFR For Non-African Americans > 60 (> 60)
[2022-02-04 02:33] LABS: Troponin I 0.27 ng/mL (< 0.04)
[2022-02-04] MEDS: Morphine Sulfate 2 MG/ML SYRINGE IVP PRN ×3 (03:18→15:35)
[2022-02-04] MEDS: Insulin LISPRO 300 UNITS/3 ML VIAL SUBQ SCH ×4 (08:13→20:36)
[2022-02-04] MEDS: Pregabalin 75 MG CAPSULE PO SCH ×3 (08:44→20:19)
[2022-02-04] MEDS: *HR* OxyCODONE Immed Rel 15 MG TABLET PO PRN ×3 (08:44→20:18)
[2022-02-04] MEDS: Aspirin 81 MG TAB.CHEW PO SCH (08:45)
[2022-02-04] MEDS: AMYLASE PO SCH ×3 (08:47→17:00)
[2022-02-04] MEDS: PROTEASE PO SCH ×3 (08:47→17:00)
[2022-02-04] MEDS: Insulin DETEMIR 100 UNIT/ML X5UNITS SUBQ SCH ×2 (08:47→20:36)
[2022-02-04] MEDS: LIPASE PO SCH ×3 (08:47→17:00)
[2022-02-04] MEDS ORDERED: PROTEASE PO PRN (11:00)
[2022-02-04] MEDS ORDERED: AMYLASE PO PRN (11:00)
[2022-02-04] MEDS ORDERED: LIPASE PO PRN (11:00)
[2022-02-04] MEDS: Heparin 25,000UNIT/250ML 1/2NS 25,000 UNIT/250 ML IV.SOLN IVC SCH (13:41)
[2022-02-04] MEDS: tiZANidine 4 MG TABLET PO PRN (20:16)
[2022-02-05] MEDS: Morphine Sulfate 2 MG/ML SYRINGE IVP PRN ×4 (03:07→22:25)
[2022-02-05] MEDS: *HR* OxyCODONE Immed Rel 15 MG TABLET PO PRN ×3 (07:42→19:24)
[2022-02-05] MEDS: Pregabalin 75 MG CAPSULE PO SCH ×3 (07:42→21:59)
[2022-02-05] MEDS: Aspirin 81 MG TAB.CHEW PO SCH (07:42)
[2022-02-05] MEDS: AMYLASE PO SCH ×3 (07:43→17:01)
[2022-02-05] MEDS: PROTEASE PO SCH ×3 (07:43→17:01)
[2022-02-05] MEDS: LIPASE PO SCH ×3 (07:43→17:01)
[2022-02-05] MEDS: Sennosides/Docusate Sodium TABLET PO SCH ×2 (07:43→21:59)
[2022-02-05] MEDS: Insulin LISPRO 300 UNITS/3 ML VIAL SUBQ SCH ×4 (07:43→22:01)
[2022-02-05] MEDS: Insulin DETEMIR 100 UNIT/ML X5UNITS SUBQ SCH ×2 (07:43→22:02)
[2022-02-05] MEDS: Heparin 25,000UNIT/250ML 1/2NS 25,000 UNIT/250 ML IV.SOLN IVC SCH (08:12)
[2022-02-05 08:13] LABS: Basophils % 0.4 %; Eosinophils # 0.3 K/mcL (0.0-0.6); Hematocrit 33.9 % (35.3-44.9); Hemoglobin 10.7 g/dL (11.5-15.4); Immature Granulocytes % 0.6 % (0-4); Lymphocytes # 2.3 K/mcL (0.6-4.6); Lymphocytes % 34.3 %; Mean Corpuscular HGB Conc 31.6 g/dL (31.6-35.5); Mean Corpuscular Hemoglobin 28.2 pg (28.0-33.3); Mean Corpuscular Volume 89.4 fL (83.0-100.0); Mean Platelet Volume 9.3 fL (9.4-12.4); Monocytes # 0.6 K/mcL (0.0-1.3); Monocytes % 8.2 %; Neutrophils # 3.6 K/mcL (1.6-8.9); Platelet Count 275 K/mcL (140-400); Red Blood Count 3.79 M/mcL (3.82-4.97); Red Cell Distribution Width 13.4 % (11.5-14.5); Segmented Neutrophils % 52.5 %; White Blood Count 6.8 K/mcL (4.3-11.1)
[2022-02-05 08:32] LABS: BUN/Creatinine Ratio 39 (6-26); Blood Urea Nitrogen 32 mg/dL (6-20); Calcium 8.9 mg/dL (8.6-10.3); Carbon Dioxide 31 mEq/L (23-29); Chloride 100 mEq/L (98-107); Glucose 196 mg/dL (70-105); Osmolality,Calculated 294 (280-300); Potassium 4.3 mEq/L (3.5-5.1); Sodium 136 mEq/L (136-145); eGFR For African Americans > 60 (> 60); eGFR For Non-African Americans > 60 (> 60)
[2022-02-05] MEDS: Nitroglycerin 0.4 MG TAB.SUBL SL PRN (15:14)
[2022-02-06] MEDS: Nitroglycerin 0.4 MG TAB.SUBL SL PRN ×2 (00:44→09:11)
[2022-02-06] MEDS: *HR* OxyCODONE Immed Rel 15 MG TABLET PO PRN ×2 (02:26→08:40)
[2022-02-06] MEDS: Heparin 25,000UNIT/250ML 1/2NS 25,000 UNIT/250 ML IV.SOLN IVC SCH (03:17)
[2022-02-06 04:50] LABS: Basophils # 0.1 K/mcL (0.0-0.2); Basophils % 0.9 %; Eosinophils # 0.3 K/mcL (0.0-0.6); Hemoglobin 11.1 g/dL (11.5-15.4); Immature Granulocytes % 1.1 % (0-4); Lymphocytes # 2.2 K/mcL (0.6-4.6); Lymphocytes % 29.6 %; Mean Corpuscular HGB Conc 30.8 g/dL (31.6-35.5); Mean Corpuscular Hemoglobin 27.3 pg (28.0-33.3); Mean Corpuscular Volume 88.7 fL (83.0-100.0); Mean Platelet Volume 9.4 fL (9.4-12.4); Monocytes # 0.7 K/mcL (0.0-1.3); Monocytes % 9.9 %; Neutrophils # 4.1 K/mcL (1.6-8.9); Platelet Count 306 K/mcL (140-400); Red Blood Count 4.06 M/mcL (3.82-4.97); Segmented Neutrophils % 54.5 %; White Blood Count 7.5 K/mcL (4.3-11.1)
[2022-02-06 05:07] LABS: BUN/Creatinine Ratio 41 (6-26); Blood Urea Nitrogen 28 mg/dL (6-20); Carbon Dioxide 25 mEq/L (23-29); Chloride 100 mEq/L (98-107); Glucose 437 mg/dL (70-105); Magnesium 1.8 mg/dL (1.6-2.6); Osmolality,Calculated 300 (280-300); Potassium 4.9 mEq/L (3.5-5.1); Sodium 133 mEq/L (136-145); eGFR For African Americans > 60 (> 60); eGFR For Non-African Americans > 60 (> 60)
[2022-02-06] MEDS: *HR* Heparin 5,000 UNIT/ML VIAL IVP PRN (05:35)
[2022-02-06] MEDS: Morphine Sulfate 2 MG/ML SYRINGE IVP PRN ×2 (06:04→12:29)
[2022-02-06] MEDS: Aspirin 81 MG TAB.CHEW PO SCH (08:40)
[2022-02-06] MEDS: Pregabalin 75 MG CAPSULE PO SCH ×3 (08:40→22:40)
[2022-02-06] MEDS: LIPASE PO SCH ×3 (08:41→17:17)
[2022-02-06] MEDS: Insulin DETEMIR 100 UNIT/ML X5UNITS SUBQ SCH ×2 (08:41→23:53)
[2022-02-06] MEDS: PROTEASE PO SCH ×3 (08:41→17:17)
[2022-02-06] MEDS: Sennosides/Docusate Sodium TABLET PO SCH ×2 (08:41→22:41)
[2022-02-06] MEDS: AMYLASE PO SCH ×3 (08:41→17:17)
[2022-02-06] MEDS: Insulin LISPRO 300 UNITS/3 ML VIAL SUBQ SCH ×4 (08:41→23:27)
[2022-02-06] MEDS ORDERED: Nitroglycerin 1,000 MCG/5 ML VIAL IV ONE (13:19)
[2022-02-06] MEDS ORDERED: *HR* Heparin 10,000 UNIT/10 ML VIAL ONE (13:19)
[2022-02-06] MEDS ORDERED: Heparin 1,000 UNITS/500 mL 500 ML ONE (13:19)
[2022-02-06] MEDS ORDERED: ISOVUE-370 200 ML INFUS..BTL ONE (13:19)
[2022-02-06] MEDS ORDERED: 0.9 % Sodium Chloride 2,000 ML ONE (13:19)
[2022-02-06] MEDS ORDERED: *HR* Midazolam HCl 2 MG/2 ML VIAL ONE (13:44)
[2022-02-06] MEDS ORDERED: Tirofiban 12.5 MG/250ML 12.5 MG/250 ML BAG ONE (14:10)
[2022-02-06] MEDS ORDERED: *HR* Ticagrelor 90 MG TABLET ONE (14:20)
[2022-02-06] MEDS ORDERED: Tirofiban 12.5 MG/250ML 12.5 MG/250 ML BAG IVC SCH (14:30)
[2022-02-06] MEDS ORDERED: *HR* LORazepam 2 MG/ML VIAL IVP STA ×2 (17:18→18:12)
[2022-02-06] MEDS ORDERED: *HR* Labetalol 20 MG/4 ML SYRINGE IVP STA (17:26)
[2022-02-06] MEDS ORDERED: Ipratropium/Albuterol Neb 3 ML IH ONE (17:29)
[2022-02-06] MEDS ORDERED: Furosemide 40 MG/4 ML VIAL IVP ONE (17:30)
[2022-02-06] MEDS ORDERED: Furosemide 40 MG/4 ML VIAL ONE (17:30)
[2022-02-06 17:42] LABS: ABG Base Excess 3 mEq/L (-2 to 3); ABG HCO3 29 mEq/L (21-27); ABG Oxygen Saturation 87 % (95-98); ABG PCO2 45 mmHg (35-45); ABG PH 7.41 pH Units (7.32-7.45); ABG PO2 53 mmHg (85-104); ABG TCO2 30 mEq/L (20-26)
[2022-02-06] MEDS ORDERED: Ipratropium/Albuterol Neb 3 ML IH PRN (18:38)
[2022-02-06] MEDS ORDERED: *HR* LORazepam 2 MG/ML VIAL IVP ONE (21:45)
[2022-02-06] MEDS ORDERED: *HR* LORazepam 2 MG/ML VIAL ONE (21:47)
[2022-02-06] MEDS: *HR* Ticagrelor 90 MG TABLET PO SCH (22:40)
[2022-02-07 05:27] LABS: Basophils % 0.4 %; Eosinophils % 0.4 %; Hematocrit 35.4 % (35.3-44.9); Hemoglobin 11.6 g/dL (11.5-15.4); Immature Granulocytes % 0.6 % (0-4); Lymphocytes # 1.6 K/mcL (0.6-4.6); Lymphocytes % 14.6 %; Mean Corpuscular HGB Conc 32.8 g/dL (31.6-35.5); Mean Corpuscular Hemoglobin 27.5 pg (28.0-33.3); Mean Corpuscular Volume 83.9 fL (83.0-100.0); Mean Platelet Volume 9.5 fL (9.4-12.4); Monocytes # 0.9 K/mcL (0.0-1.3); Neutrophils # 8.1 K/mcL (1.6-8.9); Platelet Count 360 K/mcL (140-400); Red Blood Count 4.22 M/mcL (3.82-4.97); Red Cell Distribution Width 13.5 % (11.5-14.5); White Blood Count 10.7 K/mcL (4.3-11.1)
[2022-02-07 05:41] LABS: BUN/Creatinine Ratio 30 (6-26); Blood Urea Nitrogen 18 mg/dL (6-20); Calcium 9.1 mg/dL (8.6-10.3); Carbon Dioxide 28 mEq/L (23-29); Chloride 99 mEq/L (98-107); Glucose 278 mg/dL (70-105); Osmolality,Calculated 298 (280-300); Potassium 3.8 mEq/L (3.5-5.1); Sodium 138 mEq/L (136-145); eGFR For African Americans > 60 (> 60); eGFR For Non-African Americans > 60 (> 60)
[2022-02-07] MEDS: Insulin LISPRO 300 UNITS/3 ML VIAL SUBQ SCH ×4 (08:21→21:21)
[2022-02-07] MEDS: PROTEASE PO SCH ×3 (08:22→17:45)
[2022-02-07] MEDS: Pregabalin 75 MG CAPSULE PO SCH ×3 (08:22→21:20)
[2022-02-07] MEDS: AMYLASE PO SCH ×3 (08:22→17:45)
[2022-02-07] MEDS: LIPASE PO SCH ×3 (08:22→17:45)
[2022-02-07] MEDS: Aspirin 81 MG TAB.CHEW PO SCH (08:23)
[2022-02-07] MEDS: *HR* Ticagrelor 90 MG TABLET PO SCH ×2 (08:23→21:21)
[2022-02-07] MEDS: Sennosides/Docusate Sodium TABLET PO SCH ×2 (08:23→21:21)
[2022-02-07] MEDS: *HR* OxyCODONE Immed Rel 15 MG TABLET PO PRN ×3 (08:24→21:20)
[2022-02-07] MEDS: Insulin DETEMIR 100 UNIT/ML X5UNITS SUBQ SCH ×2 (08:25→21:21)
[2022-02-07] MEDS ORDERED: lisinopriL 5 MG TABLET PO SCH (09:30)
[2022-02-07] MEDS: *HR* HYDROmorphone (PF) 1 MG/ML SYRINGE IVP PRN ×2 (10:25→17:56)
[2022-02-07] MEDS: lisinopriL 10 MG TABLET PO SCH (10:25)
[2022-02-07] MEDS: Furosemide 40 MG/4 ML VIAL IVP SCH (12:23)
[2022-02-07] MEDS ORDERED: carvediloL 6.25 MG TABLET PO SCH (17:00)
[2022-02-07] MEDS: tiZANidine 4 MG TABLET PO PRN (21:20)
[2022-02-08] MEDS: *HR* HYDROmorphone (PF) 1 MG/ML SYRINGE IVP PRN (02:28)
[2022-02-08 04:48] LABS: Basophils % 0.3 %; Eosinophils # 0.3 K/mcL (0.0-0.6); Eosinophils % 1.9 %; Hematocrit 35.1 % (35.3-44.9); Hemoglobin 11.2 g/dL (11.5-15.4); Immature Granulocytes % 0.5 % (0-4); Lymphocytes # 2.4 K/mcL (0.6-4.6); Lymphocytes % 17.9 %; Mean Corpuscular HGB Conc 31.9 g/dL (31.6-35.5); Mean Corpuscular Hemoglobin 27.7 pg (28.0-33.3); Mean Corpuscular Volume 86.7 fL (83.0-100.0); Mean Platelet Volume 9.2 fL (9.4-12.4); Monocytes # 1.2 K/mcL (0.0-1.3); Monocytes % 9.1 %; Neutrophils # 9.2 K/mcL (1.6-8.9); Platelet Count 305 K/mcL (140-400); Red Blood Count 4.05 M/mcL (3.82-4.97); Red Cell Distribution Width 13.7 % (11.5-14.5); Segmented Neutrophils % 70.3 %; White Blood Count 13.1 K/mcL (4.3-11.1)
[2022-02-08 04:57] LABS: BUN/Creatinine Ratio 38 (6-26); Blood Urea Nitrogen 28 mg/dL (6-20); Calcium 8.9 mg/dL (8.6-10.3); Carbon Dioxide 30 mEq/L (23-29); Chloride 99 mEq/L (98-107); Glucose 371 mg/dL (70-105); Osmolality,Calculated 303 (280-300); Potassium 4.2 mEq/L (3.5-5.1); Sodium 136 mEq/L (136-145); eGFR For African Americans > 60 (> 60); eGFR For Non-African Americans > 60 (> 60)
[2022-02-08] MEDS: *HR* OxyCODONE Immed Rel 15 MG TABLET PO PRN ×2 (06:15→10:40)
[2022-02-08] MEDS: Insulin LISPRO 300 UNITS/3 ML VIAL SUBQ SCH ×2 (09:31→13:54)
[2022-02-08] MEDS: LIPASE PO SCH ×2 (09:33→13:54)
[2022-02-08] MEDS: PROTEASE PO SCH ×2 (09:33→13:54)
[2022-02-08] MEDS: AMYLASE PO SCH ×2 (09:33→13:54)
[2022-02-08] MEDS: lisinopriL 10 MG TABLET PO SCH (09:34)
[2022-02-08] MEDS: Furosemide 40 MG/4 ML VIAL IVP SCH (09:34)
[2022-02-08] MEDS: Aspirin 81 MG TAB.CHEW PO SCH (09:35)
[2022-02-08] MEDS: *HR* Ticagrelor 90 MG TABLET PO SCH (09:35)
[2022-02-08] MEDS: Sennosides/Docusate Sodium TABLET PO SCH (09:36)
[2022-02-08] MEDS: Pregabalin 75 MG CAPSULE PO SCH (09:36)
[2022-02-08] MEDS: carvediloL 6.25 MG TABLET PO ONE ×2 (09:36→10:40)
[2022-02-08] MEDS: Insulin DETEMIR 100 UNIT/ML X5UNITS SUBQ SCH (09:47)
[2022-02-08 11:13] VITALS: BP 145/60; PULSE 90; TEMP 98.4
[2022-02-08 13:21] VITALS: O2SAT 95
[2022-02-08] MEDS ORDERED: carvediloL 6.25 MG TABLET PO SCH (17:00)
== END 2022-02-08 14:07 | disposition home or self-care (01) | DRG 246 ==
LOC: EMEROOARM 15:21 → 2NENU 15:21 → SUATTDRO 17:29 → 2NENU 18:45 → SUATTDRO 02-06 18:04 → 2NNU 02-06 21:33
PROVIDERS: ADMIT Pharmacist; ATTEND Internal Medicine

== ENCOUNTER 2022-02-10 10:42 | Inpatient (IN) ==
[2022-02-10] MEDS ORDERED: 0.9 % Sodium Chloride 1,000 ML IVC ONE ×3 (11:04→13:12)
[2022-02-10 12:20] LABS: Basophils # 0.1 K/mcL (0.0-0.2); Basophils % 0.4 %; Eosinophils # 0.3 K/mcL (0.0-0.6); Eosinophils % 2.7 %; Hematocrit 36.4 % (35.3-44.9); Hemoglobin 11.8 g/dL (11.5-15.4); Immature Platelets 2.9 % (1.1-6.1); Lymphocytes # 2.2 K/mcL (0.6-4.6); Lymphocytes % 17.4 %; Mean Corpuscular HGB Conc 32.4 g/dL (31.6-35.5); Mean Corpuscular Volume 86.5 fL (83.0-100.0); Mean Platelet Volume 9.5 fL (9.4-12.4); Monocytes # 1.3 K/mcL (0.0-1.3); Monocytes % 10.2 %; Neutrophils # 8.6 K/mcL (1.6-8.9); Platelet Count 429 K/mcL (140-400); Red Blood Count 4.21 M/mcL (3.82-4.97); Red Cell Distribution Width 13.9 % (11.5-14.5); Segmented Neutrophils % 68.3 %; White Blood Count 12.6 K/mcL (4.3-11.1)
[2022-02-10 12:29] LABS: Albumin 3.6 g/dL (3.5-5.7); Albumin/Globulin Ratio 1.1 (1.1-2.2); Bilirubin,Indirect 0.4 mg/dL (0.0-1.0); Bilirubin,Total 0.4 mg/dL (0.3-1.0); Globulin 3.2 g/dL (2.4-3.5); Magnesium 2.1 mg/dL (1.6-2.6); Phosphorous 5.2 mg/dL (2.7-4.5); Potassium 4.1 mEq/L (3.5-5.1); Total Protein 6.8 g/dL (6.4-8.9)
[2022-02-10 12:33] LABS: Troponin I 0.35 ng/mL (< 0.04)
[2022-02-10 12:45] LABS: Prothrombin Time 11.3 Seconds (9.4-12.1)
[2022-02-10 12:48] LABS: Activated Partial Thrombo Time 35.6 Seconds (26.0-36.0)
[2022-02-10 13:00] LABS: Amorphous Sediment,Urine Few per hpf (None-Few); Bacteria,Urine Few per hpf (None-Few); Bilirubin,Urine Negative (Negative); Blood,Urine Moderate (Negative); Clarity,Urine Ex.Turbid (Clear); Color,Urine Yellow (Yellow); Glucose,Urine (UA) >=1000 mg/dL (Normal); Hyaline Casts,Urine Few per lpf (None Seen); Ketones,Urine Negative (Negative); Leukocyte Esterase,Urine Large (Negative); Nitrite,Urine Negative (Negative); PH,Urine 5.5 pH Units (5.0-8.0); Protein,Urine 100 mg/dL (Neg-Trace); Renal Epithelial Cells,Urine Few per hpf (None-Few); Specific Gravity,Urine 1.013 (1.010-1.025); Transitional Epi Cells,Urine Few per hpf (None-Few); Urobilinogen,Urine Normal (Normal); WBC,Urine TNTC per hpf (0-3)
[2022-02-10] MEDS ORDERED: Ibuprofen 600 MG TABLET PO ONE (13:23)
[2022-02-10] MEDS ORDERED: Naloxone 0.4 MG/ML INJ IVP PRN (13:58)
[2022-02-10] MEDS ORDERED: SUMAtriptan succinate 50 MG TABLET PO PRN (15:11)
[2022-02-10] MEDS ORDERED: tiZANidine 4 MG TABLET PO PRN (15:13)
[2022-02-10] MEDS: PROTEASE PO SCH (16:21)
[2022-02-10] MEDS: LIPASE PO SCH (16:21)
[2022-02-10] MEDS: AMYLASE PO SCH (16:21)
[2022-02-10] MEDS ORDERED: *HR* Dextrose 50 % in Water (Syg) 50 ML SYRINGE IVP PRN (17:52)
[2022-02-10] MEDS ORDERED: Dextrose Gel 15 GM/37.5 ML TUBE PO PRN ×2 (17:52)
[2022-02-10] MEDS ORDERED: D5% in Water 1,000 ML IVC PRN (17:52)
[2022-02-10] MEDS: Insulin LISPRO 300 UNITS/3 ML VIAL SUBQ SCH ×3 (18:25→20:38)
[2022-02-10] MEDS: *HR* OxyCODONE Immed Rel 15 MG TABLET PO PRN (20:37)
[2022-02-10] MEDS: *HR* Ticagrelor 90 MG TABLET PO SCH (20:37)
[2022-02-10] MEDS: Pregabalin 75 MG CAPSULE PO SCH (20:37)
[2022-02-10 20:53] LABS: Sodium, Urine 59.8 mEq/L
[2022-02-10] MEDS: Insulin DETEMIR 100 UNIT/ML X5UNITS SUBQ SCH (21:43)
[2022-02-10] MEDS ORDERED: Mag Hydrox/Al Hydrox/Simeth 30 ML UDC PO PRN (21:53)
[2022-02-11] MEDS: *HR* OxyCODONE Immed Rel 15 MG TABLET PO PRN ×5 (01:41→19:56)
[2022-02-11 01:48] LABS: Basophils # 0.1 K/mcL (0.0-0.2); Basophils % 0.7 %; Eosinophils # 0.4 K/mcL (0.0-0.6); Eosinophils % 4.2 %; Hemoglobin 10.9 g/dL (11.5-15.4); Lymphocytes # 2.4 K/mcL (0.6-4.6); Lymphocytes % 28.4 %; Mean Corpuscular HGB Conc 32.1 g/dL (31.6-35.5); Mean Corpuscular Volume 87.4 fL (83.0-100.0); Mean Platelet Volume 9.5 fL (9.4-12.4); Monocytes # 0.8 K/mcL (0.0-1.3); Monocytes % 9.6 %; Neutrophils # 4.7 K/mcL (1.6-8.9); Platelet Count 286 K/mcL (140-400); Red Blood Count 3.89 M/mcL (3.82-4.97); Segmented Neutrophils % 56.1 %; White Blood Count 8.4 K/mcL (4.3-11.1)
[2022-02-11 02:07] LABS: Calcium 8.4 mg/dL (8.6-10.3)
[2022-02-11] MEDS: *HR* Heparin 5,000 UNIT/ML VIAL SQ SCH ×2 (06:28→18:13)
[2022-02-11] MEDS: AMYLASE PO SCH ×3 (09:05→15:26)
[2022-02-11] MEDS: PROTEASE PO SCH ×3 (09:05→15:26)
[2022-02-11] MEDS: LIPASE PO SCH ×3 (09:05→15:26)
[2022-02-11] MEDS: Insulin LISPRO 300 UNITS/3 ML VIAL SUBQ SCH ×7 (09:10→21:19)
[2022-02-11] MEDS: Aspirin 81 MG TAB.CHEW PO SCH (09:10)
[2022-02-11] MEDS: Pregabalin 75 MG CAPSULE PO SCH ×3 (09:10→21:19)
[2022-02-11] MEDS: *HR* Ticagrelor 90 MG TABLET PO SCH ×2 (09:11→19:56)
[2022-02-11] MEDS: Insulin DETEMIR 100 UNIT/ML X5UNITS SUBQ SCH ×2 (09:14→21:21)
[2022-02-11] MEDS: tiZANidine 4 MG TABLET PO PRN (18:04)
[2022-02-12] MEDS: *HR* OxyCODONE Immed Rel 15 MG TABLET PO PRN ×5 (00:10→20:59)
[2022-02-12 02:04] LABS: Calcium 8.8 mg/dL (8.6-10.3); Potassium 4.5 mEq/L (3.5-5.1)
[2022-02-12] MEDS: *HR* Heparin 5,000 UNIT/ML VIAL SQ SCH ×2 (05:05→18:27)
[2022-02-12] MEDS: tiZANidine 4 MG TABLET PO PRN (06:19)
[2022-02-12] MEDS: Insulin LISPRO 300 UNITS/3 ML VIAL SUBQ SCH ×7 (07:36→20:56)
[2022-02-12] MEDS: Pregabalin 75 MG CAPSULE PO SCH ×3 (08:50→20:53)
[2022-02-12] MEDS: PROTEASE PO SCH ×3 (09:11→17:19)
[2022-02-12] MEDS: AMYLASE PO SCH ×3 (09:11→17:19)
[2022-02-12] MEDS: *HR* Ticagrelor 90 MG TABLET PO SCH ×2 (09:11→20:54)
[2022-02-12] MEDS: LIPASE PO SCH ×3 (09:11→17:19)
[2022-02-12] MEDS: Aspirin 81 MG TAB.CHEW PO SCH (09:11)
[2022-02-12] MEDS: Insulin DETEMIR 100 UNIT/ML X5UNITS SUBQ SCH ×2 (09:17→20:54)
[2022-02-12] MEDS: cefTRIAXone 1,000 MG in 0.9 % Sodium Chloride 10 ML IVP SCH (15:52)
[2022-02-13 02:22] LABS: Basophils % 0.3 %; Eosinophils # 0.3 K/mcL (0.0-0.6); Eosinophils % 2.2 %; Hematocrit 36.4 % (35.3-44.9); Hemoglobin 11.7 g/dL (11.5-15.4); Immature Granulocytes % 0.5 % (0-4); Lymphocytes # 2.6 K/mcL (0.6-4.6); Lymphocytes % 20.7 %; Mean Corpuscular HGB Conc 32.1 g/dL (31.6-35.5); Mean Corpuscular Volume 87.1 fL (83.0-100.0); Mean Platelet Volume 9.5 fL (9.4-12.4); Monocytes # 0.7 K/mcL (0.0-1.3); Monocytes % 5.5 %; Neutrophils # 8.8 K/mcL (1.6-8.9); Platelet Count 304 K/mcL (140-400); Red Blood Count 4.18 M/mcL (3.82-4.97); Red Cell Distribution Width 13.8 % (11.5-14.5); Segmented Neutrophils % 70.8 %; White Blood Count 12.5 K/mcL (4.3-11.1)
[2022-02-13 02:34] LABS: BUN/Creatinine Ratio 38 (6-26); Blood Urea Nitrogen 35 mg/dL (6-20); Calcium 9.7 mg/dL (8.6-10.3); Carbon Dioxide 25 mEq/L (23-29); Chloride 102 mEq/L (98-107); Glucose 349 mg/dL (70-105); Osmolality,Calculated 302 (280-300); Potassium 4.6 mEq/L (3.5-5.1); Sodium 135 mEq/L (136-145); eGFR For African Americans > 60 (> 60); eGFR For Non-African Americans > 60 (> 60)
[2022-02-13] MEDS: *HR* OxyCODONE Immed Rel 15 MG TABLET PO PRN ×4 (04:54→21:15)
[2022-02-13] MEDS: *HR* Heparin 5,000 UNIT/ML VIAL SQ SCH ×2 (04:55→17:08)
[2022-02-13] MEDS ORDERED: carvediloL 6.25 MG TABLET PO SCH (08:00)
[2022-02-13] MEDS: PROTEASE PO SCH ×3 (08:13→17:08)
[2022-02-13] MEDS: LIPASE PO SCH ×3 (08:13→17:08)
[2022-02-13] MEDS: AMYLASE PO SCH ×3 (08:13→17:08)
[2022-02-13] MEDS: Insulin LISPRO 300 UNITS/3 ML VIAL SUBQ SCH ×7 (08:13→21:17)
[2022-02-13] MEDS: cefTRIAXone 1,000 MG in 0.9 % Sodium Chloride 10 ML IVP SCH (08:14)
[2022-02-13] MEDS: lisinopriL 5 MG TABLET PO SCH (08:14)
[2022-02-13] MEDS: *HR* Ticagrelor 90 MG TABLET PO SCH ×2 (08:15→21:14)
[2022-02-13] MEDS: Aspirin 81 MG TAB.CHEW PO SCH (08:15)
[2022-02-13] MEDS: Pregabalin 75 MG CAPSULE PO SCH ×3 (08:15→21:15)
[2022-02-13] MEDS: Insulin DETEMIR 100 UNIT/ML X5UNITS SUBQ SCH ×2 (08:20→21:15)
[2022-02-14] MEDS: *HR* OxyCODONE Immed Rel 15 MG TABLET PO PRN ×5 (03:30→22:03)
[2022-02-14] MEDS: *HR* Heparin 5,000 UNIT/ML VIAL SQ SCH ×2 (05:27→17:47)
[2022-02-14 06:14] LABS: Basophils # 0.1 K/mcL (0.0-0.2); Basophils % 0.7 %; Eosinophils # 0.4 K/mcL (0.0-0.6); Hematocrit 38.8 % (35.3-44.9); Hemoglobin 12.1 g/dL (11.5-15.4); Immature Granulocytes % 1.1 % (0-4); Lymphocytes # 2.7 K/mcL (0.6-4.6); Lymphocytes % 27.5 %; Mean Corpuscular HGB Conc 31.2 g/dL (31.6-35.5); Mean Corpuscular Hemoglobin 26.9 pg (28.0-33.3); Mean Corpuscular Volume 86.2 fL (83.0-100.0); Mean Platelet Volume 9.4 fL (9.4-12.4); Monocytes # 0.7 K/mcL (0.0-1.3); Monocytes % 7.3 %; Neutrophils # 5.8 K/mcL (1.6-8.9); Platelet Count 310 K/mcL (140-400); Red Cell Distribution Width 13.8 % (11.5-14.5); Segmented Neutrophils % 59.4 %; White Blood Count 9.8 K/mcL (4.3-11.1)
[2022-02-14 07:31] LABS: BUN/Creatinine Ratio 51 (6-26); Blood Urea Nitrogen 40 mg/dL (6-20); Calcium 9.8 mg/dL (8.6-10.3); Carbon Dioxide 25 mEq/L (23-29); Chloride 104 mEq/L (98-107); Glucose 166 mg/dL (70-105); Magnesium 2.2 mg/dL (1.6-2.6); Osmolality,Calculated 300 (280-300); Phosphorous 4.3 mg/dL (2.7-4.5); Potassium 4.1 mEq/L (3.5-5.1); Sodium 138 mEq/L (136-145); eGFR For African Americans > 60 (> 60); eGFR For Non-African Americans > 60 (> 60)
[2022-02-14] MEDS: cefTRIAXone 1,000 MG in 0.9 % Sodium Chloride 10 ML IVP SCH (08:42)
[2022-02-14] MEDS: Pregabalin 75 MG CAPSULE PO SCH ×3 (08:44→20:00)
[2022-02-14] MEDS: *HR* Ticagrelor 90 MG TABLET PO SCH ×2 (08:45→20:01)
[2022-02-14] MEDS: Metoprolol XL (24 HR) Succ 25 MG TAB.ER.24H PO SCH (08:45)
[2022-02-14] MEDS: lisinopriL 5 MG TABLET PO SCH (08:46)
[2022-02-14] MEDS: PROTEASE PO SCH ×3 (08:47→17:47)
[2022-02-14] MEDS: AMYLASE PO SCH ×3 (08:47→17:47)
[2022-02-14] MEDS: LIPASE PO SCH ×3 (08:47→17:47)
[2022-02-14] MEDS: Insulin DETEMIR 100 UNIT/ML X5UNITS SUBQ SCH ×2 (08:58→20:02)
[2022-02-14] MEDS: Aspirin 81 MG TAB.CHEW PO SCH (08:58)
[2022-02-14] MEDS: Insulin LISPRO 300 UNITS/3 ML VIAL SUBQ SCH ×7 (08:59→20:01)
[2022-02-14] MEDS ORDERED: tiZANidine 4 MG TABLET PO ONE (11:16)
[2022-02-14] MEDS ORDERED: Benzocaine 20% 12 APPL GEL..GRAM. TP PRN (12:35)
[2022-02-15 02:27] LABS: Hematocrit 36.7 % (35.3-44.9); Hemoglobin 11.8 g/dL (11.5-15.4); Mean Corpuscular HGB Conc 32.2 g/dL (31.6-35.5); Mean Corpuscular Hemoglobin 27.9 pg (28.0-33.3); Mean Corpuscular Volume 86.8 fL (83.0-100.0); Mean Platelet Volume 9.6 fL (9.4-12.4); Platelet Count 297 K/mcL (140-400); Red Blood Count 4.23 M/mcL (3.82-4.97); Red Cell Distribution Width 13.6 % (11.5-14.5); White Blood Count 11.5 K/mcL (4.3-11.1)
[2022-02-15] MEDS: *HR* OxyCODONE Immed Rel 15 MG TABLET PO PRN ×5 (02:27→23:13)
[2022-02-15 02:36] LABS: BUN/Creatinine Ratio 55 (6-26); Blood Urea Nitrogen 50 mg/dL (6-20); Calcium 9.3 mg/dL (8.6-10.3); Carbon Dioxide 25 mEq/L (23-29); Chloride 99 mEq/L (98-107); Glucose 300 mg/dL (70-105); Osmolality,Calculated 301 (280-300); Potassium 4.7 mEq/L (3.5-5.1); Sodium 133 mEq/L (136-145); eGFR For African Americans > 60 (> 60); eGFR For Non-African Americans > 60 (> 60)
[2022-02-15] MEDS: *HR* Heparin 5,000 UNIT/ML VIAL SQ SCH ×2 (06:02→17:26)
[2022-02-15] MEDS: LIPASE PO SCH ×3 (08:18→17:26)
[2022-02-15] MEDS: AMYLASE PO SCH ×3 (08:18→17:26)
[2022-02-15] MEDS: PROTEASE PO SCH ×3 (08:18→17:26)
[2022-02-15] MEDS: *HR* Ticagrelor 90 MG TABLET PO SCH ×2 (08:18→23:05)
[2022-02-15] MEDS: Pregabalin 75 MG CAPSULE PO SCH ×3 (08:19→23:06)
[2022-02-15] MEDS: Aspirin 81 MG TAB.CHEW PO SCH (08:19)
[2022-02-15] MEDS: Metoprolol XL (24 HR) Succ 25 MG TAB.ER.24H PO SCH (08:20)
[2022-02-15] MEDS: cefTRIAXone 1,000 MG in 0.9 % Sodium Chloride 10 ML IVP SCH (08:22)
[2022-02-15] MEDS: Insulin DETEMIR 100 UNIT/ML X5UNITS SUBQ SCH ×2 (08:24→23:06)
[2022-02-15] MEDS: Insulin LISPRO 300 UNITS/3 ML VIAL SUBQ SCH ×7 (08:24→23:05)
[2022-02-15] MEDS: lisinopriL 5 MG TABLET PO SCH (08:32)
[2022-02-15] MEDS ORDERED: Nitroglycerin 0.4 MG TAB.SUBL SL PRN (09:38)
[2022-02-15] MEDS ORDERED: Morphine Sulfate 2 MG/ML SYRINGE IVP ONE (09:56)
[2022-02-16 04:37] LABS: Basophils # 0.1 K/mcL (0.0-0.2); Basophils % 0.6 %; Eosinophils # 0.4 K/mcL (0.0-0.6); Eosinophils % 3.8 %; Hematocrit 36.2 % (35.3-44.9); Hemoglobin 11.3 g/dL (11.5-15.4); Immature Granulocytes % 1.3 % (0-4); Lymphocytes # 2.8 K/mcL (0.6-4.6); Lymphocytes % 24.7 %; Mean Corpuscular HGB Conc 31.2 g/dL (31.6-35.5); Mean Corpuscular Hemoglobin 27.3 pg (28.0-33.3); Mean Corpuscular Volume 87.4 fL (83.0-100.0); Mean Platelet Volume 9.6 fL (9.4-12.4); Monocytes # 0.8 K/mcL (0.0-1.3); Monocytes % 7.3 %; Neutrophils # 7.2 K/mcL (1.6-8.9); Platelet Count 298 K/mcL (140-400); Red Blood Count 4.14 M/mcL (3.82-4.97); Red Cell Distribution Width 13.8 % (11.5-14.5); Segmented Neutrophils % 62.3 %; White Blood Count 11.5 K/mcL (4.3-11.1)
[2022-02-16 04:42] LABS: INR 0.9; Prothrombin Time 10.1 Seconds (9.4-12.1)
[2022-02-16 04:55] LABS: Calcium 9.3 mg/dL (8.6-10.3); Potassium 5.4 mEq/L (3.5-5.1)
[2022-02-16] MEDS: *HR* Heparin 5,000 UNIT/ML VIAL SQ SCH ×3 (06:28→17:29)
[2022-02-16] MEDS: Insulin LISPRO 300 UNITS/3 ML VIAL SUBQ SCH ×7 (07:20→19:58)
[2022-02-16] MEDS ORDERED: 0.9 % Sodium Chloride 250 ML IVC ONE (08:29)
[2022-02-16] MEDS: *HR* OxyCODONE Immed Rel 15 MG TABLET PO PRN ×3 (08:49→18:40)
[2022-02-16] MEDS: lisinopriL 5 MG TABLET PO SCH (08:49)
[2022-02-16] MEDS: *HR* Ticagrelor 90 MG TABLET PO SCH ×2 (08:49→19:58)
[2022-02-16] MEDS: Pregabalin 75 MG CAPSULE PO SCH (08:49)
[2022-02-16] MEDS: Metoprolol XL (24 HR) Succ 25 MG TAB.ER.24H PO SCH (08:50)
[2022-02-16] MEDS: Aspirin 81 MG TAB.CHEW PO SCH (08:50)
[2022-02-16] MEDS: PROTEASE PO SCH ×3 (08:51→17:29)
[2022-02-16] MEDS: AMYLASE PO SCH ×3 (08:51→17:29)
[2022-02-16] MEDS: cefTRIAXone 1,000 MG in 0.9 % Sodium Chloride 10 ML IVP SCH (08:51)
[2022-02-16] MEDS: Insulin DETEMIR 100 UNIT/ML X5UNITS SUBQ SCH ×2 (08:51→19:58)
[2022-02-16] MEDS: LIPASE PO SCH ×3 (08:51→17:29)
[2022-02-16 12:05] LABS: Calcium 9.2 mg/dL (8.6-10.3); Potassium 5.2 mEq/L (3.5-5.1)
[2022-02-16] MEDS ORDERED: Nitroglycerin 1,000 MCG/5 ML VIAL IV ONE (13:33)
[2022-02-16] MEDS ORDERED: 0.9 % Sodium Chloride 2,000 ML ONE (13:33)
[2022-02-16] MEDS ORDERED: ISOVUE-370 200 ML INFUS..BTL ONE (13:33)
[2022-02-16] MEDS ORDERED: Heparin 1,000 UNITS/500 mL 500 ML ONE (13:33)
[2022-02-16] MEDS ORDERED: *HR* Heparin 10,000 UNIT/10 ML VIAL ONE (13:33)
[2022-02-16] MEDS ORDERED: *HR* Midazolam HCl 2 MG/2 ML VIAL ONE (15:43)
[2022-02-16] MEDS ORDERED: 0.9 % Sodium Chloride 1,000 ML ONE (15:55)
[2022-02-16] MEDS ORDERED: Morphine Sulfate 2 MG/ML SYRINGE ONE ×2 (16:19→16:25)
[2022-02-16] MEDS: 0.9 % Sodium Chloride 500 ML IVC SCH (17:45)
[2022-02-17] MEDS: *HR* OxyCODONE Immed Rel 15 MG TABLET PO PRN ×2 (00:25→06:09)
[2022-02-17 05:42] LABS: Hematocrit 37.5 % (35.3-44.9); Hemoglobin 11.9 g/dL (11.5-15.4)
[2022-02-17 06:08] LABS: BUN/Creatinine Ratio 55 (6-26); Blood Urea Nitrogen 52 mg/dL (6-20); eGFR For African Americans > 60 (> 60); eGFR For Non-African Americans > 60 (> 60)
[2022-02-17] MEDS: *HR* Heparin 5,000 UNIT/ML VIAL SQ SCH (06:08)
[2022-02-17 07:05] VITALS: BP 119/54; PULSE 98; TEMP 98.1; O2SAT 96
[2022-02-17] MEDS: Insulin LISPRO 300 UNITS/3 ML VIAL SUBQ SCH ×2 (08:14)
[2022-02-17] MEDS: lisinopriL 5 MG TABLET PO SCH (08:15)
[2022-02-17] MEDS: Metoprolol XL (24 HR) Succ 25 MG TAB.ER.24H PO SCH (08:16)
[2022-02-17] MEDS: *HR* Ticagrelor 90 MG TABLET PO SCH (08:17)
[2022-02-17] MEDS: AMYLASE PO SCH (08:17)
[2022-02-17] MEDS: PROTEASE PO SCH (08:17)
[2022-02-17] MEDS: LIPASE PO SCH (08:17)
[2022-02-17] MEDS: Insulin DETEMIR 100 UNIT/ML X5UNITS SUBQ SCH (08:18)
[2022-02-17] MEDS: Aspirin 81 MG TAB.CHEW PO SCH (08:18)
[2022-02-17] MEDS: cefTRIAXone 1,000 MG in 0.9 % Sodium Chloride 10 ML IVP SCH (08:21)
[2022-02-17] MEDS: 0.9 % Sodium Chloride 500 ML IVC SCH (08:30)
== END 2022-02-17 10:58 | disposition home or self-care (01) | DRG 982 ==
LOC: EMEROOARM 10:42 → 3BNU 10:42 → SUATTDRO 14:23 → 3BNU 15:43 → SUATTDRO 02-12 10:57
PROVIDERS: ADMIT Internal Medicine; ATTEND Student in an Organized Health Care Education/Training Program

== ENCOUNTER 2022-03-15 23:32 | Observation (INO) ==
[2022-03-16] MEDS ORDERED: Morphine Sulfate 2 MG/ML SYRINGE IVP ONE ×4 (00:01→09:32)
[2022-03-16 00:31] LABS: Basophils # 0.1 K/mcL (0.0-0.2); Basophils % 0.5 %; Eosinophils # 0.1 K/mcL (0.0-0.6); Eosinophils % 1.1 %; Hematocrit 36.5 % (35.3-44.9); Hemoglobin 11.9 g/dL (11.5-15.4); Immature Granulocytes % 0.3 % (0-4); Lymphocytes # 2.6 K/mcL (0.6-4.6); Mean Corpuscular HGB Conc 32.6 g/dL (31.6-35.5); Mean Corpuscular Hemoglobin 27.6 pg (28.0-33.3); Mean Corpuscular Volume 84.7 fL (83.0-100.0); Mean Platelet Volume 9.4 fL (9.4-12.4); Monocytes # 0.5 K/mcL (0.0-1.3); Monocytes % 4.9 %; Neutrophils # 6.8 K/mcL (1.6-8.9); Platelet Count 293 K/mcL (140-400); Red Blood Count 4.31 M/mcL (3.82-4.97); Red Cell Distribution Width 13.5 % (11.5-14.5); Segmented Neutrophils % 67.2 %; White Blood Count 10.2 K/mcL (4.3-11.1)
[2022-03-16 00:37] LABS: Alanine Aminotransferase 12 Units/L (7-52); Albumin 3.7 g/dL (3.5-5.7); Albumin/Globulin Ratio 1.1 (1.1-2.2); Alkaline Phosphatase 163 Units/L (34-104); Aspartate Amino Transferase 14 Units/L (13-39); BUN/Creatinine Ratio 27 (6-26); Bilirubin,Total 0.4 mg/dL (0.3-1.0); Blood Urea Nitrogen 22 mg/dL (6-20); Calcium 9.5 mg/dL (8.6-10.3); Carbon Dioxide 23 mEq/L (23-29); Chloride 98 mEq/L (98-107); Globulin 3.3 g/dL (2.4-3.5); Glucose 493 mg/dL (70-105); Osmolality,Calculated 303 (280-300); Potassium 3.9 mEq/L (3.5-5.1); Sodium 134 mEq/L (136-145); Troponin I < 0.03 ng/mL (< 0.04); eGFR For African Americans > 60 (> 60); eGFR For Non-African Americans > 60 (> 60)
[2022-03-16 00:51] LABS: Thyroid Stimulating Hormone 2.011 mcIU/mL (0.340-5.600)
[2022-03-16] MEDS ORDERED: *HR* HYDROmorphone (PF) 1 MG/ML SYRINGE IVP ONE (01:00)
[2022-03-16] MEDS ORDERED: Iopamidol - 370 500 ML MLS IVP ONE (01:05)
[2022-03-16 02:44] LABS: VBG HCO3 25 mEq/L (21-27); VBG PCO2 42 mmHg (41-51); VBG PH 7.39 pH Units (7.32-7.42); VBG PO2 177 mmHg (25-50)
[2022-03-16] MEDS ORDERED: Insulin LISPRO 300 UNITS/3 ML VIAL SUBQ ONE (03:09)
[2022-03-16] MEDS ORDERED: Perflutren Lipid Microsphere 1.3 ML in 0.9 % Sodium Chloride 8.7 ML IVP PRN ×2 (04:36→10:04)
[2022-03-16] MEDS ORDERED: Naloxone 0.4 MG/ML INJ IVP PRN (04:39)
[2022-03-16] MEDS ORDERED: Ondansetron 4 MG/2 ML VIAL IVP PRN (04:39)
[2022-03-16] MEDS ORDERED: *HR* LORazepam 2 MG/ML VIAL IVP ONE ×2 (04:41→07:30)
[2022-03-16] MEDS ORDERED: Nitroglycerin 0.4 MG TAB.SUBL SL PRN (04:48)
[2022-03-16] MEDS ORDERED: D5% in Water 1,000 ML IVC PRN (04:50)
[2022-03-16] MEDS ORDERED: *HR* Dextrose 50 % in Water (Syg) 50 ML SYRINGE IVP PRN (04:50)
[2022-03-16] MEDS ORDERED: Dextrose Gel 15 GM/37.5 ML TUBE PO PRN ×2 (04:50)
[2022-03-16] MEDS ORDERED: *HR* Heparin 5,000 UNIT/ML VIAL IVP ONE (05:00)
[2022-03-16] MEDS ORDERED: Heparin 25,000UNIT/250ML 1/2NS 25,000 UNIT/250 ML IV.SOLN IVC SCH (05:00)
[2022-03-16] MEDS ORDERED: *HR* Heparin 5,000 UNIT/ML VIAL IVP PRN ×2 (05:00)
[2022-03-16] MEDS: Insulin LISPRO 300 UNITS/3 ML VIAL SUBQ SCH ×4 (05:30→23:29)
[2022-03-16 06:10] LABS: INR 0.9; Prothrombin Time 10.2 Seconds (9.4-12.1)
[2022-03-16 06:15] LABS: Activated Partial Thrombo Time 16.6 Seconds (26.0-36.0)
[2022-03-16 06:18] LABS: Cholesterol 180 mg/dL (< 200); HDL Cholesterol 36 mg/dL (40-59); Triglycerides 537 mg/dL (< 150)
[2022-03-16] MEDS: Isosorbide MONOnitrate (24 HR) 30 MG TAB.ER.24H PO SCH (11:05)
[2022-03-16] MEDS: Aspirin 81 MG TAB.CHEW PO SCH (11:05)
[2022-03-16] MEDS: *HR* Ticagrelor 90 MG TABLET PO SCH ×2 (11:05→20:41)
[2022-03-16] MEDS: Metoprolol XL (24 HR) Succ 25 MG TAB.ER.24H PO SCH (11:05)
[2022-03-16 12:06] LABS: Estimated Average Glucose 278 mg/dl; Hemoglobin A1C 11.3 %
[2022-03-16] MEDS: *HR* OxyCODONE Immed Rel 15 MG TABLET PO PRN ×2 (15:11→20:41)
[2022-03-16] MEDS: Lipase (12,000 UN)/Protease (38,000 UN)/Amylase (60,000 UN) 1 EACH CAP.DR PO SCH (18:24)
[2022-03-16] MEDS: *HR* Heparin 5,000 UNIT/ML VIAL SQ SCH (18:25)
[2022-03-16] MEDS ORDERED: Insulin DETEMIR 100 UNIT/ML X5UNITS SUBQ SCH (21:00)
[2022-03-16] MEDS ORDERED: tiZANidine 4 MG TABLET PO ONE (23:01)
[2022-03-17 03:15] LABS: Hematocrit 33.2 % (35.3-44.9); Hemoglobin 10.8 g/dL (11.5-15.4); Mean Corpuscular HGB Conc 32.5 g/dL (31.6-35.5); Mean Corpuscular Hemoglobin 27.9 pg (28.0-33.3); Mean Corpuscular Volume 85.8 fL (83.0-100.0); Mean Platelet Volume 9.4 fL (9.4-12.4); Platelet Count 275 K/mcL (140-400); Red Blood Count 3.87 M/mcL (3.82-4.97); Red Cell Distribution Width 13.7 % (11.5-14.5); White Blood Count 8.3 K/mcL (4.3-11.1)
[2022-03-17 03:21] LABS: BUN/Creatinine Ratio 28 (6-26); Blood Urea Nitrogen 18 mg/dL (6-20); Calcium 9.4 mg/dL (8.6-10.3); Carbon Dioxide 23 mEq/L (23-29); Chloride 101 mEq/L (98-107); Glucose 296 mg/dL (70-105); Osmolality,Calculated 293 (280-300); Potassium 3.6 mEq/L (3.5-5.1); Sodium 135 mEq/L (136-145); eGFR For African Americans > 60 (> 60); eGFR For Non-African Americans > 60 (> 60)
[2022-03-17] MEDS: *HR* OxyCODONE Immed Rel 15 MG TABLET PO PRN ×4 (04:16→16:48)
[2022-03-17] MEDS: *HR* Heparin 5,000 UNIT/ML VIAL SQ SCH ×2 (06:17→18:11)
[2022-03-17] MEDS: Insulin LISPRO 300 UNITS/3 ML VIAL SUBQ SCH ×3 (07:20→18:14)
[2022-03-17] MEDS: Isosorbide MONOnitrate (24 HR) 30 MG TAB.ER.24H PO SCH (08:23)
[2022-03-17] MEDS: Aspirin 81 MG TAB.CHEW PO SCH (08:24)
[2022-03-17] MEDS: *HR* Ticagrelor 90 MG TABLET PO SCH ×2 (08:24→20:11)
[2022-03-17] MEDS: Lipase (12,000 UN)/Protease (38,000 UN)/Amylase (60,000 UN) 1 EACH CAP.DR PO SCH ×3 (08:24→16:48)
[2022-03-17] MEDS: Metoprolol XL (24 HR) Succ 25 MG TAB.ER.24H PO SCH (08:24)
[2022-03-17] MEDS ORDERED: lisinopriL 10 MG TABLET PO SCH (09:00)
[2022-03-17 19:39] VITALS: BP 162/76; PULSE 91; TEMP 97.7; O2SAT 94
[2022-03-17] MEDS ORDERED: Insulin LISPRO 300 UNITS/3 ML VIAL SUBQ SCH (21:00)
[2022-03-17] MEDS ORDERED: Insulin DETEMIR 100 UNIT/ML X5UNITS SUBQ SCH (21:00)
== END 2022-03-17 20:40 | disposition home or self-care (01) ==
LOC: EMEROOARM 23:32 → 3BNU 23:32 → SUATTDRO 03-16 03:37 → 3BNU 03-16 04:09
PROVIDERS: ADMIT Internal Medicine; ATTEND Nurse Practitioner

== ENCOUNTER 2022-06-02 15:12 | Inpatient (IN) ==
[2022-06-02] MEDS: 0.9 % Sodium Chloride 1,000 ML IVC SCH ×2 (16:51→22:04)
[2022-06-02 17:00] LABS: Basophils % 0.2 %; Eosinophils % 0.1 %; Hematocrit 43.7 % (35.3-44.9); Hemoglobin 14.7 g/dL (11.5-15.4); Immature Granulocytes % 0.3 % (0-4); Lymphocytes # 1.3 K/mcL (0.6-4.6); Lymphocytes % 12.2 %; Mean Corpuscular HGB Conc 33.6 g/dL (31.6-35.5); Mean Corpuscular Hemoglobin 27.9 pg (28.0-33.3); Mean Corpuscular Volume 82.9 fL (83.0-100.0); Mean Platelet Volume 9.1 fL (9.4-12.4); Monocytes # 0.6 K/mcL (0.0-1.3); Monocytes % 5.7 %; Neutrophils # 8.9 K/mcL (1.6-8.9); Platelet Count 362 K/mcL (140-400); Red Blood Count 5.27 M/mcL (3.82-4.97); Red Cell Distribution Width 13.6 % (11.5-14.5); Segmented Neutrophils % 81.5 %; White Blood Count 10.9 K/mcL (4.3-11.1)
[2022-06-02 17:05] LABS: VBG HCO3 22 mEq/L (21-27); VBG PCO2 29 mmHg (41-51); VBG PH 7.48 pH Units (7.32-7.42); VBG PO2 121 mmHg (25-50)
[2022-06-02] MEDS ORDERED: Ondansetron 4 MG/2 ML VIAL IVP ONE (17:18)
[2022-06-02] MEDS ORDERED: Morphine Sulfate 2 MG/ML SYRINGE IVP ONE ×2 (17:18→20:12)
[2022-06-02 17:23] LABS: Alanine Aminotransferase 26 Units/L (7-52); Albumin 3.7 g/dL (3.5-5.7); Alkaline Phosphatase 221 Units/L (34-104); Aspartate Amino Transferase 13 Units/L (13-39); BUN/Creatinine Ratio 28 (6-26); Bilirubin,Total 0.6 mg/dL (0.3-1.0); Blood Urea Nitrogen 19 mg/dL (6-20); Calcium 9.4 mg/dL (8.6-10.3); Carbon Dioxide 21 mEq/L (23-29); Chloride 100 mEq/L (98-107); Globulin 3.6 g/dL (2.4-3.5); Glucose 418 mg/dL (70-105); Lipase 21 Units/L (11-82); Osmolality,Calculated 296 (280-300); Potassium 3.6 mEq/L (3.5-5.1); Sodium 133 mEq/L (136-145); Total Protein 7.3 g/dL (6.4-8.9); Troponin I < 0.03 ng/mL (< 0.04)
[2022-06-02 17:57] LABS: Adenovirus Not Detected (Not Detect); Bordetella Pertussis Not Detected (Not Detect); Chlamydophila pneumoniae Not Detected (Not Detect); Coronavirus 229E Not Detected (Not Detect); Coronavirus HKU1 Not Detected (Not Detect); Coronavirus NL63 Not Detected (Not Detect); Coronavirus OC43 Not Detected (Not Detect); Human Metapneumovirus Not Detected (Not Detect); Human Rhinovirus/Enterovirus Not Detected (Not Detect); Influenza A Subtype 2009 H1 Not Detected (Not Detect); Influenza B Not Detected (Not Detect); Mycoplasma pneumoniae Not Detected (Not Detect); Parainfluenza Virus 1 Not Detected (Not Detect); Parainfluenza Virus 2 Not Detected (Not Detect); Parainfluenza Virus 3 Not Detected (Not Detect); Parainfluenza Virus 4 Not Detected (Not Detect); Respiratory Syncytial Virus Not Detected (Not Detect); SARS-CoV-2 Not Detected (Not Detect)
[2022-06-02] MEDS ORDERED: Iopamidol - 370 500 ML MLS IVP ONE (18:34)
[2022-06-02 19:57] LABS: Bilirubin,Urine Negative (Negative); Blood,Urine Moderate (Negative); Clarity,Urine Clear (Clear); Color,Urine Light-Yellow (Yellow); Glucose,Urine (UA) >=1000 mg/dL (Normal); Ketones,Urine Trace mg/dL (Negative); Leukocyte Esterase,Urine Moderate (Negative); Mucus,Urine Few per lpf (None-Few); Nitrite,Urine Negative (Negative); Protein,Urine >=300 mg/dL (Neg-Trace); RBC,Urine 15-30 per hpf (0-3); Specific Gravity,Urine > 1.030 (1.010-1.025); Squamous Epithelial Cell,Urine Many per hpf (None-Few); Urobilinogen,Urine Normal (Normal); WBC,Urine 30-50 per hpf (0-3)
[2022-06-02] MEDS ORDERED: D5% in Water 1,000 ML IVC PRN (21:24)
[2022-06-02] MEDS ORDERED: Ondansetron 4 MG/2 ML VIAL IVP PRN (21:24)
[2022-06-02] MEDS ORDERED: Naloxone 0.4 MG/ML INJ IVP PRN (21:24)
[2022-06-02] MEDS ORDERED: *HR* Dextrose 50 % in Water (Syg) 50 ML SYRINGE IVP PRN (21:24)
[2022-06-02] MEDS ORDERED: Acetaminophen IV 1,000 MG/100 ML BAG IVPB ONE (21:24)
[2022-06-02] MEDS ORDERED: Dextrose Gel 15 GM/37.5 ML TUBE PO PRN ×2 (21:24)
[2022-06-02] MEDS: *HR* Ticagrelor 90 MG TABLET PO SCH (22:14)
[2022-06-02] MEDS: Ringers Solution, Lactated 1,000 ML IVC SCH (22:16)
[2022-06-02] MEDS: Insulin DETEMIR 100 UNIT/ML X5UNITS SUBQ SCH (22:59)
[2022-06-02] MEDS: Melatonin 3 MG TABLET PO PRN (23:01)
[2022-06-02 23:12] LABS: Estimated Average Glucose 289 mg/dl; Hemoglobin A1C 11.7 %
[2022-06-03] MEDS: Gabapentin 300 MG CAPSULE PO SCH ×2 (00:48→20:33)
[2022-06-03] MEDS: Insulin LISPRO 300 UNITS/3 ML VIAL SUBQ SCH ×4 (00:48→17:46)
[2022-06-03] MEDS ORDERED: Acetaminophen IV 1,000 MG/100 ML BAG IVPB ONE ×2 (03:55→20:08)
[2022-06-03] MEDS: *HR* Heparin 5,000 UNIT/ML VIAL SQ SCH ×2 (05:50→17:45)
[2022-06-03] MEDS ORDERED: Ketorolac 30 MG/ML VIAL IVP ONE (05:53)
[2022-06-03] MEDS: Insulin DETEMIR 100 UNIT/ML X5UNITS SUBQ SCH ×2 (08:40→20:39)
[2022-06-03] MEDS: Metoprolol XL (24 HR) Succ 25 MG TAB.ER.24H PO SCH (08:40)
[2022-06-03] MEDS: lisinopriL 5 MG TABLET PO SCH (08:41)
[2022-06-03] MEDS: Aspirin 81 MG TAB.CHEW PO SCH (08:41)
[2022-06-03] MEDS: *HR* Ticagrelor 90 MG TABLET PO SCH ×2 (08:41→20:33)
[2022-06-03] MEDS: Ringers Solution, Lactated 1,000 ML IVC SCH (08:42)
[2022-06-03 09:02] LABS: Basophils % 0.3 %; Eosinophils # 0.1 K/mcL (0.0-0.6); Eosinophils % 1.9 %; Hematocrit 38.9 % (35.3-44.9); Immature Granulocytes % 0.4 % (0-4); Lymphocytes # 1.7 K/mcL (0.6-4.6); Lymphocytes % 22.6 %; Mean Corpuscular HGB Conc 32.1 g/dL (31.6-35.5); Mean Corpuscular Hemoglobin 27.4 pg (28.0-33.3); Mean Corpuscular Volume 85.3 fL (83.0-100.0); Mean Platelet Volume 8.8 fL (9.4-12.4); Monocytes # 0.5 K/mcL (0.0-1.3); Neutrophils # 5.2 K/mcL (1.6-8.9); Platelet Count 287 K/mcL (140-400); Red Blood Count 4.56 M/mcL (3.82-4.97); Red Cell Distribution Width 13.8 % (11.5-14.5); Segmented Neutrophils % 68.8 %; White Blood Count 7.5 K/mcL (4.3-11.1)
[2022-06-03 09:03] LABS: Hemoglobin 12.5 g/dL (11.5-15.4)
[2022-06-03 09:11] LABS: Prothrombin Time 11.3 Seconds (9.4-12.1)
[2022-06-03 09:13] LABS: Activated Partial Thrombo Time 32.1 Seconds (26.0-36.0)
[2022-06-03 09:24] LABS: Alanine Aminotransferase 19 Units/L (7-52); Albumin 3.1 g/dL (3.5-5.7); Albumin/Globulin Ratio 1.1 (1.1-2.2); Alkaline Phosphatase 169 Units/L (34-104); Aspartate Amino Transferase 13 Units/L (13-39); BUN/Creatinine Ratio 32 (6-26); Bilirubin,Total 0.4 mg/dL (0.3-1.0); Blood Urea Nitrogen 24 mg/dL (6-20); Calcium 8.6 mg/dL (8.6-10.3); Carbon Dioxide 24 mEq/L (23-29); Chloride 108 mEq/L (98-107); Cholesterol 239 mg/dL (< 200); Globulin 2.7 g/dL (2.4-3.5); Glucose 141 mg/dL (70-105); HDL Cholesterol 40 mg/dL (40-59); LDL Cholesterol,Calculated 123 mg/dL (< 100); Magnesium 1.9 mg/dL (1.6-2.6); Osmolality,Calculated 292 (280-300); Phosphorous 3.9 mg/dL (2.7-4.5); Potassium 3.5 mEq/L (3.5-5.1); Sodium 138 mEq/L (136-145); Total Protein 5.8 g/dL (6.4-8.9); Triglycerides 379 mg/dL (< 150)
[2022-06-03] MEDS: cefTRIAXone 1,000 MG in 0.9 % Sodium Chloride Mini Bag 100 ML IVPB SCH (12:13)
[2022-06-03] MEDS: Morphine Sulfate 2 MG/ML SYRINGE IVP PRN ×3 (13:41→21:51)
[2022-06-04] MEDS: *HR* OxyCODONE Immed Rel 15 MG TABLET PO PRN ×5 (00:21→21:49)
[2022-06-04] MEDS: Melatonin 3 MG TABLET PO PRN ×2 (00:21→21:53)
[2022-06-04] MEDS: Insulin LISPRO 300 UNITS/3 ML VIAL SUBQ SCH ×5 (00:22→21:54)
[2022-06-04] MEDS: *HR* Heparin 5,000 UNIT/ML VIAL SQ SCH ×2 (05:32→17:06)
[2022-06-04] MEDS: Aspirin 81 MG TAB.CHEW PO SCH (07:52)
[2022-06-04] MEDS: Metoprolol XL (24 HR) Succ 25 MG TAB.ER.24H PO SCH (07:52)
[2022-06-04] MEDS: lisinopriL 5 MG TABLET PO SCH (07:52)
[2022-06-04] MEDS: cefTRIAXone 1,000 MG in 0.9 % Sodium Chloride Mini Bag 100 ML IVPB SCH (07:53)
[2022-06-04] MEDS: Insulin DETEMIR 100 UNIT/ML X5UNITS SUBQ SCH (07:54)
[2022-06-04] MEDS: *HR* Ticagrelor 90 MG TABLET PO SCH ×2 (07:54→21:49)
[2022-06-04 18:48] LABS: Adenovirus F 40/41 PCR Not detected (Not detect); Astrovirus PCR Not detected (Not detect); C.difficile Toxin A/B Gene PCR Not detected (Not detect); Campylobacter by PCR Not detected (Not detect); Cryptosporidium by PCR Not detected (Not detect); Cyclospora cayetanensis PCR Not detected (Not detect); Entamoeba histolytica PCR Not detected (Not detect); Enteroaggregative E.coli(EAEC) Not detected (Not detect); Enteropathogenic E.coli(EPEC) Not detected (Not detect); Enterotoxigenic E.coli (ETEC) Not detected (Not detect); Giardia lamblia PCR Not detected (Not detect); Norovirus GI/GII PCR Not detected (Not detect); Plesiomonas shigelloides PCR Not detected (Not detect); Rotavirus A PCR Not detected (Not detect); Salmonella PCR Not detected (Not detect); Sapovirus PCR Not detected (Not detect); Shig/EnteroinvasiveE coli EIEC Not detected (Not detect); Shigalike tox-prod E coli STEC Not detected (Not detect); Vibrio PCR Not detected (Not detect); Vibrio cholerae PCR Not detected (Not detect); Yersinia enterocolitica PCR Not detected (Not detect)
[2022-06-04] MEDS ORDERED: Insulin DETEMIR 100 UNIT/ML X5UNITS SUBQ SCH (21:00)
[2022-06-04] MEDS ORDERED: Ondansetron 4 MG/2 ML VIAL IVP ONE (21:16)
[2022-06-04] MEDS: Gabapentin 300 MG CAPSULE PO SCH (21:49)
[2022-06-05] MEDS: *HR* Heparin 5,000 UNIT/ML VIAL SQ SCH ×2 (05:23→16:25)
[2022-06-05] MEDS: *HR* OxyCODONE Immed Rel 15 MG TABLET PO PRN ×4 (05:25→20:33)
[2022-06-05] MEDS: Insulin LISPRO 300 UNITS/3 ML VIAL SUBQ SCH ×4 (08:56→20:34)
[2022-06-05] MEDS: Aspirin 81 MG TAB.CHEW PO SCH (08:58)
[2022-06-05] MEDS: *HR* Ticagrelor 90 MG TABLET PO SCH ×2 (08:58→20:33)
[2022-06-05] MEDS: lisinopriL 5 MG TABLET PO SCH (08:59)
[2022-06-05] MEDS: Metoprolol XL (24 HR) Succ 25 MG TAB.ER.24H PO SCH (08:59)
[2022-06-05] MEDS: Insulin DETEMIR 100 UNIT/ML X5UNITS SUBQ SCH ×2 (09:05→20:34)
[2022-06-05] MEDS ORDERED: 0.9 % Sodium Chloride 1,000 ML IVC SCH (10:15)
[2022-06-05] MEDS ORDERED: Ipratropium/Albuterol Neb 3 ML IH PRN (10:17)
[2022-06-05] MEDS: Gabapentin 300 MG CAPSULE PO SCH (20:33)
[2022-06-05] MEDS: Melatonin 3 MG TABLET PO PRN (22:43)
[2022-06-06] MEDS: *HR* OxyCODONE Immed Rel 15 MG TABLET PO PRN ×3 (02:49→15:38)
[2022-06-06] MEDS: *HR* Heparin 5,000 UNIT/ML VIAL SQ SCH ×2 (05:12→17:11)
[2022-06-06 05:53] LABS: Basophils # 0.1 K/mcL (0.0-0.2); Basophils % 0.6 %; Eosinophils # 0.3 K/mcL (0.0-0.6); Eosinophils % 3.3 %; Hematocrit 37.2 % (35.3-44.9); Hemoglobin 11.9 g/dL (11.5-15.4); Immature Granulocytes % 0.5 % (0-4); Lymphocytes # 2.9 K/mcL (0.6-4.6); Mean Corpuscular Hemoglobin 28.1 pg (28.0-33.3); Mean Corpuscular Volume 87.7 fL (83.0-100.0); Mean Platelet Volume 9.3 fL (9.4-12.4); Monocytes # 0.5 K/mcL (0.0-1.3); Monocytes % 6.2 %; Neutrophils # 4.9 K/mcL (1.6-8.9); Platelet Count 252 K/mcL (140-400); Red Blood Count 4.24 M/mcL (3.82-4.97); Red Cell Distribution Width 13.5 % (11.5-14.5); Segmented Neutrophils % 56.4 %; White Blood Count 8.7 K/mcL (4.3-11.1)
[2022-06-06 06:15] LABS: Magnesium 1.9 mg/dL (1.6-2.6); Potassium 4.2 mEq/L (3.5-5.1)
[2022-06-06] MEDS: *HR* Ticagrelor 90 MG TABLET PO SCH ×2 (08:31→20:10)
[2022-06-06] MEDS: lisinopriL 5 MG TABLET PO SCH (08:32)
[2022-06-06] MEDS: Aspirin 81 MG TAB.CHEW PO SCH (08:32)
[2022-06-06] MEDS: Metoprolol XL (24 HR) Succ 25 MG TAB.ER.24H PO SCH (08:32)
[2022-06-06] MEDS: Insulin LISPRO 300 UNITS/3 ML VIAL SUBQ SCH ×4 (08:32→20:10)
[2022-06-06] MEDS: Insulin DETEMIR 100 UNIT/ML X5UNITS SUBQ SCH ×2 (08:37→20:10)
[2022-06-06] MEDS ORDERED: Ondansetron 4 MG/2 ML VIAL IVP PRN (09:48)
[2022-06-06 12:33] LABS: BUN/Creatinine Ratio 26 (6-26); Blood Urea Nitrogen 18 mg/dL (6-20); Calcium 9.5 mg/dL (8.6-10.3); Carbon Dioxide 25 mEq/L (23-29); Chloride 104 mEq/L (98-107); Glucose 273 mg/dL (70-105); Osmolality,Calculated 294 (280-300); Potassium 4.3 mEq/L (3.5-5.1); Sodium 136 mEq/L (136-145)
[2022-06-06 14:24] VITALS: BP 150/79; PULSE 83; TEMP 98.6; O2SAT 95
[2022-06-06] MEDS: Gabapentin 300 MG CAPSULE PO SCH (20:10)
== END 2022-06-06 20:18 | disposition home or self-care (01) | DRG 392 ==
LOC: 2ANU 15:12 → EMEROOARM 15:12 → SUATTDRO 20:34 → 2ANU 21:35
PROVIDERS: ADMIT Internal Medicine; ATTEND General Practice

== ENCOUNTER 2022-07-13 07:44 | Observation (INO) ==
[2022-07-13] MEDS ORDERED: 0.9 % Sodium Chloride 1,000 ML IVC ONE ×2 (07:50→09:29)
[2022-07-13 08:47] LABS: Amphetamine Screen,Urine Negative ng/mL (Cutoff=1000); Barbiturate Screen,Urine Negative ng/mL (Cutoff=200); Benzodiazepines Screen,Urine Negative ng/mL (Cutoff=200); Cannabinoid Screen,Urine Negative ng/mL (Cutoff = 50); Cocaine Screen,Urine Negative ng/mL (Cutoff= 300); Opiate Screen,Urine Negative ng/mL (Cutoff=300); Phencyclidine Screen,Urine Negative ng/mL (Cutoff=25)
[2022-07-13 09:12] LABS: Bilirubin,Urine Negative (Negative); Blood,Urine Small (Negative); Clarity,Urine Clear (Clear); Color,Urine Colorless (Yellow); Glucose,Urine (UA) >=1000 mg/dL (Normal); Ketones,Urine >150 mg/dL (Negative); Leukocyte Esterase,Urine Negative (Negative); Nitrite,Urine Negative (Negative); PH,Urine 5.5 pH Units (5.0-8.0); Protein,Urine 50 mg/dL (Neg-Trace); RBC,Urine 0-3 per hpf (0-3); Specific Gravity,Urine 1.025 (1.010-1.025); Squamous Epithelial Cell,Urine Few per hpf (None-Few); Urobilinogen,Urine Normal (Normal); WBC,Urine 0-3 per hpf (0-3)
[2022-07-13 09:16] LABS: Basophils % 0.1 %; Hematocrit 44.6 % (35.3-44.9); Immature Granulocytes % 0.4 % (0-4); Lymphocytes # 0.5 K/mcL (0.6-4.6); Lymphocytes % 3.1 %; Mean Corpuscular HGB Conc 31.4 g/dL (31.6-35.5); Mean Corpuscular Hemoglobin 27.5 pg (28.0-33.3); Mean Corpuscular Volume 87.5 fL (83.0-100.0); Mean Platelet Volume 9.4 fL (9.4-12.4); Monocytes # 1.3 K/mcL (0.0-1.3); Monocytes % 7.4 %; Neutrophils # 15.3 K/mcL (1.6-8.9); Platelet Count 420 K/mcL (140-400); Red Cell Distribution Width 14.1 % (11.5-14.5); White Blood Count 17.2 K/mcL (4.3-11.1)
[2022-07-13 09:27] LABS: INR 0.9; Prothrombin Time 10.5 Seconds (9.4-12.1)
[2022-07-13 09:29] LABS: Activated Partial Thrombo Time 31.4 Seconds (26.0-36.0)
[2022-07-13] MEDS ORDERED: *HR* Dextrose 50 % in Water (Syg) 50 ML SYRINGE IVP PRN ×2 (09:30→11:55)
[2022-07-13 09:43] LABS: Alanine Aminotransferase 7 Units/L (7-52); Albumin 3.8 g/dL (3.5-5.7); Albumin/Globulin Ratio 1.1 (1.1-2.2); Alkaline Phosphatase 192 Units/L (34-104); Aspartate Amino Transferase 8 Units/L (13-39); BUN/Creatinine Ratio 44 (6-26); Bilirubin,Indirect 0.4 mg/dL (0.0-1.0); Bilirubin,Total 0.4 mg/dL (0.3-1.0); Blood Urea Nitrogen 55 mg/dL (6-20); Calcium 9.2 mg/dL (8.6-10.3); Carbon Dioxide 7 mEq/L (23-29); Chloride 92 mEq/L (98-107); Creatine Kinase 29 Units/L (30-223); Ethanol < 10 mg/dL (Less than 10); Globulin 3.4 g/dL (2.4-3.5); Glucose 696 mg/dL (70-105); Osmolality,Calculated 308 (280-300); Potassium 5.2 mEq/L (3.5-5.1); Sodium 125 mEq/L (136-145); Total Protein 7.2 g/dL (6.4-8.9); Troponin I < 0.03 ng/mL (< 0.04)
[2022-07-13] MEDS ORDERED: Naloxone 0.4 MG/ML INJ IVP PRN (10:33)
[2022-07-13 10:53] LABS: ABG PCO2 < 13 mmHg (35-45); ABG PO2 116 mmHg (85-104)
[2022-07-13] MEDS ORDERED: D5% in 0.45% NACL 1,000 ML IVC PRN (11:55)
[2022-07-13] MEDS ORDERED: 0.9 % Sodium Chloride 1,000 ML IVC SCH (12:00)
[2022-07-13] MEDS: 0.9 % Sodium Chloride w KCl 20 MEQ/1,000 ML MLS IVC SCH (12:49)
[2022-07-13] MEDS: Ondansetron 4 MG/2 ML VIAL IVP PRN (13:03)
[2022-07-13 14:20] LABS: ABG Base Excess -14 mEq/L (-2 to 3); ABG HCO3 10 mEq/L (21-27); ABG Oxygen Saturation 95 % (95-98); ABG PCO2 20 mmHg (35-45); ABG PH 7.31 pH Units (7.32-7.45); ABG PO2 82 mmHg (85-104); ABG TCO2 11 mEq/L (20-26)
[2022-07-13 15:12] LABS: Calcium 9.1 mg/dL (8.6-10.3); Potassium 4.8 mEq/L (3.5-5.1)
[2022-07-13] MEDS: Acetaminophen 325 MG TABLET PO PRN (19:46)
[2022-07-13] MEDS: Pregabalin 75 MG CAPSULE PO SCH (19:47)
[2022-07-13 20:52] LABS: Hematocrit 40.4 % (35.3-44.9); Hemoglobin 13.4 g/dL (11.5-15.4)
[2022-07-13 21:03] LABS: Calcium 9.4 mg/dL (8.6-10.3); Potassium 4.8 mEq/L (3.5-5.1)
[2022-07-14] MEDS: D5% in 0.45% NACL w KCl 20 MEQ/1,000 ML MLS IVC PRN ×2 (01:14→07:33)
[2022-07-14] MEDS: *HR* Ticagrelor 90 MG TABLET PO SCH ×3 (01:15→20:18)
[2022-07-14] MEDS: 0.9 % Sodium Chloride 1,000 ML IVC SCH ×2 (01:15→07:39)
[2022-07-14] MEDS: Pregabalin 75 MG CAPSULE PO SCH ×4 (01:15→20:19)
[2022-07-14 03:19] LABS: Basophils % 0.2 %; Eosinophils # 0.1 K/mcL (0.0-0.6); Eosinophils % 0.7 %; Hematocrit 38.2 % (35.3-44.9); Hemoglobin 12.4 g/dL (11.5-15.4); Immature Granulocytes % 0.3 % (0-4); Lymphocytes # 0.9 K/mcL (0.6-4.6); Lymphocytes % 9.1 %; Mean Corpuscular HGB Conc 32.5 g/dL (31.6-35.5); Mean Corpuscular Hemoglobin 27.1 pg (28.0-33.3); Mean Corpuscular Volume 83.4 fL (83.0-100.0); Mean Platelet Volume 9.5 fL (9.4-12.4); Monocytes # 1.1 K/mcL (0.0-1.3); Monocytes % 11.1 %; Neutrophils # 7.5 K/mcL (1.6-8.9); Platelet Count 340 K/mcL (140-400); Red Blood Count 4.58 M/mcL (3.82-4.97); Red Cell Distribution Width 14.4 % (11.5-14.5); Segmented Neutrophils % 78.6 %; White Blood Count 9.5 K/mcL (4.3-11.1)
[2022-07-14 03:33] LABS: Calcium 9.4 mg/dL (8.6-10.3); Potassium 4.2 mEq/L (3.5-5.1)
[2022-07-14] MEDS: *HR* Heparin 5,000 UNIT/ML VIAL SQ SCH ×2 (05:46→17:08)
[2022-07-14] MEDS: 0.9 % Sodium Chloride w KCl 20 MEQ/1,000 ML MLS IVC SCH ×2 (07:39→07:41)
[2022-07-14] MEDS: Aspirin 81 MG TAB.CHEW PO SCH (08:12)
[2022-07-14] MEDS: Metoprolol XL (24 HR) Succ 25 MG TAB.ER.24H PO SCH (08:12)
[2022-07-14] MEDS: lisinopriL 10 MG TABLET PO SCH (08:12)
[2022-07-14] MEDS: Isosorbide MONOnitrate (24 HR) 30 MG TAB.ER.24H PO SCH (08:13)
[2022-07-14] MEDS: Ondansetron 4 MG/2 ML VIAL IVP PRN (08:21)
[2022-07-14 09:14] LABS: VBG Base Excess -7 mEq/L; VBG Chloride 109 mEq/L (98-107); VBG Glucose 71 mg/dl (65-95); VBG HCO3 19 mEq/L (21-27); VBG Ionized Calcium 1.26 mmol/L (1.15-1.35); VBG Oxygen Saturation 94 %; VBG PCO2 36 mmHg (41-51); VBG PH 7.32 pH Units (7.32-7.42); VBG PO2 77 mmHg (25-50); VBG Total CO2 20 mEq/L
[2022-07-14 09:26] LABS: Calcium 9.1 mg/dL (8.6-10.3); Potassium 3.6 mEq/L (3.5-5.1)
[2022-07-14] MEDS ORDERED: Insulin DETEMIR 100 UNIT/ML X5UNITS SUBQ SCH ×2 (10:00→21:00)
[2022-07-14] MEDS ORDERED: D5% in Water 1,000 ML IVC PRN (10:34)
[2022-07-14] MEDS ORDERED: Dextrose Gel 15 GM/37.5 ML TUBE PO PRN ×2 (10:34)
[2022-07-14] MEDS: *HR* OxyCODONE Immed Rel 15 MG TABLET PO PRN ×2 (11:02→17:52)
[2022-07-14] MEDS: Insulin LISPRO 300 UNITS/3 ML VIAL SUBQ SCH ×4 (12:33→17:09)
[2022-07-14] MEDS ORDERED: NOREPINEPHRINE IVC ONE (13:14)
[2022-07-14] MEDS ORDERED: Insulin LISPRO 300 UNITS/3 ML VIAL SUBQ SCH (21:00)
[2022-07-15 02:50] LABS: Hematocrit 35.5 % (35.3-44.9); Hemoglobin 11.3 g/dL (11.5-15.4); Mean Corpuscular HGB Conc 31.8 g/dL (31.6-35.5); Mean Corpuscular Hemoglobin 27.5 pg (28.0-33.3); Mean Corpuscular Volume 86.4 fL (83.0-100.0); Mean Platelet Volume 9.7 fL (9.4-12.4); Platelet Count 295 K/mcL (140-400); Red Blood Count 4.11 M/mcL (3.82-4.97); Red Cell Distribution Width 14.9 % (11.5-14.5)
[2022-07-15 03:11] LABS: Calcium 8.7 mg/dL (8.6-10.3); Magnesium 2.3 mg/dL (1.6-2.6); Potassium 4.3 mEq/L (3.5-5.1)
[2022-07-15] MEDS: *HR* Heparin 5,000 UNIT/ML VIAL SQ SCH ×2 (05:35→16:23)
[2022-07-15] MEDS ORDERED: Insulin LISPRO 300 UNITS/3 ML VIAL SUBQ SCH (07:30)
[2022-07-15] MEDS ORDERED: Insulin DETEMIR 100 UNIT/ML X5UNITS SUBQ SCH (09:00)
[2022-07-15] MEDS: Pregabalin 75 MG CAPSULE PO SCH ×2 (09:37→16:22)
[2022-07-15] MEDS: Aspirin 81 MG TAB.CHEW PO SCH (09:37)
[2022-07-15] MEDS: Metoprolol XL (24 HR) Succ 25 MG TAB.ER.24H PO SCH (09:37)
[2022-07-15] MEDS: Isosorbide MONOnitrate (24 HR) 30 MG TAB.ER.24H PO SCH (09:37)
[2022-07-15] MEDS: *HR* Ticagrelor 90 MG TABLET PO SCH ×2 (09:38→21:06)
[2022-07-15] MEDS: Insulin LISPRO 300 UNITS/3 ML VIAL SUBQ SCH ×6 (09:45→16:22)
[2022-07-15] MEDS: lisinopriL 10 MG TABLET PO SCH (09:46)
[2022-07-15] MEDS: Acetaminophen 325 MG TABLET PO PRN ×2 (12:17→21:05)
[2022-07-15 14:52] LABS: Calcium 9.2 mg/dL (8.6-10.3)
[2022-07-15 17:19] LABS: ABG Base Excess -4 mEq/L (-2 to 3); ABG HCO3 21 mEq/L (21-27); ABG Oxygen Saturation 97 % (95-98); ABG PCO2 33 mmHg (35-45); ABG PO2 86 mmHg (85-104); ABG TCO2 22 mEq/L (20-26)
[2022-07-15] MEDS: Insulin DETEMIR 100 UNIT/ML X5UNITS SUBQ SCH (21:05)
[2022-07-15] MEDS: Mag Hydrox/Al Hydrox/Simeth 30 ML UDC PO PRN (23:02)
[2022-07-16] MEDS: Acetaminophen 325 MG TABLET PO PRN (03:04)
[2022-07-16] MEDS: *HR* Heparin 5,000 UNIT/ML VIAL SQ SCH ×2 (07:07→17:02)
[2022-07-16] MEDS: Aspirin 81 MG TAB.CHEW PO SCH (08:44)
[2022-07-16] MEDS: *HR* Ticagrelor 90 MG TABLET PO SCH ×2 (08:45→19:43)
[2022-07-16] MEDS: Isosorbide MONOnitrate (24 HR) 30 MG TAB.ER.24H PO SCH (08:45)
[2022-07-16] MEDS: Metoprolol XL (24 HR) Succ 25 MG TAB.ER.24H PO SCH (08:45)
[2022-07-16] MEDS: Furosemide 40 MG TABLET PO SCH (08:45)
[2022-07-16] MEDS: lisinopriL 10 MG TABLET PO SCH (08:46)
[2022-07-16] MEDS: Insulin LISPRO 300 UNITS/3 ML VIAL SUBQ SCH ×6 (08:54→17:02)
[2022-07-16] MEDS: *HR* OxyCODONE Immed Rel 15 MG TABLET PO PRN ×3 (09:54→19:43)
[2022-07-16] MEDS: Insulin DETEMIR 100 UNIT/ML X5UNITS SUBQ SCH ×2 (09:55→21:21)
[2022-07-16] MEDS: Mag Hydrox/Al Hydrox/Simeth 30 ML UDC PO PRN (13:18)
[2022-07-17] MEDS: *HR* OxyCODONE Immed Rel 15 MG TABLET PO PRN (03:40)
[2022-07-17] MEDS: *HR* Heparin 5,000 UNIT/ML VIAL SQ SCH (05:24)
[2022-07-17 07:50] VITALS: BP 159/81; PULSE 101; TEMP 98.6; O2SAT 97
[2022-07-17] MEDS: Isosorbide MONOnitrate (24 HR) 30 MG TAB.ER.24H PO SCH (09:06)
[2022-07-17] MEDS: lisinopriL 10 MG TABLET PO SCH (09:06)
[2022-07-17] MEDS: Furosemide 40 MG TABLET PO SCH (09:06)
[2022-07-17] MEDS: Metoprolol XL (24 HR) Succ 25 MG TAB.ER.24H PO SCH (09:06)
[2022-07-17] MEDS: Aspirin 81 MG TAB.CHEW PO SCH (09:07)
[2022-07-17] MEDS: Insulin LISPRO 300 UNITS/3 ML VIAL SUBQ SCH ×4 (09:12→12:13)
[2022-07-17] MEDS: *HR* Ticagrelor 90 MG TABLET PO SCH (09:21)
[2022-07-17] MEDS: Insulin DETEMIR 100 UNIT/ML X5UNITS SUBQ SCH (09:22)
[2022-07-17] MEDS ORDERED: Flu Vac QV 22-23 (6MOS UP)/PF 0.5 ML SYRINGE IM ONE (12:01)
[2022-07-17] MEDS: Ondansetron 4 MG/2 ML VIAL IVP PRN (12:15)
== END 2022-07-17 12:56 | disposition home or self-care (01) ==
LOC: 3NENU 07:44 → EMEROOARM 07:44 → 2NNU 07:44 → SUATTDRO 07-14 00:10 → 2NNU 07-14 00:44 → 3ANU 07-16 05:34
PROVIDERS: ADMIT Internal Medicine; ATTEND Internal Medicine